=== PATIENT | female | born 1940 | race Caucasian/White ===

== ENCOUNTER 2016-10-23 12:36 | Outpatient (CLI) | payer MEDICARE, BC ==
[2016-10-23 17:53] LABS: EOSINOPHILS # (AUTO) 0.2 10^3/uL (0.0-0.7); EOSINOPHILS % (AUTO) 3.6 %; HCT - HEMATOCRIT 35.1 % (37.0-47.0); HGB - HEMOGLOBIN 11.6 g/dL (12.0-16.0); LYMPHOCYTES # (AUTO) 1.2 10^3/uL (1.5-3.5); LYMPHOCYTES % (AUTO) 26.6 %; MEAN CORPUSCULAR HEMOGLOBIN 32.2 pg (27.0-31.0); MEAN CORPUSCULAR HGB CONC 33.1 g/dL (32.0-36.0); MEAN CORPUSCULAR VOLUME 97.4 fL (81.0-99.0); MEAN PLATELET VOLUME 7.7 fL (7.9-10.8); MONOCYTES # (AUTO) 0.5 10^3/uL (0.0-1.0); MONOCYTES % (AUTO) 10.7 %; NEUTROPHILS # (AUTO) 2.6 10^3/uL (1.5-6.6); NEUTROPHILS % (AUTO) 58.1 %; RED CELL DISTRIBUTION WIDTH 16.5 % (12.0-15.0); UNCORRECTED WHITE BLOOD COUNT 4.6 x10^3/uL; WHITE BLOOD COUNT 4.6 x10^3/uL (4.8-10.8)
== END 2016-10-23 12:37 | disposition home or self-care (01) ==
LOC: LAB.F 12:36
PROVIDERS: ATTEND Physician Assistant Medical
DX: D64.9 Anemia, unspecified (principal)
CPT/HCPCS: 36415; 85025

== ENCOUNTER 2016-10-28 14:25 | Outpatient (CLI) | payer MEDICARE, BC ==
[2016-10-28 18:42] LABS: FERRITIN 70.9 ng/mL (11.0-306.8)
[2016-10-28 18:43] LABS: IRON 119 ug/dL (28-170); TOTAL IRON BINDING CAPACITY 365 ug/dL (250-450); TRANSFERRIN 261 mg/dL (192-382)
[2016-10-28 19:43] LABS: FOLATE > 49.60 ng/mL (5.90 - >24.8)
== END 2016-10-28 14:26 | disposition home or self-care (01) ==
LOC: LAB.F 14:25
PROVIDERS: ATTEND Physician Assistant Medical
DX: D64.9 Anemia, unspecified (principal)
CPT/HCPCS: 36415; 82607; 82728; 82746; 83540; 84466

== ENCOUNTER 2016-12-17 07:51 | Day surgery (SDC) | payer MEDICARE, BC ==
[2016-12-17] MEDS ORDERED: LACTATED RINGERS 1,000 ML IV ONE (08:42)
[2016-12-17] MEDS ORDERED: LIDOCAINE-MPF 2% 5 ML VIAL IM ONE (09:15)
[2016-12-17] MEDS ORDERED: PROPOFOL 200 MG/20 ML VIAL IVP ONE (09:15)
[2016-12-17] MEDS ORDERED: fentaNYL 100 MCG/2 ML VIAL IVP ONE (09:15)
[2016-12-17] MEDS ORDERED: MIDAZOLAM 2 MG/2 ML VIAL IVP ONE (09:15)
[2016-12-17 09:49] VITALS: BP 142/76
== END 2016-12-17 07:52 | disposition home or self-care (01) ==
LOC: SDS 07:51
PROVIDERS: ATTEND Surgery
PROC: 0DB78ZX Excision of Stomach, Pylorus, Via Natural or Artificial Opening Endoscopic, Diagnostic (ICD-10-PCS; principal; 2016-12-17 09:00)
DX: D64.9 Anemia, unspecified (principal); K29.50 Unspecified chronic gastritis without bleeding; K21.9 Gastro-esophageal reflux disease without esophagitis; Z79.82 Long term (current) use of aspirin; E78.5 Hyperlipidemia, unspecified; I10 Essential (primary) hypertension; F41.0 Panic disorder [episodic paroxysmal anxiety]; F32.9 Major depressive disorder, single episode, unspecified; Z90.49 Acquired absence of other specified parts of digestive tract; Z90.710 Acquired absence of both cervix and uterus; Z92.21 Personal history of antineoplastic chemotherapy; Z92.3 Personal history of irradiation; Z85.41 Personal history of malignant neoplasm of cervix uteri; Z82.49 Family history of ischemic heart disease and other diseases of the circulatory system
CPT/HCPCS: 43239; J7120

== ENCOUNTER 2017-01-15 12:58 | Outpatient (CLI) | payer MEDICARE, BC ==
[2017-01-15 18:46] LABS: BASOPHILS % (AUTO) 0.8 %; EOSINOPHILS # (AUTO) 0.2 10^3/uL (0.0-0.7); EOSINOPHILS % (AUTO) 3.4 %; HCT - HEMATOCRIT 36.7 % (37.0-47.0); HGB - HEMOGLOBIN 12.3 g/dL (12.0-16.0); LYMPHOCYTES # (AUTO) 1.3 10^3/uL (1.5-3.5); LYMPHOCYTES % (AUTO) 28.1 %; MEAN CORPUSCULAR HEMOGLOBIN 32.1 pg (27.0-31.0); MEAN CORPUSCULAR HGB CONC 33.5 g/dL (32.0-36.0); MEAN CORPUSCULAR VOLUME 95.8 fL (81.0-99.0); MEAN PLATELET VOLUME 8.3 fL (7.9-10.8); MONOCYTES # (AUTO) 0.5 10^3/uL (0.0-1.0); MONOCYTES % (AUTO) 10.4 %; NEUTROPHILS # (AUTO) 2.6 10^3/uL (1.5-6.6); NEUTROPHILS % (AUTO) 57.3 %; RED BLOOD COUNT 3.84 10^6/uL (4.20-5.40); RED CELL DISTRIBUTION WIDTH 14.6 % (12.0-15.0); UNCORRECTED WHITE BLOOD COUNT 4.6 x10^3/uL; WHITE BLOOD COUNT 4.6 x10^3/uL (4.8-10.8)
[2017-01-15 18:50] LABS: ALBUMIN/GLOBULIN RATIO 0.9 (1.0-2.2); BILIRUBIN,TOTAL 0.9 mg/dL (0.2-1.0); BUN - BLOOD UREA NITROGEN 23 mg/dL (6-20); CALCIUM 9.4 mg/dL (8.5-10.3); CARBON DIOXIDE - CO2 30 mmol/L (21-32); CHLORIDE 100 mmol/L (101-111); GFR - MDRD 54 (>89); GLUCOSE 84 mg/dL (70-100); POTASSIUM 3.9 mmol/L (3.5-5.0); SODIUM 138 mmol/L (135-145); TOTAL PROTEIN 7.8 g/dL (6.7-8.2)
[2017-01-15 19:25] LABS: THYROID STIMULATING HORMONE 0.09 uIU/mL (0.34-5.60)
== END 2017-01-15 12:59 | disposition home or self-care (01) ==
LOC: LAB.F 12:58
PROVIDERS: ATTEND Physician Assistant Medical
DX: R53.83 Other fatigue (principal); D64.9 Anemia, unspecified; I10 Essential (primary) hypertension; R35.0 Frequency of micturition
CPT/HCPCS: 36415; 80053; 84439; 84443; 85025; 87086

== ENCOUNTER 2017-01-19 13:41 | Outpatient (CLI) | payer MEDICARE, BC | END 2017-01-19 13:42 | disposition home or self-care (01) | LOC: LAB.F 13:41 | PROVIDERS: ATTEND Physician Assistant Medical | DX: R89.9 Unspecified abnormal finding in specimens from other organs, systems and tissues (principal); R53.83 Other fatigue; I89.0 Lymphedema, not elsewhere classified; E03.9 Hypothyroidism, unspecified | CPT/HCPCS: 36415; 84146 ==

== ENCOUNTER 2017-01-28 12:39 | Outpatient (CLI) | payer MEDICARE, BC ==
[2017-01-28 17:50] LABS: BASOPHILS % (AUTO) 0.9 %; EOSINOPHILS # (AUTO) 0.1 10^3/uL (0.0-0.7); EOSINOPHILS % (AUTO) 2.9 %; HCT - HEMATOCRIT 35.3 % (37.0-47.0); HGB - HEMOGLOBIN 11.6 g/dL (12.0-16.0); LYMPHOCYTES # (AUTO) 1.3 10^3/uL (1.5-3.5); LYMPHOCYTES % (AUTO) 32.7 %; MEAN CORPUSCULAR HEMOGLOBIN 31.4 pg (27.0-31.0); MEAN CORPUSCULAR HGB CONC 32.9 g/dL (32.0-36.0); MEAN CORPUSCULAR VOLUME 95.6 fL (81.0-99.0); MEAN PLATELET VOLUME 8.1 fL (7.9-10.8); MONOCYTES # (AUTO) 0.5 10^3/uL (0.0-1.0); MONOCYTES % (AUTO) 11.1 %; NEUTROPHILS # (AUTO) 2.1 10^3/uL (1.5-6.6); NEUTROPHILS % (AUTO) 52.4 %; RED CELL DISTRIBUTION WIDTH 14.9 % (12.0-15.0); UNCORRECTED WHITE BLOOD COUNT 4.1 x10^3/uL; WHITE BLOOD COUNT 4.1 x10^3/uL (4.8-10.8)
[2017-01-28 18:27] LABS: THYROID STIMULATING HORMONE < 0.08 uIU/mL (0.34-5.60)
== END 2017-01-28 12:40 | disposition home or self-care (01) ==
LOC: LAB.F 12:39
PROVIDERS: ATTEND Physician Assistant Medical
DX: E03.9 Hypothyroidism, unspecified (principal); R89.9 Unspecified abnormal finding in specimens from other organs, systems and tissues; R53.83 Other fatigue
CPT/HCPCS: 84439; 84443; 84481; 85025

== ENCOUNTER 2017-12-14 15:21 | Outpatient (CLI) | payer MEDICARE, BC | END 2017-12-14 15:22 | disposition home or self-care (01) | LOC: LAB.F 15:21 | PROVIDERS: ATTEND Internal Medicine | DX: E03.9 Hypothyroidism, unspecified (principal) | CPT/HCPCS: 36415; 84443 ==

== ENCOUNTER 2018-01-20 10:37 | Outpatient (CLI) | payer MEDICARE, BC ==
[2018-01-20 11:00] LABS: BASOPHILS % (AUTO) 0.7 %; EOSINOPHILS # (AUTO) 0.1 10^3/uL (0.0-0.7); EOSINOPHILS % (AUTO) 2.8 %; HGB - HEMOGLOBIN 11.9 g/dL (12.0-16.0); LYMPHOCYTES # (AUTO) 0.8 10^3/uL (1.5-3.5); LYMPHOCYTES % (AUTO) 17.4 %; MEAN CORPUSCULAR HEMOGLOBIN 32.7 pg (27.0-31.0); MEAN CORPUSCULAR VOLUME 96.2 fL (81.0-99.0); MEAN PLATELET VOLUME 7.2 fL (7.9-10.8); MONOCYTES # (AUTO) 0.5 10^3/uL (0.0-1.0); MONOCYTES % (AUTO) 9.9 %; NEUTROPHILS # (AUTO) 3.2 10^3/uL (1.5-6.6); NEUTROPHILS % (AUTO) 69.2 %; PLT - PLATELET COUNT 176 10^3/uL (130-450); RED BLOOD COUNT 3.63 10^6/uL (4.20-5.40); RED CELL DISTRIBUTION WIDTH 15.2 % (12.0-15.0); WHITE BLOOD COUNT 4.6 x10^3/uL (4.8-10.8)
[2018-01-20 11:33] LABS: ALBUMIN 3.8 g/dL (3.2-5.5); ALKALINE PHOSPHATASE 65 IU/L (42-121); ALT ALANINE AMINOTRANSFERASE 17 IU/L (10-60); AST ASPARTATE AMINOTRANSFERASE 25 IU/L (10-42); BILIRUBIN,TOTAL 1.1 mg/dL (0.2-1.0); BUN - BLOOD UREA NITROGEN 19 mg/dL (6-20); CALCIUM 9.2 mg/dL (8.5-10.3); CARBON DIOXIDE - CO2 29 mmol/L (21-32); CHLORIDE 100 mmol/L (101-111); CHOL/HDL RATIO 3.5 (<4.4); CHOLESTEROL 197 mg/dL; CREATININE 0.9 mg/dL (0.4-1.0); GFR - MDRD 61 (>89); GLUCOSE 98 mg/dL (70-100); HDL CHOLESTEROL 57 mg/dL; LDL CHOLESTEROL,CALCULATED 122 mg/dL; LDL/HDL RATIO 2.1 (<4.4); SODIUM 139 mmol/L (135-145); TOTAL PROTEIN 7.5 g/dL (6.7-8.2); VLDL CHOLESTEROL 18 mg/dL
== END 2018-01-20 10:38 | disposition home or self-care (01) ==
LOC: LAB 10:37
PROVIDERS: ATTEND Registered Nurse
DX: I10 Essential (primary) hypertension (principal); E78.2 Mixed hyperlipidemia; D63.0 Anemia in neoplastic disease
CPT/HCPCS: 36415; 80053; 80061; 83721; 85025

== ENCOUNTER 2019-02-03 10:33 | Outpatient (CLI) | payer MEDICARE, BC ==
[2019-02-03 11:06] LABS: EOSINOPHILS # (AUTO) 0.1 10^3/uL (0.0-0.7); EOSINOPHILS % (AUTO) 2.9 %; HGB - HEMOGLOBIN 13.5 g/dL (12.0-16.0); LYMPHOCYTES # (AUTO) 1.2 10^3/uL (1.5-3.5); LYMPHOCYTES % (AUTO) 28.5 %; MEAN CORPUSCULAR HEMOGLOBIN 32.6 pg (27.0-31.0); MEAN CORPUSCULAR HGB CONC 31.8 g/dL (32.0-36.0); MEAN CORPUSCULAR VOLUME 102.4 fL (81.0-99.0); MEAN PLATELET VOLUME 9.4 fL (7.9-10.8); MONOCYTES # (AUTO) 0.4 10^3/uL (0.0-1.0); MONOCYTES % (AUTO) 9.7 %; NEUTROPHILS # (AUTO) 2.4 10^3/uL (1.5-6.6); NEUTROPHILS % (AUTO) 57.7 %; PLT - PLATELET COUNT 194 10^3/uL (130-450); RED BLOOD COUNT 4.14 10^6/uL (4.20-5.40); RED CELL DISTRIBUTION WIDTH 14.5 % (12.0-15.0); WHITE BLOOD COUNT 4.1 x10^3/uL (4.8-10.8)
[2019-02-03 11:24] LABS: ALBUMIN 3.8 g/dL (3.2-5.5); ALKALINE PHOSPHATASE 80 IU/L (42-121); ALT ALANINE AMINOTRANSFERASE 15 IU/L (10-60); AST ASPARTATE AMINOTRANSFERASE 23 IU/L (10-42); BILIRUBIN,TOTAL 1.5 mg/dL (0.2-1.0); BUN - BLOOD UREA NITROGEN 21 mg/dL (6-20); CALCIUM 9.3 mg/dL (8.5-10.3); CARBON DIOXIDE - CO2 28 mmol/L (21-32); CHLORIDE 102 mmol/L (101-111); CHOL/HDL RATIO 2.7 (<4.4); CHOLESTEROL 179 mg/dL; CREATININE 0.7 mg/dL (0.4-1.0); GFR - MDRD 81 (>89); GLUCOSE 97 mg/dL (70-100); HDL CHOLESTEROL 67 mg/dL; LDL CHOLESTEROL,CALCULATED 101 mg/dL; LDL/HDL RATIO 1.5 (<4.4); SODIUM 140 mmol/L (135-145); TOTAL PROTEIN 7.6 g/dL (6.7-8.2); VLDL CHOLESTEROL 11 mg/dL
[2019-02-03 11:38] LABS: THYROID STIMULATING HORMONE 3.06 uIU/mL (0.34-5.60)
[2019-02-03 11:40] LABS: FREE T4 (FREE THYROXINE) 1.11 ng/dL (0.58-1.64)
== END 2019-02-03 10:34 | disposition home or self-care (01) ==
LOC: LAB 10:33
PROVIDERS: ATTEND Physician Assistant Medical
DX: I10 Essential (primary) hypertension (principal); E78.5 Hyperlipidemia, unspecified; E03.9 Hypothyroidism, unspecified
CPT/HCPCS: 36415; 80053; 80061; 83721; 84439; 84443; 84481; 85025

== ENCOUNTER 2019-09-22 12:46 | Emergency (ER) | payer MEDICARE, BC ==
[2019-09-22] MEDS ORDERED: ceFAZolin 1 GM VIAL IM STA (15:37)
--- NOTE | 2019-09-22 15:39 | ED Physician Documentation ---
PD HPI LOWER EXT INJURY - Stated complaint Stated Complaint: BILAT LEG PX/REDNESS - Chief complaint Chief Complaint: Ext Problem - History obtained from History obtained from: Patient (79-year-old woman history of cancer status post lymph node dissection presents with a worsening of her edema over the last couple of days which is a chronic issue and now some redness over the last couple of nights. She has no increase in chills or fever. Pain is tolerable.), Family () Review of Systems Ten Systems: 10 systems reviewed and negative Constitutional: denies: Fever, Chills Cardiac: denies: Chest pain / pressure, Palpitations Respiratory: denies: Dyspnea, Cough PD PAST MEDICAL HISTORY - Past Medical History Past Medical History: Yes Cardiovascular: High cholesterol Respiratory: Sleep apnea, CPAP use Endocrine/Autoimmune: None GI: GERD : Incontinence HEENT: Chronic vision loss Psych: Depression Musculoskeletal: Osteoarthritis, Chronic back pain Derm: None - Past Surgical History Past Surgical History: Yes General: Cholecystectomy, Appendectomy Ortho: Spine surgery /[employer]: Hysterectomy - Present Medications Home Medications: Ambulatory Orders Medication Instructions Recorded Confirmed Atorvastatin Calcium 20 mg PO DAILY 12/01/13 12/17/16 Cholecalciferol (Vitamin D3) 2,000 unit PO BID 12/01/13 12/17/16 [D-2000] Levothyroxine [Synthroid] 150 mcg PO QDAC 12/01/13 12/17/16 Multivitamin [Multi-Vitamin Daily] 1 tab PO DAILY 12/01/13 12/17/16 [place]-3/Dha/Epa/Fish Oil [Fish Oil 1 each PO BID 12/01/13 12/17/16 [place]-3 Softgel] Sertraline [Zoloft] 100 mg PO DAILY 12/01/13 12/17/16 Benazepril HCl 20 mg PO DAILY 12/08/15 12/17/16 Cyclobenzaprine [Flexeril] 10 mg PO Q6H PRN 12/08/15 12/17/16 Hydrocodone/Acetaminophen 5 - 325 mg PO Q8H PRN 12/08/15 12/17/16 [Hydrocodone-Acetamin 7.5-325] Ubidecarenone [Co Q-10] 200 mg PO DAILY 12/08/15 12/17/16 Acetaminophen [Tylenol] 650 mg PO Q8H PRN 10/21/16 12/17/16 Aspirin [Adult Low Dose Aspirin EC] 81 mg PO DAILY 10/21/16 12/16/16 Ferrous Sulfate 325 mg PO BID 10/21/16 12/17/16 Furosemide 40 mg PO BID 10/21/16 12/17/16 Gabapentin [Neurontin] 200 mg PO BID 10/21/16 12/17/16 Lactobac No.21/Bifidobact No.6 2 cap PO DAILY 10/21/16 12/17/16 [Up-Up Probiotic Supplement] Potassium Chloride [K-Dur] 20 meq PO BID 10/21/16 12/17/16 Vitamin B Complex 1 tab PO DAILY 10/21/16 12/17/16 Cephalexin [Keflex] 500 mg PO Q6H #40 capsule 09/22/19 - Allergies Allergies/Adverse Reactions: Allergies Allergy/AdvReac Type Severity Reaction Status Date / Time ampicillin AdvReac Rash Verified 09/22/19 12:56 - Social History Does the pt smoke?: No Smoking Status: Never smoker Does the pt drink ETOH?: No - Immunizations Immunizations are current?: Yes PD ED PE NORMAL - Vitals Vital signs reviewed: Yes - General General: Alert and oriented X 3, No acute distress - HEENT HEENT: PERRL, EOMI - Neck Neck: Supple, no meningeal sign, No bony TTP - Cardiac Cardiac: RRR, No murmur - Respiratory Respiratory: No respiratory distress, Clear bilaterally - Abdomen Abdomen: Non tender - Derm Derm: Normal color, Warm and dry - Extremities Extremities: Other (She has lymphedema of both legs with mild cellulitis of both anterior shins, left worse than right. There are couple small weeping areas on the left moran.) - Neuro Neuro: Alert and oriented X 3, Normal speech Results - Vitals Vitals: Vital Signs - 24 hr 09/22/19 09/22/19 09/22/19 12:56 14:51 15:33 Temperature 36.6 C Heart Rate 82 67 65 Respiratory 16 17 17 Rate Blood Pressure 143/64 H 134/67 H 160/62 H O2 Saturation 93 96 98 09/22/19 16:57 Temperature Heart Rate 59 L Respiratory 20 Rate Blood Pressure 160/76 H O2 Saturation 98 Oxygen O2 Source Room air - Labs Labs: Laboratory Tests 09/22/19 09/22/19 09/22/19 15:49 15:49 15:49 WBC 6.3 RBC 4.37 Hgb 14.3 Hct 45.0 MCV 103.0 H MCH 32.7 H MCHC 31.8 L RDW 14.7 Plt Count 276 MPV 9.6 Neut # (Auto) 3.9 Lymph # (Auto) 1.4 L [place] # (Auto) 0.5 Eos # (Auto) 0.2 Baso # (Auto) 0.0 Absolute Nucleated RBC 0.00 Nucleated RBC % 0.0 Sodium 138 Potassium 4.8 Chloride 101 Carbon Dioxide 27 Anion Gap 10.0 BUN 28 H Creatinine 1.1 H Estimated GFR (MDRD) 48 L Glucose 105 H Lactic Acid 0.8 Calcium 9.4 Total Bilirubin 1.2 H AST 20 ALT 18 Alkaline Phosphatase 66 Total Protein 7.8 Albumin 3.4 Globulin 4.4 H Albumin/Globulin Ratio 0.8 L Lipase 41 PD MEDICAL DECISION MAKING - ED course ED course: 79-year-old woman with chronic lymphedema presents with apparent cellulitis of both legs that looks mild. No systemic symptoms. DVT ultrasound somewhat limited but no obvious sign of DVT and clinically the answer is cellulitis. Received 2 g of Ancef IM here. Departure - Departure Disposition: Home, Self Care Clinical Impression: Bilateral cellulitis of lower leg Condition: Good Record reviewed to determine appropriate education?: Yes Instructions: Cellulitis Dc Prescriptions: Cephalexin [Keflex] 500 mg PO Q6H #40 capsule Comments: Return if you develop fevers, chills, other worrisome symptoms or if the redness gets much worse. Follow-up with your doctor on Wednesday for recheck. Elevate your legs as much as possible. Continue your current lymphedema care.
[2019-09-22 15:59] LABS: BASOPHILS % (AUTO) 0.3 %; EOSINOPHILS # (AUTO) 0.2 10^3/uL (0.0-0.7); EOSINOPHILS % (AUTO) 3.4 %; HGB - HEMOGLOBIN 14.3 g/dL (12.0-16.0); LYMPHOCYTES # (AUTO) 1.4 10^3/uL (1.5-3.5); MEAN CORPUSCULAR HEMOGLOBIN 32.7 pg (27.0-31.0); MEAN CORPUSCULAR HGB CONC 31.8 g/dL (32.0-36.0); MEAN PLATELET VOLUME 9.6 fL (7.9-10.8); MONOCYTES # (AUTO) 0.5 10^3/uL (0.0-1.0); NEUTROPHILS # (AUTO) 3.9 10^3/uL (1.5-6.6); NEUTROPHILS % (AUTO) 62.6 %; PLT - PLATELET COUNT 276 10^3/uL (130-450); RED BLOOD COUNT 4.37 10^6/uL (4.20-5.40); RED CELL DISTRIBUTION WIDTH 14.7 % (12.0-15.0); WHITE BLOOD COUNT 6.3 x10^3/uL (4.8-10.8)
[2019-09-22 16:11] LABS: ALBUMIN 3.4 g/dL (3.2-5.5); ALBUMIN/GLOBULIN RATIO 0.8 (1.0-2.2); BILIRUBIN,TOTAL 1.2 mg/dL (0.2-1.0); CALCIUM 9.4 mg/dL (8.5-10.3); CREATININE 1.1 mg/dL (0.4-1.0); TOTAL PROTEIN 7.8 g/dL (6.7-8.2)
--- NOTE | 2019-09-22 18:20 | Ultrasound Report ---
Reason: BLE swelling Procedure Date: 09/22/2019 Accession Number: [id number] / [id number] Procedure: US - Duplex Ext Veins Bilateral CPT Code: Final Report FULL RESULT: EXAM: BILATERAL LOWER EXTREMITY VENOUS ULTRASOUND EXAM DATE: 09/22/2019 05:18 PM. CLINICAL HISTORY: Bilateral lower extremity swelling. COMPARISON: None. TECHNIQUE: Real-time sonographic vascular imaging was performed by the graduate internship through the lower extremities utilizing both color-flow and Doppler spectral analysis. Multiple traffic representative static images were saved for review. FINDINGS: Exam is markedly limited due to large body habitus and lower extremity swelling. The common femoral through proximal superficial femoral veins are patent. The visualized segments of the mid through distal superficial femoral veins appear to be patent. The popliteal and deep calf veins, however, are not visualized. IMPRESSION: Markedly limited exam as above. No evidence of deep venous thrombosis above the knee; however, exam is nondiagnostic below this level. RADIA
[2019-09-22 18:28] VITALS: BP 185/82
== END 2019-09-22 18:39 | disposition home or self-care (01) ==
LOC: ED 12:46
DX: L03.116 Cellulitis of left lower limb (principal); L03.115 Cellulitis of right lower limb; Z79.82 Long term (current) use of aspirin
CPT/HCPCS: 36415; 80053; 83605; 83690; 85025; 87040; 93970; 96372; 99284

== ENCOUNTER 2019-12-01 12:37 | Outpatient (CLI) | payer MEDICARE, OTHER ==
[2019-12-01 14:04] VITALS: BP 152/90
--- NOTE | 2019-12-01 14:04 | SLEEP CARE CONSULTATION ---
Information from patient questionnaire entered by Amparo Nunn. I have reviewed and concur with the information entered by Amparo Nunn. This document represents the service I personally performed and the decisions made by me, Kenzie Batista ARNP. 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 denies: Snoring Toss, Turn, or Twitch while sleeping: No Recalls having dreams: Yes Usually gets out of bed at: 10 AM usually Feels refreshed in the morning: No Morning headache: Yes (3-4 times a week, takes something right away, leaves in an hour) Sleepy or fatigued during the day: Yes Ever fallen asleep while driving: Yes (Doesn't drive anymore) Takes day naps: Yes Dreams during day naps: No Prior sleep studies: Yes Year and Where: 2001 - 2003 Additional HPI information: She was originally diagnosed in 2001 and used her CPAP "religiously". She has not been using the CPAP for the last 2 years. She has to sleep in her recliner and it gets very cold in her house (she is unable to get up to start a fire) and the CPAP air made her very cold so she subsequently stopped using it. She is now using oxygen, 2 L just when sleeping. She was recently admitted to the hospital and they noted desaturations of her oxygen during sleep. Her PCP recommended she get back on CPAP and has sent her here for reevaluation. She states that when she was on CPAP she did have she did not have choking/gasping for air, morning headaches, daytime sleepiness, insomnia, frequent awakening at night were reduced, and she no longer had pauses in breathing at night. - Parasomnia Symptoms Ever been unable to move upon waking from sleep: No Walks in sleep: No Talks in sleep: Yes Ever acted out dreams in sleep: Yes (sometimes) Ever felt weak in the knees when startled or emotional: No Bothered by creepy, crawly, restless sensations in legs: Yes (couple times a night, crawling sensation) Problems with memory or concentration: Yes (chemo brain) Subjective Initial [place] Sleepiness Scale score: 19 (in 2020) Past Medical History Past Medical History: reports: Hypertension, Claustrophobia, Arthritis, Hypothyroidism (thyroid removed 2007), Anemia, Anxiety, Depression, GERD, Other (lymphedema, thyroid, cellulitis, elevated glucose, hx endometrial cancer 2011, hx degenerative disc disease). 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 Patient is and lives in [place]. Have you smoked in the past 12 months: No Alcohol use: No Caffeine use: No Caffeine amount and frequency: decaf tea/occasional coffee Family History Family history of sleep disordered breathing: No Allergies and Home Medications Drug allergies reviewed: Yes (ampicillin) Home medication list reviewed: Yes (see list) Review of Systems Weight gain over past 5 years: 60 Cardiovascular: reports: high blood pressure, leg or foot swelling (lymphoma), other (sleeps sitting up due to back pain/hardware in back). denies: palpitations, chest pain, irregular heart rate or pulse, have to sleep sitting up Respiratory: reports: shortness of breath, wheeze Gastrointestinal: reports: heartburn, difficulty swallowing (thinks it might be due to taking too big bites and eating fast; PCP recommended omeprazole, not taking), diarrhea, abdominal pain Urinary: reports: incontinence, frequency, urgency Neurological: reports: headaches, disorientation, gait or balance problems. denies: seizure, head trauma Psychiatric: reports: anxiety, depression, claustrophobia. denies: Attention Deficit Hyperactivity, mood disorder Ear/Nose/Throat: reports: nose bleeds (couple times a year), dry mouth/throat (just recently problem throughout the day). denies: nasal congestion, sinus problems, hoarseness, injury to nose, tonsillectomy, wisdom teeth removed Endocrine: reports: thyroid disease, sluggishness, too hot or cold, excessive thirst, increased urination Musculoskeletal: reports: joint pain, neck pain, back pain, mobility problems Immunologic: reports: other (lymphedema since 2011) Physical Exam Blood Pressure: 152/90 Cuff size: large Heart Rate: 64 O2 Saturation: 97 Height: 5 ft 3 in Weight: 282 lb 9.6 oz Body Mass Index: 50.1 BMI Classification: Morbidly Obese Neck circumference: 16.5 (inches) Nasal exam: positive: blood tinged nasal secretions HEENT: No craniofacial malformation Nostrils: patent to airflow Turbinates: normal Septum: midline Mouth and throat: normal Soft palate: normal Hard palate: normal Uvula: normal Uvula visualization: 100% Mallampati Class I Tongue: normal in size Tonsils: small Chin and jaw: normal size and position Neck: normal w/o lymphadenopathy or thyromegaly Heart: regular rate and rhythm Lungs: clear bilaterally Impression and Plan 1. Obstructive Sleep Apnea-Hypopnea Syndrome, as previously diagnosed. Previously observed cessation of breath while asleep, gasping or choking in sleep, morning headache, frequent awakening during the night, unrefreshed sleep, cognitive impairment, and excessive daytime sleepiness. Patient was unsure she would be able to do an in house study because she sleeps in her recliner at home due to chronic back pain issues. She opted to try to do a HST. She has been diagnosed with JOSE RAFAEL previously with use of CPAP and this should be acceptable to re-verify her JOSE RAFAEL and get her back to treatment if needed. She continues use of 2 L oxygen at night for low oxygen saturations at night noted during recent hospital stay. I recommend proceeding to polysomnography to confirm the diagnosis and to assess severity. I informed the patient of what the sleep studies involve and after some discussion, obtained agreement to proceed. The pathophysiology of obstructive sleep apnea-hypopnea syndrome was discussed with the patient and he alth risks of cardiovascular and cerebrovascular disease if not treated. AASM brochure for obstructive sleep apnea-hypopnea syndrome given and reviewed. 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 Patient states she does not drive. Patient agreed to plan. * Schedule HST polysomnography. * Avoid alcohol, sedative and muscle relaxant around bedtime. * Attempt to lose weight. * Review instructions provided by trained office staff on how to prepare for the sleep study. * Return for follow-up after sleep study completed. Visit Type: In Office Time Spent with Patient (minutes): 38 Provider Statement: I spent 100% of the Face to Face Visit with the patient with greater than 50% spent counseling the patient and coordination of care.
== END 2019-12-01 12:38 | disposition home or self-care (01) ==
LOC: SC 12:37
PROVIDERS: ATTEND Nurse Practitioner Family
DX: G47.33 Obstructive sleep apnea (adult) (pediatric) (principal); G47.00 Insomnia, unspecified; G47.9 Sleep disorder, unspecified; G47.10 Hypersomnia, unspecified; R06.89 Other abnormalities of breathing; I10 Essential (primary) hypertension; F40.240 Claustrophobia; E66.01 Morbid (severe) obesity due to excess calories; Z68.43 Body mass index [BMI] 50.0-59.9, adult; Z98.1 Arthrodesis status
CPT/HCPCS: 99204; G0463; 99212

== ENCOUNTER 2019-12-18 19:30 | Outpatient (CLI) | payer MEDICARE, OTHER | END 2019-12-18 23:59 | disposition home or self-care (01) | LOC: SC 19:30 | PROVIDERS: ATTEND Internal Medicine Pulmonary Disease | DX: G47.33 Obstructive sleep apnea (adult) (pediatric) (principal); E66.01 Morbid (severe) obesity due to excess calories; Z68.43 Body mass index [BMI] 50.0-59.9, adult | CPT/HCPCS: G0399 ×2; 95806 ==

== ENCOUNTER 2020-01-03 16:18 | Outpatient (CLI) | payer MEDICARE, OTHER ==
--- NOTE | 2020-01-03 16:49 | SLEEP CARE CONSULTATION ---
Information from patient questionnaire entered by Kermit Mcadams. I have reviewed and concur with the information entered by Kermit Mcadams. This document represents the service I personally performed and the decisions made by me, Kenzie Batitsa ARNP. History of Present Illness Service Date and Time: 01/03/20201617 Initial [place] Sleepiness Scale score: 19 (in 2020) Current [place] Sleepiness Scale score: 22 Additional HPI information: ASH MAGALLON returns with spouse for follow up and results of the recently performed home sleep study. I explained the pathophysiology behind obstructive sleep apnea. We then spent quite a bit of time discussing different treatment options. For mild obstructive sleep apnea, surgery and oral appliance are alternatives to nasal CPAP therapy but in moderate or severe cases, nasal CPAP is the most effective and reliable treatment. After some discussion, the patient opted to go with the nasal CPAP therapy. Nasal autoCPAP set at 4-15 cmH20 will be ordered with rationale explained. A manual titration study will be ordered if unable to find optimal pressure with office adjustments. I explained how CPAP machine works with sample devices [email or web address] and [employer] [id number] and what to expect when using the machine. Using CPAP every night in order to get used to it was emphasized. Patient advised to put CPAP mask on before getting into bed so as not to fall asleep without CPAP. To assist acclimation to CPAP use, it could also be used for a short time during day while reading or watching TV. The patient was instructed to call the CPAP supplier to discuss any mechanical problem that may occur. If the mask given is uncomfortable or is difficult to keep on through the night even with adjustment, contact the CPAP supplier as many will replace with another mask style if notified before 30 days. If snoring or perceives is not getting enough air or too much air from the machine, notify this office. AASM patient education PAP tips reviewed and given to patient. Sleep Study - Results Type of Sleep Study: Home sleep study Prior sleep studies: Yes Year and Where: 2001 - 2003 Polysomnography/Home Sleep Study results: SLEEP TIME AND EFFICIENCY: The sleep study recording began at 11:39:58 PM and ended at 08:06:04 AM. Total recording time was 506.1 minutes. The total sleep time was 427.0 minutes. The sleep efficiency was 84.4 percent. The patient spent 420.0 minutes supine, and spent 7.0 minutes non-supine. The patients own estimate of sleep time was 8.50 hours. RESPIRATORY DATA: The AHI in this report is indexed to sleep time based on actigraphy. The AASM defines this as APRIL. The AHI on this type 3 Home Sleep Study may understate the AHI determined on a type 1 or 2 study, since EEG is not monitored resulting in the inability to score non-desaturating hypopneas. Based on 4% Calculation: The AHI4% calculation of 16.4 per hour of recording time was based on a total of 92 scored apneas and 25 scored hypopneas with 4% desaturations. Supine AHI4%: 16.3 per hour. Non-supine AHI4%: 25.8 per hour. Oxygen Summary: Patient's baseline O2 saturation was 94.4 %. The patient spent 26.6 minutes at an oxygen saturation less than 90%, and 9.9 minutes less than 85%. The desaturation index was 10.1 events per hour sleep time. The lowest saturation was 76.5 %. SNORING: The percent of the study time spent snoring was 0.0 %. The Snoring Count was 6 . The Snoring Index was 0.8 . PULSE RATE REVIEW: The mean heart rate was 66 beats per minute. The rate ranged from a low of 39 to a high of 99 beats per minute. DIAGNOSIS CODE: Moderate obstructive sleep apnea G47.33, occurring independently of body position Moderate desaturations were noted. Allergies and Home Medications Drug allergies reviewed: Yes (ampicillin) Home medication list reviewed: Yes (no changes) Review of Systems Review of systems same as previous: Yes (no changes) Physical Exam Heart Rate: 67 O2 Saturation: 95 Height: 5 ft 3 in Weight: 276 lb Body Mass Index: 48.9 BMI Classification: Morbidly Obese Impression and Plan 1. Obstructive Sleep Apnea-Hypopnea Syndrome, moderate, with lowest oxygen saturation of 76.5%. Obviously this is the cause of the patients symptoms of unrefreshed sleep, and excessive daytime sleepiness. Positive pressure therapy could benefit her hypertension and overall health. Patient has used a CPAP machine in the past with some issues of dry mouth. She would like to move forwar d with re-starting on CPAP therapy. As mentioned above, the patient will be started on nasal autoCPAP therapy with pressure set at 4-15 cmH2O. A manual titration study will be completed if unable to find optimal treatment pressure with office adjustments. Compliance guidelines also reviewed. A copy of compliance guidelines will be given for reference at check out. Patient wears 2 Liter of oxygen at night when sleeping. She will need an adaptor to connect oxygen to her CPAP machine. * Nasal auto CPAP therapy, pressure at 4-15 cm H2O with oxygen adaptor. * Attempt to lose weight. * Avoid alcohol consumption near bedtime. * Avoid non-supine sleep until using CPAP. * The patient is again cautioned about driving until sleepiness completely resolves. * Return one month after CPAP obtained. I will assess response to therapy and compliance at that time. Visit Type: In Office Time Spent with Patient (minutes): 20 Provider Statement: I spent 100% of the Face to Face Visit with the patient with greater than 50% spent counseling the patient and coordination of care.
== END 2020-01-03 16:19 | disposition home or self-care (01) ==
LOC: SC 16:18
PROVIDERS: ATTEND Nurse Practitioner Family
DX: G47.33 Obstructive sleep apnea (adult) (pediatric) (principal); E66.01 Morbid (severe) obesity due to excess calories; Z68.42 Body mass index [BMI] 45.0-49.9, adult
CPT/HCPCS: 99213; G0463; 99212

== ENCOUNTER 2020-02-26 16:13 | Outpatient (CLI) | payer MEDICARE, OTHER ==
--- NOTE | 2020-02-26 17:10 | XRAY Report ---
PROCEDURE: Foot 3 View BILAT INDICATIONS: TOE JOINT PAINFUL ON MOVEMENT TECHNIQUE: 6 views of the foot were acquired. COMPARISON: None FINDINGS: Bones: Moderate left-sided hallux valgus is seen with suggestion of hammertoe deformities involving l eft second and third toes. There is also suggestion of mild hammertoe deformity involving right secon d toe. Osteoarthritic changes throughout bilateral feet are seen. No fractures or dislocations. No gr oss bony erosive changes. No suspicious bony lesions. Well-defined bilateral plantar calcaneal enthe sophytes are seen. Soft tissues: No tibiotalar joint effusion. Achilles tendon appears normal. IMPRESSION: 1. Forefoot and midfoot joint osteoarthritis. No fracture or dislocation. 2. Moderate left-sided hallux valgus with hammertoe deformities involving left second and third toes. Mild hammertoe deformity involving right second toe. 3. Bilateral plantar calcaneal enthesophytes. Reviewed by: Eric Fabian MD on 02/26/2020 4:09 PM [email or web address] Approved by: Eric Fabian MD on 02/26/2020 4:09 PM AKDT Station ID: [id number]
== END 2020-02-26 16:14 | disposition home or self-care (01) ==
LOC: DI.S 16:13
PROVIDERS: ATTEND Registered Nurse
DX: M19.072 Primary osteoarthritis, left ankle and foot (principal); M19.071 Primary osteoarthritis, right ankle and foot; M20.12 Hallux valgus (acquired), left foot; M20.42 Other hammer toe(s) (acquired), left foot; M20.41 Other hammer toe(s) (acquired), right foot; M77.32 Calcaneal spur, left foot; M77.31 Calcaneal spur, right foot; G60.9 Hereditary and idiopathic neuropathy, unspecified

== ENCOUNTER 2020-03-01 12:56 | Emergency (ER) | payer MEDICARE, OTHER ==
[2020-03-01 13:06] VITALS: BP 167/73
[2020-03-01] MEDS ORDERED: cephALEXin 250 MG CAPSULE PO STA (14:03)
--- NOTE | 2020-03-01 14:05 | ED Physician Documentation ---
History of Present Illness - Stated complaint Stated Complaint: BILAT LEG PX - Chief complaint Chief Complaint: Ext Problem - History obtained from History obtained from: Patient, Family - History of Present Illness Timing: How many days ago (2) Pain level max: 2 Pain level now: 1 - Additonal information Additional information: 79 year old female with B LE swelling and erythema. H/o lymphedema. Was recently on keflex x 1 week, states improved, now off for 1 week No fevers. No chills. Has been off antibiotics now for about a week and feels that the redness is coming back. Nothing makes it better or worse. 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 - Present Medications Home Medications: Ambulatory Orders Medication Instructions Recorded Confirmed Atorvastatin Calcium 20 mg PO DAILY 12/01/13 12/17/16 Cholecalciferol (Vitamin D3) 2,000 unit PO BID 12/01/13 12/17/16 [D2000] Levothyroxine [Synthroid] 150 mcg PO QDAC 12/01/13 12/17/16 Multivitamin [Multi-Vitamin Daily] 1 tab PO DAILY 12/01/13 12/17/16 [place]-3/Dha/Epa/Fish Oil [Fish Oil 1 each PO BID 12/01/13 12/17/16 [place]-3 Softgel] Sertraline [Zoloft] 100 mg PO DAILY 12/01/13 12/17/16 Benazepril HCl 20 mg PO DAILY 12/08/15 12/17/16 Cyclobenzaprine [Flexeril] 10 mg PO Q6H PRN 12/08/15 12/17/16 Hydrocodone/Acetaminophen 5 - 325 mg PO Q8H PRN 12/08/15 12/17/16 [Hydrocodone-Acetamin 7.5-325] Ubidecarenone [Co Q-10] 200 mg PO DAILY 12/08/15 12/17/16 Acetaminophen [Tylenol] 650 mg PO Q8H PRN 10/21/16 12/17/16 Aspirin [Adult Low Dose Aspirin EC] 81 mg PO DAILY 10/21/16 12/16/16 Ferrous Sulfate 325 mg PO BID 10/21/16 12/17/16 Furosemide 40 mg PO BID 10/21/16 12/17/16 Gabapentin [Neurontin] 200 mg PO BID 10/21/16 12/17/16 Lactobac No.21/Bifidobact No.6 2 cap PO DAILY 10/21/16 12/17/16 [Up-Up Probiotic Supplement] Potassium Chloride [K-Dur] 20 meq PO BID 10/21/16 12/17/16 Vitamin B Complex 1 tab PO DAILY 10/21/16 12/17/16 Cephalexin [Keflex] 500 mg PO Q6H #40 capsule 09/22/19 Cephalexin [Keflex] 500 mg PO Q6H #56 capsule 03/01/20 - Allergies Allergies/Adverse Reactions: Allergies Allergy/AdvReac Type Severity Reaction Status Date / Time ampicillin AdvReac Rash Verified 09/22/19 12:56 - Social History Does the pt smoke?: No Smoking Status: Never smoker Does the pt drink ETOH?: No - Immunizations Immunizations are current?: Yes PD ED PE NORMAL - Vitals Vital signs reviewed: Yes - General General: Alert and oriented X 3, No acute distress - HEENT HEENT: Moist mucous membranes - Neck Neck: Supple, no meningeal sign - Cardiac Cardiac: RRR - Respiratory Respiratory: No respiratory distress, Clear bilaterally - Abdomen Abdomen: Soft, Non tender, Non distended - Derm Derm: Warm and dry - Extremities Extremities: Other (Bilateral lower extremity lymphedema. Mild erythema to the distal aspect of the right anterior moran. No drainage. There is thickening of the skin on the bilateral lower extremities. This appears chronic. Neurovascularly intact) - Neuro Neuro: Alert and oriented X 3 Results - Vitals Vitals: Vital Signs - 24 hr 03/01/20 13:01 Temperature 36.7 C Heart Rate 75 Respiratory 18 Rate Blood Pressure 167/73 H O2 Saturation 95 Oxygen O2 Source Room air PD MEDICAL DECISION MAKING - ED course Complexity details: reviewed results, re-evaluated patient, considered differential, d/w patient, d/w family ED course: Patient with possible cellulitis versus venous stasis. No evidence of sepsis. Normal vital signs. No fever. She did improve on Keflex, will place her back on this. We will have her follow-up closely with her doctor. Patient is well- appearing, nontoxic. Afebrile. Patient counseled regarding signs and symptoms for which I believe and urgent re-evaluation would be necessary. Patient with good understanding of and agreement to plan and is comfortable going home at this time This document was made in part using voice recognition software. While efforts are made to proofread this document, sound alike and grammatical errors may occur. Departure - Departure Disposition: Home, Self Care Clinical Impression: Cellulitis Qualifiers: Site of cellulitis: extremity Site of cellulitis of extremity: lower extremity Laterality: unspecified laterality Qualified Code(s): L03.119 - Cellulitis of unspecified part of limb Condition: Good Instructions: ED Infec Skin Cellulitis Follow-Up: Davina Frost ARNP [Primary Care Provider] - Within 1 week Prescriptions: Cephalexin [Keflex] 500 mg PO Q6H #56 capsule Comments: We will extend your antibiotic course. Follow-up with your doctor next week for recheck. Return if you worsen including fevers, chills, pain. Take all antibiotics until gone
== END 2020-03-01 14:15 | disposition home or self-care (01) ==
LOC: ED 12:56
DX: L03.119 Cellulitis of unspecified part of limb (principal)
CPT/HCPCS: 99282; 99284; A9270

== ENCOUNTER 2020-03-31 15:32 | Inpatient (IN) | payer MEDICARE, OTHER ==
--- NOTE | 2020-03-31 16:19 | ED Physician Documentation ---
History of Present Illness - Stated complaint Stated Complaint: DISORIENTED/WEAKNESS - Chief complaint Chief Complaint: Neuro - History obtained from History obtained from: Patient, Family - History of Present Illness Timing: Today Pain level max: 0 Pain level now: 0 - Additonal information Additional information: 79-year-old female with a history of ovarian cancer, hypertension, hypothyroidism, chronic back pain. She has become increasingly weak over the past week. Today she was unable to walk by herself. She has had significant issues with left lower extremity cellulitis in the past. She states that this is caused sepsis in the past. She states that her current symptoms feel similar to that. states that when she begins to be septic, she starts to have issues with her memory and this is common for her. She had been on Keflex for cellulitis, but this was stopped last week. Patient is not having any focal neurological deficits. Patient also has chronic lymphedema to the bilateral lower extremities Review of Systems Ten Systems: 10 systems reviewed and negative Constitutional: reports: Fever (subjective last night), Chills Nose: denies: Rhinorrhea / runny nose, Congestion Throat: denies: Sore throat Cardiac: denies: Chest pain / pressure Respiratory: denies: Cough GI: denies: Vomiting, Diarrhea PD PAST MEDICAL HISTORY - Past Medical History Past Medical History: Yes Cardiovascular: High cholesterol Respiratory: Sleep apnea, CPAP use Endocrine/Autoimmune: None GI: GERD : Incontinence HEENT: Chronic vision loss Psych: Depression Musculoskeletal: Osteoarthritis, Chronic back pain Derm: None - Past Surgical History Past Surgical History: Yes General: Cholecystectomy, Appendectomy 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 - Present Medications Home Medications: Ambulatory Orders Medication Instructions Recorded Confirmed Atorvastatin Calcium 20 mg PO DAILY 12/01/13 12/17/16 Cholecalciferol (Vitamin D3) 2,000 unit PO BID 12/01/13 12/17/16 [D-1999] Levothyroxine [Synthroid] 150 mcg PO QDAC 12/01/13 12/17/16 Multivitamin [Multi-Vitamin Daily] 1 tab PO DAILY 12/01/13 12/17/16 [place]-3/Dha/Epa/Fish Oil [Fish Oil 1 each PO BID 12/01/13 12/17/16 [place]-3 Softgel] Sertraline [Zoloft] 100 mg PO DAILY 12/01/13 12/17/16 Benazepril HCl 20 mg PO DAILY 12/08/15 12/17/16 Cyclobenzaprine [Flexeril] 10 mg PO Q6H PRN 12/08/15 12/17/16 Hydrocodone/Acetaminophen 5 - 325 mg PO Q8H PRN 12/08/15 12/17/16 [Hydrocodone-Acetamin 7.5-325] Ubidecarenone [Co Q-10] 200 mg PO DAILY 12/08/15 12/17/16 Acetaminophen [Tylenol] 650 mg PO Q8H PRN 10/21/16 12/17/16 Aspirin [Adult Low Dose Aspirin EC] 81 mg PO DAILY 10/21/16 12/16/16 Ferrous Sulfate 325 mg PO BID 10/21/16 12/17/16 Furosemide 40 mg PO BID 10/21/16 12/17/16 Gabapentin [Neurontin] 200 mg PO BID 10/21/16 12/17/16 Lactobac No.21/Bifidobact No.6 2 cap PO DAILY 10/21/16 12/17/16 [Up-Up Probiotic Supplement] Potassium Chloride [K-Dur] 20 meq PO BID 10/21/16 12/17/16 Vitamin B Complex 1 tab PO DAILY 10/21/16 12/17/16 Cephalexin [Keflex] 500 mg PO Q6H #40 capsule 09/22/19 Cephalexin [Keflex] 500 mg PO Q6H #56 capsule 03/01/20 - Allergies Allergies/Adverse Reactions: Allergies Allergy/AdvReac Type Severity Reaction Status Date / Time ampicillin AdvReac Rash Verified 03/31/20 15:37 - Social History Does the pt smoke?: No Smoking Status: Never smoker Does the pt drink ETOH?: No Does the pt have substance abuse?: No - Immunizations Immunizations are current?: Yes PD ED PE NORMAL - Vitals Vital signs reviewed: Yes - General General: Alert and oriented X 3, No acute distress - HEENT HEENT: Moist mucous membranes - Neck Neck: Supple, no meningeal sign - Cardiac Cardiac: RRR, Strong equal pulses - Respiratory Respiratory: No respiratory distress, Clear bilaterally - Abdomen Abdomen: Soft, Non tender, Non distended - Derm Derm: Warm and dry - Extremities Extremities: Other (Bilateral lower extremity lymphedema, left leg greater than right. Significant erythema and warmth from the hip of the left leg down to the toes. Circumferential swelling. No crepitus.) - Neuro Neuro: Alert and oriented X 3 - Psych Psych: Normal mood, Normal affect Results - Vitals Vitals: Vital Signs - 24 hr 03/31/20 03/31/20 03/31/20 15:41 15:57 17:02 Temperature 37.1 C 38.6 C H Heart Rate 93 94 96 Respiratory 24 24 27 H Rate Blood Pressure 132/61 H 137/61 H 139/50 H O2 Saturation 94 96 95 03/31/20 03/31/20 03/31/20 17:53 18:10 18:27 Temperature 36.7 C Heart Rate 101 H 99 96 Respiratory 24 24 24 Rate Blood Pressure 125/52 L O2 Saturation 96 Oxygen O2 Source Room air - Labs Labs: Laboratory Tests 03/31/20 03/31/20 03/31/20 16:27 16:27 16:27 WBC 7.9 RBC 3.83 L Hgb 12.3 Hct 39.0 MCV 101.8 H MCH 32.1 H MCHC 31.5 L RDW 13.7 Plt Count 180 MPV 9.7 Neut # (Auto) 7.3 H Lymph # (Auto) 0.4 L [place] # (Auto) 0.2 Eos # (Auto) 0.0 Baso # (Auto) 0.0 Absolute Nucleated RBC 0.00 Band Neuts % (Manual) Not Reportable Abnorm Lymph % (Manual) Not Reportable Nucleated RBC % 0.0 Neutrophils # (Manual) Not Reportable Lymphocytes # (Manual) Not Reportable Monocytes # (Manual) Not Reportable Eosinophils # (Manual) Not Reportable Basophils # (Manual) Not Reportable Differential Comment MANUAL=AUTO DIFF Platelet Estimate NORMAL (130-450,000) Platelet Morphology NORMAL APPEARANCE RBC Morph Micro Appear NORMAL APPEARANCE PT 13.4 H INR 1.2 APTT 29.3 Sodium 136 Potassium 4.2 Chloride 97 L Carbon Dioxide 28 Anion Gap 11.0 BUN 26 H Creatinine 1.0 Estimated GFR (MDRD) 54 L Glucose 147 H Lactic Acid Calcium 9.3 Total Bilirubin 2.7 H AST 19 ALT 14 Alkaline Phosphatase 66 Total Protein 7.8 Albumin 3.9 Globulin 3.9 Albumin/Globulin Ratio 1.0 Lipase 27 Urine Color Urine Clarity Urine pH Ur Specific [place] Urine Protein Urine Glucose (UA) Urine Ketones Urine Occult Blood Urine Nitrite Urine Bilirubin Urine Urobilinogen Ur Leukocyte Esterase Urine RBC Urine WBC Ur Squamous Epith Cells Urine Bacteria Ur Microscopic Review Urine Culture Comments Nasal Adenovirus (PCR) Nasal B. parapertussis DNA (PCR) Nasal Coronavir 229E PCR Nasal Coronavir HKU1 PCR Nasal Coronavir NL63 PCR Nasal Coronavir OC43 PCR Nasal Enterovir/Rhinovir PCR Nasal Influenza B PCR Nasal Influenza A PCR Nasal Parainfluen 1 PCR Nasal Parainfluen 2 PCR Nasal Parainfluen 3 PCR Nasal Parainfluen 4 PCR Nasal RSV (PCR) Nasal B.pertussis DNA PCR Nasal C.pneumoniae (PCR) [place] Human Metapneumo PCR Nasal M.pneumoniae (PCR) Nasal SARS-CoV-2 (PCR) 03/31/20 03/31/20 03/31/20 16:40 16:45 16:58 WBC RBC Hgb Hct MCV MCH MCHC RDW Plt Count MPV Neut # (Auto) Lymph # (Auto) [place] # (Auto) Eos # (Auto) Baso # (Auto) Absolute Nucleated RBC Band Neuts % (Manual) Abnorm Lymph % (Manual) Nucleated RBC % Neutrophils # (Manual) Lymphocytes # (Manual) Monocytes # (Manual) Eosinophils # (Manual) Basophils # (Manual) Differential Comment Platelet Estimate Platelet Morphology RBC Morph Micro Appear PT INR APTT Sodium Potassium Chloride Carbon Dioxide Anion Gap BUN Creatinine Estimated GFR (MDRD) Glucose Lactic Acid 1.4 Calcium Total Bilirubin AST ALT Alkaline Phosphatase Total Protein Albumin Globulin Albumin/Globulin Ratio Lipase Urine Color YELLOW Urine Clarity CLOUDY Urine pH 5.5 Ur Specific [place] 1.020 Urine Protein TRACE Urine Glucose (UA) NEGATIVE Urine Ketones TRACE Urine Occult Blood NEGATIVE Urine Nitrite POSITIVE H Urine Bilirubin NEGATIVE Urine Urobilinogen 0.2 (NORMAL) Ur Leukocyte Esterase SMALL H Urine RBC 0-5 Urine WBC >25 H Ur Squamous Epith Cells FEW Squamous Urine Bacteria Many H Ur Microscopic Review INDICATED Urine Culture Comments INDICATED Nasal Adenovirus (PCR) NOT DETECTED Nasal B. parapertussis DNA (PCR) NOT DETECTED Nasal Coronavir 229E PCR NOT DETECTED Nasal Coronavir HKU1 PCR NOT DETECTED Nasal Coronavir NL63 PCR NOT DETECTED Nasal Coronavir OC43 PCR NOT DETECTED Nasal Enterovir/Rhinovir PCR NOT DETECTED Nasal Influenza B PCR NOT DETECTED Nasal Influenza A PCR NOT DETECTED Nasal Parainfluen 1 PCR NOT DETECTED Nasal Parainfluen 2 PCR NOT DETECTED Nasal Parainfluen 3 PCR NOT DETECTED Nasal Parainfluen 4 PCR NOT DETECTED Nasal RSV (PCR) NOT DETECTED Nasal B.pertussis DNA PCR NOT DETECTED Nasal C.pneumoniae (PCR) NOT DETECTED [place] Human Metapneumo PCR NOT DETECTED Nasal M.pneumoniae (PCR) NOT DETECTED Nasal SARS-CoV-2 (PCR) NOT DETECTED - Rads (name of study) cxr Radiology: Prelim report reviewed, EMP read contemporaneously, See rad report PD MEDICAL DECISION MAKING - ED course Complexity details: reviewed results, re-evaluated patient, considered differential, d/w patient, d/w family, 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 She is allergic to penicillin, given Rocephin and vancomycin. Started having wheezing last night as well. Negative Covid. Negative chest x- ray. Feels better after breathing treatments. Patient did develop a fever in the emergency department. Blood cultures were drawn. Lactate normal. Discussed the case with Dr. Casillas, hospitalist who accepts. This document was made in part using voice recognition software. While efforts are made to proofread this document, sound alike and grammatical errors may occur. Patient did have wheezing in the emergency department. She improved with albuterol and DuoNeb treatments. Her states that she used to use inhalers in the past but has not had to for a while. - Sepsis Event Current Stage of Sepsis: Sepsis Possible source of Sepsis: Skin/soft tissue Mental/Cognitive Status: Confused Reason for not giving 30ml/kg crystalloid fluids: Fluid overload potential Capillary refill: Less than 2 seconds Peripheral Pulse Strength: 3+ Normal Peripheral Pulse Location: Radial Bedside ultrasound performed: No Departure - Departure Disposition: 66 [facility] DC/Xfer Clinical Impression: Cellulitis of left lower extremity, Lymphedema of left lower extremity, SIRS (systemic inflammatory response syndrome) Fever Qualifiers: Fever type: unspecified Qualified Code(s): R50.9 - Fever, unspecified UTI (urinary tract infection) Qualifiers: Urinary tract infection type: site unspecified Hematuria presence: without hematuria Qualified Code(s): N39.0 - Urinary tract infection, site not specified Condition: Stable
[2020-03-31 16:42] LABS: BASOPHILS % (AUTO) 0.4 %; MEAN CORPUSCULAR VOLUME 101.8 fL (81.0-99.0); RED CELL DISTRIBUTION WIDTH 13.7 % (12.0-15.0)
--- NOTE | 2020-03-31 16:43 | XRAY Report ---
PROCEDURE: Chest 1 View X-Ray INDICATIONS: fever TECHNIQUE: One view of the chest was acquired. COMPARISON: 12/11/2015 FINDINGS: Surgical changes and devices: Cervical spine fixation hardware and thoracolumbar spine fixation hardw are can be seen. Lungs and pleura: No pleural effusions or pneumothorax. Lung volumes are low. There is elevation of the right hemidiaphragm seen. Mediastinum: The aorta is prominent and tortuous. The cardiac contours are within normal limits. Bones and chest wall: No suspicious bony lesions. Age-appropriate degenerative changes are seen. Overlying soft tissues appear unremarkable. IMPRESSION: No focal infiltrates are seen. If there is strong clinical concern for a developing or new pulmonary process, please consider a shor t-term follow-up 2 view chest series, performed in deep inspiration. Elevation of the right hemidiaphragm can be seen. If clinically appropriate, a dedicated fluoroscopic "sniff test" could be considered for evaluation of hemidiaphragm paralysis. Postoperative and degenerative changes are seen. Reviewed by: Sourav De Los Santos MD on 03/31/2020 3:41 PM [place] Approved by: Sourav De Los Santos MD on 03/31/2020 3:41 PM [place] Station ID: [id number]
[2020-03-31 16:47] LABS: INR 1.2 (0.8-1.2); PT - PROTHROMBIN TIME 13.4 secs (9.9-12.6)
[2020-03-31 16:48] LABS: EOSINOPHILS % (AUTO) 0.1 %; HGB - HEMOGLOBIN 12.3 g/dL (12.0-16.0); LYMPHOCYTES # (AUTO) 0.4 10^3/uL (1.5-3.5); LYMPHOCYTES % (AUTO) 5.1 %; MEAN CORPUSCULAR HEMOGLOBIN 32.1 pg (27.0-31.0); MEAN CORPUSCULAR HGB CONC 31.5 g/dL (32.0-36.0); MEAN PLATELET VOLUME 9.7 fL (7.9-10.8); MONOCYTES # (AUTO) 0.2 10^3/uL (0.0-1.0); MONOCYTES % (AUTO) 1.9 %; NEUTROPHILS # (AUTO) 7.3 10^3/uL (1.5-6.6); NEUTROPHILS % (AUTO) 92.1 %; PLT - PLATELET COUNT 180 10^3/uL (130-450); RED BLOOD COUNT 3.83 10^6/uL (4.20-5.40); WHITE BLOOD COUNT 7.9 x10^3/uL (4.8-10.8)
[2020-03-31] MEDS ORDERED: cefTRIAXone 1 GM VIAL IVP STA (16:52)
[2020-03-31] MEDS ORDERED: VANCOMYCIN INJ 1.5 GM in SODIUM CHLORIDE 0.9% 500 ML IV STA (16:52)
[2020-03-31 16:54] LABS: ALBUMIN 3.9 g/dL (3.2-5.5); BILIRUBIN,TOTAL 2.7 mg/dL (0.2-1.0); CALCIUM 9.3 mg/dL (8.5-10.3); PARTIAL THROMBOPLASTIN TIME 29.3 secs (24.9-33.3); TOTAL PROTEIN 7.8 g/dL (6.7-8.2)
[2020-03-31] MEDS ORDERED: VANCOMYCIN INJ 2 GM in SODIUM CHLORIDE 0.9% 500 ML IV STA (16:55)
[2020-03-31 17:14] LABS: BILIRUBIN,URINE NEGATIVE (NEGATIVE); GLUCOSE, URINE (UA) NEGATIVE (NEGATIVE); KETONES,URINE (UA) TRACE mg/dL (NEGATIVE); LEUKOCYTE ESTERASE, URINE SMALL (NEGATIVE); NITRITE,URINE POSITIVE (NEGATIVE); OCCULT BLOOD,URINE NEGATIVE (NEGATIVE); PH,URINE 5.5 PH (5.0-7.5); PROTEIN,URINE TRACE mg/dL (NEGATIVE); UROBILINOGEN,URINE 0.2 (NORMAL) E.U./dL (NORMAL)
[2020-03-31 17:18] LABS: CLARITY,URINE CLOUDY (CLEAR)
[2020-03-31] MEDS ORDERED: ALBUTEROL 1 PUFF INH STA (17:21)
[2020-03-31 17:27] LABS: DIFFERENTIAL COMMENT MANUAL=AUTO DIFF; PLATELET ESTIMATE, MANUAL NORMAL (130-450,000) (NORMAL); PLATELET MORPHOLOGY NORMAL APPEARANCE (NORMAL); RBC MORPHOLOGY (MULTIPLE) NORMAL APPEARANCE (NORMAL)
[2020-03-31 17:31] LABS: BACTERIA,URINE Many /HPF (None Seen); RBC,URINE 0-5 /HPF (0-5); SQUAMOUS EPITHELIAL CELL,UR FEW Squamous (<= Few)
[2020-03-31] MEDS ORDERED: SODIUM CHLORIDE 0.9% 1,000 ML IV STA (17:41)
[2020-03-31 17:48] LABS: C. PNEUMONIAE- RESP PCR PANEL NOT DETECTED
[2020-03-31] MEDS ORDERED: IPRATROPIUM/ALBUTEROL 3 ML NEB INH STA (17:52)
[2020-03-31] MEDS ORDERED: ONDANSETRON 4 MG/2 ML VIAL IVP PRN (19:22)
[2020-03-31] MEDS ORDERED: ACETAMINOPHEN 325 MG TABLET PO PRN (19:22)
--- NOTE | 2020-03-31 19:31 | HISTORY & PHYSICAL EXAMINATION ---
Chief Complaint - Chief Complaint Chief Complaint: Lower extremity redness, fever History of Present Illness - Admitted From Admitted From:: [facility] ED - History Obtained From Records Reviewed: Yes History obtained from: Patient - History of Present Illness HPI Comment/Other: Patient is a 79-year-old female with medical history significant for JOSE RAFAEL on CPAP, hypothyroidism, hypertension, hyperlipidemia, chronic back pain, chronic lymphedema who presented to the ED today with a fever. She woke up yesterday morning and was somewhat disoriented. She was also very weak and had difficulty walking. As a result she was advised by her to go to the emergency department for evaluation. She was recently on Keflex for lower extremity cellulitis. She took it to completion for 1 week. After the treatment it appeared the redness improv ed/resolved however today upon presentation to the ED her left lower extremity appears erythematous. She was also found to have temperature of 38.6 C. She reports chills lately. Furthermore she reports increased urinary frequency and lower abdominal/suprapubic tenderness. She denied dysuria. On a separate note she complains of pain when having a bowel movement and there is some blood on the toilet paper. She has history of hemorrhoids. She denied dyspnea, chest pain, nausea, vomiting. She lives at home with her who takes care of everything from cooking to cleaning and grocery shopping. The patient gets around the house using a walker. As a result of the clinical findings she was presented for admission for further treatment. History - Past Medical History Cardiovascular: reports: Hypertension, High cholesterol, Other (Chronic lower extremity lymphedema) Respiratory: reports: Sleep apnea, CPAP use Endocrine/Autoimmune: reports: HyPOthyroidism GI: reports: GERD : reports: Incontinence HEENT: reports: Chronic vision loss Psych: reports: Depression Musculoskeletal: reports: Osteoarthritis, Chronic back pain Derm: reports: None MRSA Hx?: No - Past Surgical History General: reports: Cholecystectomy, Appendectomy, Other (Excision of 51 lymph nodes from the left lower extremity in 2011) Ortho: reports: Spine surgery (Vertebral fusion and titanium ruel placement in the lower back in July 2015, This was subsequently revisited in 2019 with replacement of the rods.) /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 She in her sleep. Father from an [place] at age 69. She had 1 brother with pancreatic cancer who at age 65. Social History Notes: She denied tobacco, alcohol or recreational substance use. - POLST Patient has POLST: No POLST Status: DNR Meds/Allgy - Home Medications Home Medications: Ambulatory Orders Medication Instructions Recorded Confirmed Atorvastatin Calcium 20 mg PO DAILY 12/01/13 12/17/16 Cholecalciferol (Vitamin D3) 2,000 unit PO BID 12/01/13 12/17/16 [D-2000] Levothyroxine [Synthroid] 150 mcg PO QDAC 12/01/13 12/17/16 Multivitamin [Multi-Vitamin Daily] 1 tab PO DAILY 12/01/13 12/17/16 [place]-3/Dha/Epa/Fish Oil [Fish Oil 1 each PO BID 12/01/13 12/17/16 [place]-3 Softgel] Sertraline [Zoloft] 100 mg PO DAILY 12/01/13 12/17/16 Benazepril HCl 20 mg PO DAILY 12/08/15 12/17/16 Cyclobenzaprine [Flexeril] 10 mg PO Q6H PRN 12/08/15 12/17/16 Hydrocodone/Acetaminophen 5 - 325 mg PO Q8H PRN 12/08/15 12/17/16 [Hydrocodone-Acetamin 7.5-325] Ubidecarenone [Co Q-10] 200 mg PO DAILY 12/08/15 12/17/16 Acetaminophen [Tylenol] 650 mg PO Q8H PRN 10/21/16 12/17/16 Aspirin [Adult Low Dose Aspirin EC] 81 mg PO DAILY 10/21/16 12/16/16 Ferrous Sulfate 325 mg PO BID 10/21/16 12/17/16 Furosemide 40 mg PO BID 10/21/16 12/17/16 Gabapentin [Neurontin] 200 mg PO BID 10/21/16 12/17/16 Lactobac No.21/Bifidobact No.6 2 cap PO DAILY 10/21/16 12/17/16 [Up-Up Probiotic Supplement] Potassium Chloride [K-Dur] 20 meq PO BID 10/21/16 12/17/16 Vitamin B Complex 1 tab PO DAILY 10/21/16 12/17/16 Cephalexin [Keflex] 500 mg PO Q6H #40 capsule 09/22/19 Cephalexin [Keflex] 500 mg PO Q6H #56 capsule 03/01/20 - Allergies Allergies/Adverse Reactions: Allergies Allergy/AdvReac Type Severity Reaction Status Date / Time ampicillin AdvReac Rash Verified 03/31/20 15:37 Review of Systems - Constitutional Constitutional: reports: Fatigue, Fever, Chills, Weakness - Eyes Eyes: denies: Pain, Dipolpia - Ears, Nose & Throat Ears, Nose & Throat: denies: Ear pain, Sore throat - Cardiovascular Cariovascular: reports: Edema (Chronic lower extremity lymphedema). denies: Irregular heart rate, Palpitations, Chest pain, Lightheadedness, Syncope, Exertional dyspnea - Respiratory Respiratory: denies: Cough, Sputum production, Wheezing, SOB at rest, SOB with exertion - Gastrointestinal Gastrointestinal: denies: Abdominal pain, Abdominal distention, Constipation, Diarrhea, Nausea, Vomiting, Coffee grounds emesis, Reflux/heartburn - Genitourinary Genitourinary: reports: Frequency. denies: Dysuria - Musculoskeletal Musculoskeletal: reports: Back pain (Chronic) - Integumentary Integumentary: reports: Other (Left lower extremity redness). denies: Rash, Pru ritis, Lesions - Neurological Neurological: reports: General weakness - Psychiatric Psychiatric: reports: Depression, Anxiety - Endocrine Endocrine: denies: Polyuria, Polydypsia - Hematologic/Lymphatic Hematologic/Lymphatic: denies: Anemia, Bruising, Petechiae Prior Level of Functionality: She lives at home with her . She gets around using a walker. Her mainly does of the house and shopping. She uses a CPAP at night Exam - Vital Signs Vital Signs: Vital Signs x48h Temp Pulse Resp BP Pulse Ox 03/31/20 18:27 36.7 C 96 24 125/52 L 96 03/31/20 18:10 99 24 03/31/20 17:53 101 H 24 03/31/20 17:02 38.6 C H 96 27 H 139/50 H 95 03/31/20 15:57 94 24 137/61 H 96 03/31/20 15:41 37.1 C 93 24 132/61 H 94 - Physical Exam General Appearance: positive: Alert, Mild distress Eyes Bilateral: positive: PERRL, EOMI ENT: positive: No signs of dehydration Neck: positive: No JVD, Trachea midline Respiratory: positive: Chest non-tender, Other (Mildly dyspneic. Mild crackles heard in the lung bases bilaterally.). negative: Wheezes, Rales, Rhonchi Cardiovascular: positive: Regular rate & rhythm, No murmur Abdomen: positive: Non-tender, Nml bowel sounds, No distention. negative: Guarding, Rebound Back: positive: Nml inspection Skin: positive: Warm, Dry Extremities: positive: Pedal edema (Chronic However left lower extremity appears slightly worse than right. This is suspected to be acute on chronic) Neurologic/Psychiatric: positive: Oriented x3, Mood/affect nml Sepsis Event Note (H) - Evaluation Possible source of Sepsis: positive: Skin/soft tissue Conclusion/Plan - Problem List (1) Cellulitis of left lower extremity Conclusion/Plan: Despite outpatient treatment with Keflex which patient completed, the patient ca me in with a temperature of 38.6 C. Patient was started on vancomycin and Rocephin. Will continue. Blood and cultures pending. (2) UTI (urinary tract infection) Conclusion/Plan: Patient has positive nitrites, small leukocyte esterase, greater than 25 WBCs in the urine and many bacteria. In light of patient's fever, we will continue Rocephin. Urine culture pending. (3) Lymphedema of left lower extremity Conclusion/Plan: Chronic. Patient is on Lasix 40 mg p.o. twice daily. Will continue. (4) Hypertension Conclusion/Plan: Patient is on benazepril 20 mg p.o. daily, Lasix 40 mg twice daily (5) Hyperlipidemia Conclusion/Plan: On atorvastatin 20 mg p.o. daily and [place]-3 fatty acids. (6) Hypothyroidism Conclusion/Plan: On Synthroid 150 mcg p.o. daily. (7) Chronic back pain Conclusion/Plan: Patient is on [place] 7.5/325 mg tablet p.o. every 8 hours as needed, gabapentin 200 mg p.o. twice daily and Flexeril. (8) Depression Conclusion/Plan: On sertraline (9) Obstructive sleep apnea on CPAP Conclusion/Plan: CPAP ordered - Lab Results Fish Bones: 03/31/20 16:27 03/31/20 16:27 Core Measures - Anticipated LOS I expect patient to be DC'd or transferred within 96 hours.: Yes - DVT/VTE - Prophylaxis VTE/DVT Device ordered at admit?: Yes VTE/DVT Prophylaxis med ordered at admit?: Yes
[2020-03-31] MEDS: HYDROcod/ACETAM 7.5 MG/325 MG TABLET PO PRN (23:01)
[2020-03-31] MEDS: ATORVASTATIN 40 MG TABLET PO SCH (23:01)
[2020-03-31] MEDS: POTASSIUM CHLORIDE 20 MEQ TABLET PO SCH (23:01)
[2020-03-31] MEDS: GABAPENTIN 100 MG CAPSULE PO SCH (23:01)
[2020-03-31] MEDS: SODIUM CHLORIDE FLUSH 0.9% 10 ML SYRINGE IVP SCH (23:42)
[2020-03-31] MEDS: ACETAMINOPHEN 325 MG TABLET PO PRN (23:42)
[2020-04-01] MEDS ORDERED: ZINC OXIDE 20% OINT 30 GM TUBE TOP PRN (00:28)
[2020-04-01] MEDS ORDERED: VANCOMYCIN 1 GM VIAL ONE (04:19)
[2020-04-01] MEDS: SODIUM CHLORIDE FLUSH 0.9% 10 ML SYRINGE IVP PRN ×2 (04:26→06:01)
[2020-04-01] MEDS ORDERED: VANCOMYCIN INJ 1.25 GM in SODIUM CHLORIDE 0.9% 250 ML IV SCH (05:00)
[2020-04-01] MEDS: FUROSEMIDE 40 MG TABLET PO SCH ×2 (05:01→13:30)
[2020-04-01 05:04] LABS: BASOPHILS # (AUTO) 0.1 10^3/uL (0.0-0.1); BASOPHILS % (AUTO) 0.5 %; EOSINOPHILS % (AUTO) 0.2 %; HGB - HEMOGLOBIN 11.7 g/dL (12.0-16.0); LYMPHOCYTES # (AUTO) 0.6 10^3/uL (1.5-3.5); LYMPHOCYTES % (AUTO) 6.2 %; MEAN CORPUSCULAR HEMOGLOBIN 33.1 pg (27.0-31.0); MEAN CORPUSCULAR VOLUME 103.4 fL (81.0-99.0); MEAN PLATELET VOLUME 9.8 fL (7.9-10.8); MONOCYTES # (AUTO) 0.4 10^3/uL (0.0-1.0); MONOCYTES % (AUTO) 4.1 %; NEUTROPHILS # (AUTO) 8.5 10^3/uL (1.5-6.6); NEUTROPHILS % (AUTO) 88.5 %; PLT - PLATELET COUNT 171 10^3/uL (130-450); RED BLOOD COUNT 3.54 10^6/uL (4.20-5.40); RED CELL DISTRIBUTION WIDTH 14.1 % (12.0-15.0); WHITE BLOOD COUNT 9.6 x10^3/uL (4.8-10.8)
[2020-04-01 05:06] LABS: CALCIUM 8.6 mg/dL (8.5-10.3); CREATININE 1.1 mg/dL (0.4-1.0)
[2020-04-01 05:22] LABS: PLATELET ESTIMATE, MANUAL NORMAL (130-450,000) (NORMAL); PLATELET MORPHOLOGY NORMAL APPEARANCE (NORMAL); RBC MORPHOLOGY (MULTIPLE) NORMAL APPEARANCE (NORMAL)
[2020-04-01] MEDS: PANTOPRAZOLE 40 MG TABLET PO SCH (06:00)
[2020-04-01] MEDS: LEVOTHYROXINE 75 MCG TABLET PO SCH (06:00)
[2020-04-01] MEDS: POTASSIUM CHLORIDE 20 MEQ TABLET PO SCH ×2 (09:00→20:51)
[2020-04-01] MEDS ORDERED: cefTRIAXone 1 GM in SODIUM CHLORIDE 0.9% MINIBAG 100 ML IV SCH (09:00)
[2020-04-01] MEDS: ENOXAPARIN 40 MG/0.4 ML SYRINGE SUBQ SCH (09:00)
--- NOTE | 2020-04-01 10:43 | PHARMACY PROGRESS NOTE ---
- Best Possible Medication History Admit Date and Time: 03/31/201921 Processed by: Pharmacy Medication History completed: Yes Patient Interview: Completed Secondary Source(s): Other family member, Physician records As the person ultimately responsible for medication therapy, providers are able to order a medication from an existing home medication list in [facility] via the "Reconcile Routine" prior to Confirmation of that medication by it desktop support technician. Such practice is discouraged except when the physician, in their clinical judgment, deems that a medical need exists for a medication without regard to previous use.
--- NOTE | 2020-04-01 11:22 | PHARMACY PROGRESS NOTE ---
- Therapy Status Vancomycin regimen day #: 2 Therapy status: Awaiting steady state Basis for treatment: Empirical Treatment indication: Sepsis with possible cellulitis source Trough goal: 15-20 Concurrent antibiotics: Ceftriaxone - CHANG Risk Risk level for Acute Kidney Injury: Moderate Acute Kidney Injury risk factors: Baseline CrCl <50, Wt >100kg or BMI >40, Chronic baseline hypertension, Diabetes, Sepsis - Monitoring and Recommendation Clinical response to treatment: I&O Previous 24 hours 03/30/20 03/31/20 04/01/20 23:59 23:59 23:59 Intake Total 1525 850 Output Total 0 Balance 1525 850 Lab Results 04/01/20 03/31/20 04:33 16:27 BUN 29 H 26 H Creatinine 1.1 H 1.0 Estimated GFR (MDRD) 48 L 54 L Cultures 03/31/20 16:58 Urine,Catheterized Urine Culture - Preliminary Monitoring plan: Daily serum creatinine, Draw trough early, Suggest ongoing fluid replacement Next trough due prior to maintenance dose #: 3 Next trough due (date/time): 04/03/2020 @ 0930 Areas for additional monitoring: IV to PO when appropriate, Therapy de- escalation based on culture results Pharmacy recommendation: Continue current regime
[2020-04-01] MEDS: GABAPENTIN 100 MG CAPSULE PO SCH ×2 (13:29→20:50)
[2020-04-01] MEDS: NYSTATIN POWDER 15 GM TOP SCH ×2 (13:29→20:50)
[2020-04-01] MEDS: SODIUM CHLORIDE FLUSH 0.9% 10 ML SYRINGE IVP SCH ×2 (13:29→16:01)
[2020-04-01] MEDS: HYDROcod/ACETAM 7.5 MG/325 MG TABLET PO PRN ×2 (13:30→20:50)
--- NOTE | 2020-04-01 20:19 | PROVIDER PROGRESS NOTE ---
Subjective - Prog Note Date Prog Note Date: 04/01/20 Prog Note Time: 20:22 - Subjective Subjective: She is awake, alert, reading the pamphlet given to her on admission. She is wearing her CPAP mask even though she is not asleep. The daytime hospitalist tracie jessica is unable to round on the patient during the day and I am rounding on her at night. The patient states that she feels okay. Anxious to go home. But when I have her examine her legs, she reluctantly admits that they are not much improved. Skin still feels hotter than usual. Although she states that the redness that she has is her usual chronic redness at home. Current Medications - Current Medications Current Medications: Active Medications Acetaminophen (Tylenol) 650 mg PO Q8HR PRN PRN Reason: Pain 1 to 4 Last Admin: 03/31/20 23:42 Dose: 650 mg Documented by: Hydrocodone Bitart/Acetaminophen (Olin 7.5/325) 1 tab PO Q8HR PRN PRN Reason: PAIN Last Admin: 04/01/20 13:30 Dose: 1 tab Documented by: Atorvastatin Calcium (Lipitor) 20 mg PO QPM [facility] Last Admin: 03/31/20 23:01 Dose: 20 mg Documented by: Enoxaparin Sodium (Lovenox) 40 mg SUBQ DAILY [facility] Last Admin: 04/01/20 09:00 Dose: 40 mg Documented by: Furosemide (Lasix) 40 mg PO BIDDIURETIC [facility] Last Admin: 04/01/20 13:30 Dose: 40 mg Documented by: Gabapentin (Neurontin) 200 mg PO BID [facility] Last Admin: 04/01/20 13:29 Dose: 200 mg Documented by: Ceftriaxone Sodium 1 gm/ (Sodium Chloride) 100 mls @ 200 mls/hr IV DAILY [facility] Last Infusion: 04/01/20 09:30 Dose: Infused Documented by: Vancomycin HCl 1 gm/Vancomycin HCl 500 mg/ Sodium Chloride 500 mls @ 250 mls/hr IV Q24H [facility] Levothyroxine Sodium (Synthroid) 150 mcg PO QDAC [facility] Last Admin: 04/01/20 06:00 Dose: 150 mcg Documented by: Multi-Ingredient Ointment (Zinc Oxide) 1 applic TOP PRN PRN PRN Reason: Skin Care Nystatin (Nystop) 1 applic TOP BID [facility] Last Admin: 04/01/20 13:29 Dose: 1 applic Documented by: Ondansetron HCl (Zofran Inj) 4 mg IVP Q6HR PRN PRN Reason: Nausea / Vomiting Pantoprazole Sodium (Protonix) 40 mg PO QDAC [facility] Last Admin: 04/01/20 06:00 Dose: 40 mg Documented by: Potassium Chloride (K-Dur) 20 meq PO BID [facility] Last Admin: 04/01/20 09:00 Dose: 20 meq Documented by: Sodium Chloride (Normal Saline Flush 0.9%) 10 ml IVP PRN PRN PRN Reason: NEEDED PER PROVIDER ORDERS Last Admin: 04/01/20 06:01 Dose: 10 ml Documented by: Sodium Chloride (Normal Saline Flush 0.9%) 10 ml IVP 0100,0900,1700 [facility] Last Admin: 04/01/20 16:01 Dose: 10 ml Documented by: Cholecalciferol (Vitamin D3) [D-2000] 2,000 unit PO DAILY 12/01/13 Multivitamin [Multi-Vitamin Daily] 1 tab PO DAILY 12/01/13 [place]-3/Dha/Epa/Fish Oil [Fish Oil [place]-3 Softgel] 1 each PO BID 12/01/13 Ubidecarenone [Co Q-10] 200 mg PO DAILY 12/08/15 Acetaminophen [Tylenol] 650 mg PO Q8H PRN 10/21/16 Aspirin [Adult Low Dose Aspirin EC] 81 mg PO DAILY 10/21/16 Ferrous Sulfate 325 mg PO BID 10/21/16 Potassium Chloride [K-Dur] 20 meq PO BIDWM 10/21/16 Vitamin B Complex 1 tab PO DAILY 10/21/16 Atorvastatin [Lipitor] 20 mg PO QPM 04/01/20 DULoxetine [Cymbalta] 60 mg PO DAILY 04/01/20 Furosemide [Lasix] 20 mg PO BIDDIURETIC 04/01/20 Gabapentin [Neurontin] 1,800 mg PO BID 04/01/20 HYDROcod/ACETAM 5/325 [Olin 5/325] 1 tab PO DAILY PRN 04/01/20 Levothyroxine Sodium [Synthroid] 150 mcg PO QDAC 04/01/20 Lisinopril [Zestril] 20 mg PO DAILY 04/01/20 Objective - Vital Signs/Intake & Output Reviewed Vital Signs: Yes Vital Signs: Vital Signs x48h Temp Pulse Resp BP Pulse Ox 04/01/20 20:03 37.4 C 92 22 156/50 H 97 04/01/20 15:33 36.9 C 85 22 133/58 H 96 Intake & Output: Intake & Output 03/29/20 03/30/20 03/31/20 04/01/20 23:59 23:59 23:59 23:59 Intake Total 1525 1070 Output Total 0 Balance 1525 1070 - Objective General Appearance: positive: Alert, Other (5 foot 4 inch female who weighs 128 kg. Comfortable, no acute distress.She does struggle to reposition herself in the bed) Eyes Bilateral: positive: PERRL ENT: positive: No signs of dehydration Neck: negative: Stiff neck Respiratory: positive: No respiratory distress, Other (Diminished at the bases). negative: Wheezes, Rales, Rhonchi Cardiovascular: positive: Regular rate & rhythm. negative: Gallop/S4, Friction rub Abdomen: positive: Non-tender, Nml bowel sounds, Other (Huge abdominal pannus.) Skin: positive: Other (The distal one third of her moran on the right leg is brig ht red, hot to touch. Sharp demarcation with the black ink line shows that the cellulitis has not receded. The left leg has much more diffuse redness starting in the distal two thirds down. Some blistering of the skin that is shiny and tigh) Extremities: positive: Full ROM, Pedal edema, Other (Because of her weight, both legs are very, very, very large. Patient finds it very difficult to maneuver to get them off the bed or to lift them off the bed.) Neurologic/Psychiatric: positive: Oriented x3, CN's nml (2-12), Motor nml - Lab Results Fish Bones: 04/01/20 04:33 04/01/20 04:33 Other Labs: Lab Results x24hrs 04/01/20 04/01/20 Range/Units 04:33 04:33 WBC 9.6 (4.8-10.8) x10^3/uL RBC 3.54 L (4.20-5.40) 10^6/uL Hgb 11.7 L (12.0-16.0) g/dL Hct 36.6 L (37.0-47.0) % MCV 103.4 H (81.0-99.0) fL MCH 33.1 H (27.0-31.0) pg MCHC 32.0 (32.0-36.0) g/dL RDW 14.1 (12.0-15.0) % Plt Count 171 (130-450) 10^3/uL MPV 9.8 (7.9-10.8) fL Neut # (Auto) 8.5 H (1.5-6.6) 10^3/uL Lymph # (Auto) 0.6 L (1.5-3.5) 10^3/uL [place] # (Auto) 0.4 (0.0-1.0) 10^3/uL Eos # (Auto) 0.0 (0.0-0.7) 10^3/uL Baso # (Auto) 0.1 (0.0-0.1) 10^3/uL Absolute Nucleated RBC 0.00 x10^3/uL Nucleated RBC % 0.0 /100WBC Manual Slide Review Indicated Platelet Estimate NORMAL (130-450,000) (NORMAL) Platelet Morphology NORMAL APPEARANCE (NORMAL) RBC Morph Micro Appear NORMAL APPEARANCE (NORMAL) Sodium 133 L (135-145) mmol/L Potassium 4.0 (3.5-5.0) mmol/L Chloride 98 L (101-111) mmol/L Carbon Dioxide 24 (21-32) mmol/L Anion Gap 11.0 (6-13) BUN 29 H (6-20) mg/dL Creatinine 1.1 H (0.4-1.0) mg/dL Estimated GFR (MDRD) 48 L (>89) Glucose 126 H (70-100) mg/dL Calcium 8.6 (8.5-10.3) mg/dL ABX Reporting Has patient been on IV antibiotics over the past 48 hours?: Yes Sepsis Event Note (H) - Evaluation Possible source of Sepsis: positive: Skin/soft tissue Assessment/Plan - Problem List (1) Cellulitis of left lower extremity Impression: Despite outpatient treatment with Keflex which patient completed, the patient came in with a temperature of 38.6 C. Patient was started on vancomycin and Rocephin. Day #2. Will continue. blood cultures are neg at 24 hours. WBC remain nml since admit. Fever of 38.6 on admit has resolved and has been 37.4 T max today. Plan for her to stay until there is some resolution of the cellulitis on exam. (2) UTI (urinary tract infection) Conclusion/Plan: Patient has positive nitrites, small leukocyte esterase, greater than 25 WBCs in the urine and many bacteria. In light of patient's fever, we will continue Rocephin. Urine culture with gram neg ruel. Rocephine should be covering her. Will adjust once ID and sensitivity back. (3) Lymphedema of left lower extremity Conclusion/Plan: Chronic. Patient is on Lasix 40 mg p.o. twice daily. this morning she has a rise in creat to 1.1 with mild CHANG. We will hold off on the Lasix for 2 doses., Would not give Norvasc since it causes more leg edema. She may be candidate for beta-geoffrey or prazosin. (4) Hypertension Conclusion/Plan: 116-157 systolic today. Patient is on benazepril 20 mg p.o. daily, Lasix 40 mg twice daily As above in #3. (5) Hyperlipidemia Conclusion/Plan: On atorvastatin 20 mg p.o. daily and [place]-3 fatty acids. No change (6) Hypothyroidism Conclusion/Plan: On Synthroid 150 mcg p.o. daily. check TSH in am. (7) Chronic back pain Conclusion/Plan: Patient is on Olin 7.5/325 mg tablet p.o. every 8 hours as needed, gabapentin 200 mg p.o. twice daily and Flexeril. No change (8) Depression Conclusion/Plan: On sertraline NO change (9) Obstructive sleep apnea on CPAP Conclusion/Plan: CPAP ordered No change
[2020-04-01] MEDS: ATORVASTATIN 40 MG TABLET PO SCH (20:51)
[2020-04-02] MEDS: SODIUM CHLORIDE FLUSH 0.9% 10 ML SYRINGE IVP SCH ×3 (00:32→21:27)
[2020-04-02] MEDS: SODIUM CHLORIDE FLUSH 0.9% 10 ML SYRINGE IVP PRN (00:32)
[2020-04-02 05:04] LABS: BASOPHILS % (AUTO) 0.3 %; EOSINOPHILS # (AUTO) 0.2 10^3/uL (0.0-0.7); EOSINOPHILS % (AUTO) 1.6 %; LYMPHOCYTES # (AUTO) 1.2 10^3/uL (1.5-3.5); LYMPHOCYTES % (AUTO) 12.9 %; MEAN CORPUSCULAR HEMOGLOBIN 32.4 pg (27.0-31.0); MEAN CORPUSCULAR HGB CONC 31.2 g/dL (32.0-36.0); MEAN CORPUSCULAR VOLUME 104.1 fL (81.0-99.0); MEAN PLATELET VOLUME 9.8 fL (7.9-10.8); MONOCYTES # (AUTO) 0.5 10^3/uL (0.0-1.0); MONOCYTES % (AUTO) 5.7 %; NEUTROPHILS # (AUTO) 7.3 10^3/uL (1.5-6.6); NEUTROPHILS % (AUTO) 79.2 %; PLT - PLATELET COUNT 147 10^3/uL (130-450); RED BLOOD COUNT 3.39 10^6/uL (4.20-5.40); RED CELL DISTRIBUTION WIDTH 14.5 % (12.0-15.0); WHITE BLOOD COUNT 9.2 x10^3/uL (4.8-10.8)
[2020-04-02 05:40] LABS: VANCOMYCIN,RANDOM 14.4 ug/mL
[2020-04-02 05:48] LABS: CALCIUM 8.5 mg/dL (8.5-10.3)
[2020-04-02] MEDS: ACETAMINOPHEN 325 MG TABLET PO PRN (06:24)
[2020-04-02] MEDS: LEVOTHYROXINE 75 MCG TABLET PO SCH (06:25)
[2020-04-02] MEDS: PANTOPRAZOLE 40 MG TABLET PO SCH (06:26)
[2020-04-02] MEDS ORDERED: CEFEPIME 2 GM in SODIUM CHLORIDE 0.9% MINIBAG 100 ML IV SCH (09:00)
--- NOTE | 2020-04-02 09:05 | XRAY Report ---
PROCEDURE: Chest 2 View X-Ray INDICATIONS: sob TECHNIQUE: 2 view(s) of the chest. COMPARISON: Chest x-ray 03/31/2020 FINDINGS: Surgical changes and devices: Thoracolumbar fixation rods. Lungs and pleura: There is an appearance of unchanged left costophrenic angle blunting. Mediastinum: Mediastinal contours are normal. Heart size is enlarged. Unchanged right hemidiaphragm elevation. Bones and chest wall: No suspicious bony abnormalities. Soft tissues appear unremarkable. IMPRESSION: Poor inspiratory effort. Unchanged costophrenic angle blunting on the left. This could b e secondary to trace effusion versus overlying soft tissues. It is unchanged.. Reviewed by: Regina Smith MD on 04/02/2020 8:03 AM [facility] Approved by: Regina Smith MD on 04/02/2020 8:03 AM [facility] Station ID: [id number]
[2020-04-02] MEDS: SENNA 8.6 MG TABLET PO SCH (09:20)
[2020-04-02] MEDS: ENOXAPARIN 40 MG/0.4 ML SYRINGE SUBQ SCH (09:20)
[2020-04-02] MEDS: GABAPENTIN 100 MG CAPSULE PO SCH (09:20)
[2020-04-02] MEDS: lisinopriL 20 MG TABLET PO SCH (09:21)
[2020-04-02] MEDS: POTASSIUM CHLORIDE 20 MEQ TABLET PO SCH ×2 (09:21→21:29)
[2020-04-02] MEDS: polyethylene glycoL 3350 17 GM PACKET PO SCH (09:21)
[2020-04-02] MEDS: DULoxetine 30 MG CAPSULE PO SCH (09:21)
[2020-04-02] MEDS: DOCUSATE SODIUM 250 MG CAPSULE PO SCH (09:21)
[2020-04-02] MEDS: NYSTATIN POWDER 15 GM TOP SCH ×2 (09:33→21:28)
[2020-04-02] MEDS ORDERED: VANCOMYCIN INJ 1 GM, VANCOMYCIN INJ 500 MG in SODIUM CHLORIDE 0.9% 500 ML IV SCH (10:00)
[2020-04-02] MEDS ORDERED: GABAPENTIN 400 MG CAPSULE PO ONE (11:00)
--- NOTE | 2020-04-02 16:32 | PROVIDER PROGRESS NOTE ---
Assessment/Plan - Problem List (1) Cellulitis of left lower extremity Assessment/Plan: 04/02 Improved. Erythema, swallow are reduced. Patient blood culture is negative for bacteremia. Patient has no more fever. Continue antibiotics (2) UTI (urinary tract infection) Patient urine culture show ESBL, According to your sensitivity study we switch patient Rocephin to cefepime. (3) Lymphedema of left lower extremity Conclusion/Plan: Chronic. continue Patient is on Lasix 40 mg p.o. twice daily. (4) Hypertension stable (5) Hyperlipidemia stable (6) Hypothyroidism continue Synthroid 150 mcg p.o. daily. TSH is normal (7) Chronic back pain Conclusion/Plan: Patient is on Gomer 7.5/325 mg tablet p.o. every 8 hours as needed, gabapentin 200 mg p.o. twice daily and Flexeril. No change (8) Depression Conclusion/Plan: On sertraline NO change (9) Obstructive sleep apnea on CPAP Conclusion/Plan: CPAP ordered No change - Current Meds Current Meds: Current Medications Generic Name Dose Route Start Last Admin Trade Name Freq PRN Reason Stop Dose Admin Acetaminophen 650 mg 03/31/20 21:43 04/02/20 06:24 Tylenol PO 650 mg Q8HR PRN Administration Pain 1 to 4 Hydrocodone Bitart/Acetaminophen 1 tab 03/31/20 21:40 04/01/20 20:50 Gomer 7.5/325 PO 1 tab Q8HR PRN Administration PAIN Atorvastatin Calcium 20 mg 03/31/20 21:44 04/01/20 20:51 Lipitor PO 20 mg QPM EDWARD Administration Docusate Sodium 250 - 500 mg 04/02/20 09:00 04/02/20 09:21 Colace 250mg Capsule PO 250 mg DAILY [facility] Administration Duloxetine HCl 60 mg 04/02/20 09:00 04/02/20 09:21 Cymbalta PO 60 mg DAILY [facility]WARD Administration Enoxaparin Sodium 40 mg 04/01/20 09:00 04/02/20 09:20 Lovenox SUBQ 40 mg DAILY [facility]WARD Administration Vancomycin HCl 1 gm/ 500 mls @ 250 mls/hr 04/02/20 10:00 04/02/20 14:07 Vancomycin HCl 500 mg/ Sodium IV Infused Chloride Q24H [facility] Infusion Cefepime HCl 2 gm/ Sodium 100 mls @ 200 mls/hr 04/02/20 09:00 04/02/20 10:43 Chloride IV Infused BID [facility] Infusion Levothyroxine Sodium 150 mcg 04/01/20 07:00 04/02/20 06:25 Synthroid PO 150 mcg QDAC EDWARD Administration Lisinopril 20 mg 04/02/20 09:00 04/02/20 09:21 Zestril PO 20 mg DAILY EDWARD Administration Multi-Ingredient Ointment 1 applic 04/01/20 00:28 04/02/20 06:26 Zinc Oxide TOP 1 applic PRN PRN Administration Skin Care Nystatin 1 applic 04/01/20 09:00 04/02/20 09:33 Nystop TOP 1 applic BID EDWARD Administration Pantoprazole Sodium 40 mg 04/01/20 07:00 04/02/20 06:26 Protonix PO 40 mg QDAC EDWARD Administration Polyethylene Glycol 17 gm 04/02/20 09:00 04/02/20 09:21 Miralax PO 17 gm DAILY ED[facility] Administration Potassium Chloride 20 meq 03/31/20 22:00 04/02/20 09:21 K-Dur PO 20 meq BID EDWARD Administration Senna 8.6 - 17.2 mg 04/02/20 09:00 04/02/20 09:20 Senokot PO 8.6 mg DAILY EDWARD Administration Sodium Chloride 10 ml 03/31/20 19:22 04/02/20 00:32 Normal Saline Flush 0.9% IVP 10 ml PRN PRN Administration NEEDED PER PROVIDER ORDERS Sodium Chloride 10 ml 04/01/20 01:00 04/02/20 09:25 Normal Saline Flush 0.9% IVP 10 ml 0100,0900,1700 EDWARD Administration - Lab Result Fish Bone Diagrams: 04/02/20 04:40 04/02/20 04:40 - Additional Planning My Orders: My Active Orders 04/02/20 Evaluate and Treat OT [OT] Routine Evaluate and Treat PT [PT] Routine 04/02/20 07:52 Out of bed 3+ hours today [RC] TID 04/02/20 08:01 Albuterol 2.5 mg INH RTQ4H PRN 04/02/20 08:02 Nebulizer/MDI Tx. [RC] QID Resp Teach Nebulizer/MDI [RC] .ONCE 04/02/20 09:00 Cefepime 2 gm Sodium Chloride 0.9% Minibag [Normal Saline 0.9% Minibag] 100 ml IV BID DULoxetine [Cymbalta] 60 mg PO DAILY lisinopriL [Zestril] 20 mg PO DAILY 04/02/20 21:00 Gabapentin [Neurontin] 900 mg PO BID 04/03/20 05:00 CRP - C-REACTIVE PROTEIN [CHEM] DAILYLAB 04/04/20 05:00 CRP - C-REACTIVE PROTEIN [CHEM] DAILYLAB 04/05/20 05:00 CRP - C-REACTIVE PROTEIN [CHEM] DAILYLAB 04/06/20 05:00 CRP - C-REACTIVE PROTEIN [CHEM] DAILYLAB 04/07/20 05:00 CRP - C-REACTIVE PROTEIN [CHEM] DAILYLAB Subjective - Subjective Patient Reports: Feeling Better Objective Vital Signs: Vital Signs - 24 hr 04/01/20 04/02/20 04/02/20 20:03 00:49 05:00 Temperature 37.4 C 37.0 C 37.7 C Heart Rate Heart Rate [ 92 89 91 Brachial] Respiratory 22 22 24 Rate Blood Pressure 156/50 H 130/58 L 164/69 H [Right Brachial artery] O2 Saturation 97 94 92 04/02/20 04/02/20 04/02/20 08:28 12:50 15:17 Temperature 36.9 C 36.5 C 36.5 C Heart Rate 70 Heart Rate [ 87 70 Brachial] Respiratory 22 21 20 Rate Blood Pressure 137/47 H 134/66 H [Right Brachial artery] O2 Saturation 93 97 97 04/02/20 15:58 Temperature Heart Rate 86 Heart Rate [ Brachial] Respiratory 16 Rate Blood Pressure [Right Brachial artery] O2 Saturation Oxygen O2 Source Room air I&O (Last 24 Hrs): Intake and Output Totals x24h 03/31/20 04/01/20 04/02/20 23:59 23:59 23:59 Intake Total 1525 1370 1430 Output Total 750 1200 Balance 1525 620 230 General: Alert, Oriented x3, No acute distress Neck: Supple Lymphatic: no adenopathy Neuro: Alert, Non Focal, Oriented Times 3 Cardiovascular: Regular rate, Normal S1, Normal S2 Respiratory: Chest non-tender, No respiratory distress Abdomen: Normal bowel sounds, Soft, No tenderness Extremities: Other (reduced left lower extremity erythema and swelling) - Results Results: Laboratory Results WBC 9.2 x10^3/uL (4.8-10.8) 04/02/20 04:40 RBC 3.39 10^6/uL (4.20-5.40) L 04/02/20 04:40 Hgb 11.0 g/dL (12.0-16.0) L 04/02/20 04:40 Hct 35.3 % (37.0-47.0) L 04/02/20 04:40 MCV 104.1 fL (81.0-99.0) H 04/02/20 04:40 MCH 32.4 pg (27.0-31.0) H 04/02/20 04:40 MCHC 31.2 g/dL (32.0-36.0) L 04/02/20 04:40 RDW 14.5 % (12.0-15.0) 04/02/20 04:40 Plt Count 147 10^3/uL (130-450) 04/02/20 04:40 MPV 9.8 fL (7.9-10.8) 04/02/20 04:40 Neut # (Auto) 7.3 10^3/uL (1.5-6.6) H 04/02/20 04:40 Lymph # (Auto) 1.2 10^3/uL (1.5-3.5) L 04/02/20 04:40 [place] # (Auto) 0.5 10^3/uL (0.0-1.0) 04/02/20 04:40 Eos # (Auto) 0.2 10^3/uL (0.0-0.7) 04/02/20 04:40 Baso # (Auto) 0.0 10^3/uL (0.0-0.1) 04/02/20 04:40 Absolute Nucleated RBC 0.00 x10^3/uL 04/02/20 04:40 Band Neuts % (Manual) Not Reportable 03/31/20 16:27 Abnorm Lymph % (Manual) Not Reportable 03/31/20 16:27 Nucleated RBC % 0.0 /100WBC 04/02/20 04:40 Neutrophils # (Manual) Not Reportable 03/31/20 16:27 Lymphocytes # (Manual) Not Reportable 03/31/20 16:27 Monocytes # (Manual) Not Reportable 03/31/20 16:27 Eosinophils # (Manual) Not Reportable 03/31/20 16:27 Basophils # (Manual) Not Reportable 03/31/20 16:27 Differential Comment MANUAL=AUTO DIFF 03/31/20 16:27 Manual Slide Review Indicated 04/01/20 04:33 Platelet Estimate NORMAL (130-450,000) (NORMAL) 04/01/20 04:33 Platelet Morphology NORMAL APPEARANCE (NORMAL) 04/01/20 04:33 RBC Morph Micro Appear NORMAL APPEARANCE (NORMAL) 04/01/20 04:33 PT 13.4 secs (9.9-12.6) H 03/31/20 16:27 INR 1.2 (0.8-1.2) 03/31/20 16:27 APTT 29.3 secs (24.9-33.3) 03/31/20 16:27 Sodium 133 mmol/L (135-145) L 04/02/20 04:40 Potassium 3.9 mmol/L (3.5-5.0) 04/02/20 04:40 Chloride 97 mmol/L (101-111) L 04/02/20 04:40 Carbon Dioxide 26 mmol/L (21-32) 04/02/20 04:40 Anion Gap 10.0 (6-13) 04/02/20 04:40 BUN 29 mg/dL (6-20) H 04/02/20 04:40 Creatinine 1.0 mg/dL (0.4-1.0) 04/02/20 04:40 Estimated GFR (MDRD) 54 (>89) L 04/02/20 04:40 Glucose 100 mg/dL (70-100) 04/02/20 04:40 Lactic Acid 1.4 mmol/L (0.5-2.2) 03/31/20 16:40 Calcium 8.5 mg/dL (8.5-10.3) 04/02/20 04:40 Total Bilirubin 2.7 mg/dL (0.2-1.0) H 03/31/20 16:27 AST 19 IU/L (10-42) 03/31/20 16:27 ALT 14 IU/L (10-60) 03/31/20 16:27 Alkaline Phosphatase 66 IU/L (42-121) 03/31/20 16:27 C-Reactive Protein 25.5 mg/dL (0-1.0) H 04/02/20 05:40 B-Natriuretic Peptide 97 pg/mL (5-100) 04/02/20 04:40 Total Protein 7.8 g/dL (6.7-8.2) 03/31/20 16:27 Albumin 3.9 g/dL (3.2-5.5) 03/31/20 16:27 Globulin 3.9 g/dL (2.1-4.2) 03/31/20 16:27 Albumin/Globulin Ratio 1.0 (1.0-2.2) 03/31/20 16:27 Lipase 27 U/L (22-51) 03/31/20 16:27 TSH 2.04 uIU/mL (0.34-5.60) 04/02/20 04:40 Urine Color YELLOW 03/31/20 16:58 Urine Clarity CLOUDY (CLEAR) 03/31/20 16:58 Urine pH 5.5 PH (5.0-7.5) 03/31/20 16:58 Ur Specific [place] 1.020 (1.002-1.030) 03/31/20 16:58 Urine Protein TRACE mg/dL (NEGATIVE) 03/31/20 16:58 Urine Glucose (UA) NEGATIVE mg/dL (NEGATIVE) 03/31/20 16:58 Urine Ketones TRACE mg/dL (NEGATIVE) 03/31/20 16:58 Urine Occult Blood NEGATIVE (NEGATIVE) 03/31/20 16:58 Urine Nitrite POSITIVE (NEGATIVE) H 03/31/20 16:58 Urine Bilirubin NEGATIVE (NEGATIVE) 03/31/20 16:58 Urine Urobilinogen 0.2 (NORMAL) E.U./dL (NORMAL) 03/31/20 16:58 Ur Leukocyte Esterase SMALL (NEGATIVE) H 03/31/20 16:58 Urine RBC 0-5 /HPF (0-5) 03/31/20 16:58 Urine WBC >25 /HPF (0-5) H 03/31/20 16:58 Ur Squamous Epith Cells FEW Squamous (<= Few) 03/31/20 16:58 Urine Bacteria Many /HPF (None Seen) H 03/31/20 16:58 Ur Microscopic Review INDICATED 03/31/20 16:58 Urine Culture Comments INDICATED 03/31/20 16:58 Nasal Adenovirus (PCR) NOT DETECTED 03/31/20 16:45 Nasal B. parapertussis DNA (PCR) NOT DETECTED 03/31/20 16:45 Nasal Coronavir 229E PCR NOT DETECTED 03/31/20 16:45 Nasal Coronavir HKU1 PCR NOT DETECTED 03/31/20 16:45 Nasal Coronavir NL63 PCR NOT DETECTED 03/31/20 16:45 Nasal Coronavir OC43 PCR NOT DETECTED 03/31/20 16:45 Nasal Enterovir/Rhinovir PCR NOT DETECTED 03/31/20 16:45 Nasal Influenza B PCR NOT DETECTED 03/31/20 16:45 Nasal Influenza A PCR NOT DETECTED 03/31/20 16:45 Nasal Parainfluen 1 PCR NOT DETECTED 03/31/20 16:45 Nasal Parainfluen 2 PCR NOT DETECTED 03/31/20 16:45 Nasal Parainfluen 3 PCR NOT DETECTED 03/31/20 16:45 Nasal Parainfluen 4 PCR NOT DETECTED 03/31/20 16:45 Nasal RSV (PCR) NOT DETECTED 03/31/20 16:45 Nasal Screen MRSA (PCR) NEGATIVE (NEGATIVE) 04/02/20 10:50 Nasal B.pertussis DNA PCR NOT DETECTED 03/31/20 16:45 Nasal C.pneumoniae (PCR) NOT DETECTED 03/31/20 16:45 [place] Human Metapneumo PCR NOT DETECTED 03/31/20 16:45 Nasal M.pneumoniae (PCR) NOT DETECTED 03/31/20 16:45 Nasal SARS-CoV-2 (PCR) NOT DETECTED 03/31/20 16:45 Last Dose Date 04/01/20 04/02/20 04:40 Last Dose Time 0500 04/02/20 04:40 Random Vancomycin 14.4 ug/mL 04/02/20 04:40 - Procedures Procedures: Procedures EXCISION OF STOMACH, PYLORUS, ENDO, DIAGN (12/17/16) Sepsis Event Note (H) - Evaluation Possible source of Sepsis: positive: Skin/soft tissue ABX Reporting Has patient been on IV antibiotics over the past 48 hours?: Yes Current Medications - Current Medications Current Medications: Active Medications Acetaminophen (Tylenol) 650 mg PO Q8HR PRN PRN Reason: Pain 1 to 4 Last Admin: 04/02/20 06:24 Dose: 650 mg Documented by: Hydrocodone Bitart/Acetaminophen (Gomer 7.5/325) 1 tab PO Q8HR PRN PRN Reason: PAIN Last Admin: 04/01/20 20:50 Dose: 1 tab Documented by: Albuterol () 2.5 mg INH RTQ4H PRN PRN Reason: Wheezing Atorvastatin Calcium (Lipitor) 20 mg PO QPM [facility] Last Admin: 04/01/20 20:51 Dose: 20 mg Documented by: Docusate Sodium (Colace 250mg Capsule) 250 - 500 mg PO DAILY [facility] Last Admin: 04/02/20 09:21 Dose: 250 mg Documented by: Duloxetine HCl (Cymbalta) 60 mg PO DAILY [facility] Last Admin: 04/02/20 09:21 Dose: 60 mg Documented by: Enoxaparin Sodium (Lovenox) 40 mg SUBQ DAILY [facility] Last Admin: 04/02/20 09:20 Dose: 40 mg Documented by: Furosemide (Lasix) 40 mg PO BIDDIURETIC [facility] Gabapentin (Neurontin) 900 mg PO BID [facility] Vancomycin HCl 1 gm/Vancomycin HCl 500 mg/ Sodium Chloride 500 mls @ 250 mls/hr IV Q24H [facility] Last Infusion: 04/02/20 14:07 Dose: Infused Documented by: Cefepime HCl 2 gm/ Sodium (Chloride) 100 mls @ 200 mls/hr IV BID [facility] Last Infusion: 04/02/20 10:43 Dose: Infused Documented by: Levothyroxine Sodium (Synthroid) 150 mcg PO QDAC [facility] Last Admin: 04/02/20 06:25 Dose: 150 mcg Documented by: Lisinopril (Zestril) 20 mg PO DAILY [facility] Last Admin: 04/02/20 09:21 Dose: 20 mg Documented by: Multi-Ingredient Ointment (Zinc Oxide) 1 applic TOP PRN PRN PRN Reason: Skin Care Last Admin: 04/02/20 06:26 Dose: 1 applic Documented by: Nystatin (Nystop) 1 applic TOP BID [facility] Last Admin: 04/02/20 09:33 Dose: 1 applic Documented by: Ondansetron HCl (Zofran Inj) 4 mg IVP Q6HR PRN PRN Reason: Nausea / Vomiting Pantoprazole Sodium (Protonix) 40 mg PO QDAC [facility] Last Admin: 04/02/20 06:26 Dose: 40 mg Documented by: Polyethylene Glycol (Miralax) 17 gm PO DAILY [facility] Last Admin: 04/02/20 09:21 Dose: 17 gm Documented by: Potassium Chloride (K-Dur) 20 meq PO BID [facility] Last Admin: 04/02/20 09:21 Dose: 20 meq Documented by: Nati (Senokot) 8.6 - 17.2 mg PO DAILY [facility] Last Admin: 04/02/20 09:20 Dose: 8.6 mg Documented by: Sodium Chloride (Normal Saline Flush 0.9%) 10 ml IVP PRN PRN PRN Reason: NEEDED PER PROVIDER ORDERS Last Admin: 04/02/20 00:32 Dose: 10 ml Documented by: Sodium Chloride (Normal Saline Flush 0.9%) 10 ml IVP 0100,0900,1700 [facility] Last Admin: 04/02/20 09:25 Dose: 10 ml Documented by: Cholecalciferol (Vitamin D3) [D-2000] 2,000 unit PO DAILY 12/01/13 Multivitamin [Multi-Vitamin Daily] 1 tab PO DAILY 12/01/13 [place]-3/Dha/Epa/Fish Oil [Fish Oil [place]-3 Softgel] 1 each PO BID 12/01/13 Ubidecarenone [Co Q-10] 200 mg PO DAILY 12/08/15 Acetaminophen [Tylenol] 650 mg PO Q8H PRN 10/21/16 Aspirin [Adult Low Dose Aspirin EC] 81 mg PO DAILY 10/21/16 Ferrous Sulfate 325 mg PO BID 10/21/16 Potassium Chloride [K-Dur] 20 meq PO BIDWM 10/21/16 Vitamin B Complex 1 tab PO DAILY 10/21/16 Atorvastatin [Lipitor] 20 mg PO QPM 04/01/20 DULoxetine [Cymbalta] 60 mg PO DAILY 04/01/20 Furosemide [Lasix] 20 mg PO BIDDIURETIC 04/01/20 Gabapentin [Neurontin] 900 mg PO BID 04/01/20 HYDROcod/ACETAM 5/325 [Gomer 5/325] 1 tab PO DAILY PRN 04/01/20 Levothyroxine Sodium [Synthroid] 150 mcg PO QDAC 04/01/20 Lisinopril [Zestril] 20 mg PO DAILY 04/01/20
[2020-04-02] MEDS ORDERED: GABAPENTIN 300 MG CAPSULE PO SCH (21:00)
[2020-04-02] MEDS: ATORVASTATIN 40 MG TABLET PO SCH (21:27)
[2020-04-02] MEDS: GABAPENTIN 300 MG CAPSULE PO SCH (21:28)
[2020-04-02] MEDS: MEROPENEM 1 GM in SODIUM CHLORIDE 0.9% MINIBAG 100 ML IV SCH (21:29)
[2020-04-02] MEDS: ALBUTEROL NEB 2.5 MG/3 ML INH PRN (22:30)
[2020-04-03] MEDS: SODIUM CHLORIDE FLUSH 0.9% 10 ML SYRINGE IVP SCH ×3 (01:18→17:25)
[2020-04-03] MEDS: ACETAMINOPHEN 325 MG TABLET PO PRN ×2 (01:21→17:21)
[2020-04-03 05:03] LABS: BASOPHILS % (AUTO) 0.3 %; EOSINOPHILS # (AUTO) 0.1 10^3/uL (0.0-0.7); EOSINOPHILS % (AUTO) 1.9 %; HGB - HEMOGLOBIN 10.2 g/dL (12.0-16.0); LYMPHOCYTES # (AUTO) 0.7 10^3/uL (1.5-3.5); LYMPHOCYTES % (AUTO) 11.3 %; MEAN CORPUSCULAR HEMOGLOBIN 32.4 pg (27.0-31.0); MEAN CORPUSCULAR HGB CONC 31.4 g/dL (32.0-36.0); MEAN CORPUSCULAR VOLUME 103.2 fL (81.0-99.0); MEAN PLATELET VOLUME 9.9 fL (7.9-10.8); MONOCYTES # (AUTO) 0.5 10^3/uL (0.0-1.0); MONOCYTES % (AUTO) 8.3 %; NEUTROPHILS % (AUTO) 77.6 %; PLT - PLATELET COUNT 145 10^3/uL (130-450); RED BLOOD COUNT 3.15 10^6/uL (4.20-5.40); RED CELL DISTRIBUTION WIDTH 14.4 % (12.0-15.0); WHITE BLOOD COUNT 6.5 x10^3/uL (4.8-10.8)
[2020-04-03 05:36] LABS: CALCIUM 8.4 mg/dL (8.5-10.3); CRP - C-REACTIVE PROTEIN 21.7 mg/dL (0-1.0)
[2020-04-03] MEDS: FUROSEMIDE 40 MG TABLET PO SCH ×2 (06:11→15:15)
[2020-04-03] MEDS: PANTOPRAZOLE 40 MG TABLET PO SCH (06:11)
[2020-04-03] MEDS: LEVOTHYROXINE 75 MCG TABLET PO SCH (06:11)
[2020-04-03] MEDS: POTASSIUM CHLORIDE 20 MEQ TABLET PO SCH ×2 (08:45→21:10)
[2020-04-03] MEDS: DULoxetine 30 MG CAPSULE PO SCH (08:45)
[2020-04-03] MEDS: GABAPENTIN 300 MG CAPSULE PO SCH ×2 (08:45→21:10)
[2020-04-03] MEDS: lisinopriL 20 MG TABLET PO SCH (08:46)
[2020-04-03] MEDS: SENNA 8.6 MG TABLET PO SCH (08:46)
[2020-04-03] MEDS: DOCUSATE SODIUM 250 MG CAPSULE PO SCH (08:46)
[2020-04-03] MEDS: ENOXAPARIN 40 MG/0.4 ML SYRINGE SUBQ SCH (08:46)
[2020-04-03] MEDS: polyethylene glycoL 3350 17 GM PACKET PO SCH (08:46)
[2020-04-03] MEDS: MEROPENEM 1 GM in SODIUM CHLORIDE 0.9% MINIBAG 100 ML IV SCH ×2 (08:47→21:10)
[2020-04-03] MEDS: ALBUTEROL NEB 2.5 MG/3 ML INH PRN ×2 (09:44→15:27)
[2020-04-03 09:50] LABS: VANCOMYCIN,TROUGH 14.5 ug/mL (10.0-20.0)
--- NOTE | 2020-04-03 14:25 | PROVIDER PROGRESS NOTE ---
Assessment/Plan - Problem List (1) Cellulitis of left lower extremity Assessment/Plan: 04/03 continue Improved. Left lower extremity cellulitis is resolved, right lower extremity cellulitis is improved but still present erythema, warmth, swelling and CRP is still 21.7. Patient reported she had some location cellulitis in the before which took a long time for her to heal. 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 04/02 Improved. Erythema, swallow are reduced. Patient blood culture is negative for bacteremia. Patient has no more fever. Continue antibiotics (2) UTI (urinary tract infection) 1125, patient had ESBL infection, we will put a PICC line for patient. pt need two weeks antibiotics IV. Patient urine culture show ESBL, According to your sensitivity study we switch patient Rocephin to cefepime. (3) Lymphedema of left lower extremity Conclusion/Plan: Chronic. continue Patient is on Lasix 40 mg p.o. twice daily. (4) Hypertension stable (5) Hyperlipidemia stable (6) Hypothyroidism continue Synthroid 150 mcg p.o. daily. TSH is normal (7) Chronic back pain Conclusion/Plan: Patient is on [place] 7.5/325 mg tablet p.o. every 8 hours as needed, gabapentin 200 mg p.o. twice daily and Flexeril. No change (8) Depression Conclusion/Plan: On sertraline NO change (9) Obstructive sleep apnea on CPAP Conclusion/Plan: CPAP ordered No change (10)Weakness We will continue physical therapist and occupational therapist for patient. PT/OT Recommend patient be DC to SNF, consult with social media specialist for replacement. - Current Meds Current Meds: Current Medications Generic Name Dose Route Start Last Admin Trade Name Freq PRN Reason Stop Dose Admin Acetaminophen 650 mg 03/31/20 21:43 04/03/20 01:21 Tylenol PO 650 mg Q8HR PRN Administration Pain 1 to 4 Hydrocodone Bitart/Acetaminophen 1 tab 03/31/20 21:40 04/01/20 20:50 [place] 7.5/325 PO 1 tab Q8HR PRN Administration PAIN Albuterol 2.5 mg 04/02/20 08:01 04/03/20 09:44 INH 2.5 mg RTQ4H PRN Administration Wheezing Atorvastatin Calcium 20 mg 03/31/20 21:44 04/02/20 21:27 Lipitor PO 20 mg QPM [facility] Administration Docusate Sodium 250 - 500 mg 04/02/20 09:00 04/03/20 08:46 Colace 250mg Capsule PO 250 mg DAILY [facility] Administration Duloxetine HCl 60 mg 04/02/20 09:00 04/03/20 08:45 Cymbalta PO 60 mg DAILY [facility] Administration Enoxaparin Sodium 40 mg 04/01/20 09:00 04/03/20 08:46 Lovenox SUBQ 40 mg DAILY [facility] Administration Furosemide 40 mg 04/03/20 06:00 04/03/20 06:11 Lasix PO 40 mg BIDDIURETIC [facility] Administration Gabapentin 900 mg 04/02/20 21:00 04/03/20 08:45 Neurontin PO 900 mg BID EDWARD Administration Meropenem 1 gm/ Sodium 100 mls @ 200 mls/hr 04/02/20 21:00 04/03/20 10:53 Chloride IV Infused BID [facility] Infusion Levothyroxine Sodium 150 mcg 04/01/20 07:00 04/03/20 06:11 Synthroid PO 150 mcg QDAC EDWARD Administration Lisinopril 20 mg 04/02/20 09:00 04/03/20 08:46 Zestril PO 20 mg DAILY ED[facility] Administration Multi-Ingredient Ointment 1 applic 04/01/20 00:28 04/02/20 06:26 Zinc Oxide TOP 1 applic PRN PRN Administration Skin Care Nystatin 1 applic 04/01/20 09:00 04/02/20 21:28 Nystop TOP 1 applic BID EDWARD Administration Pantoprazole Sodium 40 mg 04/01/20 07:00 04/03/20 06:11 Protonix PO 40 mg QDAC EDWARD Administration Polyethylene Glycol 17 gm 04/02/20 09:00 04/03/20 08:46 Miralax PO 17 gm DAILY EDWARD Administration Potassium Chloride 20 meq 03/31/20 22:00 04/03/20 08:45 K-Dur PO 20 meq BID EDWARD Administration Senna 8.6 - 17.2 mg 04/02/20 09:00 04/03/20 08:46 Senokot PO 8.6 mg DAILY EDWARD Administration Sodium Chloride 10 ml 03/31/20 19:22 04/02/20 00:32 Normal Saline Flush 0.9% IVP 10 ml PRN PRN Administration NEEDED PER PROVIDER ORDERS Sodium Chloride 10 ml 04/01/20 01:00 04/03/20 08:47 Normal Saline Flush 0.9% IVP 10 ml 0100,0900,1700 EDWARD Administration - Lab Result Fish Bone Diagrams: 04/03/20 04:35 04/03/20 04:35 - Additional Planning My Orders: My Active Orders 04/02/20 21:00 Gabapentin [Neurontin] 900 mg PO BID Meropenem [Merrem] 1 gm Sodium Chloride 0.9% Minibag [Normal Saline 0.9% Minibag] 100 ml IV BID 04/03/20 11:14 PICC Line Care [RC] Q7D PICC Line Insert [RC] .ONCE 04/04/20 05:00 CRP - C-REACTIVE PROTEIN [CHEM] DAILYLAB 04/05/20 05:00 CRP - C-REACTIVE PROTEIN [CHEM] DAILYLAB 04/06/20 05:00 CRP - C-REACTIVE PROTEIN [CHEM] DAILYLAB 04/07/20 05:00 CRP - C-REACTIVE PROTEIN [CHEM] DAILYLAB Subjective - Subjective Patient Reports: Feeling Better Nursing Reports: No Complaints Objective Vital Signs: Vital Signs - 24 hr 04/02/20 04/02/20 04/02/20 15:17 15:58 16:24 Temperature 36.5 C Heart Rate 70 86 Heart Rate [ Brachial] Heart Rate [ 77 Sitting] Heart Rate [ 76 Supine] Respiratory 20 16 Rate Blood Pressure [Right Brachial artery] Blood Pressure 137/78 H [Sitting] Blood Pressure 139/57 H [Supine] O2 Saturation 97 04/02/20 04/02/20 04/02/20 17:02 21:00 22:31 Temperature 37.5 C 36.8 C Heart Rate 85 Heart Rate [ 80 85 Brachial] Heart Rate [ Sitting] Heart Rate [ Supine] Respiratory 18 18 20 Rate Blood Pressure 142/55 H 152/64 H [Right Brachial artery] Blood Pressure [Sitting] Blood Pressure [Supine] O2 Saturation 97 93 04/03/20 04/03/20 04/03/20 01:00 05:00 09:00 Temperature 36.2 C L 36.9 C 36.6 C Heart Rate Heart Rate [ 95 70 73 Brachial] Heart Rate [ Sitting] Heart Rate [ Supine] Respiratory 18 18 20 Rate Blood Pressure 137/58 H 148/73 H 147/66 H [Right Brachial artery] Blood Pressure [Sitting] Blood Pressure [Supine] O2 Saturation 93 94 95 04/03/20 04/03/20 09:44 12:15 Temperature 37.0 C Heart Rate 69 Heart Rate [ 90 Brachial] Heart Rate [ Sitting] Heart Rate [ Supine] Respiratory 18 22 Rate Blood Pressure 121/86 H [Right Brachial artery] Blood Pressure [Sitting] Blood Pressure [Supine] O2 Saturation 93 Oxygen O2 Source Room air I&O (Last 24 Hrs): Intake and Output Totals x24h 04/01/20 04/02/20 04/03/20 23:59 23:59 23:59 Intake Total 1370 1770 200 Output Total 750 1300 1000 Balance 620 470 -800 General: Alert, Oriented x3, No acute distress HEENT: Atraumatic Neck: Supple Lymphatic: no adenopathy Neuro: Alert, Non Focal, Oriented Times 3 Cardiovascular: Regular rate, Normal S1, Normal S2 Respiratory: Chest non-tender, No respiratory distress Abdomen: Normal bowel sounds, Soft Extremities: Other (left lower extremity still present erythema and mild to moderate swelling) - Results Results: Laboratory Results WBC 6.5 x10^3/uL (4.8-10.8) 04/03/20 04:35 RBC 3.15 10^6/uL (4.20-5.40) L 04/03/20 04:35 Hgb 10.2 g/dL (12.0-16.0) L 04/03/20 04:35 Hct 32.5 % (37.0-47.0) L 04/03/20 04:35 MCV 103.2 fL (81.0-99.0) H 04/03/20 04:35 MCH 32.4 pg (27.0-31.0) H 04/03/20 04:35 MCHC 31.4 g/dL (32.0-36.0) L 04/03/20 04:35 RDW 14.4 % (12.0-15.0) 04/03/20 04:35 Plt Count 145 10^3/uL (130-450) 04/03/20 04:35 MPV 9.9 fL (7.9-10.8) 04/03/20 04:35 Neut # (Auto) 5.0 10^3/uL (1.5-6.6) 04/03/20 04:35 Lymph # (Auto) 0.7 10^3/uL (1.5-3.5) L 04/03/20 04:35 [place] # (Auto) 0.5 10^3/uL (0.0-1.0) 04/03/20 04:35 Eos # (Auto) 0.1 10^3/uL (0.0-0.7) 04/03/20 04:35 Baso # (Auto) 0.0 10^3/uL (0.0-0.1) 04/03/20 04:35 Absolute Nucleated RBC 0.00 x10^3/uL 04/03/20 04:35 Band Neuts % (Manual) Not Reportable 03/31/20 16:27 Abnorm Lymph % (Manual) Not Reportable 03/31/20 16:27 Nucleated RBC % 0.0 /100WBC 04/03/20 04:35 Neutrophils # (Manual) Not Reportable 03/31/20 16:27 Lymphocytes # (Manual) Not Reportable 03/31/20 16:27 Monocytes # (Manual) Not Reportable 03/31/20 16:27 Eosinophils # (Manual) Not Reportable 03/31/20 16:27 Basophils # (Manual) Not Reportable 03/31/20 16:27 Differential Comment MANUAL=AUTO DIFF 03/31/20 16:27 Manual Slide Review Indicated 04/01/20 04:33 Platelet Estimate NORMAL (130-450,000) (NORMAL) 04/01/20 04:33 Platelet Morphology NORMAL APPEARANCE (NORMAL) 04/01/20 04:33 RBC Morph Micro Appear NORMAL APPEARANCE (NORMAL) 04/01/20 04:33 PT 13.4 secs (9.9-12.6) H 03/31/20 16:27 INR 1.2 (0.8-1.2) 03/31/20 16:27 APTT 29.3 secs (24.9-33.3) 03/31/20 16:27 Sodium 135 mmol/L (135-145) 04/03/20 04:35 Potassium 4.0 mmol/L (3.5-5.0) 04/03/20 04:35 Chloride 102 mmol/L (101-111) 04/03/20 04:35 Carbon Dioxide 24 mmol/L (21-32) 04/03/20 04:35 Anion Gap 9.0 (6-13) 04/03/20 04:35 BUN 25 mg/dL (6-20) H 04/03/20 04:35 Creatinine 1.0 mg/dL (0.4-1.0) 04/03/20 04:35 Estimated GFR (MDRD) 54 (>89) L 04/03/20 04:35 Glucose 123 mg/dL (70-100) H 04/03/20 04:35 Lactic Acid 1.4 mmol/L (0.5-2.2) 03/31/20 16:40 Calcium 8.4 mg/dL (8.5-10.3) L 04/03/20 04:35 Total Bilirubin 2.7 mg/dL (0.2-1.0) H 03/31/20 16:27 AST 19 IU/L (10-42) 03/31/20 16:27 ALT 14 IU/L (10-60) 03/31/20 16:27 Alkaline Phosphatase 66 IU/L (42-121) 03/31/20 16:27 C-Reactive Protein 21.7 mg/dL (0-1.0) H 04/03/20 04:35 B-Natriuretic Peptide 97 pg/mL (5-100) 04/02/20 04:40 Total Protein 7.8 g/dL (6.7-8.2) 03/31/20 16:27 Albumin 3.9 g/dL (3.2-5.5) 03/31/20 16:27 Globulin 3.9 g/dL (2.1-4.2) 03/31/20 16:27 Albumin/Globulin Ratio 1.0 (1.0-2.2) 03/31/20 16:27 Lipase 27 U/L (22-51) 03/31/20 16:27 TSH 2.04 uIU/mL (0.34-5.60) 04/02/20 04:40 Urine Color YELLOW 03/31/20 16:58 Urine Clarity CLOUDY (CLEAR) 03/31/20 16:58 Urine pH 5.5 PH (5.0-7.5) 03/31/20 16:58 Ur Specific [place] 1.020 (1.002-1.030) 03/31/20 16:58 Urine Protein TRACE mg/dL (NEGATIVE) 03/31/20 16:58 Urine Glucose (UA) NEGATIVE mg/dL (NEGATIVE) 03/31/20 16:58 Urine Ketones TRACE mg/dL (NEGATIVE) 03/31/20 16:58 Urine Occult Blood NEGATIVE (NEGATIVE) 03/31/20 16:58 Urine Nitrite POSITIVE (NEGATIVE) H 03/31/20 16:58 Urine Bilirubin NEGATIVE (NEGATIVE) 03/31/20 16:58 Urine Urobilinogen 0.2 (NORMAL) E.U./dL (NORMAL) 03/31/20 16:58 Ur Leukocyte Esterase SMALL (NEGATIVE) H 03/31/20 16:58 Urine RBC 0-5 /HPF (0-5) 03/31/20 16:58 Urine WBC >25 /HPF (0-5) H 03/31/20 16:58 Ur Squamous Epith Cells FEW Squamous (<= Few) 03/31/20 16:58 Urine Bacteria Many /HPF (None Seen) H 03/31/20 16:58 Ur Microscopic Review INDICATED 03/31/20 16:58 Urine Culture Comments INDICATED 03/31/20 16:58 Nasal Adenovirus (PCR) NOT DETECTED 03/31/20 16:45 Nasal B. parapertussis DNA (PCR) NOT DETECTED 03/31/20 16:45 Nasal Coronavir 229E PCR NOT DETECTED 03/31/20 16:45 Nasal Coronavir HKU1 PCR NOT DETECTED 03/31/20 16:45 Nasal Coronavir NL63 PCR NOT DETECTED 03/31/20 16:45 Nasal Coronavir OC43 PCR NOT DETECTED 03/31/20 16:45 Nasal Enterovir/Rhinovir PCR NOT DETECTED 03/31/20 16:45 Nasal Influenza B PCR NOT DETECTED 03/31/20 16:45 Nasal Influenza A PCR NOT DETECTED 03/31/20 16:45 Nasal Parainfluen 1 PCR NOT DETECTED 03/31/20 16:45 Nasal Parainfluen 2 PCR NOT DETECTED 03/31/20 16:45 Nasal Parainfluen 3 PCR NOT DETECTED 03/31/20 16:45 Nasal Parainfluen 4 PCR NOT DETECTED 03/31/20 16:45 Nasal RSV (PCR) NOT DETECTED 03/31/20 16:45 Nasal Screen MRSA (PCR) NEGATIVE (NEGATIVE) 04/02/20 10:50 Nasal B.pertussis DNA PCR NOT DETECTED 03/31/20 16:45 Nasal C.pneumoniae (PCR) NOT DETECTED 03/31/20 16:45 Benito Human Metapneumo PCR NOT DETECTED 03/31/20 16:45 Nasal M.pneumoniae (PCR) NOT DETECTED 03/31/20 16:45 Nasal SARS-CoV-2 (PCR) NOT DETECTED 03/31/20 16:45 Last Dose Date 04/02/20 04/03/20 09:30 Last Dose Time 1400 04/03/20 09:30 Vancomycin Trough 14.5 ug/mL (10.0-20.0) 04/03/20 09:30 Random Vancomycin 14.4 ug/mL 04/02/20 04:40 - Procedures Procedures: Procedures EXCISION OF STOMACH, PYLORUS, ENDO, DIAGN (12/17/16) Sepsis Event Note (H) - Evaluation Possible source of Sepsis: positive: Skin/soft tissue ABX Reporting Has patient been on IV antibiotics over the past 48 hours?: Yes Current Medications - Current Medications Current Medications: Active Medications Acetaminophen (Tylenol) 650 mg PO Q8HR PRN PRN Reason: Pain 1 to 4 Last Admin: 04/03/20 01:21 Dose: 650 mg Documented by: Hydrocodone Bitart/Acetaminophen ([place] 7.5/325) 1 tab PO Q8HR PRN PRN Reason: PAIN Last Admin: 04/01/20 20:50 Dose: 1 tab Documented by: Albuterol () 2.5 mg INH RTQ4H PRN PRN Reason: Wheezing Last Admin: 04/03/20 15:27 Dose: 2.5 mg Documented by: Atorvastatin Calcium (Lipitor) 20 mg PO QPM [facility] Last Admin: 04/02/20 21:27 Dose: 20 mg Documented by: Docusate Sodium (Colace 250mg Capsule) 250 - 500 mg PO DAILY [facility] Last Admin: 04/03/20 08:46 Dose: 250 mg Documented by: Duloxetine HCl (Cymbalta) 60 mg PO DAILY [facility] Last Admin: 04/03/20 08:45 Dose: 60 mg Documented by: Enoxaparin Sodium (Lovenox) 40 mg SUBQ DAILY [facility] Last Admin: 04/03/20 08:46 Dose: 40 mg Documented by: Furosemide (Lasix) 40 mg PO BIDDIURETIC [facility] Last Admin: 04/03/20 15:15 Dose: 40 mg Documented by: Gabapentin (Neurontin) 900 mg PO BID [facility] Last Admin: 04/03/20 08:45 Dose: 900 mg Documented by: Meropenem 1 gm/ Sodium (Chloride) 100 mls @ 200 mls/hr IV BID [facility] Last Infusion: 04/03/20 10:53 Dose: Infused Documented by: Levothyroxine Sodium (Synthroid) 150 mcg PO QDAC [facility] Last Admin: 04/03/20 06:11 Dose: 150 mcg Documented by: Lisinopril (Zestril) 20 mg PO DAILY [facility] Last Admin: 04/03/20 08:46 Dose: 20 mg Documented by: Multi-Ingredient Ointment (Zinc Oxide) 1 applic TOP PRN PRN PRN Reason: Skin Care Last Admin: 04/02/20 06:26 Dose: 1 applic Documented by: Nystatin (Nystop) 1 applic TOP BID [facility] Last Admin: 04/03/20 15:15 Dose: 1 applic Documented by: Ondansetron HCl (Zofran Inj) 4 mg IVP Q6HR PRN PRN Reason: Nausea / Vomiting Pantoprazole Sodium (Protonix) 40 mg PO QDAC [facility] Last Admin: 04/03/20 06:11 Dose: 40 mg Documented by: Polyethylene Glycol (Miralax) 17 gm PO DAILY [facility] Last Admin: 04/03/20 08:46 Dose: 17 gm Documented by: Potassium Chloride (K-Dur) 20 meq PO BID [facility] Last Admin: 04/03/20 08:45 Dose: 20 meq Documented by: Senna (Senokot) 8.6 - 17.2 mg PO DAILY [facility] Last Admin: 04/03/20 08:46 Dose: 8.6 mg Documented by: Sodium Chloride (Normal Saline Flush 0.9%) 10 ml IVP PRN PRN PRN Reason: NEEDED PER PROVIDER ORDERS Last Admin: 04/02/20 00:32 Dose: 10 ml Documented by: Sodium Chloride (Normal Saline Flush 0.9%) 10 ml IVP 0100,0900,1700 [facility] Last Admin: 04/03/20 08:47 Dose: 10 ml Documented by: Cholecalciferol (Vitamin D3) [D-2000] 2,000 unit PO DAILY 12/01/13 Multivitamin [Multi-Vitamin Daily] 1 tab PO DAILY 12/01/13 Olga-3/Dha/Epa/Fish Oil [Fish Oil Olga-3 Softgel] 1 each PO BID 12/01/13 Ubidecarenone [Co Q-10] 200 mg PO DAILY 12/08/15 Acetaminophen [Tylenol] 650 mg PO Q8H PRN 10/21/16 Aspirin [Adult Low Dose Aspirin EC] 81 mg PO DAILY 10/21/16 Ferrous Sulfate 325 mg PO BID 10/21/16 Potassium Chloride [K-Dur] 20 meq PO BIDWM 10/21/16 Vitamin B Complex 1 tab PO DAILY 10/21/16 Atorvastatin [Lipitor] 20 mg PO QPM 04/01/20 DULoxetine [Cymbalta] 60 mg PO DAILY 04/01/20 Furosemide [Lasix] 20 mg PO BIDDIURETIC 04/01/20 Gabapentin [Neurontin] 900 mg PO BID 04/01/20 HYDROcod/ACETAM 5/325 [[place] 5/325] 1 tab PO DAILY PRN 04/01/20 Levothyroxine Sodium [Synthroid] 150 mcg PO QDAC 04/01/20 Lisinopril [Zestril] 20 mg PO DAILY 04/01/20
[2020-04-03] MEDS: NYSTATIN POWDER 15 GM TOP SCH ×2 (15:15→21:10)
--- NOTE | 2020-04-03 17:13 | ANESTHESIA PROCEDURE NOTE ---
Anesth Central Line Template - Central Line Central Line Preparation: Consent Obtained, Time out completed, Ultrasound used, Sterile prep and drape Central line location: Right Basilic Central line type: PICC Double Lumen Central line catheter tip site resides: Superior vena cava (SVC) Central line aftercare: Secured, Placement confirmed, No pneumothorax, No complications, Bundle checklist complete, Pt tolerated well, Other (Cath cut to 40, threaded to hub, unable to thread cath down on tip tracker but PCXR shows tip at cavoatrial junction. Caps x2 easily aspirate and flush, secured with statlock, tegaderm. PCXR performed, ok to use PICC.)
--- NOTE | 2020-04-03 17:14 | XRAY Report ---
PROCEDURE: Chest for Line Placement INDICATIONS: for line placement (PICC) TECHNIQUE: One view of the chest was acquired. COMPARISON: CXR 04/02/2020, 03/31/2020. FINDINGS: Surgical changes and devices: Right-sided PICC with the catheter tip at the lower third of the SVC.. Lungs and pleura: No pleural effusions or pneumothorax. Low lung volumes. No consolidative opacity. Mediastinum: Mediastinal contours appear unchanged. Asymmetric elevation of the right hemidiaphragm, unchanged. Heart size is normal. Bones and chest wall: No suspicious bony lesions. Thoracolumbar fixation hardware. Cervical spine h ardware. Overlying soft tissues appear unremarkable. IMPRESSION: Right-sided PICC with the catheter tip at the lower third of the SVC in satisfactory position. No pne umothorax. Low lung volumes. Reviewed by: Sebastian Hill MD on 04/03/2020 5:13 PM PST Approved by: Sebastian Hill MD on 04/03/2020 5:13 PM PST Station ID: [id number]
[2020-04-03] MEDS: ATORVASTATIN 40 MG TABLET PO SCH (21:09)
[2020-04-04] MEDS: SODIUM CHLORIDE FLUSH 0.9% 10 ML SYRINGE IVP PRN (01:33)
[2020-04-04] MEDS: SODIUM CHLORIDE FLUSH 0.9% 10 ML SYRINGE IVP SCH ×3 (01:33→17:47)
[2020-04-04] MEDS: ACETAMINOPHEN 325 MG TABLET PO PRN ×2 (01:58→20:54)
[2020-04-04] MEDS: LEVOTHYROXINE 75 MCG TABLET PO SCH (05:50)
[2020-04-04] MEDS: PANTOPRAZOLE 40 MG TABLET PO SCH (05:51)
[2020-04-04] MEDS: FUROSEMIDE 40 MG TABLET PO SCH ×2 (05:51→14:06)
[2020-04-04 05:56] LABS: BASOPHILS % (AUTO) 0.5 %; EOSINOPHILS # (AUTO) 0.2 10^3/uL (0.0-0.7); EOSINOPHILS % (AUTO) 3.5 %; HGB - HEMOGLOBIN 10.3 g/dL (12.0-16.0); LYMPHOCYTES % (AUTO) 14.3 %; MEAN CORPUSCULAR HEMOGLOBIN 31.7 pg (27.0-31.0); MEAN CORPUSCULAR VOLUME 102.2 fL (81.0-99.0); MONOCYTES # (AUTO) 0.6 10^3/uL (0.0-1.0); MONOCYTES % (AUTO) 9.5 %; NEUTROPHILS # (AUTO) 4.7 10^3/uL (1.5-6.6); NEUTROPHILS % (AUTO) 70.5 %; PLT - PLATELET COUNT 206 10^3/uL (130-450); RED BLOOD COUNT 3.25 10^6/uL (4.20-5.40); RED CELL DISTRIBUTION WIDTH 14.4 % (12.0-15.0); WHITE BLOOD COUNT 6.6 x10^3/uL (4.8-10.8)
[2020-04-04 06:16] LABS: CALCIUM 8.9 mg/dL (8.5-10.3); CRP - C-REACTIVE PROTEIN 16.7 mg/dL (0-1.0)
[2020-04-04] MEDS: ALBUTEROL NEB 2.5 MG/3 ML INH PRN (09:08)
[2020-04-04] MEDS: POTASSIUM CHLORIDE 20 MEQ TABLET PO SCH ×2 (10:02→20:48)
[2020-04-04] MEDS: GABAPENTIN 300 MG CAPSULE PO SCH ×2 (10:02→20:47)
[2020-04-04] MEDS: DULoxetine 30 MG CAPSULE PO SCH (10:02)
[2020-04-04] MEDS: lisinopriL 20 MG TABLET PO SCH (10:03)
[2020-04-04] MEDS: MEROPENEM 1 GM in SODIUM CHLORIDE 0.9% MINIBAG 100 ML IV SCH ×2 (10:03→20:42)
[2020-04-04] MEDS: ENOXAPARIN 40 MG/0.4 ML SYRINGE SUBQ SCH (10:03)
[2020-04-04] MEDS: DOCUSATE SODIUM 250 MG CAPSULE PO SCH (10:03)
[2020-04-04] MEDS: polyethylene glycoL 3350 17 GM PACKET PO SCH (10:04)
[2020-04-04] MEDS: SENNA 8.6 MG TABLET PO SCH (10:05)
[2020-04-04] MEDS: NYSTATIN POWDER 15 GM TOP SCH ×2 (10:05→20:48)
--- NOTE | 2020-04-04 13:23 | PROVIDER PROGRESS NOTE ---
Assessment/Plan - Problem List (1) Cellulitis of left lower extremity Assessment/Plan: 1125, patient left lower extremity cellulitis is slowly improved. There is still erythema, swallow, warmth at left anterior of calf but size is slight reduced. pt's WBC is normal, CRP is reduced. We will continue intravenous antibiotics by PICC line. 04/03 continue Improved. Left lower extremity cellulitis is resolved, right lower extremity cellulitis is improved but still present erythema, warmth, swelling and CRP is still 21.7. Patient reported she had some location cellulitis in the before which took a long time for her to heal. 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 04/02 Improved. Erythema, swallow are reduced. Patient blood culture is negative for bacteremia. Patient has no more fever. Continue antibiotics (2) UTI (urinary tract infection) 04/04 We will continue treatment with intravenous antibiotics for ESBL infection 1124, patient had ESBL infection, we will put a PICC line for patient. pt need two weeks antibiotics IV. Patient urine culture show ESBL, According to your sensitivity study we switch patient Rocephin to cefepime. (3) Lymphedema of left lower extremity Conclusion/Plan: 04/04 Chronic, advised the patient rise her lower extremity to help venous return Chronic. continue Patient is on Lasix 40 mg p.o. twice daily. (4) Hypertension stable (5) Hyperlipidemia stable (6) Hypothyroidism continue Synthroid 150 mcg p.o. daily. TSH is normal (7) Chronic back pain Conclusion/Plan: Patient is on [place] 7.5/325 mg tablet p.o. every 8 hours as needed, gabapentin 200 mg p.o. twice daily and Flexeril. No change (8) Depression Conclusion/Plan: On sertraline NO change (9) Obstructive sleep apnea on CPAP Conclusion/Plan: CPAP ordered No change (10)Weakness We will continue physical therapist and occupational therapist for patient. PT/OT Recommend patient be DC to SNF, consult with social worker palliative care for replacement. - Current Meds Current Meds: Current Medications Generic Name Dose Route Start Last Admin Trade Name Freq PRN Reason Stop Dose Admin Acetaminophen 650 mg 03/31/20 21:43 04/04/20 01:58 Tylenol PO 650 mg Q8HR PRN Administration Pain 1 to 4 Hydrocodone Bitart/Acetaminophen 1 tab 03/31/20 21:40 04/01/20 20:50 [place] 7.5/325 PO 1 tab Q8HR PRN Administration PAIN Albuterol 2.5 mg 04/02/20 08:01 04/04/20 09:08 INH 2.5 mg RTQ4H PRN Administration Wheezing Atorvastatin Calcium 20 mg 03/31/20 21:44 04/03/20 21:09 Lipitor PO 20 mg QPM [facility] Administration Docusate Sodium 250 - 500 mg 04/02/20 09:00 04/04/20 10:03 Colace 250mg Capsule PO Not Given DAILY [facility] Duloxetine HCl 60 mg 04/02/20 09:00 04/04/20 10:02 Cymbalta PO 60 mg DAILY [facility] Administration Enoxaparin Sodium 40 mg 04/01/20 09:00 04/04/20 10:03 Lovenox SUBQ 40 mg DAILY [facility] Administration Furosemide 40 mg 04/03/20 06:00 04/04/20 05:51 Lasix PO 40 mg BIDDIURETIC [facility] Administration Gabapentin 900 mg 04/02/20 21:00 04/04/20 10:02 Neurontin PO 900 mg BID [facility] Administration Meropenem 1 gm/ Sodium 100 mls @ 200 mls/hr 04/02/20 21:00 04/04/20 10:03 Chloride IV 100 mls/hr BID [facility] Administration Levothyroxine Sodium 150 mcg 04/01/20 07:00 04/04/20 05:50 Synthroid PO 150 mcg QDAC [facility] Administration Lisinopril 20 mg 04/02/20 09:00 04/04/20 10:03 Zestril PO 20 mg DAILY [facility] Administration Multi-Ingredient Ointment 1 applic 04/01/20 00:28 04/02/20 06:26 Zinc Oxide TOP 1 applic PRN PRN Administration Skin Care Nystatin 1 applic 04/01/20 09:00 04/04/20 10:05 Nystop TOP 1 applic BID [facility] Administration Pantoprazole Sodium 40 mg 04/01/20 07:00 04/04/20 05:51 Protonix PO 40 mg QDAC [facility] Administration Polyethylene Glycol 17 gm 04/02/20 09:00 04/04/20 10:04 Miralax PO Not Given DAILY [facility] Potassium Chloride 20 meq 03/31/20 22:00 04/04/20 10:02 K-Dur PO 20 meq BID ED[facility] Administration Senna 8.6 - 17.2 mg 04/02/20 09:00 04/04/20 10:05 Senokot PO Not Given DAILY [facility] Sodium Chloride 10 ml 03/31/20 19:22 04/04/20 01:33 Normal Saline Flush 0.9% IVP 10 ml PRN PRN Administration NEEDED PER PROVIDER ORDERS Sodium Chloride 10 ml 04/01/20 01:00 04/04/20 10:05 Normal Saline Flush 0.9% IVP 10 ml 0100,0900,1700 [facility] Administration - Lab Result Fish Bone Diagrams: 04/04/20 05:45 04/04/20 05:45 - Additional Planning My Orders: My Active Orders 04/04/20 17:00 Saccharomyces Boulardii [Florastor] 250 mg PO BIDWM 04/05/20 05:00 CRP - C-REACTIVE PROTEIN [CHEM] DAILYLAB 04/06/20 05:00 CRP - C-REACTIVE PROTEIN [CHEM] DAILYLAB 04/07/20 05:00 CRP - C-REACTIVE PROTEIN [CHEM] DAILYLAB Subjective - Subjective Patient Reports: Feeling Better Nursing Reports: No Complaints Objective Vital Signs: Vital Signs - 24 hr 04/03/20 04/03/20 04/03/20 15:27 16:11 20:25 Temperature 37.2 C Heart Rate 70 73 Heart Rate [ 73 Brachial] Respiratory 14 18 18 Rate Blood Pressure [Left Brachial artery] Blood Pressure 131/51 H [Right Brachial artery] O2 Saturation 94 04/03/20 04/04/20 04/04/20 21:00 01:30 07:00 Temperature 37.1 C 36.6 C 36.6 C Heart Rate Heart Rate [ 73 76 65 Brachial] Respiratory 19 20 20 Rate Blood Pressure 144/69 H [Left Brachial artery] Blood Pressure 139/50 H 153/71 H [Right Brachial artery] O2 Saturation 94 93 65 L 04/04/20 04/04/20 08:51 09:09 Temperature 36.9 C Heart Rate 66 Heart Rate [ 71 Brachial] Respiratory 20 16 Rate Blood Pressure 138/64 H [Left Brachial artery] Blood Pressure [Right Brachial artery] O2 Saturation 94 Oxygen O2 Source Room air I&O (Last 24 Hrs): Intake and Output Totals x24h 04/02/20 04/03/20 04/04/20 23:59 23:59 23:59 Intake Total 1770 1580 420 Output Total 1300 3000 1300 Balance 470 -1420 -880 General: Alert, Oriented x3, No acute distress HEENT: Atraumatic Neck: Supple Lymphatic: no adenopathy Neuro: Alert, Non Focal, Oriented Times 3 Cardiovascular: Regular rate, Normal S1, Normal S2 Respiratory: Chest non-tender, No respiratory distress Abdomen: Normal bowel sounds, Soft - Results Results: Laboratory Results WBC 6.6 x10^3/uL (4.8-10.8) 04/04/20 05:45 RBC 3.25 10^6/uL (4.20-5.40) L 04/04/20 05:45 Hgb 10.3 g/dL (12.0-16.0) L 04/04/20 05:45 Hct 33.2 % (37.0-47.0) L 04/04/20 05:45 MCV 102.2 fL (81.0-99.0) H 04/04/20 05:45 MCH 31.7 pg (27.0-31.0) H 04/04/20 05:45 MCHC 31.0 g/dL (32.0-36.0) L 04/04/20 05:45 RDW 14.4 % (12.0-15.0) 04/04/20 05:45 Plt Count 206 10^3/uL (130-450) 04/04/20 05:45 MPV 10.0 fL (7.9-10.8) 04/04/20 05:45 Neut # (Auto) 4.7 10^3/uL (1.5-6.6) 04/04/20 05:45 Lymph # (Auto) 1.0 10^3/uL (1.5-3.5) L 04/04/20 05:45 [place] # (Auto) 0.6 10^3/uL (0.0-1.0) 04/04/20 05:45 Eos # (Auto) 0.2 10^3/uL (0.0-0.7) 04/04/20 05:45 Baso # (Auto) 0.0 10^3/uL (0.0-0.1) 04/04/20 05:45 Absolute Nucleated RBC 0.00 x10^3/uL 04/04/20 05:45 Band Neuts % (Manual) Not Reportable 03/31/20 16:27 Abnorm Lymph % (Manual) Not Reportable 03/31/20 16:27 Nucleated RBC % 0.0 /100WBC 04/04/20 05:45 Neutrophils # (Manual) Not Reportable 03/31/20 16:27 Lymphocytes # (Manual) Not Reportable 03/31/20 16:27 Monocytes # (Manual) Not Reportable 03/31/20 16:27 Eosinophils # (Manual) Not Reportable 03/31/20 16:27 Basophils # (Manual) Not Reportable 03/31/20 16:27 Differential Comment MANUAL=AUTO DIFF 03/31/20 16:27 Manual Slide Review Indicated 04/01/20 04:33 Platelet Estimate NORMAL (130-450,000) (NORMAL) 04/01/20 04:33 Platelet Morphology NORMAL APPEARANCE (NORMAL) 04/01/20 04:33 RBC Morph Micro Appear NORMAL APPEARANCE (NORMAL) 04/01/20 04:33 PT 13.4 secs (9.9-12.6) H 03/31/20 16:27 INR 1.2 (0.8-1.2) 03/31/20 16:27 APTT 29.3 secs (24.9-33.3) 03/31/20 16:27 Sodium 138 mmol/L (135-145) 04/04/20 05:45 Potassium 4.2 mmol/L (3.5-5.0) 04/04/20 05:45 Chloride 101 mmol/L (101-111) 04/04/20 05:45 Carbon Dioxide 28 mmol/L (21-32) 04/04/20 05:45 Anion Gap 9.0 (6-13) 04/04/20 05:45 BUN 23 mg/dL (6-20) H 04/04/20 05:45 Creatinine 1.0 mg/dL (0.4-1.0) 04/04/20 05:45 Estimated GFR (MDRD) 54 (>89) L 04/04/20 05:45 Glucose 124 mg/dL (70-100) H 04/04/20 05:45 Lactic Acid 1.4 mmol/L (0.5-2.2) 03/31/20 16:40 Calcium 8.9 mg/dL (8.5-10.3) 04/04/20 05:45 Total Bilirubin 2.7 mg/dL (0.2-1.0) H 03/31/20 16:27 AST 19 IU/L (10-42) 03/31/20 16:27 ALT 14 IU/L (10-60) 03/31/20 16:27 Alkaline Phosphatase 66 IU/L (42-121) 03/31/20 16:27 C-Reactive Protein 16.7 mg/dL (0-1.0) H 04/04/20 05:45 B-Natriuretic Peptide 97 pg/mL (5-100) 04/02/20 04:40 Total Protein 7.8 g/dL (6.7-8.2) 03/31/20 16:27 Albumin 3.9 g/dL (3.2-5.5) 03/31/20 16:27 Globulin 3.9 g/dL (2.1-4.2) 03/31/20 16:27 Albumin/Globulin Ratio 1.0 (1.0-2.2) 03/31/20 16:27 Lipase 27 U/L (22-51) 03/31/20 16:27 TSH 2.04 uIU/mL (0.34-5.60) 04/02/20 04:40 Urine Color YELLOW 03/31/20 16:58 Urine Clarity CLOUDY (CLEAR) 03/31/20 16:58 Urine pH 5.5 PH (5.0-7.5) 03/31/20 16:58 Ur Specific [place] 1.020 (1.002-1.030) 03/31/20 16:58 Urine Protein TRACE mg/dL (NEGATIVE) 03/31/20 16:58 Urine Glucose (UA) NEGATIVE mg/dL (NEGATIVE) 03/31/20 16:58 Urine Ketones TRACE mg/dL (NEGATIVE) 03/31/20 16:58 Urine Occult Blood NEGATIVE (NEGATIVE) 03/31/20 16:58 Urine Nitrite POSITIVE (NEGATIVE) H 03/31/20 16:58 Urine Bilirubin NEGATIVE (NEGATIVE) 03/31/20 16:58 Urine Urobilinogen 0.2 (NORMAL) E.U./dL (NORMAL) 03/31/20 16:58 Ur Leukocyte Esterase SMALL (NEGATIVE) H 03/31/20 16:58 Urine RBC 0-5 /HPF (0-5) 03/31/20 16:58 Urine WBC >25 /HPF (0-5) H 03/31/20 16:58 Ur Squamous Epith Cells FEW Squamous (<= Few) 03/31/20 16:58 Urine Bacteria Many /HPF (None Seen) H 03/31/20 16:58 Ur Microscopic Review INDICATED 03/31/20 16:58 Urine Culture Comments INDICATED 03/31/20 16:58 Nasal Adenovirus (PCR) NOT DETECTED 03/31/20 16:45 Nasal B. parapertussis DNA (PCR) NOT DETECTED 03/31/20 16:45 Nasal Coronavir 229E PCR NOT DETECTED 03/31/20 16:45 Nasal Coronavir HKU1 PCR NOT DETECTED 03/31/20 16:45 Nasal Coronavir NL63 PCR NOT DETECTED 03/31/20 16:45 Nasal Coronavir OC43 PCR NOT DETECTED 03/31/20 16:45 Nasal Enterovir/Rhinovir PCR NOT DETECTED 03/31/20 16:45 Nasal Influenza B PCR NOT DETECTED 03/31/20 16:45 Nasal Influenza A PCR NOT DETECTED 03/31/20 16:45 Nasal Parainfluen 1 PCR NOT DETECTED 03/31/20 16:45 Nasal Parainfluen 2 PCR NOT DETECTED 03/31/20 16:45 Nasal Parainfluen 3 PCR NOT DETECTED 03/31/20 16:45 Nasal Parainfluen 4 PCR NOT DETECTED 03/31/20 16:45 Nasal RSV (PCR) NOT DETECTED 03/31/20 16:45 Nasal Screen MRSA (PCR) NEGATIVE (NEGATIVE) 04/02/20 10:50 Nasal B.pertussis DNA PCR NOT DETECTED 03/31/20 16:45 Nasal C.pneumoniae (PCR) NOT DETECTED 03/31/20 16:45 [place] Human Metapneumo PCR NOT DETECTED 03/31/20 16:45 Nasal M.pneumoniae (PCR) NOT DETECTED 03/31/20 16:45 Nasal SARS-CoV-2 (PCR) NOT DETECTED 03/31/20 16:45 Last Dose Date 04/02/20 04/03/20 09:30 Last Dose Time 1400 04/03/20 09:30 Vancomycin Trough 14.5 ug/mL (10.0-20.0) 04/03/20 09:30 Random Vancomycin 14.4 ug/mL 04/02/20 04:40 - Procedures Procedures: Procedures EXCISION OF STOMACH, PYLORUS, ENDO, DIAGN (12/17/16) Sepsis Event Note (H) - Evaluation Possible source of Sepsis: positive: Skin/soft tissue ABX Reporting Has patient been on IV antibiotics over the past 48 hours?: Yes Current Medications - Current Medications Current Medications: Active Medications Acetaminophen (Tylenol) 650 mg PO Q8HR PRN PRN Reason: Pain 1 to 4 Last Admin: 04/04/20 01:58 Dose: 650 mg Documented by: Hydrocodone Bitart/Acetaminophen ([place] 7.5/325) 1 tab PO Q8HR PRN PRN Reason: PAIN Last Admin: 04/01/20 20:50 Dose: 1 tab Documented by: Albuterol () 2.5 mg INH RTQ4H PRN PRN Reason: Wheezing Last Admin: 04/04/20 09:08 Dose: 2.5 mg Documented by: Atorvastatin Calcium (Lipitor) 20 mg PO QPM [facility] Last Admin: 04/03/20 21:09 Dose: 20 mg Documented by: Docusate Sodium (Colace 250mg Capsule) 250 - 500 mg PO DAILY [facility] Last Admin: 04/04/20 10:03 Dose: Not Given Documented by: Duloxetine HCl (Cymbalta) 60 mg PO DAILY [facility] Last Admin: 04/04/20 10:02 Dose: 60 mg Documented by: Enoxaparin Sodium (Lovenox) 40 mg SUBQ DAILY [facility] Last Admin: 04/04/20 10:03 Dose: 40 mg Documented by: Furosemide (Lasix) 40 mg PO BIDDIURETIC [facility] Last Admin: 04/04/20 05:51 Dose: 40 mg Documented by: Gabapentin (Neurontin) 900 mg PO BID [facility] Last Admin: 04/04/20 10:02 Dose: 900 mg Documented by: Meropenem 1 gm/ Sodium (Chloride) 100 mls @ 200 mls/hr IV BID [facility] Last Admin: 04/04/20 10:03 Dose: 100 mls/hr Documented by: Levothyroxine Sodium (Synthroid) 150 mcg PO QDAC [facility] Last Admin: 04/04/20 05:50 Dose: 150 mcg Documented by: Lisinopril (Zestril) 20 mg PO DAILY [facility] Last Admin: 04/04/20 10:03 Dose: 20 mg Documented by: Multi-Ingredient Ointment (Zinc Oxide) 1 applic TOP PRN PRN PRN Reason: Skin Care Last Admin: 04/02/20 06:26 Dose: 1 applic Documented by: Nystatin (Nystop) 1 applic TOP BID [facility] Last Admin: 04/04/20 10:05 Dose: 1 applic Documented by: Ondansetron HCl (Zofran Inj) 4 mg IVP Q6HR PRN PRN Reason: Nausea / Vomiting Pantoprazole Sodium (Protonix) 40 mg PO QDAC [facility] Last Admin: 04/04/20 05:51 Dose: 40 mg Documented by: Polyethylene Glycol (Miralax) 17 gm PO DAILY [facility] Last Admin: 04/04/20 10:04 Dose: Not Given Documented by: Potassium Chloride (K-Dur) 20 meq PO BID [facility] Last Admin: 04/04/20 10:02 Dose: 20 meq Documented by: Saccharomyces Boulardii (Florastor) 250 mg PO BIDWM [facility] Senna (Senokot) 8.6 - 17.2 mg PO DAILY [facility] Last Admin: 04/04/20 10:05 Dose: Not Given Documented by: Sodium Chloride (Normal Saline Flush 0.9%) 10 ml IVP PRN PRN PRN Reason: NEEDED PER PROVIDER ORDERS Last Admin: 04/04/20 01:33 Dose: 10 ml Documented by: Sodium Chloride (Normal Saline Flush 0.9%) 10 ml IVP 0100,0900,1700 [facility] Last Admin: 04/04/20 10:05 Dose: 10 ml Documented by: Cholecalciferol (Vitamin D3) [D-2000] 2,000 unit PO DAILY 12/01/13 Multivitamin [Multi-Vitamin Daily] 1 tab PO DAILY 12/01/13 [place]-3/Dha/Epa/Fish Oil [Fish Oil [place]-3 Softgel] 1 each PO BID 12/01/13 Ubidecarenone [Co Q-10] 200 mg PO DAILY 12/08/15 Acetaminophen [Tylenol] 650 mg PO Q8H PRN 10/21/16 Aspirin [Adult Low Dose Aspirin EC] 81 mg PO DAILY 10/21/16 Ferrous Sulfate 325 mg PO BID 10/21/16 Potassium Chloride [K-Dur] 20 meq PO BIDWM 10/21/16 Vitamin B Complex 1 tab PO DAILY 10/21/16 Atorvastatin [Lipitor] 20 mg PO QPM 04/01/20 DULoxetine [Cymbalta] 60 mg PO DAILY 04/01/20 Furosemide [Lasix] 20 mg PO BIDDIURETIC 04/01/20 Gabapentin [Neurontin] 900 mg PO BID 04/01/20 HYDROcod/ACETAM 5/325 [[place] 5/325] 1 tab PO DAILY PRN 04/01/20 Levothyroxine Sodium [Synthroid] 150 mcg PO QDAC 04/01/20 Lisinopril [Zestril] 20 mg PO DAILY 04/01/20
[2020-04-04] MEDS: SACCHAROMYCES BOULARDII 250 MG CAPSULE PO SCH (17:47)
[2020-04-04] MEDS: ATORVASTATIN 40 MG TABLET PO SCH (20:46)
[2020-04-05] MEDS: SODIUM CHLORIDE FLUSH 0.9% 10 ML SYRINGE IVP PRN ×3 (01:01→21:07)
[2020-04-05] MEDS: SODIUM CHLORIDE FLUSH 0.9% 10 ML SYRINGE IVP SCH ×4 (01:01→21:07)
[2020-04-05] MEDS: ACETAMINOPHEN 325 MG TABLET PO PRN (04:26)
[2020-04-05 05:04] LABS: BASOPHILS # (AUTO) 0.1 10^3/uL (0.0-0.1); BASOPHILS % (AUTO) 0.7 %; EOSINOPHILS # (AUTO) 0.3 10^3/uL (0.0-0.7); EOSINOPHILS % (AUTO) 4.8 %; HGB - HEMOGLOBIN 11.1 g/dL (12.0-16.0); LYMPHOCYTES # (AUTO) 1.3 10^3/uL (1.5-3.5); LYMPHOCYTES % (AUTO) 18.7 %; MEAN CORPUSCULAR HEMOGLOBIN 32.6 pg (27.0-31.0); MEAN CORPUSCULAR HGB CONC 31.6 g/dL (32.0-36.0); MEAN CORPUSCULAR VOLUME 102.9 fL (81.0-99.0); MONOCYTES # (AUTO) 0.8 10^3/uL (0.0-1.0); MONOCYTES % (AUTO) 12.1 %; NEUTROPHILS # (AUTO) 4.1 10^3/uL (1.5-6.6); NEUTROPHILS % (AUTO) 61.2 %; PLT - PLATELET COUNT 230 10^3/uL (130-450); RED BLOOD COUNT 3.41 10^6/uL (4.20-5.40); RED CELL DISTRIBUTION WIDTH 14.4 % (12.0-15.0); WHITE BLOOD COUNT 6.7 x10^3/uL (4.8-10.8)
[2020-04-05 05:25] LABS: CREATININE 0.9 mg/dL (0.4-1.0); CRP - C-REACTIVE PROTEIN 10.9 mg/dL (0-1.0)
[2020-04-05] MEDS: LEVOTHYROXINE 75 MCG TABLET PO SCH (06:12)
[2020-04-05] MEDS: PANTOPRAZOLE 40 MG TABLET PO SCH (06:12)
[2020-04-05] MEDS: FUROSEMIDE 40 MG TABLET PO SCH ×2 (06:13→14:27)
[2020-04-05] MEDS: ALBUTEROL NEB 2.5 MG/3 ML INH PRN (08:00)
[2020-04-05] MEDS: MEROPENEM 1 GM in SODIUM CHLORIDE 0.9% MINIBAG 100 ML IV SCH ×2 (10:06→21:04)
[2020-04-05] MEDS: DULoxetine 30 MG CAPSULE PO SCH (10:06)
[2020-04-05] MEDS: GABAPENTIN 300 MG CAPSULE PO SCH ×2 (10:06→21:05)
[2020-04-05] MEDS: SACCHAROMYCES BOULARDII 250 MG CAPSULE PO SCH ×2 (10:06→18:08)
[2020-04-05] MEDS: lisinopriL 20 MG TABLET PO SCH (10:07)
[2020-04-05] MEDS: POTASSIUM CHLORIDE 20 MEQ TABLET PO SCH ×2 (10:07→21:05)
[2020-04-05] MEDS: NYSTATIN POWDER 15 GM TOP SCH ×2 (10:07→21:06)
[2020-04-05] MEDS: ENOXAPARIN 40 MG/0.4 ML SYRINGE SUBQ SCH (10:07)
[2020-04-05] MEDS: DOCUSATE SODIUM 250 MG CAPSULE PO SCH (10:07)
[2020-04-05] MEDS: polyethylene glycoL 3350 17 GM PACKET PO SCH (10:08)
[2020-04-05] MEDS: SENNA 8.6 MG TABLET PO SCH (10:08)
--- NOTE | 2020-04-05 12:03 | PROVIDER PROGRESS NOTE ---
Assessment/Plan - Problem List (1) Cellulitis of left lower extremity Assessment/Plan: (2) Bacteremia Assessment/Plan: 1126 1 tube of blood culture show positive for staph pseudintermedius. Patient reported she did not have cats or dog in the home now. She had a dog 1 years ago. Patient had a fever at admission then patient has no more fever In the hospital. Patient's WBC is in the normal range, CRP treated down. I called infectious disease and waiting for they call me back. We will consider ECHO if patient had fever again. Continue meropenem. Repeat blood culture. (2) Cellulitis of left lower extremity Assessment/Plan: 1126, clinically patient's cellulitis is improved, Erythema and swelling are reduced, WBC is in the normal range, CRP treated down. Continue meropenem. 1125, patient left lower extremity cellulitis is slowly improved. There is still erythema, swallow, warmth at left anterior of calf but size is slight reduced. pt's WBC is normal, CRP is reduced. We will continue intravenous ant ibiotics by PICC line. 04/03 continue Improved. Left lower extremity cellulitis is resolved, right lower extremity cellulitis is improved but still present erythema, warmth, swelling and CRP is still 21.7. Patient reported she had some location cellulitis in the before which took a long time for her to heal. 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 04/02 Improved. Erythema, swallow are reduced. Patient blood culture is negative for bacteremia. Patient has no more fever. Continue antibiotics (3) UTI (urinary tract infection) 04/04 We will continue treatment with intravenous antibiotics for ESBL infection 1124, patient had ESBL infection, we will put a PICC line for patient. pt need two weeks antibiotics IV. Patient urine culture show ESBL, According to your sensitivity study we switch patient Rocephin to cefepime. (4) Lymphedema of left lower extremity Conclusion/Plan: 04/05 improved for lymphedema, order out-bed, continue PT/OT, rise leg help venous return 04/04 Chronic, advised the patient rise her lower extremity to help venous return Chronic. continue Patient is on Lasix 40 mg p.o. twice daily. (5) Hypertension stable (6) Hyperlipidemia stable (7) Hypothyroidism continue Synthroid 150 mcg p.o. daily. TSH is normal (8) Chronic back pain Conclusion/Plan: Patient is on [place] 7.5/325 mg tablet p.o. every 8 hours as needed, gabapentin 200 mg p.o. twice daily and Flexeril. No change (9) Depression Conclusion/Plan: On sertraline NO change (10) Obstructive sleep apnea on CPAP Conclusion/Plan: CPAP ordered No change (11)Weakness 04/05 continue PT/OT, PT/OT recommend pt need SNF for strength and balance training, consult with SW for safely d/c plan We will continue physical therapist and occupational therapist for patient. PT/OT Recommend patient be DC to SNF, consult with long term care social worker for replacement. - Current Meds Current Meds: Current Medications Generic Name Dose Route Start Last Admin Trade Name Freq PRN Reason Stop Dose Admin Acetaminophen 650 mg 03/31/20 21:43 04/05/20 04:26 Tylenol PO 650 mg Q8HR PRN Administration Pain 1 to 4 Hydrocodone Bitart/Acetaminophen 1 tab 03/31/20 21:40 04/01/20 20:50 [place] 7.5/325 PO 1 tab Q8HR PRN Administration PAIN Albuterol 2.5 mg 04/02/20 08:01 04/05/20 08:00 INH 2.5 mg RTQ4H PRN Administration Wheezing Atorvastatin Calcium 20 mg 03/31/20 21:44 04/04/20 20:46 Lipitor PO 20 mg QPM [facility] Administration Docusate Sodium 250 - 500 mg 04/02/20 09:00 04/05/20 10:07 Colace 250mg Capsule PO Not Given DAILY [facility] Duloxetine HCl 60 mg 04/02/20 09:00 04/05/20 10:06 Cymbalta PO 60 mg DAILY [facility] Administration Enoxaparin Sodium 40 mg 04/01/20 09:00 04/05/20 10:07 Lovenox SUBQ 40 mg DAILY [facility] Administration Furosemide 40 mg 04/03/20 06:00 04/05/20 06:13 Lasix PO 40 mg BIDDIURETIC [facility] Administration Gabapentin 900 mg 04/02/20 21:00 04/05/20 10:06 Neurontin PO 900 mg BID [facility] Administration Meropenem 1 gm/ Sodium 100 mls @ 200 mls/hr 04/02/20 21:00 04/05/20 10:37 Chloride IV Infused BID [facility] Infusion Levothyroxine Sodium 150 mcg 04/01/20 07:00 04/05/20 06:12 Synthroid PO 150 mcg QDAC [facility] Administration Lisinopril 20 mg 04/02/20 09:00 04/05/20 10:07 Zestril PO 20 mg DAILY [facility] Administration Multi-Ingredient Ointment 1 applic 04/01/20 00:28 04/02/20 06:26 Zinc Oxide TOP 1 applic PRN PRN Administration Skin Care Nystatin 1 applic 04/01/20 09:00 04/05/20 10:07 Nystop TOP Not Given BID [facility] Pantoprazole Sodium 40 mg 04/01/20 07:00 04/05/20 06:12 Protonix PO 40 mg QDAC [facility] Administration Polyethylene Glycol 17 gm 04/02/20 09:00 04/05/20 10:08 Miralax PO Not Given DAILY [facility] Potassium Chloride 20 meq 03/31/20 22:00 04/05/20 10:07 K-Dur PO 20 meq BID [facility] Administration Saccharomyces Boulardii 250 mg 04/04/20 17:00 04/05/20 10:06 Florastor PO 250 mg BIDWM [facility] Administration Senna 8.6 - 17.2 mg 04/02/20 09:00 04/05/20 10:08 Senokot PO Not Given DAILY [facility] Sodium Chloride 10 ml 03/31/20 19:22 04/05/20 10:08 Normal Saline Flush 0.9% IVP 10 ml PRN PRN Administration NEEDED PER PROVIDER ORDERS Sodium Chloride 10 ml 04/01/20 01:00 04/05/20 10:08 Normal Saline Flush 0.9% IVP 10 ml 0100,0900,1700 EDWARD Administration - Lab Result Fish Bone Diagrams: 04/05/20 04:20 04/05/20 04:20 - Additional Planning My Orders: My Active Orders 04/04/20 17:00 Saccharomyces Boulardii [Florastor] 250 mg PO BIDWM 04/06/20 05:00 CRP - C-REACTIVE PROTEIN [CHEM] DAILYLAB 04/07/20 05:00 CRP - C-REACTIVE PROTEIN [CHEM] DAILYLAB Subjective - Subjective Patient Reports: Feeling Better Objective Vital Signs: Vital Signs - 24 hr 04/04/20 04/04/20 04/04/20 13:00 17:00 20:57 Temperature 36.7 C 37 C 37 C Heart Rate Heart Rate [ 78 84 84 Brachial] Respiratory 20 19 19 Rate Blood Pressure 142/57 H 151/84 H 151/85 H [Left Brachial artery] Blood Pressure [Right radial] O2 Saturation 94 95 94 04/04/20 04/05/20 04/05/20 23:44 04:32 08:02 Temperature 36.6 C 36.4 C L Heart Rate 72 Heart Rate [ 76 67 Brachial] Respiratory 22 20 18 Rate Blood Pressure [Left Brachial artery] Blood Pressure 131/51 H 150/71 H [Right radial] O2 Saturation 93 95 04/05/20 09:00 Temperature 36.4 C L Heart Rate Heart Rate [ 74 Brachial] Respiratory 18 Rate Blood Pressure [Left Brachial artery] Blood Pressure 150/60 H [Right radial] O2 Saturation 92 Oxygen O2 Source Room air I&O (Last 24 Hrs): Intake and Output Totals x24h 04/03/20 04/04/20 04/05/20 23:59 23:59 23:59 Intake Total 1580 1450.000 500 Output Total 3000 3900 1000 Balance -1420 -2450.000 -500 General: Alert, Oriented x3, Cooperative, No acute distress HEENT: Atraumatic, EOMI Neck: Supple Lymphatic: no adenopathy Neuro: Alert, Non Focal, Oriented Times 3 Cardiovascular: Regular rate, Normal S1, Normal S2 Respiratory: Chest non-tender, No respiratory distress Abdomen: Normal bowel sounds, Soft, No tenderness Extremities: Other (left lower extremeity cellulitis's erythema and swelling is reduced, and improved.) - Results Results: Laboratory Results WBC 6.7 x10^3/uL (4.8-10.8) 04/05/20 04:20 RBC 3.41 10^6/uL (4.20-5.40) L 04/05/20 04:20 Hgb 11.1 g/dL (12.0-16.0) L 04/05/20 04:20 Hct 35.1 % (37.0-47.0) L 04/05/20 04:20 MCV 102.9 fL (81.0-99.0) H 04/05/20 04:20 MCH 32.6 pg (27.0-31.0) H 04/05/20 04:20 MCHC 31.6 g/dL (32.0-36.0) L 04/05/20 04:20 RDW 14.4 % (12.0-15.0) 04/05/20 04:20 Plt Count 230 10^3/uL (130-450) 04/05/20 04:20 MPV 10.0 fL (7.9-10.8) 04/05/20 04:20 Neut # (Auto) 4.1 10^3/uL (1.5-6.6) 04/05/20 04:20 Lymph # (Auto) 1.3 10^3/uL (1.5-3.5) L 04/05/20 04:20 [place] # (Auto) 0.8 10^3/uL (0.0-1.0) 04/05/20 04:20 Eos # (Auto) 0.3 10^3/uL (0.0-0.7) 04/05/20 04:20 Baso # (Auto) 0.1 10^3/uL (0.0-0.1) 04/05/20 04:20 Absolute Nucleated RBC 0.00 x10^3/uL 04/05/20 04:20 Band Neuts % (Manual) Not Reportable 03/31/20 16:27 Abnorm Lymph % (Manual) Not Reportable 03/31/20 16:27 Nucleated RBC % 0.0 /100WBC 04/05/20 04:20 Neutrophils # (Manual) Not Reportable 03/31/20 16:27 Lymphocytes # (Manual) Not Reportable 03/31/20 16:27 Monocytes # (Manual) Not Reportable 03/31/20 16:27 Eosinophils # (Manual) Not Reportable 03/31/20 16:27 Basophils # (Manual) Not Reportable 03/31/20 16:27 Differential Comment MANUAL=AUTO DIFF 03/31/20 16:27 Manual Slide Review Indicated 04/01/20 04:33 Platelet Estimate NORMAL (130-450,000) (NORMAL) 04/01/20 04:33 Platelet Morphology NORMAL APPEARANCE (NORMAL) 04/01/20 04:33 RBC Morph Micro Appear NORMAL APPEARANCE (NORMAL) 04/01/20 04:33 PT 13.4 secs (9.9-12.6) H 03/31/20 16:27 INR 1.2 (0.8-1.2) 03/31/20 16:27 APTT 29.3 secs (24.9-33.3) 03/31/20 16:27 Sodium 137 mmol/L (135-145) 04/05/20 04:20 Potassium 4.1 mmol/L (3.5-5.0) 04/05/20 04:20 Chloride 97 mmol/L (101-111) L 04/05/20 04:20 Carbon Dioxide 29 mmol/L (21-32) 04/05/20 04:20 Anion Gap 11.0 (6-13) 04/05/20 04:20 BUN 21 mg/dL (6-20) H 04/05/20 04:20 Creatinine 0.9 mg/dL (0.4-1.0) 04/05/20 04:20 Estimated GFR (MDRD) 61 (>89) L 04/05/20 04:20 Glucose 97 mg/dL (70-100) 04/05/20 04:20 Lactic Acid 1.4 mmol/L (0.5-2.2) 03/31/20 16:40 Calcium 9.0 mg/dL (8.5-10.3) 04/05/20 04:20 Total Bilirubin 2.7 mg/dL (0.2-1.0) H 03/31/20 16:27 AST 19 IU/L (10-42) 03/31/20 16:27 ALT 14 IU/L (10-60) 03/31/20 16:27 Alkaline Phosphatase 66 IU/L (42-121) 03/31/20 16:27 C-Reactive Protein 10.9 mg/dL (0-1.0) H 04/05/20 04:20 B-Natriuretic Peptide 97 pg/mL (5-100) 04/02/20 04:40 Total Protein 7.8 g/dL (6.7-8.2) 03/31/20 16:27 Albumin 3.9 g/dL (3.2-5.5) 03/31/20 16:27 Globulin 3.9 g/dL (2.1-4.2) 03/31/20 16:27 Albumin/Globulin Ratio 1.0 (1.0-2.2) 03/31/20 16:27 Lipase 27 U/L (22-51) 03/31/20 16:27 TSH 2.04 uIU/mL (0.34-5.60) 04/02/20 04:40 Urine Color YELLOW 03/31/20 16:58 Urine Clarity CLOUDY (CLEAR) 03/31/20 16:58 Urine pH 5.5 PH (5.0-7.5) 03/31/20 16:58 Ur Specific [place] 1.020 (1.002-1.030) 03/31/20 16:58 Urine Protein TRACE mg/dL (NEGATIVE) 03/31/20 16:58 Urine Glucose (UA) NEGATIVE mg/dL (NEGATIVE) 03/31/20 16:58 Urine Ketones TRACE mg/dL (NEGATIVE) 03/31/20 16:58 Urine Occult Blood NEGATIVE (NEGATIVE) 03/31/20 16:58 Urine Nitrite POSITIVE (NEGATIVE) H 03/31/20 16:58 Urine Bilirubin NEGATIVE (NEGATIVE) 03/31/20 16:58 Urine Urobilinogen 0.2 (NORMAL) E.U./dL (NORMAL) 03/31/20 16:58 Ur Leukocyte Esterase SMALL (NEGATIVE) H 03/31/20 16:58 Urine RBC 0-5 /HPF (0-5) 03/31/20 16:58 Urine WBC >25 /HPF (0-5) H 03/31/20 16:58 Ur Squamous Epith Cells FEW Squamous (<= Few) 03/31/20 16:58 Urine Bacteria Many /HPF (None Seen) H 03/31/20 16:58 Ur Microscopic Review INDICATED 03/31/20 16:58 Urine Culture Comments INDICATED 03/31/20 16:58 Nasal Adenovirus (PCR) NOT DETECTED 03/31/20 16:45 Nasal B. parapertussis DNA (PCR) NOT DETECTED 03/31/20 16:45 Nasal Coronavir 229E PCR NOT DETECTED 03/31/20 16:45 Nasal Coronavir HKU1 PCR NOT DETECTED 03/31/20 16:45 Nasal Coronavir NL63 PCR NOT DETECTED 03/31/20 16:45 Nasal Coronavir OC43 PCR NOT DETECTED 03/31/20 16:45 Nasal Enterovir/Rhinovir PCR NOT DETECTED 03/31/20 16:45 Nasal Influenza B PCR NOT DETECTED 03/31/20 16:45 Nasal Influenza A PCR NOT DETECTED 03/31/20 16:45 Nasal Parainfluen 1 PCR NOT DETECTED 03/31/20 16:45 Nasal Parainfluen 2 PCR NOT DETECTED 03/31/20 16:45 Nasal Parainfluen 3 PCR NOT DETECTED 03/31/20 16:45 Nasal Parainfluen 4 PCR NOT DETECTED 03/31/20 16:45 Nasal RSV (PCR) NOT DETECTED 03/31/20 16:45 Nasal Screen MRSA (PCR) NEGATIVE (NEGATIVE) 04/02/20 10:50 Nasal B.pertussis DNA PCR NOT DETECTED 03/31/20 16:45 Nasal C.pneumoniae (PCR) NOT DETECTED 03/31/20 16:45 Benito Human Metapneumo PCR NOT DETECTED 03/31/20 16:45 Nasal M.pneumoniae (PCR) NOT DETECTED 03/31/20 16:45 Nasal SARS-CoV-2 (PCR) NOT DETECTED 03/31/20 16:45 Last Dose Date 04/02/20 04/03/20 09:30 Last Dose Time 1400 04/03/20 09:30 Vancomycin Trough 14.5 ug/mL (10.0-20.0) 04/03/20 09:30 Random Vancomycin 14.4 ug/mL 04/02/20 04:40 - Procedures Procedures: Procedures EXCISION OF STOMACH, PYLORUS, ENDO, DIAGN (12/17/16) Sepsis Event Note (H) - Evaluation Possible source of Sepsis: positive: Skin/soft tissue ABX Reporting Has patient been on IV antibiotics over the past 48 hours?: Yes Current Medications - Current Medications Current Medications: Active Medications Acetaminophen (Tylenol) 650 mg PO Q8HR PRN PRN Reason: Pain 1 to 4 Last Admin: 04/05/20 04:26 Dose: 650 mg Documented by: Hydrocodone Bitart/Acetaminophen ([place] 7.5/325) 1 tab PO Q8HR PRN PRN Reason: PAIN Last Admin: 04/01/20 20:50 Dose: 1 tab Documented by: Albuterol () 2.5 mg INH RTQ4H PRN PRN Reason: Wheezing Last Admin: 04/05/20 08:00 Dose: 2.5 mg Documented by: Atorvastatin Calcium (Lipitor) 20 mg PO QPM [facility] Last Admin: 04/04/20 20:46 Dose: 20 mg Documented by: Docusate Sodium (Colace 250mg Capsule) 250 - 500 mg PO DAILY [facility] Last Admin: 04/05/20 10:07 Dose: Not Given Documented by: Duloxetine HCl (Cymbalta) 60 mg PO DAILY [facility] Last Admin: 04/05/20 10:06 Dose: 60 mg Documented by: Enoxaparin Sodium (Lovenox) 40 mg SUBQ DAILY [facility] Last Admin: 04/05/20 10:07 Dose: 40 mg Documented by: Furosemide (Lasix) 40 mg PO BIDDIURETIC [facility] Last Admin: 04/05/20 06:13 Dose: 40 mg Documented by: Gabapentin (Neurontin) 900 mg PO BID [facility] Last Admin: 04/05/20 10:06 Dose: 900 mg Documented by: Meropenem 1 gm/ Sodium (Chloride) 100 mls @ 200 mls/hr IV BID [facility] Last Infusion: 04/05/20 10:37 Dose: Infused Documented by: Levothyroxine Sodium (Synthroid) 150 mcg PO QDAC [facility] Last Admin: 04/05/20 06:12 Dose: 150 mcg Documented by: Lisinopril (Zestril) 20 mg PO DAILY [facility] Last Admin: 04/05/20 10:07 Dose: 20 mg Documented by: Multi-Ingredient Ointment (Zinc Oxide) 1 applic TOP PRN PRN PRN Reason: Skin Care Last Admin: 04/02/20 06:26 Dose: 1 applic Documented by: Nystatin (Nystop) 1 applic TOP BID [facility] Last Admin: 04/05/20 10:07 Dose: Not Given Documented by: Ondansetron HCl (Zofran Inj) 4 mg IVP Q6HR PRN PRN Reason: Nausea / Vomiting Pantoprazole Sodium (Protonix) 40 mg PO QDAC [facility] Last Admin: 04/05/20 06:12 Dose: 40 mg Documented by: Polyethylene Glycol (Miralax) 17 gm PO DAILY [facility] Last Admin: 04/05/20 10:08 Dose: Not Given Documented by: Potassium Chloride (K-Dur) 20 meq PO BID [facility] Last Admin: 04/05/20 10:07 Dose: 20 meq Documented by: Saccharomyces Boulardii (Florastor) 250 mg PO BIDWM [facility] Last Admin: 04/05/20 10:06 Dose: 250 mg Documented by: Senna (Senokot) 8.6 - 17.2 mg PO DAILY [facility] Last Admin: 04/05/20 10:08 Dose: Not Given Documented by: Sodium Chloride (Normal Saline Flush 0.9%) 10 ml IVP PRN PRN PRN Reason: NEEDED PER PROVIDER ORDERS Last Admin: 04/05/20 10:08 Dose: 10 ml Documented by: Sodium Chloride (Normal Saline Flush 0.9%) 10 ml IVP 0100,0900,1700 [facility] Last Admin: 04/05/20 10:08 Dose: 10 ml Documented by: Cholecalciferol (Vitamin D3) [D-2000] 2,000 unit PO DAILY 12/01/13 Multivitamin [Multi-Vitamin Daily] 1 tab PO DAILY 12/01/13 [place]-3/Dha/Epa/Fish Oil [Fish Oil [place]-3 Softgel] 1 each PO BID 12/01/13 Ubidecarenone [Co Q-10] 200 mg PO DAILY 12/08/15 Acetaminophen [Tylenol] 650 mg PO Q8H PRN 10/21/16 Aspirin [Adult Low Dose Aspirin EC] 81 mg PO DAILY 10/21/16 Ferrous Sulfate 325 mg PO BID 10/21/16 Potassium Chloride [K-Dur] 20 meq PO BIDWM 10/21/16 Vitamin B Complex 1 tab PO DAILY 10/21/16 Atorvastatin [Lipitor] 20 mg PO QPM 04/01/20 DULoxetine [Cymbalta] 60 mg PO DAILY 04/01/20 Furosemide [Lasix] 20 mg PO BIDDIURETIC 04/01/20 Gabapentin [Neurontin] 900 mg PO BID 04/01/20 HYDROcod/ACETAM 5/325 [[place] 5/325] 1 tab PO DAILY PRN 04/01/20 Levothyroxine Sodium [Synthroid] 150 mcg PO QDAC 04/01/20 Lisinopril [Zestril] 20 mg PO DAILY 04/01/20
[2020-04-05] MEDS: ATORVASTATIN 40 MG TABLET PO SCH (21:05)
[2020-04-06 05:10] LABS: BASOPHILS # (AUTO) 0.1 10^3/uL (0.0-0.1); BASOPHILS % (AUTO) 0.8 %; EOSINOPHILS # (AUTO) 0.3 10^3/uL (0.0-0.7); EOSINOPHILS % (AUTO) 3.6 %; HGB - HEMOGLOBIN 10.9 g/dL (12.0-16.0); LYMPHOCYTES # (AUTO) 1.4 10^3/uL (1.5-3.5); LYMPHOCYTES % (AUTO) 18.8 %; MEAN CORPUSCULAR HGB CONC 31.5 g/dL (32.0-36.0); MEAN CORPUSCULAR VOLUME 101.5 fL (81.0-99.0); MEAN PLATELET VOLUME 9.4 fL (7.9-10.8); MONOCYTES # (AUTO) 0.6 10^3/uL (0.0-1.0); MONOCYTES % (AUTO) 8.7 %; NEUTROPHILS # (AUTO) 4.5 10^3/uL (1.5-6.6); PLT - PLATELET COUNT 251 10^3/uL (130-450); RED BLOOD COUNT 3.41 10^6/uL (4.20-5.40); RED CELL DISTRIBUTION WIDTH 14.4 % (12.0-15.0); WHITE BLOOD COUNT 7.2 x10^3/uL (4.8-10.8)
[2020-04-06 05:29] LABS: CALCIUM 8.5 mg/dL (8.5-10.3); CREATININE 0.9 mg/dL (0.4-1.0); CRP - C-REACTIVE PROTEIN 5.2 mg/dL (0-1.0); MAGNESIUM 1.7 mg/dL (1.7-2.8)
[2020-04-06] MEDS: PANTOPRAZOLE 40 MG TABLET PO SCH (06:13)
[2020-04-06] MEDS: LEVOTHYROXINE 75 MCG TABLET PO SCH (06:13)
[2020-04-06] MEDS: FUROSEMIDE 40 MG TABLET PO SCH (06:14)
[2020-04-06] MEDS: POTASSIUM CHLORIDE 20 MEQ TABLET PO SCH ×2 (08:38→21:04)
[2020-04-06] MEDS: DULoxetine 30 MG CAPSULE PO SCH (08:38)
[2020-04-06] MEDS: GABAPENTIN 300 MG CAPSULE PO SCH ×2 (08:38→21:05)
[2020-04-06] MEDS: SACCHAROMYCES BOULARDII 250 MG CAPSULE PO SCH ×2 (08:38→16:56)
[2020-04-06] MEDS: ENOXAPARIN 40 MG/0.4 ML SYRINGE SUBQ SCH (08:39)
[2020-04-06] MEDS: MEROPENEM 1 GM in SODIUM CHLORIDE 0.9% MINIBAG 100 ML IV SCH ×2 (08:39→21:02)
[2020-04-06] MEDS: SODIUM CHLORIDE FLUSH 0.9% 10 ML SYRINGE IVP SCH ×2 (08:40→16:57)
[2020-04-06] MEDS: SENNA 8.6 MG TABLET PO SCH (08:40)
[2020-04-06] MEDS: polyethylene glycoL 3350 17 GM PACKET PO SCH (08:40)
[2020-04-06] MEDS: DOCUSATE SODIUM 250 MG CAPSULE PO SCH (08:50)
[2020-04-06] MEDS: lisinopriL 20 MG TABLET PO SCH (08:54)
[2020-04-06] MEDS: NYSTATIN POWDER 15 GM TOP SCH ×2 (08:59→21:04)
--- NOTE | 2020-04-06 10:57 | PROVIDER PROGRESS NOTE ---
Subjective - Prog Note Date Prog Note Date: 04/06/20 - Subjective Subjective: He states this feels better compared to admission. She is still concerned that she has erythema over her left lower extremity. She reports no pain or difficulty breathing. She would prefer to avoid going to a snf facility. Current Medications - Current Medications Current Medications: Active Medications Acetaminophen (Tylenol) 650 mg PO Q8HR PRN PRN Reason: Pain 1 to 4 Last Admin: 04/05/20 04:26 Dose: 650 mg Documented by: Hydrocodone Bitart/Acetaminophen ([place] 7.5/325) 1 tab PO Q8HR PRN PRN Reason: PAIN Last Admin: 04/01/20 20:50 Dose: 1 tab Documented by: Albuterol () 2.5 mg INH RTQ4H PRN PRN Reason: Wheezing Last Admin: 04/05/20 08:00 Dose: 2.5 mg Documented by: Aspirin (Ecotrin) 81 mg PO DAILY [facility] 234 BEDS AT [facility] Atorvastatin Calcium (Lipitor) 20 mg PO QPM [facility]S INCLUDE 234 BEDS AT [facility] Last Admin: 04/05/20 21:05 Dose: 20 mg Documented by: Docusate Sodium (Colace 250mg Capsule) 250 - 500 mg PO DAILY [facility]CLUDE 234 BEDS AT [facility] Last Admin: 04/06/20 08:50 Dose: 250 mg Documented by: Duloxetine HCl (Cymbalta) 60 mg PO DAILY [facility]CLUDE 234 BEDS AT [facility] Last Admin: 04/06/20 08:38 Dose: 60 mg Documented by: Enoxaparin Sodium (Lovenox) 40 mg SUBQ DAILY [facility]CLUDE 234 BEDS AT [facility] Last Admin: 04/06/20 08:39 Dose: 40 mg Documented by: Furosemide (Lasix) 20 mg PO BIDDIURETIC COUNTS INCLUDE 234 BEDS AT [facility] Gabapentin (Neurontin) 900 mg PO BID [facility] 234 BEDS AT [facility] Last Admin: 04/06/20 08:38 Dose: 900 mg Documented by: Meropenem 1 gm/ Sodium (Chloride) 100 mls @ 200 mls/hr IV BID [facility]S [facility]CLUDE 234 BEDS AT [facility] Last Infusion: 04/06/20 09:39 Dose: Infused Documented by: Levothyroxine Sodium (Synthroid) 150 mcg PO QDAC [facility]S [facility]CLUDE 234 BEDS AT [facility] Last Admin: 04/06/20 06:13 Dose: 150 mcg Documented by: Lisinopril (Zestril) 20 mg PO DAILY [facility] 234 BEDS AT [facility] Last Admin: 04/06/20 08:54 Dose: 20 mg Documented by: Multi-Ingredient Ointment (Zinc Oxide) 1 applic TOP PRN PRN PRN Reason: Skin Care Last Admin: 04/02/20 06:26 Dose: 1 applic Documented by: Nystatin (Nystop) 1 applic TOP BID [facility]S INCLUDE 234 BEDS AT [facility] Last Admin: 04/06/20 08:59 Dose: 1 applic Documented by: Ondansetron HCl (Zofran Inj) 4 mg IVP Q6HR PRN PRN Reason: Nausea / Vomiting Pantoprazole Sodium (Protonix) 40 mg PO QDAC [facility]CLUDE 234 BEDS AT [facility] Last Admin: 04/06/20 06:13 Dose: 40 mg Documented by: Polyethylene Glycol (Miralax) 17 gm PO DAILY [facility]CLUDE 234 BEDS AT [facility] Last Admin: 04/06/20 08:40 Dose: Not Given Documented by: Potassium Chloride (K-Dur) 20 meq PO BID [facility]CLUDE 234 BEDS AT [facility] Last Admin: 04/06/20 08:38 Dose: 20 meq Documented by: Saccharomyces Boulardii (Florastor) 250 mg PO BIDWM COUNTS INCLUDE 234 BEDS AT [facility] Last Admin: 04/06/20 08:38 Dose: 250 mg Documented by: Senna (Senokot) 8.6 - 17.2 mg PO DAILY [facility] INCLUDE 234 BEDS AT [facility] Last Admin: 04/06/20 08:40 Dose: Not Given Documented by: Sodium Chloride (Normal Saline Flush 0.9%) 10 ml IVP PRN PRN PRN Reason: NEEDED PER PROVIDER ORDERS Last Admin: 04/05/20 21:07 Dose: 10 ml Documented by: Sodium Chloride (Normal Saline Flush 0.9%) 10 ml IVP 0100,0900,1700 COUNTS INCLUDE 234 BEDS AT [facility] Last Admin: 04/06/20 08:40 Dose: 10 ml Documented by: Cholecalciferol (Vitamin D3) [D-2000] 2,000 unit PO DAILY 12/01/13 Multivitamin [Multi-Vitamin Daily] 1 tab PO DAILY 12/01/13 [place]-3/Dha/Epa/Fish Oil [Fish Oil [place]-3 Softgel] 1 each PO BID 12/01/13 Ubidecarenone [Co Q-10] 200 mg PO DAILY 12/08/15 Acetaminophen [Tylenol] 650 mg PO Q8H PRN 10/21/16 Aspirin [Adult Low Dose Aspirin EC] 81 mg PO DAILY 10/21/16 Ferrous Sulfate 325 mg PO BID 10/21/16 Potassium Chloride [K-Dur] 20 meq PO BIDWM 10/21/16 Vitamin B Complex 1 tab PO DAILY 10/21/16 Atorvastatin [Lipitor] 20 mg PO QPM 04/01/20 DULoxetine [Cymbalta] 60 mg PO DAILY 04/01/20 Furosemide [Lasix] 20 mg PO BIDDIURETIC 04/01/20 Gabapentin [Neurontin] 900 mg PO BID 04/01/20 HYDROcod/ACETAM 5/325 [[place] 5/325] 1 tab PO DAILY PRN 04/01/20 Levothyroxine Sodium [Synthroid] 150 mcg PO QDAC 04/01/20 Lisinopril [Zestril] 20 mg PO DAILY 04/01/20 Objective - Vital Signs/Intake & Output Reviewed Vital Signs: Yes Vital Signs: Vital Signs x48h Temp Pulse Resp BP BP Pulse Ox 04/06/20 09:00 37.0 C 71 19 125/64 92 04/06/20 05:00 36.6 C 72 20 117/44 L 92 Intake & Output: Intake & Output 04/03/20 04/04/20 04/05/20 04/06/20 23:59 23:59 23:59 23:59 Intake Total 1580 0316.896 0994 440 Output Total 3000 3900 1000 550 Balance -1420 -2450.000 790 -110 - Objective General Appearance: positive: No acute distress, Alert, Mild distress Eyes Bilateral: positive: Conjunctivae nml ENT: positive: ENT inspection nml Neck: positive: Nml inspection Respiratory: positive: No respiratory distress. negative: Wheezes, Rales Cardiovascular: positive: Regular rate & rhythm. negative: Tachycardia Skin: positive: Warm, Dry, Other (There is still erythema noted over the anterior aspect of the left lower extremity below the knee to the ankle. This is minimally tender. It is warm to touch.) Extremities: positive: Pedal edema (She has about +1 to +2 pitting edema in the bilateral lower extremity.) Neurologic/Psychiatric: positive: Oriented x3 - Lab Results Fish Bones: 04/07/20 05:10 04/07/20 05:10 Other Labs: Lab Results x24hrs 04/06/20 04/06/20 Range/Units 05:01 05:01 WBC 7.2 (4.8-10.8) x10^3/uL RBC 3.41 L (4.20-5.40) 10^6/uL Hgb 10.9 L (12.0-16.0) g/dL Hct 34.6 L (37.0-47.0) % MCV 101.5 H (81.0-99.0) fL MCH 32.0 H (27.0-31.0) pg MCHC 31.5 L (32.0-36.0) g/dL RDW 14.4 (12.0-15.0) % Plt Count 251 (130-450) 10^3/uL MPV 9.4 (7.9-10.8) fL Neut # (Auto) 4.5 (1.5-6.6) 10^3/uL Lymph # (Auto) 1.4 L (1.5-3.5) 10^3/uL [place] # (Auto) 0.6 (0.0-1.0) 10^3/uL Eos # (Auto) 0.3 (0.0-0.7) 10^3/uL Baso # (Auto) 0.1 (0.0-0.1) 10^3/uL Absolute Nucleated RBC 0.00 x10^3/uL Nucleated RBC % 0.0 /100WBC Sodium 136 (135-145) mmol/L Potassium 4.4 (3.5-5.0) mmol/L Chloride 97 L (101-111) mmol/L Carbon Dioxide 30 (21-32) mmol/L Anion Gap 9.0 (6-13) BUN 26 H (6-20) mg/dL Creatinine 0.9 (0.4-1.0) mg/dL Estimated GFR (MDRD) 61 L (>89) Glucose 108 H (70-100) mg/dL Calcium 8.5 (8.5-10.3) mg/dL Magnesium 1.7 (1.7-2.8) mg/dL C-Reactive Protein 5.2 H (0-1.0) mg/dL ABX Reporting Has patient been on IV antibiotics over the past 48 hours?: Yes Sepsis Event Note (H) - Evaluation Possible source of Sepsis: positive: Skin/soft tissue Assessment/Plan - Problem List (1) Cellulitis of left lower extremity Impression: She continues to improve from a cellulitis standpoint. She remains afebrile and her white count is improving. CRP is also trending down. She still has erythema but is this is also improved. We will continue meropenem IV given she also needs this for the ESBL E. coli UTI. (2) UTI due to extended-spectrum beta lactamase (ESBL) producing Escherichia coli Impression: Urine culture grew ESBL E. coli. This is sensitive to meropenem but unfortunate not to any oral antibiotics. She will be treated for 2 weeks of IV therapy given the concern for complicated UTI on admission due to her fever and leukocytosis although she had no evidence of flank pain. (3) Bacteremia due to Staphylococcus Impression: Initial blood cultures from admission grew staph pseudointermedius. This is in 1 out of 4 bottles. Patient reports no pets at home as her dog over 1 year ago. We have a phone call out to infectious disease to discuss this finding. Repeat cultures have been ordered and are pending. (4) Depression Impression: Stable. Continue Cymbalta. (5) Hyperlipidemia Impression: Stable. Continue statin. (6) Hypertension Impression: Her blood pressure has been stable on lisinopril which will be continued. If her blood pressure becomes elevated, will consider increasing the dose or adding a second antihypertensive. (7) Hypothyroidism Impression: Stable. Continue Synthroid. (8) Obstructive sleep apnea on CPAP Impression: Stable. Continue CPAP.
[2020-04-06] MEDS: FUROSEMIDE 20 MG TABLET PO SCH (14:18)
[2020-04-06] MEDS: SODIUM CHLORIDE FLUSH 0.9% 10 ML SYRINGE IVP PRN ×2 (16:57→21:02)
[2020-04-06] MEDS: ATORVASTATIN 40 MG TABLET PO SCH (21:03)
[2020-04-07] MEDS: SODIUM CHLORIDE FLUSH 0.9% 10 ML SYRINGE IVP SCH ×3 (01:44→11:58)
[2020-04-07 05:20] LABS: BASOPHILS # (AUTO) 0.1 10^3/uL (0.0-0.1); BASOPHILS % (AUTO) 0.8 %; EOSINOPHILS # (AUTO) 0.3 10^3/uL (0.0-0.7); EOSINOPHILS % (AUTO) 4.3 %; HGB - HEMOGLOBIN 10.9 g/dL (12.0-16.0); LYMPHOCYTES # (AUTO) 1.6 10^3/uL (1.5-3.5); LYMPHOCYTES % (AUTO) 21.3 %; MEAN CORPUSCULAR HEMOGLOBIN 31.8 pg (27.0-31.0); MEAN CORPUSCULAR HGB CONC 30.4 g/dL (32.0-36.0); MEAN CORPUSCULAR VOLUME 104.4 fL (81.0-99.0); MEAN PLATELET VOLUME 9.2 fL (7.9-10.8); MONOCYTES # (AUTO) 0.7 10^3/uL (0.0-1.0); MONOCYTES % (AUTO) 9.4 %; NEUTROPHILS # (AUTO) 4.2 10^3/uL (1.5-6.6); NEUTROPHILS % (AUTO) 56.4 %; PLT - PLATELET COUNT 258 10^3/uL (130-450); RED BLOOD COUNT 3.43 10^6/uL (4.20-5.40); RED CELL DISTRIBUTION WIDTH 14.2 % (12.0-15.0); WHITE BLOOD COUNT 7.4 x10^3/uL (4.8-10.8)
[2020-04-07 05:36] LABS: CREATININE 0.8 mg/dL (0.4-1.0); MAGNESIUM 1.8 mg/dL (1.7-2.8)
[2020-04-07 06:09] LABS: PLATELET ESTIMATE, MANUAL NORMAL (130-450,000) (NORMAL); PLATELET MORPHOLOGY NORMAL APPEARANCE (NORMAL); RBC MORPHOLOGY (MULTIPLE) NORMAL APPEARANCE (NORMAL)
[2020-04-07] MEDS: PANTOPRAZOLE 40 MG TABLET PO SCH (06:56)
[2020-04-07] MEDS: FUROSEMIDE 20 MG TABLET PO SCH ×2 (06:57→13:29)
[2020-04-07] MEDS: LEVOTHYROXINE 75 MCG TABLET PO SCH (06:57)
[2020-04-07] MEDS: MEROPENEM 1 GM in SODIUM CHLORIDE 0.9% MINIBAG 100 ML IV SCH (08:43)
[2020-04-07] MEDS: GABAPENTIN 300 MG CAPSULE PO SCH ×2 (08:44→21:14)
[2020-04-07] MEDS: POTASSIUM CHLORIDE 20 MEQ TABLET PO SCH ×2 (08:44→21:12)
[2020-04-07] MEDS: DULoxetine 30 MG CAPSULE PO SCH (08:44)
[2020-04-07] MEDS: SACCHAROMYCES BOULARDII 250 MG CAPSULE PO SCH ×2 (08:44→17:44)
[2020-04-07] MEDS: ENOXAPARIN 40 MG/0.4 ML SYRINGE SUBQ SCH (08:44)
[2020-04-07] MEDS: ASPIRIN EC 81 MG TABLET PO SCH (08:44)
[2020-04-07] MEDS: lisinopriL 20 MG TABLET PO SCH (08:45)
[2020-04-07] MEDS: NYSTATIN POWDER 15 GM TOP SCH ×2 (08:47→21:15)
[2020-04-07] MEDS: DOCUSATE SODIUM 250 MG CAPSULE PO SCH (11:46)
[2020-04-07] MEDS: polyethylene glycoL 3350 17 GM PACKET PO SCH (11:46)
[2020-04-07] MEDS: SENNA 8.6 MG TABLET PO SCH (11:46)
[2020-04-07] MEDS: DOXYCYCLINE INJ 100 MG in SODIUM CHLORIDE 0.9% MINIBAG 100 ML IV SCH ×2 (11:53→21:11)
--- NOTE | 2020-04-07 13:57 | PROVIDER PROGRESS NOTE ---
Subjective - Prog Note Date Prog Note Date: 04/07/20 - Subjective Subjective: She reports feeling well today. She is considering going to long-term facility now. She feels her left leg erythema has improved. Current Medications - Current Medications Current Medications: Active Medications Acetaminophen (Tylenol) 650 mg PO Q8HR PRN PRN Reason: Pain 1 to 4 Last Admin: 04/05/20 04:26 Dose: 650 mg Documented by: Hydrocodone Bitart/Acetaminophen ([place] 7.5/325) 1 tab PO Q8HR PRN PRN Reason: PAIN Last Admin: 04/01/20 20:50 Dose: 1 tab Documented by: Albuterol () 2.5 mg INH RTQ4H PRN PRN Reason: Wheezing Last Admin: 04/05/20 08:00 Dose: 2.5 mg Documented by: Aspirin (Ecotrin) 81 mg PO DAILY [facility] Last Admin: 04/07/20 08:44 Dose: 81 mg Documented by: Atorvastatin Calcium (Lipitor) 20 mg PO QPM [facility] Last Admin: 04/06/20 21:03 Dose: 20 mg Documented by: Docusate Sodium (Colace 250mg Capsule) 250 - 500 mg PO DAILY [facility] Last Admin: 04/07/20 11:46 Dose: Not Given Documented by: Duloxetine HCl (Cymbalta) 60 mg PO DAILY [facility] Last Admin: 04/07/20 08:44 Dose: 60 mg Documented by: Enoxaparin Sodium (Lovenox) 40 mg SUBQ DAILY [facility] Last Admin: 04/07/20 08:44 Dose: 40 mg Documented by: Furosemide (Lasix) 20 mg PO BIDDIURETIC [facility] Last Admin: 04/07/20 13:29 Dose: 20 mg Documented by: Gabapentin (Neurontin) 900 mg PO BID [facility] Last Admin: 04/07/20 08:44 Dose: 900 mg Documented by: Doxycycline Hyclate 100 mg/ (Sodium Chloride) 100 mls @ 100 mls/hr IV BID [facility] Last Infusion: 04/07/20 13:21 Dose: Infused Documented by: Levothyroxine Sodium (Synthroid) 150 mcg PO QDAC [facility] Last Admin: 04/07/20 06:57 Dose: 150 mcg Documented by: Lisinopril (Zestril) 20 mg PO DAILY [facility] Last Admin: 04/07/20 08:45 Dose: 20 mg Documented by: Multi-Ingredient Ointment (Zinc Oxide) 1 applic TOP PRN PRN PRN Reason: Skin Care Last Admin: 04/02/20 06:26 Dose: 1 applic Documented by: Nystatin (Nystop) 1 applic TOP BID [facility] Last Admin: 04/07/20 08:47 Dose: 1 applic Documented by: Ondansetron HCl (Zofran Inj) 4 mg IVP Q6HR PRN PRN Reason: Nausea / Vomiting Pantoprazole Sodium (Protonix) 40 mg PO QDAC [facility] Last Admin: 04/07/20 06:56 Dose: 40 mg Documented by: Polyethylene Glycol (Miralax) 17 gm PO DAILY [facility] Last Admin: 04/07/20 11:46 Dose: Not Given Documented by: Potassium Chloride (K-Dur) 20 meq PO BID [facility] Last Admin: 04/07/20 08:44 Dose: 20 meq Documented by: Saccharomyces Boulardii (Florastor) 250 mg PO BIDWM [facility] Last Admin: 04/07/20 08:44 Dose: 250 mg Documented by: Senna (Senokot) 8.6 - 17.2 mg PO DAILY [facility] Last Admin: 04/07/20 11:46 Dose: Not Given Documented by: Sodium Chloride (Normal Saline Flush 0.9%) 10 ml IVP PRN PRN PRN Reason: NEEDED PER PROVIDER ORDERS Last Admin: 04/06/20 21:02 Dose: 10 ml Documented by: Sodium Chloride (Normal Saline Flush 0.9%) 10 ml IVP 0100,0900,1700 [facility] Last Admin: 04/07/20 11:58 Dose: 10 ml Documented by: Cholecalciferol (Vitamin D3) [D-2000] 2,000 unit PO DAILY 12/01/13 Multivitamin [Multi-Vitamin Daily] 1 tab PO DAILY 12/01/13 [place]-3/Dha/Epa/Fish Oil [Fish Oil [place]-3 Softgel] 1 each PO BID 12/01/13 Ubidecarenone [Co Q-10] 200 mg PO DAILY 12/08/15 Acetaminophen [Tylenol] 650 mg PO Q8H PRN 10/21/16 Aspirin [Adult Low Dose Aspirin EC] 81 mg PO DAILY 10/21/16 Ferrous Sulfate 325 mg PO BID 10/21/16 Potassium Chloride [K-Dur] 20 meq PO BIDWM 10/21/16 Vitamin B Complex 1 tab PO DAILY 10/21/16 Atorvastatin [Lipitor] 20 mg PO QPM 04/01/20 DULoxetine [Cymbalta] 60 mg PO DAILY 04/01/20 Furosemide [Lasix] 20 mg PO BIDDIURETIC 04/01/20 Gabapentin [Neurontin] 900 mg PO BID 04/01/20 HYDROcod/ACETAM 5/325 [[place] 5/325] 1 tab PO DAILY PRN 04/01/20 Levothyroxine Sodium [Synthroid] 150 mcg PO QDAC 04/01/20 Lisinopril [Zestril] 20 mg PO DAILY 04/01/20 Objective - Vital Signs/Intake & Output Reviewed Vital Signs: Yes Vital Signs: Vital Signs x48h Temp Pulse Resp BP Pulse Ox 04/07/20 12:08 36.9 C 71 20 149/57 H 92 04/07/20 07:35 37.0 C 73 18 137/53 H 92 Intake & Output: Intake & Output 04/04/20 04/05/20 04/06/20 04/07/20 23:59 23:59 23:59 23:59 Intake Total 4684.270 5225 1420 920 Output Total 3900 5210 615 2077 Balance -2450.000 790 670 -680 - Objective General Appearance: positive: No acute distress, Alert Eyes Bilateral: positive: Normal inspection, Conjunctivae nml ENT: positive: ENT inspection nml Neck: positive: Nml inspection Respiratory: positive: No respiratory distress, Other (Diminished bases.). negative: Wheezes, Rales Cardiovascular: positive: Regular rate & rhythm. negative: Tachycardia Abdomen: positive: Non-tender, No distention. negative: Tenderness Skin: positive: Warm, Dry, Other (The area of erythema of the left lower extremity has improved compared to yesterday. This is improved overall compared to the area that was outlined on admission. There is still some erythema over the anterior aspect of the lower leg but this is nontender.) Extremities: positive: Pedal edema (She has about +1 to +2 pitting edema in bilateral lower extremities.) Neurologic/Psychiatric: negative: Disoriented to person, Disoriented to place - Lab Results Fish Bones: 04/07/20 05:10 04/07/20 05:10 Other Labs: Lab Results x24hrs 04/07/20 04/07/20 Range/Units 05:10 05:10 WBC 7.4 (4.8-10.8) x10^3/uL RBC 3.43 L (4.20-5.40) 10^6/uL Hgb 10.9 L (12.0-16.0) g/dL Hct 35.8 L (37.0-47.0) % MCV 104.4 H (81.0-99.0) fL MCH 31.8 H (27.0-31.0) pg MCHC 30.4 L (32.0-36.0) g/dL RDW 14.2 (12.0-15.0) % Plt Count 258 (130-450) 10^3/uL MPV 9.2 (7.9-10.8) fL Neut # (Auto) 4.2 (1.5-6.6) 10^3/uL Lymph # (Auto) 1.6 (1.5-3.5) 10^3/uL [place] # (Auto) 0.7 (0.0-1.0) 10^3/uL Eos # (Auto) 0.3 (0.0-0.7) 10^3/uL Baso # (Auto) 0.1 (0.0-0.1) 10^3/uL Absolute Nucleated RBC 0.00 x10^3/uL Nucleated RBC % 0.0 /100WBC Manual Slide Review Indicated Platelet Estimate NORMAL (130-450,000) (NORMAL) Platelet Morphology NORMAL APPEARANCE (NORMAL) RBC Morph Micro Appear NORMAL APPEARANCE (NORMAL) Sodium 139 (135-145) mmol/L Potassium 4.3 (3.5-5.0) mmol/L Chloride 95 L (101-111) mmol/L Carbon Dioxide 30 (21-32) mmol/L Anion Gap 14.0 H (6-13) BUN 26 H (6-20) mg/dL Creatinine 0.8 (0.4-1.0) mg/dL Estimated GFR (MDRD) 70 L (>89) Glucose 105 H (70-100) mg/dL Calcium 9.0 (8.5-10.3) mg/dL Magnesium 1.8 (1.7-2.8) mg/dL C-Reactive Protein 3.0 H (0-1.0) mg/dL ABX Reporting Has patient been on IV antibiotics over the past 48 hours?: Yes Sepsis Event Note (H) - Evaluation Possible source of Sepsis: positive: Skin/soft tissue Assessment/Plan - Problem List (1) Cellulitis of left lower extremity Impression: The erythema continues to improve but is most prominent over the anterior aspect of the lower leg. Her white count remained stable and her CRP is trending down. Given the fact she still has prominent erythema over the anterior aspect of the lower leg, we will switch her to Doxycycline IV today and will likely switch to oral antibiotics tomorrow. She will likely able to be discharged tomorrow and we will continue another 5 days of oral antibiotics for the cellulitis. (2) UTI due to extended-spectrum beta lactamase (ESBL) producing Escherichia coli Impression: Her urine culture did grow ESBL E. coli. She was treated empirically given the fact she had a fever although she never had symptoms of dysuria and urgency. This may have been a asymptomatic bacteriuria but even if this was a true infection, this is not appear to be a complicated urinary tract infection and given she did receive 5 days of meropenem IV, we will discontinue antibiotics at this time. (3) Bacteremia due to Staphylococcus Impression: Initial blood cultures grew staph pseudointermedius. I did speak with infectious disease today and given 1 out of 4 bottles were positive, this is likely contaminant. Repeat blood cultures have been negative. (4) Depression Impression: Continue Cymbalta. (5) Hyperlipidemia Impression: Continue statin. (6) Hypertension Impression: Has been stable systolic in the 140s. We will continue lisinopril. This can be followed on outpatient basis on discharge. (7) Hypothyroidism Impression: Continue Synthroid. (8) Obstructive sleep apnea on CPAP Impression: Continue CPAP.
[2020-04-07] MEDS: SODIUM CHLORIDE FLUSH 0.9% 10 ML SYRINGE IVP PRN ×2 (17:45→21:14)
[2020-04-07] MEDS: ATORVASTATIN 40 MG TABLET PO SCH (21:12)
[2020-04-08] MEDS: SODIUM CHLORIDE FLUSH 0.9% 10 ML SYRINGE IVP SCH ×2 (00:50→08:52)
[2020-04-08 05:25] LABS: BASOPHILS % (AUTO) 0.8 %; HGB - HEMOGLOBIN 10.9 g/dL (12.0-16.0); LYMPHOCYTES % (AUTO) 20.3 %; MEAN CORPUSCULAR HEMOGLOBIN 32.4 pg (27.0-31.0); MEAN CORPUSCULAR HGB CONC 31.5 g/dL (32.0-36.0); MONOCYTES % (AUTO) 8.7 %; NEUTROPHILS % (AUTO) 57.1 %; PLT - PLATELET COUNT 263 10^3/uL (130-450); RED BLOOD COUNT 3.36 10^6/uL (4.20-5.40); RED CELL DISTRIBUTION WIDTH 14.2 % (12.0-15.0); WHITE BLOOD COUNT 7.1 x10^3/uL (4.8-10.8)
[2020-04-08 05:28] LABS: ABNORMAL LYMPHS % (MANUAL) 0 %
[2020-04-08 05:31] LABS: CALCIUM 8.9 mg/dL (8.5-10.3); CREATININE 0.9 mg/dL (0.4-1.0); MAGNESIUM 1.8 mg/dL (1.7-2.8)
[2020-04-08 05:49] LABS: BAND NEUTROPHILS % (MANUAL) 3 %; EOSINOPHILS # (MANUAL) 0.4 10^3/uL (0-0.7); LYMPHOCYTES # (MANUAL) 1.8 10^3/uL (1.5-3.5); LYMPHOCYTES % (MANUAL) 26 %; METAMYELOCYTES % (MANUAL) 2 %; MONOCYTES # (MANUAL) 0.4 10^3/uL (0.0-1.0); MYELOCYTES % (MANUAL) 2 %; PLATELET MORPHOLOGY NORMAL APPEARANCE (NORMAL); RBC MORPHOLOGY (MULTIPLE) NORMAL APPEARANCE (NORMAL)
[2020-04-08 05:50] LABS: DIFFERENTIAL COMMENT MANUAL DIFFERENTIAL; PLATELET ESTIMATE, MANUAL NORMAL (130-450,000) (NORMAL)
[2020-04-08] MEDS: LEVOTHYROXINE 75 MCG TABLET PO SCH (07:40)
[2020-04-08] MEDS: SACCHAROMYCES BOULARDII 250 MG CAPSULE PO SCH (07:40)
[2020-04-08] MEDS: FUROSEMIDE 20 MG TABLET PO SCH (07:40)
[2020-04-08] MEDS: PANTOPRAZOLE 40 MG TABLET PO SCH (07:40)
[2020-04-08 07:49] VITALS: BP 156/66
[2020-04-08] MEDS: GABAPENTIN 300 MG CAPSULE PO SCH (08:50)
[2020-04-08] MEDS: ENOXAPARIN 40 MG/0.4 ML SYRINGE SUBQ SCH (08:50)
[2020-04-08] MEDS: POTASSIUM CHLORIDE 20 MEQ TABLET PO SCH (08:51)
[2020-04-08] MEDS: DULoxetine 30 MG CAPSULE PO SCH (08:51)
[2020-04-08] MEDS: lisinopriL 20 MG TABLET PO SCH (08:51)
[2020-04-08] MEDS: NYSTATIN POWDER 15 GM TOP SCH (08:51)
[2020-04-08] MEDS: ASPIRIN EC 81 MG TABLET PO SCH (08:51)
[2020-04-08] MEDS: polyethylene glycoL 3350 17 GM PACKET PO SCH (08:52)
[2020-04-08] MEDS: SODIUM CHLORIDE FLUSH 0.9% 10 ML SYRINGE IVP PRN (08:52)
[2020-04-08] MEDS: SENNA 8.6 MG TABLET PO SCH (08:52)
[2020-04-08] MEDS: DOCUSATE SODIUM 250 MG CAPSULE PO SCH (08:52)
[2020-04-08] MEDS ORDERED: DOXYCYCLINE 100 MG TABLET PO SCH (09:00)
--- NOTE | 2020-04-08 11:16 | Ultrasound Report ---
PROCEDURE: Duplex Ext Veins Bilateral INDICATIONS: JUSTA MOISÉS TECHNIQUE: Real-time imaging, as well as color and pulse Doppler interrogation, were performed of the deep veins of both legs from the inguinal ligament to the popliteal fossa. COMPARISON: Ultrasound dated 09/22/2019 FINDINGS: Evaluation is compromised by patient body habitus with suboptimal visualization of the calf vasculature. The deep veins are normally compressible, and free of intraluminal thrombus. Color and pulse Doppler demonstrate normal phasic intravascular flow. There is normal augmentation response t o distal compression maneuver. Nonspecific subcutaneous edema is noted. IMPRESSION: Negative for deep venous thrombosis of the bilateral lower extremities. Reviewed by: Jed Ahumada MD on 04/08/2020 10:15 AM [facility] Approved by: Jed Ahumada MD on 04/08/2020 10:15 AM [facility] Station ID: [id number]
--- NOTE | 2020-04-08 12:14 | Discharge Plan ---
"Discharge Plan for SNF / [facility] - Discharge Plan And Transition Orders Problem Reviewed?: Yes Disposition: [facility] DC/Xfer Condition: Stable Allergies and Adverse Reactions: Allergies Allergy/AdvReac Type Severity Reaction Status Date / Time ampicillin AdvReac Rash Verified 03/31/20 15:37 Health Concerns: She was admitted to the floor for weakness and disorientation which was thought to be secondary to possible urinary tract infection and cellulitis to left lower extremity. She was initially treated with vancomycin and ceftriaxone IV given her fever. Cellulitis of the left lower extremity improved with IV antibiotics. Her urine culture grew ESBL E. coli and so she was transitioned to monotherapy with meropenem alone. PICC line was placed initially because it was anticipated that she would receive 2 weeks of IV antibiotics. Initial blood culture for admission grew staph pseudointermedius. This was in 1 out of 4 bottles and this was felt to be contaminant and this was discussed with infectious disease who were in agreement. It was also felt that her ESBL E. coli UTI should not be treated given the lack of symptoms this was likely just asymptomatic bacteriuria. She did complete 5 days of IV antibiotics with meropenem which would adequately treat the infection either way if this was a true UTI given it was uncomplicated. She did undergo a duplex of the left lower extremity which was negative for DVT. She was given 1 day of doxycycline IV for the cellulitis after the meropenem was discontinued. Given her normal white count, and improvement in CRP as well as the erythema, she was transitioned to oral antibiotics. She was evaluated by physical therapy and is felt she would need a SNF and therefore she is discharged for further rehab and to complete oral antibiotics. Plan of Treatment: Continue doxycycline 100 mg p.o. twice daily for 7 more days. - SNF / [facility] Transition Orders Admit to (Facility): [facility] Medicare Certification Statement: I certify that [facility] care is medically necessary on a continuing basis for any of the conditions for which she/he is receiving care during hospitalization. Notify PCP of admission and forward orders to primary provider for signature. Other Notification Orders: Call PCP immediately if patient develops dyspnea, chest pain/tightness or edema. Additional Bowel Program Orders: If no BM after 2 days, nurse may give M.O.M. 30ml PO PRN and/or ducolax Supp 1 ME and/or BERNIE 250mg P.O., and/or senna 1-2 tabs PO. On day 3 nurse may give repeat above order until residents constipation is resolved. Medication Orders: PLEASE REFER TO THE DISCHARGE MEDICATION LIST. Insulin Orders?: No - Medications New Prescriptions: Doxycycline [Vibramycin] 100 mg PO BID 7 Days #14 tablet - Diet Type: Geriatric Texture: Regular Liquids: Thin May have monthly special meal: Yes - Therapies | Activity Therapy: Evaluation | Treat if indicated: PT, OT"
--- NOTE | 2020-04-08 12:28 | DISCHARGE SUMMARY ---
"Discharge Summary Admit Date: 03/31/20 Discharge Date: 05/08/20 Discharging Provider: Francisco Gee Primary Care Provider: Davina rFost Code Status: Do Not Attempt Resuscitation Condition at Discharge: Stable Discharge Disposition: SNF DC/Xfer Discharge Facility Name: [facility] - DIAGNOSES Admission Diagnoses: Cellulitis of left lower extremity Urinary tract infection Lymphedema of left lower extremity Hypertension Hyperlipidemia Hypothyroidism Chronic back pain Depression JOSE RAFAEL on CPAP Discharge Diagnoses with Status of Each Condition: Cellulitis of left lower extremity - improved. UTI due to ESBL producing E. coli - resolved. Bacteremia due to Staphylococcus - resolved. Depression - stable. Hyperlipidemia - stable. Hypertension - stable. Hypothyroidism - stable. JOSE RAFAEL on CPAP - stable. - HPI History of Present Illness: H&P per Dr. Lezama: Patient is a 79-year-old female with medical history significant for JOSE RAFAEL on CPAP, hypothyroidism, hypertension, hyperlipidemia, chronic back pain, chronic lymphedema who presented to the ED today with a fever. She woke up yesterday morning and was somewhat disoriented. She was also very weak and had difficulty walking. As a result she was advised by her to go to the emergency department for evaluation. She was recently on Keflex for lower extremity cellulitis. She took it to completion for 1 week. After the treatment it appeared the redness improved/resolved however today upon presentation to the ED her left lower extremity appears erythematous. She was also found to have temperature of 38.6 C. She reports chills lately. Furthermore she reports increased urinary frequency and lower abd ominal/suprapubic tenderness. She denied dysuria. On a separate note she complains of pain when having a bowel movement and there is some blood on the toilet paper. She has history of hemorrhoids. She denied dyspnea, chest pain, nausea, vomiting. She lives at home with her who takes care of everything from cooking to cleaning and grocery shopping. The patient gets around the house using a walker. As a result of the clinical findings she was presented for admission for further treatment. - CONSULTS | PROCEDURES Consultations: PT/OT. - HOSPITAL COURSE Hospital Course: She was admitted to the floor for weakness and disorientation which was thought to be secondary to possible urinary tract infection and cellulitis to left lower extremity. She was initially treated with vancomycin and ceftriaxone IV given her fever. Cellulitis of the left lower extremity improved with IV antibiotics. Her urine culture grew ESBL E. coli and so she was transitioned to monotherapy with meropenem alone. PICC line was placed initially because it was anticipated that she would receive 2 weeks of IV antibiotics. Initial blood culture for admission grew staph pseudointermedius. This was in 1 out of 4 bottles and this was felt to be contaminant and this was discussed with infectious disease who were in agreement. It was also felt that her ESBL E. coli UTI should not be treated given the lack of symptoms this was likely just asymptomatic bacteriuria. She did complete 5 days of IV antibiotics with meropenem which would adequately treat the infection either way if this was a true UTI given it was uncomplicated. She did undergo a duplex of the left lower extremity which was negative for DVT. She was given 1 day of doxycycline IV for the cellulitis after the meropenem was discontinued. Given her normal white count, and improvement in CRP as well as the erythema, she was transitioned to oral antibiotics. She was evaluated by physical therapy and is felt she would need a SNF and therefore she is discharged for further rehab and to complete oral antibiotics. She will continue doxycycline 100 mg p.o. twice daily for 7 more days. - ALLERGIES Allergies/Adverse Reactions: Allergies Allergy/AdvReac Type Severity Reaction Status Date / Time ampicillin AdvReac Rash Verified 03/31/20 15:37 - MEDICATIONS Home Medications: Ambulatory Orders Medication Instructions Recorded Confirmed Cholecalciferol (Vitamin D3) 2,000 unit PO DAILY 12/01/13 04/01/20 [D3-2000] Multivitamin [Multi-Vitamin Daily] 1 tab PO DAILY 12/01/13 04/01/20 [place]-3/Dha/Epa/Fish Oil [Fish Oil 1 each PO BID 12/01/13 04/01/20 [place]-3 Softgel] Ubidecarenone [Co Q-10] 200 mg PO DAILY 12/08/15 04/01/20 Acetaminophen [Tylenol] 650 mg PO Q8H PRN 10/21/16 04/01/20 Aspirin [Adult Low Dose Aspirin EC] 81 mg PO DAILY 10/21/16 04/01/20 Ferrous Sulfate 325 mg PO BID 10/21/16 04/01/20 Potassium Chloride [K-Dur] 20 meq PO BIDWM 10/21/16 04/01/20 Vitamin B Complex 1 tab PO DAILY 10/21/16 04/01/20 Atorvastatin [Lipitor] 20 mg PO QPM 04/01/20 04/01/20 DULoxetine [Cymbalta] 60 mg PO DAILY 04/01/20 04/01/20 Furosemide [Lasix] 20 mg PO BIDDIURETIC 04/01/20 04/01/20 Gabapentin [Neurontin] 900 mg PO BID 04/01/20 04/02/20 HYDROcod/ACETAM 5/325 [[place] 5/325] 1 tab PO DAILY PRN 04/01/20 04/01/20 Levothyroxine Sodium [Synthroid] 150 mcg PO QDAC 04/01/20 04/01/20 Lisinopril [Zestril] 20 mg PO DAILY 04/01/20 04/01/20 Doxycycline [Vibramycin] 100 mg PO BID 7 Days #14 tablet 04/08/20 - PHYSICAL EXAM AT DISCHARGE General Appearance: positive: No acute distress, Alert Eyes Bilateral: positive: Normal inspection, Conjunctivae nml ENT: positive: ENT inspection nml Neck: positive: Nml inspection Respiratory: positive: No respiratory distress, Other (Diminished in bases.). negative: Wheezes, Rales Cardiovascular: positive: Regular rate & rhythm, No murmur. negative: Tachycardia Abdomen: positive: Non-tender, No distention. negative: Tenderness Skin: positive: Warm, Dry, Other (There is still some erythema over the anterior aspect of the lower leg but this is nontender. This is improved compared to the area that was outlined on admission.) Extremities: positive: Pedal edema (+1 to +2 pitting edema in bilateral lower extremities.) Neurologic/Psychiatric: positive: Other (No focal deficits.). negative: Disoriented to person, Disoriented to place Physical Exam Other/Comments: Vital Signs - 24 hr 04/07/20 04/07/20 04/08/20 16:16 21:00 00:43 Temperature 36.7 C 37.0 C 36.5 C Heart Rate Heart Rate [ 74 68 69 Brachial] Respiratory 24 20 18 Rate Blood Pressure 148/67 H 135/72 H [Left Brachial artery] Blood Pressure 138/59 H [Right Brachial artery] O2 Saturation 94 97 92 04/08/20 04/08/20 04/08/20 06:12 07:45 08:00 Temperature 36.4 C L 36.5 C Heart Rate 65 Heart Rate [ 65 65 Brachial] Respiratory 18 20 20 Rate Blood Pressure 157/55 H [Left Brachial artery] Blood Pressure 156/66 H [Right Brachial artery] O2 Saturation 92 92 Oxygen O2 Source Room air - LABS Result Diagrams: 04/08/20 05:15 04/08/20 05:15 Other Lab Results: Laboratory Results - last 24 hr 04/08/20 04/08/20 04/08/20 05:15 05:15 12:01 WBC 7.1 RBC 3.36 L Hgb 10.9 L Hct 34.6 L MCV 103.0 H MCH 32.4 H MCHC 31.5 L RDW 14.2 Plt Count 263 MPV 9.0 Neut # (Auto) Not Reportable Lymph # (Auto) Not Reportable [place] # (Auto) Not Reportable Eos # (Auto) Not Reportable Baso # (Auto) Not Reportable Absolute Nucleated RBC Not Reportable Total Counted 100 Band Neuts % (Manual) 3 Abnorm Lymph % (Manual) 0 Metamyelocytes % 2 H Myelocytes % 2 H Nucleated RBC % Not Reportable Neutrophils # (Manual) 4.1 Lymphocytes # (Manual) 1.8 Monocytes # (Manual) 0.4 Eosinophils # (Manual) 0.4 Basophils # (Manual) 0.0 Differential Comment MANUAL DIFFERENTIAL WBC Morphology NORMAL APPEARANCE Platelet Estimate NORMAL (130-450,000) Platelet Morphology NORMAL APPEARANCE RBC Morph Micro Appear NORMAL APPEARANCE Sodium 137 Potassium 4.2 Chloride 97 L Carbon Dioxide 30 Anion Gap 10.0 BUN 28 H Creatinine 0.9 Estimated GFR (MDRD) 61 L Glucose 100 Calcium 8.9 Magnesium 1.8 Nasal Adenovirus (PCR) NOT DETECTED Nasal B. parapertussis DNA (PCR) NOT DETECTED Nasal Coronavir 229E PCR NOT DETECTED Nasal Coronavir HKU1 PCR NOT DETECTED Nasal Coronavir NL63 PCR NOT DETECTED Nasal Coronavir OC43 PCR NOT DETECTED Nasal Enterovir/Rhinovir PCR NOT DETECTED Nasal Influenza B PCR NOT DETECTED Nasal Influenza A PCR NOT DETECTED Nasal Parainfluen 1 PCR NOT DETECTED Nasal Parainfluen 2 PCR NOT DETECTED Nasal Parainfluen 3 PCR NOT DETECTED Nasal Parainfluen 4 PCR NOT DETECTED Nasal RSV (PCR) NOT DETECTED Nasal B.pertussis DNA PCR NOT DETECTED Nasal C.pneumoniae (PCR) NOT DETECTED [place] Human Metapneumo PCR NOT DETECTED Nasal M.pneumoniae (PCR) NOT DETECTED Nasal SARS-CoV-2 (PCR) NOT DETECTED - SEPSIS Possible source of Sepsis: Skin/soft tissue - FOLLOW UP Follow Up: Discharge to [facility]. She will need to follow-up with her primary care provider on discharge. - TIME SPENT Time Spent in Discharge (Minutes): 34"
[2020-04-08 13:09] LABS: C. PNEUMONIAE- RESP PCR PANEL NOT DETECTED
== END 2020-04-08 13:30 | DRG 872 ==
LOC: ED 15:32 → MS3 19:22
PROVIDERS: ADMIT Internal Medicine; ATTEND Internal Medicine
PROC: 02HV33Z Insertion of Infusion Device into Superior Vena Cava, Percutaneous Approach (ICD-10-PCS; principal; 2020-04-03)
DX: A41.9 Sepsis, unspecified organism (principal); L03.116 Cellulitis of left lower limb; N39.0 Urinary tract infection, site not specified; L03.114 Cellulitis of left upper limb; E03.9 Hypothyroidism, unspecified; B96.20 Unspecified Escherichia coli [E. coli] as the cause of diseases classified elsewhere; I10 Essential (primary) hypertension; G89.29 Other chronic pain; M54.9 Dorsalgia, unspecified; I89.0 Lymphedema, not elsewhere classified; G47.33 Obstructive sleep apnea (adult) (pediatric); E78.5 Hyperlipidemia, unspecified; K21.9 Gastro-esophageal reflux disease without esophagitis; R32 Unspecified urinary incontinence; H54.7 Unspecified visual loss; F32.9 Major depressive disorder, single episode, unspecified; M19.90 Unspecified osteoarthritis, unspecified site; Z74.09 Other reduced mobility; Z66 Do not resuscitate; Z20.828 Contact with and (suspected) exposure to other viral communicable diseases; Z79.891 Long term (current) use of opiate analgesic; Z98.1 Arthrodesis status; Z79.899 Other long term (current) drug therapy
CPT/HCPCS: 36415; 51701; 71045; 71046; 80048; 80053; 80202; 81001; 83605; 83690; 83735; 83880; 84443; 85025; 85610; 85730; 86140; 87040; 87077; 87086; 87181; 87631; 87640; 93970; 94640; 96365; 96366; 96375; 97110; 97116; 97162; 97166; 97530; 97535; 99285; A9270; C1751; J1650; J2185; J3370; 0202U; 81003

== ENCOUNTER 2020-04-23 10:36 | Outpatient (CLI) | payer MEDICARE, OTHER ==
[2020-04-23 15:55] LABS: BASOPHILS % (AUTO) 0.9 %; EOSINOPHILS # (AUTO) 0.2 10^3/uL (0.0-0.7); EOSINOPHILS % (AUTO) 4.6 %; HGB - HEMOGLOBIN 11.9 g/dL (12.0-16.0); LYMPHOCYTES # (AUTO) 1.1 10^3/uL (1.5-3.5); LYMPHOCYTES % (AUTO) 24.7 %; MEAN CORPUSCULAR HEMOGLOBIN 32.2 pg (27.0-31.0); MEAN CORPUSCULAR HGB CONC 30.7 g/dL (32.0-36.0); MEAN CORPUSCULAR VOLUME 104.6 fL (81.0-99.0); MEAN PLATELET VOLUME 10.4 fL (7.9-10.8); MONOCYTES # (AUTO) 0.6 10^3/uL (0.0-1.0); MONOCYTES % (AUTO) 13.9 %; NEUTROPHILS # (AUTO) 2.4 10^3/uL (1.5-6.6); NEUTROPHILS % (AUTO) 55.7 %; PLT - PLATELET COUNT 224 10^3/uL (130-450); RED CELL DISTRIBUTION WIDTH 14.6 % (12.0-15.0); WHITE BLOOD COUNT 4.4 x10^3/uL (4.8-10.8)
[2020-04-23 16:26] LABS: ALBUMIN 3.7 g/dL (3.2-5.5); ALBUMIN/GLOBULIN RATIO 0.9 (1.0-2.2); ALKALINE PHOSPHATASE 71 IU/L (42-121); ALT ALANINE AMINOTRANSFERASE 16 IU/L (10-60); AST ASPARTATE AMINOTRANSFERASE 22 IU/L (10-42); BILIRUBIN,TOTAL 0.8 mg/dL (0.2-1.0); BUN - BLOOD UREA NITROGEN 32 mg/dL (6-20); CALCIUM 9.6 mg/dL (8.5-10.3); CARBON DIOXIDE - CO2 30 mmol/L (21-32); CHLORIDE 98 mmol/L (101-111); CHOL/HDL RATIO 2.4 (<4.4); CHOLESTEROL 161 mg/dL; CREATININE 0.9 mg/dL (0.4-1.0); GLUCOSE 105 mg/dL (70-100); HDL CHOLESTEROL 67 mg/dL; LDL CHOLESTEROL,CALCULATED 78 mg/dL; LDL/HDL RATIO 1.2 (<4.4); SODIUM 144 mmol/L (135-145); TOTAL PROTEIN 7.7 g/dL (6.7-8.2); VLDL CHOLESTEROL 16 mg/dL
[2020-04-23 17:00] LABS: FREE T4 (FREE THYROXINE) 1.1 ng/dL (0.58-1.64)
[2020-04-23 19:17] LABS: HEMOGLOBIN A1c% 6.1 % (4.27-6.07)
== END 2020-04-23 10:37 | disposition home or self-care (01) ==
LOC: LAB.S 10:36
PROVIDERS: ATTEND Registered Nurse
DX: G62.9 Polyneuropathy, unspecified (principal); R35.0 Frequency of micturition; E03.9 Hypothyroidism, unspecified; E78.5 Hyperlipidemia, unspecified; I10 Essential (primary) hypertension
CPT/HCPCS: 36415; 80053; 80061; 83036; 83721; 84439; 84443; 85025

== ENCOUNTER 2020-04-24 11:01 | Outpatient (CLI) | payer MEDICARE, OTHER ==
--- NOTE | 2020-04-24 11:44 | SLEEP CARE CONSULTATION ---
Information from patient questionnaire entered by Amparo Nunn. I have reviewed and concur with the information entered by Amparo Nunn. This document represents the service I personally performed and the decisions made by , Kenzie Batista ARNP. History of Present Illness Service Date and Time: 04/24/2020 1101 Previous diagnosis: Moderate, Obstructive Sleep Apnea-Hypopnea Syndrome AHI: 16.4 (in 2019) Reason for follow up: first compliance Equipment type: CPAP Equipment obtained from: [employer] (getting supplies as needed) Mask style: Nasal (cushion) Backup mask available: Yes (old mask) Last cushion change: 4 weeks Prior sleep studies: Yes Year and Where: 2019 - [facility] ; 2001 - 2003 Type of Sleep Study: Home sleep study HPI additional information: ASH MAGALLON was diagnosed to have moderate, AHI 16.4, obstructive sleep apnea-hypopnea syndrome and returned today for CPAP therapy first compliance follow-up. CPAP Compliance Data - Data Reviewed with Patient Average duration of nightly device use: 4 hours 53 minutes Compliance rate %: 60 Current pressure setting (cmH2O): 4-15 Humidity settin Heated hose settin Average residual AHI: 6.3 Central apnea: 0.0 Obstructive apnea: 1.0 Hypopnea: 5.3 Subjective Missed days of use due to: reports: illness Patient concerns: reports: dry mouth, nose, throat (on meds that cause dry mouth). denies: aerophagia, mask discomfort, air blowing in eyes, mask leak noise, condensation in mask/hose, nasal congestion, epistaxis, other Observed to snore while using device: No Current pressure setting perceived as: comfortable On therapy, patient: reports: sleeping better, awakening more refreshed, being more awake and alert during the day, more rested overall Initial [place] Sleepiness Scale score: 19 (in 2019) Current [place] Sleepiness Scale score: 15 Allergies and Home Medications Drug allergies reviewed: Yes (ampicillin) Home medication list reviewed: Yes (new med flagyl (antibiotic)) Review of Systems Review of systems same as previous: No (cellulitis came back) Physical Exam Heart Rate: 68 O2 Saturation: 98 Height: 5 ft 4 in Weight: 275 lb Body Mass Index: 47.2 BMI Classification: Morbidly Obese Impression and Plan 1. Obstructive Sleep Apnea-Hypopnea Syndrome, moderate, with fair treatment compliance and fair apnea control with mildly elevated residual AHI. On CPAP therapy, the patient has better sleep quality and is more rested overall. The patients pressure will be changed to autoCPAP 6-11 cmH20 for elevation of residual AHI. Patient advised to contact me if pressure change is uncomfortable so that it can be adjusted. Goals for apnea control discussed. She has had some oral dryness but states that she does take a lot of medications that cause her to be dry. Oral dryness can be reduced by adjusting humidity setting higher or heated hose lower or by adjusting both settings. Her heated hose is at 4 and humidity setting at 3. I advised her to reduce her heated hose first and then increase her humidity to reduce oral dryness. Oral instructions given on how to change humidity and heated hose settings with rationale explaining why to change. She and her voiced understanding. Patient's apnea severity and rationale for treatment to reduce apnea, improve sleep quality and reduce cardiovascular and cerebrovascular events was reviewed. I also reviewed the benefit of consistent device use of CPAP for hypertension. * Change auto CPAP pressure to 6-11 cmH2O * Notify me if snoring with mask or feeling that the pressure is too much or too little * Attempt to lose weight * Call this office if any problems using CPAP * Return for follow up in 1-2 months , or sooner if concerns arise Counseling Topics: Spare mask, Weight loss health impact Visit Type: In Office Time Spent with Patient (minutes): 20 Provider Statement: I spent 100% of the Face to Face Visit with the patient with greater than 50% spent counseling the patient and coordination of care.
== END 2020-04-24 11:02 | disposition home or self-care (01) ==
LOC: SC 11:01
PROVIDERS: ATTEND Nurse Practitioner Family
DX: G47.33 Obstructive sleep apnea (adult) (pediatric) (principal); E66.01 Morbid (severe) obesity due to excess calories; Z68.42 Body mass index [BMI] 45.0-49.9, adult
CPT/HCPCS: 99213; G0463; 99212

== ENCOUNTER 2020-06-05 11:19 | Outpatient (CLI) | payer MEDICARE, OTHER ==
--- NOTE | 2020-06-05 11:54 | SLEEP CARE CONSULTATION ---
Information from patient questionnaire entered by Amparo Nunn. I have reviewed and concur with the information entered by Amparo Nunn. This document represents the service I personally performed and the decisions made by , Kenzie Batista ARNP. History of Present Illness Service Date and Time: 06/05/2020 1119 Previous diagnosis: Moderate, Obstructive Sleep Apnea-Hypopnea Syndrome AHI: 16.4 (in 2019) Reason for follow up: other (6 week with pressure change) Equipment type: CPAP Equipment obtained from: [employer] (getting supplies as needed) Mask style: Nasal Backup mask available: Yes (old mask) Last cushion change: not since March 2020 Prior sleep studies: Yes Year and Where: 2019 [email or web address] ; [facility] - [facility] - unknown Type of Sleep Study: Home sleep study HPI additional information: ASH MAGALLON was diagnosed to have moderate, AHI 16.4, obstructive sleep apnea-hypopnea syndrome and returned today for CPAP therapy 6 week pressure change follow-up. CPAP Compliance Data - Data Reviewed with Patient Average duration of nightly device use: 5 hr 20 min Compliance rate %: 63.3 Current pressure setting (cmH2O): 4-15 Humidity settin Heated hose settin Average residual AHI: 4.0 Average large leak: 2 hr 42 min Compliance data discussion: She will go to put her mask back on after going to bathroom and fall asleep before getting it on. Subjective Patient concerns: reports: dry mouth, nose, throat. denies: aerophagia, mask discomfort, air blowing in eyes, mask leak noise, condensation in mask/hose, nasal congestion, epistaxis, other Current pressure setting perceived as: comfortable Initial [place] Sleepiness Scale score: 19 (in 2019) Current [place] Sleepiness Scale score: 15 Allergies and Home Medications Drug allergies reviewed: Yes (ampicillin) Home medication list reviewed: Yes (no changes) Review of Systems Review of systems same as previous: Yes (no changes) Physical Exam Heart Rate: 66 O2 Saturation: 93 Height: 5 ft 4 in Weight: 285 lb Body Mass Index: 48.9 BMI Classification: Morbidly Obese Impression and Plan 1. Obstructive Sleep Apnea-Hypopnea Syndrome, moderate, with fair treatment compliance and good apnea control. On CPAP therapy, the patient has better sleep quality and is more rested overall. Her pressure was not adjusted at her last visit due to error in faxing order. The patients pressure will be changed to autoCPAP 6-10 cmH20 and I will have her come back for follow up in 1-2 months. Patient advised to contact me if pressure change is uncomfortable so that it can be adjusted. Goals for apnea control discussed. She continues to have some mouth dryness. I reviewed with patient and that oral dryness can be reduced by adjusting humidity setting higher or heated hose lower or by adjusting both settings. Patient advised that chronic oral dryness can affect dental health. Patient's apnea severity and rationale for treatment to reduce apnea, improve sleep quality and reduce cardiovascular and cerebrovascular events was reviewed. I also reviewed the benefit of consistent device use of CPAP for hypertension. * Change auto CPAP pressure to 6-10 cmH2O * Notify me if snoring with mask or feeling that the pressure is too much or too little * Attempt to lose weight * Call this office if any problems using CPAP * Return for follow up in 1-2 months, or sooner if concerns arise Counseling Topics: Spare mask Visit Type: In Office Time Spent with Patient (minutes): 20 Provider Statement: I spent 100% of the Face to Face Visit with the patient with greater than 50% spent counseling the patient and coordination of care.
== END 2020-06-05 11:20 | disposition home or self-care (01) ==
LOC: SC 11:19
PROVIDERS: ATTEND Nurse Practitioner Family
DX: G47.33 Obstructive sleep apnea (adult) (pediatric) (principal); E66.01 Morbid (severe) obesity due to excess calories; Z68.42 Body mass index [BMI] 45.0-49.9, adult
CPT/HCPCS: 99213; G0463; 99212

== ENCOUNTER 2020-06-17 13:34 | Emergency (ER) | payer MEDICARE, OTHER ==
[2020-06-17 14:13] LABS: BASOPHILS % (AUTO) 0.8 %; EOSINOPHILS # (AUTO) 0.2 10^3/uL (0.0-0.7); EOSINOPHILS % (AUTO) 3.9 %; HGB - HEMOGLOBIN 12.4 g/dL (12.0-16.0); LYMPHOCYTES # (AUTO) 1.4 10^3/uL (1.5-3.5); LYMPHOCYTES % (AUTO) 28.3 %; MEAN CORPUSCULAR HEMOGLOBIN 31.6 pg (27.0-31.0); MEAN CORPUSCULAR HGB CONC 30.7 g/dL (32.0-36.0); MEAN CORPUSCULAR VOLUME 103.1 fL (81.0-99.0); MEAN PLATELET VOLUME 9.5 fL (7.9-10.8); MONOCYTES # (AUTO) 0.6 10^3/uL (0.0-1.0); NEUTROPHILS # (AUTO) 2.6 10^3/uL (1.5-6.6); NEUTROPHILS % (AUTO) 53.8 %; PLT - PLATELET COUNT 206 10^3/uL (130-450); RED BLOOD COUNT 3.92 10^6/uL (4.20-5.40); RED CELL DISTRIBUTION WIDTH 14.6 % (12.0-15.0); WHITE BLOOD COUNT 4.9 x10^3/uL (4.8-10.8)
[2020-06-17] MEDS ORDERED: SODIUM CHLORIDE 0.9% 1,000 ML IV STA (14:14)
[2020-06-17 14:16] LABS: INR 1.1 (0.8-1.2); PT - PROTHROMBIN TIME 11.9 secs (9.9-12.6)
--- NOTE | 2020-06-17 14:16 | ED Physician Documentation ---
History of Present Illness - Stated complaint Stated Complaint: WEAK/DISORIENTED - Chief complaint Chief Complaint: Ext Problem - History obtained from History obtained from: Patient, Family - History of Present Illness Timing: How many days ago (2-3) Pain level max: 0 Pain level now: 0 - Additonal information Additional information: Patient is a 80-year-old female who presents to the emergency department with redness and swelling to the bilateral lower extremities. She wears neoprene compression devices around her lower legs due to lymphedema. She states she has had recurrent cellulitis. Has been hospitalized for cellulitis in the past. Is concerned about the cellulitis returning. No fevers. No chills. No nausea. No vomiting. No cough. No congestion. Nothing makes it better or worse. Has not been on any antibiotics for about 6 weeks. Patient does not recall the last antibiotic she received. Review of Systems Ten Systems: 10 systems reviewed and negative Constitutional: denies: Fever, Chills GI: denies: Vomiting, Diarrhea Skin: denies: Rash Musculoskeletal: denies: Neck pain, Back pain Neurologic: denies: Headache PD PAST MEDICAL HISTORY - Past Medical History Cardiovascular: Hypertension, High cholesterol, Other Respiratory: Sleep apnea, CPAP use Endocrine/Autoimmune: HyPOthyroidism GI: GERD : Incontinence HEENT: Chronic vision loss Psych: Depression Musculoskeletal: Osteoarthritis, Chronic back pain Derm: None - Past Surgical History Past Surgical History: Yes General: Cholecystectomy, Appendectomy, Other Ortho: 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: Hysterectomy, Oophrectomy - Present Medications Home Medications: Ambulatory Orders Medication Instructions Recorded Confirmed Cholecalciferol (Vitamin D3) 2,000 unit PO DAILY 12/01/13 06/17/20 [D3-2000] Multivitamin [Multi-Vitamin Daily] 1 tab PO DAILY 12/01/13 06/17/20 [place]-3/Dha/Epa/Fish Oil [Fish Oil 1 each PO BID 12/01/13 06/17/20 [place]-3 Softgel] Ubidecarenone [Co Q-10] 200 mg PO DAILY 12/08/15 06/17/20 Acetaminophen [Tylenol] 650 mg PO Q8H PRN 10/21/16 06/17/20 Aspirin [Adult Low Dose Aspirin EC] 81 mg PO DAILY 10/21/16 06/17/20 Ferrous Sulfate 325 mg PO BID 10/21/16 06/17/20 Potassium Chloride [K-Dur] 20 meq PO BIDWM 10/21/16 06/17/20 Vitamin B Complex 1 tab PO DAILY 10/21/16 06/17/20 Atorvastatin [Lipitor] 20 mg PO QPM 04/01/20 06/17/20 DULoxetine [Cymbalta] 60 mg PO DAILY 04/01/20 06/17/20 Furosemide [Lasix] 20 mg PO BIDDIURETIC 04/01/20 06/17/20 Gabapentin [Neurontin] 900 mg PO BID 04/01/20 06/17/20 HYDROcod/ACETAM 5/325 [[place] 5/325] 1 tab PO DAILY PRN 04/01/20 06/17/20 Levothyroxine Sodium [Synthroid] 150 mcg PO QDAC 04/01/20 06/17/20 Lisinopril [Zestril] 20 mg PO DAILY 04/01/20 06/17/20 Doxycycline [Vibramycin] 100 mg PO BID 7 Days #14 tablet 04/08/20 06/17/20 Doxycycline Hyclate 100 mg PO BID #28 06/17/20 HYDROcod/ACETAM 5/325 [[place] 5/325] 1 - 2 ea PO Q6H PRN #14 tab 06/17/20 Omeprazole 20 mg PO BID 06/17/20 06/17/20 - Allergies Allergies/Adverse Reactions: Allergies Allergy/AdvReac Type Severity Reaction Status Date / Time ampicillin AdvReac Rash Verified 06/17/20 13:51 - Social History Does the pt smoke?: No Smoking Status: Never smoker Does the pt drink ETOH?: No Does the pt have substance abuse?: No - Immunizations Immunizations are current?: Yes - POLST Patient has POLST: No POLST Status: DNR PD ED PE NORMAL - Vitals Vital signs reviewed: Yes - General General: Alert and oriented X 3, No acute distress - HEENT HEENT: Moist mucous membranes - Neck Neck: Supple, no meningeal sign - Cardiac Cardiac: RRR - Respiratory Respiratory: No respiratory distress, Clear bilaterally - Abdomen Abdomen: Soft, Non tender, Non distended - Derm Derm: Warm and dry - Extremities Extremities: Other (Pitting edema bilateral lower extremities, significant swelling and lymphedema. Mild erythema. Mild warmth to the left lower extremity, normal temperature to the right lower extremity. Most of the erythema is centered around the compression devices.) - Neuro Neuro: Alert and oriented X 3 - Psych Psych: Normal mood, Normal affect Results - Vitals Vitals: Vital Signs - 24 hr 06/17/20 06/17/20 06/17/20 13:42 14:06 15:31 Temperature 36.8 C 36.8 C Heart Rate 63 63 76 Respiratory 23 25 H 22 Rate Blood Pressure 205/97 H 191/85 H 193/98 H O2 Saturation 98 97 96 06/17/20 06/17/20 06/17/20 15:36 16:29 17:00 Temperature 36.7 C Heart Rate 70 72 67 Respiratory 24 20 20 Rate Blood Pressure 191/89 H 190/79 H O2 Saturation 97 98 96 Oxygen O2 Source Room air - Labs Labs: Laboratory Tests 06/17/20 06/17/20 06/17/20 14:00 14:00 14:00 WBC 4.9 RBC 3.92 L Hgb 12.4 Hct 40.4 MCV 103.1 H MCH 31.6 H MCHC 30.7 L RDW 14.6 Plt Count 206 MPV 9.5 Neut # (Auto) 2.6 Lymph # (Auto) 1.4 L Stephenson # (Auto) 0.6 Eos # (Auto) 0.2 Baso # (Auto) 0.0 Absolute Nucleated RBC 0.00 Nucleated RBC % 0.0 ESR PT 11.9 INR 1.1 APTT 30.5 Sodium 145 Potassium 3.9 Chloride 99 L Carbon Dioxide 29 Anion Gap 17.0 H BUN 25 H Creatinine 0.9 Estimated GFR (MDRD) 61 L Glucose 96 Lactic Acid Calcium 10.1 Total Bilirubin 1.2 H AST 20 ALT 16 Alkaline Phosphatase 64 C-Reactive Protein < 1.0 Total Protein 7.9 Albumin 3.8 Globulin 4.1 Albumin/Globulin Ratio 0.9 L Lipase 48 06/17/20 06/17/20 14:00 14:00 WBC RBC Hgb Hct MCV MCH MCHC RDW Plt Count MPV Neut # (Auto) Lymph # (Auto) Stephenson # (Auto) Eos # (Auto) Baso # (Auto) Absolute Nucleated RBC Nucleated RBC % ESR 59 H PT INR APTT Sodium Potassium Chloride Carbon Dioxide Anion Gap BUN Creatinine Estimated GFR (MDRD) Glucose Lactic Acid 0.8 Calcium Total Bilirubin AST ALT Alkaline Phosphatase C-Reactive Protein Total Protein Albumin Globulin Albumin/Globulin Ratio Lipase PD MEDICAL DECISION MAKING - ED course Complexity details: reviewed results, re-evaluated patient, considered differential, d/w patient ED course: During the emergency department stay, the patient complained of pain to the right groin. There was mild tenderness at the site. No crepitus. No swelling. The tenderness was near the right hip flexor area. Ultrasound reveals no DVT. Patient with possible early cellulitis in the bilateral extremities, given her history of sepsis, we will error on the side of caution and treat her with doxycycline as she has responded well to this in the past. Patient counseled regarding signs and symptoms for which I believe and urgent re-evaluation would be necessary. Patient with good understanding of and agreement to plan and is comfortable going home at this time This document was made in part using voice recognition software. While efforts are made to proofread this document, sound alike and grammatical errors may occur. Departure - Departure Disposition: 01 Home, Self Care Clinical Impression: Leg pain Qualifiers: Laterality: right Qualified Code(s): M79.604 - Pain in right leg Cellulitis Qualifiers: Site of cellulitis: extremity Site of cellulitis of extremity: lower extremity Laterality: unspecified laterality Qualified Code(s): L03.119 - Cellulitis of unspecified part of limb Condition: Good Instructions: ED Infec Skin Cellulitis Follow-Up: Davina Frost ARNP [Primary Care Provider] - Within 1 week Prescriptions: Doxycycline Hyclate 100 mg PO BID #28 HYDROcod/ACETAM 5/325 [[place] 5/325] 1 - 2 ea PO Q6H PRN #14 tab PRN Reason: Pain Comments: Take all antibiotics until gone. Return if you worsen. Do not take the iron when taking the doxycycline. Follow-up with your doctor for further care. You need to follow-up with your doctor for further pain medication as well. Do not drink alcohol or drive while on narcotic pain medicine. Note that many narcotic pain relievers also contain tylenol/acetaminophen. Please ensure that your total dose of acetaminophen from all sources does not exceed 3 grams (3000mg) per day. You may constipated on this medication, take a stool softener such as "Colace" twice a day while you are on it. Also recommend a [id number] laxative such as senna or MiraLAX any day that you do not have a bowel movement. If you received narcotic pain medication in the emergency department, do not drive or operate machinery for the next 24 hours. Discharge Date/Time: 06/17/20 17:22
[2020-06-17 14:24] LABS: PARTIAL THROMBOPLASTIN TIME 30.5 secs (24.9-33.3)
[2020-06-17] MEDS ORDERED: HYDROcod/ACETAM 5/325 MG TABLET PO STA (14:35)
[2020-06-17 14:40] LABS: ALBUMIN 3.8 g/dL (3.2-5.5); ALBUMIN/GLOBULIN RATIO 0.9 (1.0-2.2); ALKALINE PHOSPHATASE 64 IU/L (42-121); ALT ALANINE AMINOTRANSFERASE 16 IU/L (10-60); AST ASPARTATE AMINOTRANSFERASE 20 IU/L (10-42); BILIRUBIN,TOTAL 1.2 mg/dL (0.2-1.0); BUN - BLOOD UREA NITROGEN 25 mg/dL (6-20); CALCIUM 10.1 mg/dL (8.5-10.3); CARBON DIOXIDE - CO2 29 mmol/L (21-32); CHLORIDE 99 mmol/L (101-111); CREATININE 0.9 mg/dL (0.4-1.0); GLUCOSE 96 mg/dL (70-100); LIPASE 48 U/L (22-51); TOTAL PROTEIN 7.9 g/dL (6.7-8.2)
[2020-06-17 14:46] LABS: CRP - C-REACTIVE PROTEIN < 1.0 mg/dL (0-1.0)
[2020-06-17] MEDS ORDERED: MORPHINE 2 MG/ML CARPUJECT IVP STA ×2 (15:10→15:16)
[2020-06-17] MEDS ORDERED: DOXYCYCLINE INJ 100 MG in SODIUM CHLORIDE 0.9% MINIBAG 100 ML IV STA (15:37)
[2020-06-17 16:30] VITALS: BP 190/79
--- NOTE | 2020-06-17 16:39 | Ultrasound Report ---
PROCEDURE: Duplex Ext Veins Right INDICATIONS: R groin pain TECHNIQUE: Real-time imaging, as well as color and pulse Doppler interrogation, were performed of the lower extr emity deep veins from the inguinal ligament to the popliteal fossa. COMPARISON: None. FINDINGS: Distal femoral vein and popliteal vein were not well visualized due to pitting edema and amadeo dy habitus. The remaining deep veins are normally compressible, and free of intraluminal thrombus. C olor and pulse Doppler demonstrate normal phasic intraluminal flow. There is normal augmentation res ponse to distal compression maneuver. IMPRESSION: Limited visualization of the veins in the distal thigh and proximal lower leg. Within thi s limitation, there is no sonographic evidence of DVT in the deep veins which were visualized. Reviewed by: Reginald Quinn MD on 06/17/2020 3:38 PM [facility] Approved by: Reginald Quinn MD on 06/17/2020 3:38 PM [facility] Station ID: [id number]
== END 2020-06-17 17:22 | disposition home or self-care (01) ==
LOC: ED 13:34
DX: L03.116 Cellulitis of left lower limb (principal); L03.115 Cellulitis of right lower limb; M79.604 Pain in right leg; I89.0 Lymphedema, not elsewhere classified; R10.31 Right lower quadrant pain; I10 Essential (primary) hypertension; Z79.82 Long term (current) use of aspirin
CPT/HCPCS: 36415; 80053; 83605; 83690; 85025; 85610; 85651; 85730; 86140; 87040; 93971; 96374; 96375; 99284; A9270; 81001; 81003; 87086

== ENCOUNTER 2020-07-12 10:08 | Outpatient (CLI) | payer MEDICARE, OTHER ==
--- NOTE | 2020-07-12 10:47 | SLEEP CARE CONSULTATION ---
Information from patient questionnaire entered by Amparo Nunn. I have reviewed and concur with the information entered by Amparo Nunn. This document represents the service I personally performed and the decisions made by me, Kenzie Batista ARNP. History of Present Illness Service Date and Time: 07/12/2020 1008 Previous diagnosis: Moderate, Obstructive Sleep Apnea-Hypopnea Syndrome AHI: 16.4 (in 2019) Reason for follow up: one month (with pressure change) Accompanied by: Spouse Equipment type: CPAP Equipment obtained from: [employer] (getting supplies as needed) Mask style: Full face (AirFit F30i) Backup mask available: Yes (has extra nasal pillows masks) Last cushion change: 1 month Prior sleep studies: Yes Year and Where: 2019 - [facility] ; 2001 - 2003 Type of Sleep Study: Home sleep study HPI additional information: ASH MAGALLON was diagnosed to have moderate, AHI 16.4, obstructive sleep apnea-hypopnea syndrome and returned today with spouse for CPAP therapy one month pressure change follow-up. CPAP Compliance Data - Data Reviewed with Patient Average duration of nightly device use: 6 hr 4 min Compliance rate %: 83.3 Current pressure setting (cmH2O): 6-10 Humidity settin Heated hose settin Average residual AHI: 7.7 Central apnea: 0.0 Obstructive apnea: 0.1 Hypopnea: 7.6 Average large leak: 3 hr 35 min Compliance data discussion: She has been getting large leaks. Her can hear it leaking in the next room and comes in to find the mask off, machine running and the mask is in her hand. He has her put it back on. She has been getting headaches about once a week. Subjective Missed days of use due to: reports: other Patient concerns: reports: dry mouth, nose, throat, other (headache; falling asleep with mask in hand after getting up to bathroom). denies: aerophagia, mask discomfort, air blowing in eyes, mask leak noise, condensation in mask/hose, nasal congestion, epistaxis Observed to snore while using device: No Current pressure setting perceived as: comfortable On therapy, patient: reports: sleeping better, awakening more refreshed, being more awake and alert during the day, more rested overall. denies: drowsiness while driving Initial [place] Sleepiness Scale score: 19 (in 2020) Current [place] Sleepiness Scale score: 20 Allergies and Home Medications Drug allergies reviewed: Yes (ampicillin) Home medication list reviewed: Yes (no changes) Review of Systems Review of systems same as previous: Yes (no changes) Physical Exam Heart Rate: 68 O2 Saturation: 93 Height: 5 ft 4 in Weight: 291 lb Body Mass Index: 49.9 BMI Classification: Morbidly Obese Impression and Plan 1. Obstructive Sleep Apnea-Hypopnea Syndrome, moderate, with good treatment compliance and fair apnea control with elevated residual AHI. On CPAP therapy, the patient has better sleep quality and is more rested overall. Patient has been having large leak over 3.5 hours. She leaves machine on when getting up to bathroom and falls asleep before getting the mask back on. I advised her to try to remember to turn the machine off before going to bathroom to see if this will reduce the noted large leaks. She was encouraged to try to put mask back on and turn on machine if able to get best benefit of her CPAP therapy. She states she used to be able to hear leaking through her mouth that would wake her up in a nasal mask and she feels this worked better for her than the full face mask (AirFit F30i). She would like to go back to other mask too. I will write for a change in mask to the nasal cushion mask she used previously. She has been having some mouth dryness. Her humidity and heated hose are both set at 4. Oral dryness can be reduced by adjusting humidity setting higher or heated hose lower or by adjusting both settings. I advised her to go up to 5 on her humidity to reduce oral dryness and she may go down to 3 on heated hose if this is not enough. She likes the warm air and is reluctant to reduce the heated hose but I advised to try it if she continues to be dry. She voiced understanding and agreement. Her residual AHI has been elevated which may be being affected by the large leaks. Her hypopnea index is the most elevated at 7.2. The patients pressure will be changed to autoCPAP 4-8 cmH20 for elevation of residual AHI. Patient advised to contact me if pressure change is uncomfortable so that it can be adjusted. Goals for apnea control discussed. Patient's apnea severity and rationale for treatment to reduce apnea, improve sleep quality and reduce cardiovascular and cerebrovascular events was reviewed. I also reviewed the benefit of consistent device use of CPAP for hypertension. * Try nasal cushion mask * Change auto CPAP pressure to 4-8 cmH2O * Notify me if snoring with mask or feeling that the pressure is too much or too little * Attempt to lose weight * Call this office if any problems using CPAP * Return for follow up in 1-2 months, or sooner if concerns arise Counseling Topics: Spare mask, Weight loss health impact Visit Type: In Office Time Spent with Patient (minutes): 24 Provider Statement: I spent 100% of the Face to Face Visit with the patient with greater than 50% spent counseling the patient and coordination of care.
== END 2020-07-12 10:09 | disposition home or self-care (01) ==
LOC: SC 10:08
PROVIDERS: ATTEND Nurse Practitioner Family
DX: G47.33 Obstructive sleep apnea (adult) (pediatric) (principal); E66.01 Morbid (severe) obesity due to excess calories; Z68.42 Body mass index [BMI] 45.0-49.9, adult
CPT/HCPCS: 99213; G0463; 99212

== ENCOUNTER 2020-09-03 16:11 | Outpatient (CLI) | payer MEDICARE, OTHER ==
--- NOTE | 2020-09-03 16:55 | SLEEP CARE CONSULTATION ---
Information from patient questionnaire entered by Kermit Mcadams. I have reviewed and concur with the information entered by Kermit Mcadams. This document represents the service I personally performed and the decisions made by , Kenzie Batista ARNP. History of Present Illness Service Date and Time: 09/03/2020 1611 Previous diagnosis: Moderate, Obstructive Sleep Apnea-Hypopnea Syndrome AHI: 16.4 (in 2019) Reason for follow up: other (2-month followup - pressure change) Equipment type: CPAP Equipment obtained from: [employer] (getting supplies as needed) Mask style: Full face Backup mask available: No (will need to keep old mask when replaced) Last cushion change: 2 months Prior sleep studies: Yes Year and Where: 2019 - [facility] ; 2001 - 2003 Type of Sleep Study: Home sleep study HPI additional information: ASH MAGALLON was diagnosed to have moderate, AHI 16.4, obstructive sleep apnea-hypopnea syndrome and returned today with spouse for CPAP therapy 2 month pressure change follow-up. CPAP Compliance Data - Data Reviewed with Patient Average duration of nightly device use: 5 h 51 min Compliance rate %: 81.7 Current pressure setting (cmH2O): 4-8 Humidity settin Heated hose settin Average residual AHI: 3.7 Average large leak: 1 h 15 min 25 sec Subjective Missed days of use due to: reports: travel Patient concerns: reports: dry mouth, nose, throat, other (Headache). denies: aerophagia, mask discomfort, air blowing in eyes, mask leak noise, condensation in mask/hose, nasal congestion, epistaxis Observed to snore while using device: No Current pressure setting perceived as: comfortable On therapy, patient: reports: sleeping better, awakening more refreshed, being more awake and alert during the day, more rested overall. denies: drowsiness while driving Initial [place] Sleepiness Scale score: 19 (in 2019) Current [place] Sleepiness Scale score: 16 Allergies and Home Medications Home medication list reviewed: Yes (no changes) Review of Systems Review of systems same as previous: Yes (no changes) Physical Exam Heart Rate: 65 O2 Saturation: 97 Height: 5 ft 4 in Weight: 285 lb Body Mass Index: 48.9 BMI Classification: Morbidly Obese Impression and Plan 1. Obstructive Sleep Apnea-Hypopnea Syndrome, moderate, with good treatment compliance and good apnea control. On CPAP therapy, the patient has better sleep quality and is more rested overall. She is still having some large air leaks but her AHI is well controlled and her compliance is good. She has significant improvement of her sleep apnea and is getting used to her treatment. She is accompanied by her who states she forgets things and when he checks on her at night has found the mask on her and the machine off. She has also forgot to put mask on and the machine is running. He is not sure what else to do but does check on her during the night to make sure it is on and running. She feels the pressure change is comfortable. She has been getting some more headaches but states it is due to her neck. I advised her to follow up with her PCP if the neck pain/headaches do not improve or worsen. They voiced understanding. She is swimming in the pool 2 times a week for exercise and she was encouraged to eat a well balanced/nutritious diet to help with weight loss. They voiced understanding. Patient's apnea severity and rationale for treatment to reduce apnea, improve sleep quality and reduce cardiovascular and cerebrovascular events was reviewed. I also reviewed the benefit of consistent device use of CPAP for hypertension. * Continue auto CPAP pressure at 4-8 cmH2O * Notify me if snoring with mask or feeling that the pressure is too much or too little * Attempt to lose weight * Call this office if any problems using CPAP * Return for follow up in 6 month, or sooner if concerns arise Counseling Topics: Spare mask, Weight loss health impact Visit Type: In Office Time Spent with Patient (minutes): 22 Provider Statement: I spent 100% of the Face to Face Visit with the patient with greater than 50% spent counseling the patient and coordination of care.
== END 2020-09-03 16:12 | disposition home or self-care (01) ==
LOC: SC 16:11
PROVIDERS: ATTEND Nurse Practitioner Family
DX: G47.33 Obstructive sleep apnea (adult) (pediatric) (principal); E66.01 Morbid (severe) obesity due to excess calories; Z68.42 Body mass index [BMI] 45.0-49.9, adult
CPT/HCPCS: 99212; G0463

== ENCOUNTER 2020-12-23 18:00 | Outpatient (CLI) | payer MEDICARE, OTHER | END 2020-12-23 23:59 | disposition home or self-care (01) | LOC: LAB.S 18:00 | PROVIDERS: ATTEND Physician Assistant | DX: N39.0 Urinary tract infection, site not specified (principal) | CPT/HCPCS: 87086 ==

== ENCOUNTER 2021-03-18 16:03 | Outpatient (CLI) | payer MEDICARE, OTHER ==
[2021-03-18 16:47] VITALS: BP 138/64
--- NOTE | 2021-03-18 16:47 | SLEEP CARE CONSULTATION ---
Information from patient questionnaire entered by Tawnya Washington MA. I have reviewed and concur with the information entered by Tawnya Washington MA. This document represents the service I personally performed and the decisions made by , Kenzie Batista ARNP. History of Present Illness Service Date and Time: 03/18/2021 1603 Previous diagnosis: Moderate, Obstructive Sleep Apnea-Hypopnea Syndrome AHI: 16.4 (in 2019) Reason for follow up: other (7 months with recall questions) Accompanied by: Spouse Equipment type: CPAP Equipment obtained from: [employer] (getting supplies as needed) Mask style: Full face Backup mask available: Yes (old mask) Prior sleep studies: Yes Year and Where: 2019 - [facility] ; 2001 Type of Sleep Study: Home sleep study HPI additional information: ASH MAGALLON was diagnosed to have moderate, AHI 16.4, obstructive sleep apnea-hypopnea syndrome and returned today with spouse for CPAP therapy 7 month with recall questions/concerns follow-up. Sleep Study - Results Type of Sleep Study: Home sleep study Prior sleep studies: Yes Year and Where: 2019 - [facility] ; 2001 CPAP Compliance Data - Data Reviewed with Patient Average duration of nightly device use: 5 hours 29 minutes Compliance rate %: 96.7 Current pressure setting (cmH2O): 4-8 Humidity settin Heated hose settin Average residual AHI: 3.8 Average large leak: 1 hour 40 minutes Subjective Patient concerns: reports: nasal congestion, dry mouth, nose, throat, other (headache). denies: aerophagia, mask discomfort, air blowing in eyes, mask leak noise, condensation in mask/hose, epistaxis Observed to snore while using device: No Current pressure setting perceived as: comfortable On therapy, patient: reports: sleeping better, awakening more refreshed, being more awake and alert during the day, more rested overall. denies: drowsiness while driving Initial [place] Sleepiness Scale score: 19 (in 2019) Current [place] Sleepiness Scale score: 20 Allergies and Home Medications Home medication list reviewed: Yes (no changes) Review of Systems Review of systems same as previous: Yes (no changes) Physical Exam Vital signs obtained and entered by: Padmini TRUONG Blood Pressure: 138/64 (left) Cuff size: wrist Heart Rate: 67 O2 Saturation: 97 (with mask) Height: 5 ft 4 in Weight: 390 lb (wheel chair bound) Body Mass Index: 66.9 BMI Classification: Morbidly Obese Impression and Plan 1. Obstructive Sleep Apnea-Hypopnea Syndrome, moderate, with good treatment compliance and good apnea control. On CPAP therapy, the patient has better sleep quality and is more rested overall. Patient came in today with questions and concerns about the recall on her Latasha machine. Patient has already registered their device for the recall. Patient denies any black particles seen in machine or hoses, any unusual odors coming from device. If patient is not able to sleep due to waking up choking, gasping for air or other respiratory distress that they may decide to continue using it until it is either replaced or repaired. If patient has an older device that is not on the recall they may switch to using that in the meantime. Patient sits in a recliner to sleep to keep her head elevated. She will continue to do so due to her concerns about using the device with its risks. Patient voiced understanding and agreement with plan. Patient's apnea severity and rationale for treatment to reduce apnea, improve sleep quality and reduce cardiovascular and cerebrovascular events was reviewed. I also reviewed the benefit of consistent device use of CPAP for hypertension. Patient was encouraged to lose weight for their overall health and to reduce apneas. * Continue auto CPAP pressure at 4-8 cmH2O * Notify me if snoring with mask or feeling that the pressure is too much or too little * Attempt to lose weight * Call this office if any problems using CPAP * Return for follow up in 1 year, or sooner if concerns arise Counseling Topics: Weight loss health impact Visit Type: In Office Time Spent with Patient (minutes): 20 Provider Statement: I spent 100% of the Face to Face Visit with the patient with greater than 50% spent counseling the patient and coordination of care.
== END 2021-03-18 16:04 | disposition home or self-care (01) ==
LOC: SC 16:03
PROVIDERS: ATTEND Nurse Practitioner Family
DX: G47.33 Obstructive sleep apnea (adult) (pediatric) (principal); E66.01 Morbid (severe) obesity due to excess calories; Z68.44 Body mass index [BMI] 60.0-69.9, adult
CPT/HCPCS: 99213; G0463; 99212

== ENCOUNTER 2021-03-24 14:24 | Emergency (ER) | payer MEDICARE, OTHER ==
[2021-03-24] MEDS ORDERED: HYDROmorphone 1 MG/ML CARPUJECT IVP STA (14:50)
--- NOTE | 2021-03-24 14:51 | ED Physician Documentation ---
PD HPI ABD PAIN - Stated complaint Stated Complaint: ABD PX - Chief complaint Chief Complaint: Abd Pain - History obtained from History obtained from: Patient - Additional information Additional information: 80-year-old woman with history of back issues, lymphedema with recurrent cellulitis presents with abdominal pain. States has been going on for 2 weeks but it particularly bad since yesterday. She points to the epigastrium and then points to the pelvis as the site of the pain. When I initially asked her if she has had any intra-abdominal surgeries she states no. When I specifically asked her if she has a gallbladder or appendix or uterus she says she does not have any of them. This corroborates with H&P on the chart from last year stating that she has had hysterectomy, oophorectomy, cholecystectomy, and appendectomy. She has had diarrhea in the last 2 weeks associated with this pain. There has been scant blood in the diarrhea. She has not tried anything for the pain but has been taking Metamucil. She is not nauseous. Denies urinary complaints. Pain is not worse after eating. She denies fevers. Review of Systems Ten Systems: 10 systems reviewed and negative Constitutional: denies: Fever, Chills Cardiac: denies: Chest pain / pressure, Palpitations Respiratory: denies: Dyspnea, Cough GI: reports: Abdominal Pain, Diarrhea. denies: Nausea, Vomiting, Constipation, Hematemesis PD PAST MEDICAL HISTORY - Past Medical History Cardiovascular: Hypertension, High cholesterol, Other Respiratory: Sleep apnea, CPAP use Neuro: None Endocrine/Autoimmune: HyPOthyroidism GI: GERD : Incontinence HEENT: Chronic vision loss Psych: Depression Musculoskeletal: Osteoarthritis, Chronic back pain Derm: None - Past Surgical History Past Surgical History: Yes General: Cholecystectomy, Appendectomy, Other Ortho: Spine surgery /[employer]: Hysterectomy, Oophrectomy - Present Medications Home Medications: Ambulatory Orders Medication Instructions Recorded Confirmed Cholecalciferol (Vitamin D3) 2,000 unit PO DAILY 12/01/13 06/17/20 [D3-2000] Multivitamin [Multi-Vitamin Daily] 1 tab PO DAILY 12/01/13 06/17/20 Boswell-3/Dha/Epa/Fish Oil [Fish Oil 1 each PO BID 12/01/13 06/17/20 Boswell-3 Softgel] Ubidecarenone [Co Q-10] 200 mg PO DAILY 12/08/15 06/17/20 Acetaminophen [Tylenol] 650 mg PO Q8H PRN 10/21/16 06/17/20 Aspirin [Adult Low Dose Aspirin EC] 81 mg PO DAILY 10/21/16 06/17/20 Ferrous Sulfate 325 mg PO BID 10/21/16 06/17/20 Potassium Chloride [K-Dur] 20 meq PO BIDWM 10/21/16 06/17/20 Vitamin B Complex 1 tab PO DAILY 10/21/16 06/17/20 Atorvastatin [Lipitor] 20 mg PO QPM 04/01/20 06/17/20 DULoxetine [Cymbalta] 60 mg PO DAILY 04/01/20 06/17/20 Furosemide [Lasix] 20 mg PO BIDDIURETIC 04/01/20 06/17/20 Gabapentin [Neurontin] 900 mg PO BID 04/01/20 06/17/20 HYDROcod/ACETAM 5/325 [Graton 5/325] 1 tab PO DAILY PRN 04/01/20 06/17/20 Levothyroxine Sodium [Synthroid] 150 mcg PO QDAC 04/01/20 06/17/20 Lisinopril [Zestril] 20 mg PO DAILY 04/01/20 06/17/20 Doxycycline [Vibramycin] 100 mg PO BID 7 Days #14 tablet 04/08/20 06/17/20 Doxycycline Hyclate 100 mg PO BID #28 06/17/20 HYDROcod/ACETAM 5/325 [[place] 5/325] 1 - 2 ea PO Q6H PRN #14 tab 06/17/20 Omeprazole 20 mg PO BID 06/17/20 06/17/20 Ciprofloxacin [Cipro] 250 mg PO Q12H #10 tablet 03/24/21 - Allergies Allergies/Adverse Reactions: Allergies Allergy/AdvReac Type Severity Reaction Status Date / Time ampicillin AdvReac Rash Verified 03/24/21 14:37 - Social History Does the pt smoke?: No Smoking Status: Never smoker Does the pt drink ETOH?: No Does the pt have substance abuse?: No - Immunizations Immunizations are current?: Yes - POLST Patient has POLST: No POLST Status: DNR PD ED PE NORMAL - Vitals Vital signs reviewed: Yes - General General: Alert and oriented X 3, No acute distress - HEENT HEENT: PERRL, EOMI - Neck Neck: Supple, no meningeal sign, No bony TTP - Cardiac Cardiac: RRR, No murmur - Respiratory Respiratory: No respiratory distress, Other (Mild expiratory wheezes) - Abdomen Abdomen: Normal bowel sounds, Soft, Non tender - Back Back: No CVA TTP, No spinal TTP - Derm Derm: Normal color, Warm and dry - Extremities Extremities: Other (Bilateral lower extremity edema with venous stasis changes, symmetric) - Neuro Neuro: Alert and oriented X 3, Normal speech - Psych Psych: Normal mood, Normal affect Results - Vitals Vitals: Vital Signs - 24 hr 03/24/21 03/24/21 03/24/21 14:31 14:46 16:37 Temperature 36.0 C L 36.5 C Heart Rate 73 73 80 Respiratory 16 16 16 Rate Blood Pressure 161/75 H 161/75 H 185/79 H O2 Saturation 95 96 92 03/24/21 18:00 Temperature Heart Rate 81 Respiratory 16 Rate Blood Pressure 180/60 H O2 Saturation 98 Oxygen O2 Source Room air - Labs Labs: Laboratory Tests 03/24/21 03/24/21 15:10 15:10 WBC 6.9 RBC 4.02 L Hgb 12.8 Hct 41.7 MCV 103.7 H MCH 31.8 H MCHC 30.7 L RDW 13.8 Plt Count 180 MPV 9.8 Neut # (Auto) 4.5 Lymph # (Auto) 1.2 L Webb # (Auto) 1.0 Eos # (Auto) 0.2 Baso # (Auto) 0.0 Nucleated RBC % 0.0 Sodium 135 Potassium 4.2 Chloride 97 L Carbon Dioxide 32 Anion Gap 6.0 BUN 28 H Creatinine 1.0 Estimated GFR (MDRD) 54 L Glucose 95 Calcium 8.7 Total Bilirubin 1.3 H AST 14 ALT 12 Alkaline Phosphatase 71 Total Protein 7.6 Albumin 3.5 Globulin 4.1 Albumin/Globulin Ratio 0.9 L Lipase 35 - Rads (name of study) CT of the abdomen pelvis with IV contrast Radiology: EMP read contemporaneously (No acute abnormality with the exception of scarring in the abdominal wall, diverticulosis, and gas in the urinary bladder) PD MEDICAL DECISION MAKING - ED course ED course: Urine obtained, but quantity insufficient for urinalysis. Culture only but it is grossly purulent so will treat especially given CT findings. Given normal labs and otherwise unimpressive examination I think this can be done as an outpatient despite the findings of emphysematous cystitis. Departure - Departure Disposition: 01 Home, Self Care Clinical Impression: Emphysematous cystitis Abdominal pain Qualifiers: Abdominal location: generalized Qualified Code(s): R10.84 - Generalized abdominal pain Condition: Good Record reviewed to determine appropriate education?: Yes Instructions: ED UTI Cystitis Female Prescriptions: Ciprofloxacin [Cipro] 250 mg PO Q12H #10 tablet Comments: It looks today that you probably have a urinary tract infection, we are treating with antibiotics and have given you a first dose here. Return for new or worsening symptoms but I do want you to follow-up with your doctor regardless. Tylenol as needed for pain. We will culture your urine, the results should be done in 48-72 hours. If an antibiotic change is necessary we will call you. Return if worse in the meantime, especially if you develop increasing flank pain, fevers, or cannot keep down the medication.
[2021-03-24] MEDS ORDERED: IOVERSOL 320 100 ML VIAL IVP ONE ×2 (14:58→17:50)
[2021-03-24 15:38] LABS: ALBUMIN 3.5 g/dL (3.2-5.5); ALBUMIN/GLOBULIN RATIO 0.9 (1.0-2.2); BILIRUBIN,TOTAL 1.3 mg/dL (0.2-1.0); CALCIUM 8.7 mg/dL (8.5-10.3); POTASSIUM 4.2 mmol/L (3.5-5.0); TOTAL PROTEIN 7.6 g/dL (6.7-8.2)
[2021-03-24 15:41] LABS: BASOPHILS % (AUTO) 0.4 %; EOSINOPHILS % (AUTO) 2.6 %; HCT - HEMATOCRIT 41.7 % (37.0-47.0); HGB - HEMOGLOBIN 12.8 g/dL (12.0-16.0); LYMPHOCYTES % (AUTO) 17.9 %; MEAN CORPUSCULAR HEMOGLOBIN 31.8 pg (27.0-31.0); MEAN CORPUSCULAR HGB CONC 30.7 g/dL (32.0-36.0); MEAN CORPUSCULAR VOLUME 103.7 fL (81.0-99.0); MEAN PLATELET VOLUME 9.8 fL (7.9-10.8); MONOCYTES % (AUTO) 13.9 %; NEUTROPHILS % (AUTO) 64.9 %; PLT - PLATELET COUNT 180 10^3/uL (130-450); RED BLOOD COUNT 4.02 10^6/uL (4.20-5.40); RED CELL DISTRIBUTION WIDTH 13.8 % (12.0-15.0); WHITE BLOOD COUNT 6.9 x10^3/uL (4.8-10.8)
[2021-03-24 15:42] LABS: EOSINOPHILS # (AUTO) 0.2 10^3/uL (0.0-0.7); LYMPHOCYTES # (AUTO) 1.2 10^3/uL (1.5-3.5); NEUTROPHILS # (AUTO) 4.5 10^3/uL (1.5-6.6)
--- NOTE | 2021-03-24 17:13 | CT Report ---
PROCEDURE: Abdomen/Pelvis W INDICATIONS: iv only, diffuse abd pain CONTRAST: IV CONTRAST: Optiray 320 ml: 100 PO CONTRAST: *NO PO CONTRAST TECHNIQUE: After the administration of intravenous contrast, 5 mm thick sections acquired from the diaphragms to the symphysis. 5 mm thick coronal and sagittal reformats were acquired. For radiation dose reducti on, the following was used: automated exposure control, adjustment of mA and/or kV according to skye ent size. COMPARISON: CXR 04/02/2020, CT KUB 12/08/2015. FINDINGS: Image quality: Fair. Beam hardening artifact. ABDOMEN: Lung bases: Dependent atelectasis. No pleural effusion. Heart size is normal. Solid organs: Liver and spleen are normal in size and enhancement. Gallbladder is surgically absent . Biliary system is non dilated. Pancreas enhances normally. No adrenal nodules. Kidneys demonstr ate normal size and enhancement, without hydronephrosis. Some of the right peripelvic cysts. Nonobstr ucting calculus in the mid left kidney is unchanged. Probable punctate nonobstructing kidney stone on the right. Small simple appearing cyst at the inferior pole the right kidney. Peritoneum and bowel: Bowel loops demonstrate normal wall thickness and caliber. Diverticulosis. The appendix is absent. No free fluid or air. Nodes and vessels: No retroperitoneal or mesenteric adenopathy by size criteria. Aorta and inferior vena cava are normal in size. Retroaortic left renal vein. Miscellaneous: Thickening and trace hypodensity at the lower midline abdominal wall, (). This ashlyn ears similar to 2016. No ventral hernias. Flank and lumbar edema. PELVIS: Genitourinary: Small foci of gas within the urinary bladder. Likely iatrogenic from catheterization. Uterus is absent. Miscellaneous: No inguinal hernias or adenopathy. Bones: No suspicious bony lesions. Fixation hardware spanning the T10-S2. Vertebroplasty at L1. T8 c ompression fracture, unchanged compared to 04/02/2020. Moderate degenerative change. IMPRESSION: Image quality is degraded by beam hardening artifact. 1. No acute abnormality is identified. No free fluid. 2. Similar scarring at the lower abdominal wall. 3. Diverticulosis. No diverticulitis. 4. Gas in the urinary bladder. This is likely iatrogenic. This could be due to gas-forming organism. Recommend focal correlation and possible urinalysis if not yet performed. 6. Nonobstructing kidney stones. Reviewed by: Sebastian Hill MD on 03/24/2021 5:12 PM PST Approved by: Sebastian Hill MD on 03/24/2021 5:12 PM PST Station ID: [id number]
[2021-03-24] MEDS ORDERED: CIPROFLOXACIN 250 MG TABLET PO STA (18:27)
[2021-03-24 19:01] VITALS: BP 162/84
== END 2021-03-24 19:00 | disposition home or self-care (01) ==
LOC: ED 14:24
DX: N30.80 Other cystitis without hematuria (principal); R10.84 Generalized abdominal pain; Z66 Do not resuscitate
CPT/HCPCS: 36415; 51701; 74177; 80053; 83690; 85025; 87086; 87181; 96374; 99283; 99284; A9270; J1170; Q9967

== ENCOUNTER 2021-04-07 08:00 | Outpatient (CLI) | payer MEDICARE, OTHER ==
--- NOTE | 2021-04-07 14:23 | XRAY Report ---
PROCEDURE: Wrist 3 View RT INDICATIONS: RIGHT WRIST PAIN TECHNIQUE: 4 views of the wrist were acquired. COMPARISON: None FINDINGS: Bones: Subtle distal radius fracture is seen most convincingly on the lateral view. Question possible intra-articular extension. No other fractures or dislocations seen. No suspicious bony lesions. Scaphoid view: Scaphoid intact Soft tissues: No suspicious soft tissue calcifications. IMPRESSION: Subtle distal radius fracture. Question intra-articular extension. Comment: CT may be helpful if the presence or absence of intra-articular extension with change treatm ent. Reviewed by: Arian Oglesby MD on 04/07/2021 2:22 PM PST Approved by: Arian Oglesby MD on 04/07/2021 2:22 PM PST Station ID: [id number]
--- NOTE | 2021-04-07 16:13 | XRAY Report ---
PROCEDURE: Shoulder 3 View RT INDICATIONS: RIGHT SHOULDER PAIN TECHNIQUE: 3 views of the shoulder were acquired. COMPARISON: None. FINDINGS: Bones: No fractures or dislocations. No suspicious bony lesions. Visualized ribs appear intact. M oderate joint space narrowing and periarticular osteophyte formation at the acromioclavicular and gle nohumeral joints. Soft tissues: No suspicious soft tissue calcifications. IMPRESSION: Osteoarthritis. No acute fracture. No osseous lesion. If symptoms and/or clinical suspic ion for pathology continue, further assessment with repeat plain films, or advanced imaging (e.g., CT , MRI, or bone scan) is recommended for further assessment. Reviewed by: Mc Landrum MD on 04/07/2021 4:12 PM PST Approved by: Mc Landrum MD on 04/07/2021 4:12 PM PST Station ID: [id number]
== END 2021-04-07 23:59 | disposition home or self-care (01) ==
LOC: DI.S 08:00
PROVIDERS: ATTEND Physician Assistant
DX: M19.011 Primary osteoarthritis, right shoulder (principal); S52.501A Unspecified fracture of the lower end of right radius, initial encounter for closed fracture

== ENCOUNTER 2021-04-07 15:06 | Emergency (ER) | payer MEDICARE, OTHER ==
[2021-04-07 15:14] VITALS: BP 180/80
--- NOTE | 2021-04-07 15:54 | ED Physician Documentation ---
PD HPI HEAD INJURY - Stated complaint Stated Complaint: R ARM PX - Chief complaint Chief Complaint: Trauma Hd/Nk - History obtained from History obtained from: Patient - History of Present Illness Mechanism of head injury: Fell Where head injury occurred: Home Timing - onset: Last night Location of injury: Front Quality of pain: Aching, Dull Associated symptoms: Other (she fell forward and reached out with right arm, hurt wrist and struck forehead. Not on anticoags. Has mild frontal headache. Seen at urgent care with xray wrist and splint placed. Referred to ER for eval of possible head CT.). No: LOC, AMS Contributing factors: No: Anticoagulated Similar symptoms before: Has not had sx before Recently seen: Clinic Review of Systems Constitutional: denies: Fever, Chills Nose: denies: Rhinorrhea / runny nose, Congestion Throat: denies: Sore throat Respiratory: denies: Cough GI: denies: Nausea, Vomiting Musculoskeletal: reports: Extremity pain (right wrist) Neurologic: denies: Focal weakness, Numbness, Altered mental status, LOC PD PAST MEDICAL HISTORY - Past Medical History Cardiovascular: Hypertension, High cholesterol, Other Respiratory: Sleep apnea, CPAP use Neuro: None Endocrine/Autoimmune: HyPOthyroidism GI: GERD : Incontinence HEENT: Chronic vision loss Psych: Depression Musculoskeletal: Osteoarthritis, Chronic back pain Derm: None - Past Surgical History Past Surgical History: Yes General: Cholecystectomy, Appendectomy, Other Ortho: 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, 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 - Present Medications Home Medications: Ambulatory Orders Medication Instructions Recorded Confirmed Cholecalciferol (Vitamin D3) 2,000 unit PO DAILY 12/01/13 06/17/20 [D3-2000] Multivitamin [Multi-Vitamin Daily] 1 tab PO DAILY 12/01/13 06/17/20 [place]-3/Dha/Epa/Fish Oil [Fish Oil 1 each PO BID 12/01/13 06/17/20 [place]-3 Softgel] Ubidecarenone [Co Q-10] 200 mg PO DAILY 12/08/15 06/17/20 Acetaminophen [Tylenol] 650 mg PO Q8H PRN 10/21/16 06/17/20 Aspirin [Adult Low Dose Aspirin EC] 81 mg PO DAILY 10/21/16 06/17/20 Ferrous Sulfate 325 mg PO BID 10/21/16 06/17/20 Potassium Chloride [K-Dur] 20 meq PO BIDWM 10/21/16 06/17/20 Vitamin B Complex 1 tab PO DAILY 10/21/16 06/17/20 Atorvastatin [Lipitor] 20 mg PO QPM 04/01/20 06/17/20 DULoxetine [Cymbalta] 60 mg PO DAILY 04/01/20 06/17/20 Furosemide [Lasix] 20 mg PO BIDDIURETIC 04/01/20 06/17/20 Gabapentin [Neurontin] 900 mg PO BID 04/01/20 06/17/20 HYDROcod/ACETAM 5/325 [[place] 5/325] 1 tab PO DAILY PRN 04/01/20 06/17/20 Levothyroxine Sodium [Synthroid] 150 mcg PO QDAC 04/01/20 06/17/20 Lisinopril [Zestril] 20 mg PO DAILY 04/01/20 06/17/20 Doxycycline [Vibramycin] 100 mg PO BID 7 Days #14 tablet 04/08/20 06/17/20 Doxycycline Hyclate 100 mg PO BID #28 06/17/20 HYDROcod/ACETAM 5/325 [[place] 5/325] 1 - 2 ea PO Q6H PRN #14 tab 06/17/20 Omeprazole 20 mg PO BID 06/17/20 06/17/20 Ciprofloxacin [Cipro] 250 mg PO Q12H #10 tablet 03/24/21 HYDROcod/ACETAM 5/325 [[place] 5/325] 1 ea PO Q6H PRN #14 tablet 04/07/21 Naproxen 500 mg PO BID PRN #20 tab 04/07/21 - Allergies Allergies/Adverse Reactions: Allergies Allergy/AdvReac Type Severity Reaction Status Date / Time ampicillin AdvReac Rash Verified 04/07/21 15:10 - Social History Does the pt smoke?: No Smoking Status: Never smoker Does the pt drink ETOH?: No Does the pt have substance abuse?: No - Immunizations Immunizations are current?: Yes - POLST Patient has POLST: No POLST Status: DNR PD ED PE NORMAL - Vitals Vital signs reviewed: Yes - General General: Alert and oriented X 3, No acute distress, Well developed/nourished - HEENT HEENT: PERRL, EOMI, Other (forehead with some local swelling and bruising left area. ) - Neck Neck: Supple, no meningeal sign, No adenopathy, Other (mild tender upper neck without deformity.) - Extremities Extremities: Other (right wrist/forearm in sugartong splint. good color and sesnation in fingertips. Some bruising color noted dorsal MCPs. ) - Neuro Neuro: Alert and oriented X 3, reconstructive dentist 2-12 intact, No motor deficit, No sensory deficit, Normal speech Results - Vitals Vitals: Oxygen O2 Source Room air - Rads (name of study) head CT Radiology: Prelim report reviewed (no ICH.), See rad report cervical CT Radiology: Prelim report reviewed (no fractures), EMP read contemporaneously PD MEDICAL DECISION MAKING - ED course Complexity details: reviewed results, considered differential, d/w patient Departure - Departure Disposition: 01 Home, Self Care Clinical Impression: Head contusion Qualifiers: Encounter type: initial encounter Contusion of head detail: scalp Qualified Code(s): S00.03XA - Contusion of scalp, initial encounter Neck strain Qualifiers: Encounter type: initial encounter Qualified Code(s): S16.1XXA - Strain of muscle, fascia and tendon at neck level, initial encounter Fall from slip, trip, or stumble Qualifiers: Encounter type: initial encounter Qualified Code(s): W01.0XXA - Fall on same level from slipping, tripping and stumbling without subsequent striking against object, initial encounter Wrist fracture Qualifiers: Encounter type: initial encounter Fracture type: closed Laterality: right Qualified Code(s): S62.101A - Fracture of unspecified carpal bone, right wrist, initial encounter for closed fracture Condition: Stable Record reviewed to determine appropriate education?: Yes Instructions: ED Sprain Strain Neck Follow-Up: Davina Frost ARNP [Primary Care Provider] - Prescriptions: Naproxen 500 mg PO BID PRN #20 tab PRN Reason: Pain HYDROcod/ACETAM 5/325 [[place] 5/325] 1 ea PO Q6H PRN #14 tablet PRN Reason: Pain Comments: Your head and neck CT scans are without any acute injury or disruption of your prior surgical area. Continue with instructions provided by the walk-in clinic regarding the wrist fracture. Tylenol every 4-6 hours if needed. You could also use anti- inflammatory naproxen twice daily with food for the next several days to week. Add hydrocodone if needed for worse pain periodically. I transmitted your prescriptions to [facility] in [place]. I am prescribing a short course of narcotic pain medication for you. These are potentially dangerous and addictive medications that should be used carefully. These medications may constipate you. Take an bghi-oyw-uuanuzx stool softener such as docusate twice daily with plenty of water while taking these medications. If you go 24 hours without a bowel movement, take xtcz-lyh-imveifc MiraLAX, per package instructions. Do not drink or drive while taking these medications. If you received narcotic or sedating medications while in the emergency department do not drive for 24 hours. Store this medication in a safe, secure place and out of reach of children. It is a violation of federal law to give or sell this medication to another person or to use in a manner other than prescribed. The ED will not refill narcotic prescriptions, including prescriptions lost or stolen. You can dispose of unwanted medications at the [facility]'s office or at several pharmacies such as [facility]. Discharge Date/Time: 04/07/21 18:05
[2021-04-07] MEDS ORDERED: NAPROXEN 250 MG TABLET PO STA (16:03)
[2021-04-07] MEDS ORDERED: ACETAMINOPHEN 325 MG TABLET PO STA (16:03)
--- NOTE | 2021-04-07 17:33 | CT Report ---
PROCEDURE: HEAD WO INDICATIONS: fall, struck head; head/neck pain TECHNIQUE: Noncontrast 4.5 mm thick angled axial sections acquired from the foramen magnum to the vertex. For r adiation dose reduction, the following was used: automated exposure control, adjustment of mA and/or kV according to patient size. COMPARISON: Correlation is made with the accompanying cervical spine CT, 04/07/2021. FINDINGS: Image quality: Motion artifact is noted. There is streak artifact seen through the skull base. CSF spaces: Basal cisterns are patent. No extra-axial fluid collections. Ventricles are normal in size and shape. Brain: No midline shift. No intracranial masses or hemorrhage. [place]una-white matter interface is norm al. Age-appropriate brain parenchymal volume loss and chronic small vessel ischemic change can be se en. Skull and face: Calvarium and visualized facial bones are intact, without suspicious lesions. Hyper ostosis frontalis is incidentally noted, which is not frankly abnormal for a female patient of this a ge. Sinuses: Visualized sinuses and mastoids are clear. IMPRESSION: No intracranial hemorrhage is seen. No significant intracranial abnormality is seen. Age-appropriate brain parenchymal volume loss and chronic small vessel ischemic change can be seen. Reviewed by: Sourav De Los Santos MD on 04/07/2021 4:32 PM [place] Approved by: Sourav De Los Santos MD on 04/07/2021 4:32 PM [facility] Station ID: [id number]
--- NOTE | 2021-04-07 17:36 | CT Report ---
PROCEDURE: CERVICAL SPINE WO INDICATIONS: fall, struck head; head/neck pain TECHNIQUE: Noncontrast 3 mm thick sections acquired from the skull base to the T4 level. Sagittal and coronal r eformats were then constructed. For radiation dose reduction, the following was used: automated exp osure control, adjustment of mA and/or kV according to patient size. COMPARISON: Correlation is made with the accompanying head CT, 04/07/2021. FINDINGS: Image quality: Motion artifact is noted. Bones: No fractures or dislocations. Visualized superior ribs are intact. Extensive postoperative hardware is seen, with posterior pedicle screws from C3 through T1. The left C7 screw is laterally located. The screws otherwise are within normal limits. There has been removal of portions of the posterior elements. Moderate to severe disc space narrowing can be seen throughout the mid cervical spine. Focal degenera tive change can also be seen involving the C1-C2 interface anteriorly. The bones are diffusely osteop enic. Soft tissues: Prevertebral soft tissues are normal in thickness. No paravertebral hematomas. No ap ical pneumothoraces. IMPRESSION: No acute fracture can be seen. Extensive postoperative hardware is seen. Underlying prominent degenerative changes are seen. Reviewed by: Sourav De Los Santos MD on 04/07/2021 4:34 PM [place] Approved by: Sourav De Los Santos MD on 04/07/2021 4:34 PM [facility] [[email or web address]] Station ID: [id number]
== END 2021-04-07 18:05 | disposition home or self-care (01) ==
LOC: ED 15:06
DX: S00.03XA Contusion of scalp, initial encounter (principal); S16.1XXA Strain of muscle, fascia and tendon at neck level, initial encounter; S62.101A Fracture of unspecified carpal bone, right wrist, initial encounter for closed fracture; W18.30XA Fall on same level, unspecified, initial encounter; M19.011 Primary osteoarthritis, right shoulder; S52.501A Unspecified fracture of the lower end of right radius, initial encounter for closed fracture; Z66 Do not resuscitate
CPT/HCPCS: 70450; 72125; 73030; 73110; 99283; 99284; A9270

== ENCOUNTER 2021-05-19 11:07 | Emergency (ER) | payer MEDICARE, OTHER ==
[2021-05-19 11:29] VITALS: BP 130/96
--- NOTE | 2021-05-19 12:08 | XRAY Report ---
PROCEDURE: Wrist 4 View RT INDICATIONS: wrist inj TECHNIQUE: 4 views of the wrist were acquired. COMPARISON: 04/07/2021 FINDINGS: Bones: There is further impaction and mild callus formation involving the distal radius fracture. An intra-articular fracture plane is now seen on the lateral view. There is moderate ulnar positive vari ance. Aside from impaction, bone alignment remains normal. There is osteopenia and degenerative sublu xation at the MCP joints incidentally noted. Soft tissues: No suspicious soft tissue calcifications. Moderate dorsal soft tissue swelling. IMPRESSION: 1. Further impaction, confirmation of intra-articular extension, and partial healing of distal radius fracture seen previously. 2. Ulnar positive variance secondary to distal radial impaction. Reviewed by: Kasia Venegas MD on 05/19/2021 12:07 PM PST Approved by: Kasia Venegas MD on 05/19/2021 12:07 PM PST Station ID: [id number]
[2021-05-19] MEDS ORDERED: HYDROcod/ACETAM 5/325 MG TABLET PO STA (12:19)
--- NOTE | 2021-05-19 12:22 | ED Physician Documentation ---
PD HPI UPPER EXT INJURY - Stated complaint Stated Complaint: RT WRIST INJ - Chief complaint Chief Complaint: Ext Problem - History obtained from History obtained from: Patient - Additonal information Additional information: She originally hurt her right wrist in a fall on April 07 of last year. She was splinted and eventually sent to her PCP and then subsequently orthopedics. She was not casted. She has a nice but removable splint and has not been completely compliant with it. About 2 weeks ago she had to catch herself when she had trouble getting in her recliner. Now she has increased pain. She was not wearing her splints when she got into her recliner 2 weeks ago. Review of Systems Constitutional: reports: Reviewed and negative Eyes: reports: Reviewed and negative Ears: reports: Reviewed and negative Nose: reports: Reviewed and negative Throat: reports: Reviewed and negative PD PAST MEDICAL HISTORY - Past Medical History Cardiovascular: Hypertension, High cholesterol, Other Respiratory: Sleep apnea, CPAP use Neuro: None Endocrine/Autoimmune: HyPOthyroidism GI: GERD : Incontinence HEENT: Chronic vision loss Psych: Depression Musculoskeletal: Osteoarthritis, Chronic back pain Derm: None - Past Surgical History Past Surgical History: Yes General: Cholecystectomy, Appendectomy, Other 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, 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 - Present Medications Home Medications: Ambulatory Orders Medication Instructions Recorded Confirmed Cholecalciferol (Vitamin D3) 2,000 unit PO DAILY 12/01/13 06/17/20 [D3-2000] Multivitamin [Multi-Vitamin Daily] 1 tab PO DAILY 12/01/13 06/17/20 [place]-3/Dha/Epa/Fish Oil [Fish Oil 1 each PO BID 12/01/13 06/17/20 [place]-3 Softgel] Ubidecarenone [Co Q-10] 200 mg PO DAILY 12/08/15 06/17/20 Acetaminophen [Tylenol] 650 mg PO Q8H PRN 10/21/16 06/17/20 Aspirin [Adult Low Dose Aspirin EC] 81 mg PO DAILY 10/21/16 06/17/20 Ferrous Sulfate 325 mg PO BID 10/21/16 06/17/20 Potassium Chloride [K-Dur] 20 meq PO BIDWM 10/21/16 06/17/20 Vitamin B Complex 1 tab PO DAILY 10/21/16 06/17/20 Atorvastatin [Lipitor] 20 mg PO QPM 04/01/20 06/17/20 DULoxetine [Cymbalta] 60 mg PO DAILY 04/01/20 06/17/20 Furosemide [Lasix] 20 mg PO BIDDIURETIC 04/01/20 06/17/20 Gabapentin [Neurontin] 900 mg PO BID 04/01/20 06/17/20 HYDROcod/ACETAM 5/325 [[place] 5/325] 1 tab PO DAILY PRN 04/01/20 06/17/20 Levothyroxine Sodium [Synthroid] 150 mcg PO QDAC 04/01/20 06/17/20 Lisinopril [Zestril] 20 mg PO DAILY 04/01/20 06/17/20 Doxycycline [Vibramycin] 100 mg PO BID 7 Days #14 tablet 04/08/20 06/17/20 Doxycycline Hyclate 100 mg PO BID #28 06/17/20 HYDROcod/ACETAM 5/325 [[place] 5/325] 1 - 2 ea PO Q6H PRN #14 tab 06/17/20 Omeprazole 20 mg PO BID 06/17/20 06/17/20 Ciprofloxacin [Cipro] 250 mg PO Q12H #10 tablet 03/24/21 HYDROcod/ACETAM 5/325 [[place] 5/325] 1 ea PO Q6H PRN #14 tablet 04/07/21 Naproxen 500 mg PO BID PRN #20 tab 04/07/21 HYDROcod/ACETAM 5/325 [[place] 5/325] 1 - 2 tab PO Q6H PRN #15 tablet 05/19/21 - Allergies Allergies/Adverse Reactions: Allergies Allergy/AdvReac Type Severity Reaction Status Date / Time ampicillin AdvReac Rash Verified 05/19/21 11:29 - Social History Does the pt smoke?: No Smoking Status: Never smoker Does the pt drink ETOH?: No Does the pt have substance abuse?: No - Immunizations Immunizations are current?: Yes - POLST Patient has POLST: No POLST Status: DNR PD ED PE NORMAL - Vitals Vital signs reviewed: Yes - General General: Alert and oriented X 3, No acute distress - Extremities Extremities: Other (Right wrist is tender over the distal radius with radial deviation and pain with flexion and extension but normal neurovascular function in the hand.) Results - Vitals Vitals: Vital Signs - 24 hr 05/19/21 11:24 Temperature 35.9 C L Heart Rate 69 Respiratory 18 Rate Blood Pressure 130/96 H O2 Saturation 94 Oxygen O2 Source Room air - Rads (name of study) 4 view x-ray of the right wrist Radiology: EMP read contemporaneously (Worsening of impaction, intra-articular extension, and partial healing of distal radius fracture and ulnar variance) Procedures - Splint (location) R wrist Splint applied by: Tech Type of splint: Short arm, Volar cock up Other: Patient tolerated well, No complications, Neurovascular intact Departure - Departure Disposition: 01 Home, Self Care Clinical Impression: Wrist fracture Condition: Good Record reviewed to determine appropriate education?: Yes Instructions: ED Fx Colles Wrist Redu Requ Prescriptions: HYDROcod/ACETAM 5/325 [[place] 5/325] 1 - 2 tab PO Q6H PRN #15 tablet PRN Reason: Pain Comments: Keep the appointment with orthopedics you have later this week. Keep the fiberglass splint on and dry religiously until then, do not remove it. I sent your prescription electronically to [facility] in [place]. I am prescribing a short course of narcotic pain medication for you. These are potentially dangerous and addictive medications that should be used carefully. These medications may constipate you. Take an fcsm-lzq-etinovb stool softener (docusate) twice daily with plenty of water while taking these medications. If you go 24 hours without a bowel movement, take ugpx-qfy-rdugtvd miralax, per package instructions. Do not drink or drive while taking these medications. If you received narcotic or sedating medications while in the emergency department, do not drive for 24 hours. Store this medication in a safe, secure place and out of reach of children. It is a violation of federal law to give or sell this medication to another person or to use in a manner other than prescribed. The ED will not refill narcotic prescriptions, including prescriptions lost or stolen. To dispose of unwanted medications: 1. [facility] at [address] [facility] in [place] has a medication drop box. They accept prescription medications (in pill form) Wednesday through Wednesday 9:00 a.m. to 5:00 p.m. 2. The [facility] [employer] accepts prescription medications (in pill form only) for disposal year round. Call for more information. 3. Contact the [facility] for the next [facility] sponsored prescription drug collection event. , [phone], or [phone]; Note that many narcotic pain relievers also contain Tylenol/acetaminophen. Please ensure that your total dose of acetaminophen from all sources does not exceed 3 g (3000 mg) per day.
== END 2021-05-19 13:07 | disposition home or self-care (01) ==
LOC: ED 11:07
DX: S52.571A Other intraarticular fracture of lower end of right radius, initial encounter for closed fracture (principal); S52.601A Unspecified fracture of lower end of right ulna, initial encounter for closed fracture; W22.01XA Walked into wall, initial encounter; I10 Essential (primary) hypertension; Z79.82 Long term (current) use of aspirin; Z66 Do not resuscitate
CPT/HCPCS: 29125; 73110; 99283; A9270

== ENCOUNTER 2021-05-22 08:30 | Outpatient (CLI) | payer MEDICARE, OTHER ==
--- NOTE | 2021-05-22 17:44 | XRAY Report ---
PROCEDURE: Wrist 3 View RT INDICATIONS: F/U WRIST FX TECHNIQUE: 3 views of the wrist were acquired. COMPARISON: 04/07/2021, 03/19/2022 FINDINGS: Bones: Since the study of 3 days ago, there has been continuation of increased impaction of the dista l radius fracture. It is a comminuted fracture extending to the articular surface. There is callus fo rmation indicating that healing is occurring. No suspicious bony lesions. Soft tissues: No suspicious soft tissue calcifications. IMPRESSION: Interval worsening of impaction of a comminuted distal radius fracture, worsening over the course of the last 3 days. Reviewed by: Arian Oglesby MD on 05/22/2021 5:43 PM PST Approved by: Arian Oglesby MD on 05/22/2021 5:43 PM PST Station ID: [id number]
== END 2021-05-22 23:59 | disposition home or self-care (01) ==
LOC: DI.WOS 08:30
PROVIDERS: ATTEND Orthopaedic Surgery
DX: S52.531A Colles' fracture of right radius, initial encounter for closed fracture (principal)

== ENCOUNTER 2021-06-15 08:00 | Outpatient (CLI) | payer MEDICARE, OTHER ==
--- NOTE | 2021-06-15 17:37 | XRAY Report ---
PROCEDURE: Wrist 2 View RT INDICATIONS: COLLES FRACTURE OF RIGHT RADIUS TECHNIQUE: 2 views of the wrist were acquired. COMPARISON: 05/19/2021, 05/22/2021, 04/07/2021 FINDINGS: Bones: There is again seen an impacted, comminuted distal radius fracture, with mild remodeling of t he fracture lines since the prior examination. No associated ulnar sided fracture can be seen. Age-appropriate degenerative changes are seen. Soft tissues: No suspicious soft tissue calcifications. IMPRESSION: Mild interval remodeling change of the known impacted, comminuted distal radius fracture. Reviewed by: Sourav De Los Santos MD on 06/15/2021 4:36 PM [facility] Approved by: Sourav De Los Santos MD on 06/15/2021 4:36 PM [facility] Station ID: [id number]
== END 2021-06-15 23:59 | disposition home or self-care (01) ==
LOC: DI.S 08:00
PROVIDERS: ATTEND Physician Assistant
DX: S52.531D Colles' fracture of right radius, subsequent encounter for closed fracture with routine healing (principal)

== ENCOUNTER 2021-07-03 11:22 | Outpatient (CLI) | payer MEDICARE, OTHER ==
[2021-07-03 14:46] LABS: BASOPHILS # (AUTO) 0.1 10^3/uL (0.0-0.1); BASOPHILS % (AUTO) 0.9 %; EOSINOPHILS # (AUTO) 0.4 10^3/uL (0.0-0.7); EOSINOPHILS % (AUTO) 7.1 %; HCT - HEMATOCRIT 43.5 % (37.0-47.0); HGB - HEMOGLOBIN 13.4 g/dL (12.0-16.0); LYMPHOCYTES # (AUTO) 1.2 10^3/uL (1.5-3.5); LYMPHOCYTES % (AUTO) 21.6 %; MEAN CORPUSCULAR HEMOGLOBIN 31.5 pg (27.0-31.0); MEAN CORPUSCULAR HGB CONC 30.8 g/dL (32.0-36.0); MEAN CORPUSCULAR VOLUME 102.1 fL (81.0-99.0); MEAN PLATELET VOLUME 9.7 fL (7.9-10.8); MONOCYTES # (AUTO) 0.6 10^3/uL (0.0-1.0); MONOCYTES % (AUTO) 11.3 %; NEUTROPHILS # (AUTO) 3.1 10^3/uL (1.5-6.6); NEUTROPHILS % (AUTO) 58.9 %; PLT - PLATELET COUNT 203 10^3/uL (130-450); RED BLOOD COUNT 4.26 10^6/uL (4.20-5.40); RED CELL DISTRIBUTION WIDTH 14.1 % (12.0-15.0); WHITE BLOOD COUNT 5.3 x10^3/uL (4.8-10.8)
[2021-07-03 15:11] LABS: ALKALINE PHOSPHATASE 84 IU/L (42-121); ALT ALANINE AMINOTRANSFERASE 11 IU/L (10-60); AST ASPARTATE AMINOTRANSFERASE 19 IU/L (10-42); CALCIUM 9.1 mg/dL (8.5-10.3); CARBON DIOXIDE - CO2 29 mmol/L (21-32); CHLORIDE 99 mmol/L (101-111); CHOLESTEROL 174 mg/dL; GLUCOSE 102 mg/dL (70-100); POTASSIUM 4.1 mmol/L (3.5-5.0); SODIUM 137 mmol/L (135-145)
[2021-07-03 15:26] LABS: THYROID STIMULATING HORMONE 0.21 uIU/mL (0.34-5.60)
[2021-07-03 15:59] LABS: ALBUMIN 3.8 g/dL (3.2-5.5); BILIRUBIN,TOTAL 1.3 mg/dL (0.2-1.0); BUN - BLOOD UREA NITROGEN 21 mg/dL (6-20); CHOL/HDL RATIO 2.9 (<4.4); GFR - MDRD 53 (>89); HDL CHOLESTEROL 61 mg/dL; LDL CHOLESTEROL,CALCULATED 99 mg/dL; LDL/HDL RATIO 1.6 (<4.4); TOTAL PROTEIN 7.8 g/dL (6.7-8.2); TRIGLYCERIDES 70 mg/dL; VLDL CHOLESTEROL 14 mg/dL
[2021-07-03 16:11] LABS: FREE T4 (FREE THYROXINE) 1.77 ng/dL (0.58-1.64)
== END 2021-07-03 11:23 | disposition home or self-care (01) ==
LOC: LAB.S 11:22
PROVIDERS: ATTEND Registered Nurse
DX: E03.9 Hypothyroidism, unspecified (principal); I10 Essential (primary) hypertension; E78.5 Hyperlipidemia, unspecified
CPT/HCPCS: 36415; 80053; 80061; 83721; 84439; 84443; 85025

== ENCOUNTER 2021-11-06 14:03 | Outpatient (CLI) | payer MEDICARE, OTHER ==
--- NOTE | 2021-11-06 15:30 | XRAY Report ---
PROCEDURE: Chest 2 View X-Ray INDICATIONS: COUGH WHEEZING TECHNIQUE: 2 view(s) of the chest. COMPARISON: Chest x-ray 2 views, 04/02/2020. FINDINGS: Surgical changes and devices: None. Lungs and pleura: There is right hemidiaphragm anteriorly. No pleural effusions or pneumothorax. The re is a small scar/atelectasis in the left lung base. Lungs are otherwise clear. Mediastinum: Mediastinal contours are normal. Heart size is normal. Bones and chest wall: Postsurgical changes in thoracolumbar spine. No suspicious bony abnormalities. Soft tissues appear unremarkable. IMPRESSION: 1. No acute cardiopulmonary disease. 2. Right diaphragmatic eventration. Reviewed by: Candace Enriquez MD on 11/06/2021 3:29 PM PDT Approved by: Candace Enriquez MD on 11/06/2021 3:29 PM PDT Station ID: [id number]
--- NOTE | 2021-11-06 17:57 | XRAY Report ---
PROCEDURE: Abdomen 2 View X-Ray INDICATIONS: ABDOMINAL PAIN TECHNIQUE: 5 views of the abdomen were acquired. COMPARISON: CT of abdomen and pelvis dated 03/24/2021 FINDINGS: Surgical changes and devices: There is extensive fusion of lower thoracic and lumbar spine with prior vertebroplasty at L1 level. Surgical clips are noted in the gallbladder fossa. Bowel: Significant fecal stasis throughout the colon is seen. There is no gross peritoneal free air. Soft tissues: No masses; visualized solid organ contours appear normal in size. No suspicious abdom inal calcifications. Bones: No suspicious bony abnormalities. IMPRESSION: Moderate to severe obstipation. No gross free air. Reviewed by: Eric Fabian MD on 11/06/2021 5:56 PM PDT Approved by: Eric Fabian MD on 11/06/2021 5:56 PM PDT Station ID: [id number]
[2021-11-06 19:47] LABS: BASOPHILS # (AUTO) 0.1 10^3/uL (0.0-0.1); BASOPHILS % (AUTO) 0.7 %; EOSINOPHILS # (AUTO) 0.2 10^3/uL (0.0-0.7); EOSINOPHILS % (AUTO) 2.9 %; HCT - HEMATOCRIT 44.1 % (37.0-47.0); HGB - HEMOGLOBIN 13.7 g/dL (12.0-16.0); LYMPHOCYTES # (AUTO) 1.6 10^3/uL (1.5-3.5); LYMPHOCYTES % (AUTO) 22.7 %; MEAN CORPUSCULAR HGB CONC 31.1 g/dL (32.0-36.0); MEAN PLATELET VOLUME 10.1 fL (7.9-10.8); MONOCYTES # (AUTO) 0.7 10^3/uL (0.0-1.0); MONOCYTES % (AUTO) 10.2 %; NEUTROPHILS # (AUTO) 4.5 10^3/uL (1.5-6.6); NEUTROPHILS % (AUTO) 63.2 %; PLT - PLATELET COUNT 245 10^3/uL (130-450); RED BLOOD COUNT 4.28 10^6/uL (4.20-5.40); RED CELL DISTRIBUTION WIDTH 14.1 % (12.0-15.0); WHITE BLOOD COUNT 7.1 x10^3/uL (4.8-10.8)
[2021-11-06 19:54] LABS: CALCIUM 9.1 mg/dL (8.5-10.3); CREATININE 1.1 mg/dL (0.4-1.0); POTASSIUM 4.4 mmol/L (3.5-5.0)
== END 2021-11-06 14:04 | disposition home or self-care (01) ==
LOC: DI.S 14:03
PROVIDERS: ATTEND Registered Nurse
DX: R05.9 Cough, unspecified (principal); R06.2 Wheezing; Q79.1 Other congenital malformations of diaphragm; K59.00 Constipation, unspecified
CPT/HCPCS: 36415; 80048; 83880; 85025

== ENCOUNTER 2022-03-21 23:28 | Outpatient (CLI) | payer MEDICARE, OTHER | END 2022-03-21 23:59 | disposition EMS.NT | LOC: EMS 23:28 | DX: R53.1 Weakness (principal) ==

== ENCOUNTER 2022-03-22 21:37 | Outpatient (CLI) | payer MEDICARE, OTHER | END 2022-03-22 21:38 | disposition critical access hospital (66) | LOC: EMS 21:37 | DX: R53.1 Weakness (principal); R60.0 Localized edema; Z91.14 Patient's other noncompliance with medication regimen | CPT/HCPCS: A0425; A0429 ==

== ENCOUNTER 2022-03-22 21:59 | Emergency (ER) | payer MEDICARE, OTHER ==
--- OUTSIDE RECORDS SUMMARY | 2022-03-22 22:07 | EXTERNAL MEDICAL SUMMARY RPT | Continuity of Care Document ---
:1940 Author Organization [facility] Address [address] [place] [address] Phone Care Team Providers Name Role Phone Unavailable Unavailable Unavailable Davina Tello Unavailable Unavailable Allergies No information. Encounters No information. Functional Status No information. Immunizations No information. Medications date description facility [id number] gabapentin [facility] [id number] gabapentin [facility] [phone]+0000 gabapentin [facility] [id number] gabapentin [facility] Problems No information. Procedures date description facility [id number] Visit Code Hold [facility] Results/Labs No information. Social History date description facility [id number] Never smoker [facility] Vital Signs date measurement value units [id number] BMI BMI 45.95 kg/m2 [id number]+0000 BP_diastolic BP_diastolic 81 mmHg [id number]+0000 BP_systolic BP_systolic 164 mmHg [id number]+0000 heart_rate heart_rate 71 /min [id number]+0000 height_metric height_metric 168.91 cm [id number]+0000 height_standard height_standard 66.5 in [id number]+0000 respiration_rate respiration_rate 20 /min [id number]+0000 temperature_metric temperature_metric 36.39 C [id number]+0000 temperature_standard temperature_standard 9 7.5 F [id number]+0000 weight_metric weight_metric 130.63 kg [id number]+0000 weight_standard weight_standard 288 lb
[2022-03-23 04:24] LABS: BILIRUBIN,URINE NEGATIVE (NEGATIVE); GLUCOSE, URINE (UA) NEGATIVE (NEGATIVE); KETONES,URINE (UA) NEGATIVE (NEGATIVE); LEUKOCYTE ESTERASE, URINE MODERATE (NEGATIVE); NITRITE,URINE POSITIVE (NEGATIVE); OCCULT BLOOD,URINE TRACE-INTA (NEGATIVE); PROTEIN,URINE 30 mg/dL (NEGATIVE); UROBILINOGEN,URINE 0.2 (NORMAL) E.U./dL (NORMAL)
[2022-03-23 04:27] LABS: CLARITY,URINE HAZY (CLEAR)
[2022-03-23 04:30] LABS: BACTERIA,URINE Many /HPF (None Seen); RBC,URINE 0-5 /HPF (0-5); SQUAMOUS EPITHELIAL CELL,UR FEW Squamous (<= Few); WBC,URINE >25 /HPF (0-5)
[2022-03-23 04:39] LABS: BASOPHILS # (AUTO) 0.1 10^3/uL (0.0-0.1); BASOPHILS % (AUTO) 0.8 %; EOSINOPHILS # (AUTO) 0.3 10^3/uL (0.0-0.7); EOSINOPHILS % (AUTO) 5.1 %; HCT - HEMATOCRIT 34.2 % (37.0-47.0); HGB - HEMOGLOBIN 11.7 g/dL (12.0-16.0); LYMPHOCYTES # (AUTO) 1.4 10^3/uL (1.5-3.5); LYMPHOCYTES % (AUTO) 22.9 %; MEAN CORPUSCULAR HEMOGLOBIN 36.1 pg (27.0-31.0); MEAN CORPUSCULAR HGB CONC 34.2 g/dL (32.0-36.0); MEAN CORPUSCULAR VOLUME 105.6 fL (81.0-99.0); MEAN PLATELET VOLUME 9.6 fL (7.9-10.8); MONOCYTES # (AUTO) 0.7 10^3/uL (0.0-1.0); MONOCYTES % (AUTO) 11.6 %; NEUTROPHILS # (AUTO) 3.5 10^3/uL (1.5-6.6); NEUTROPHILS % (AUTO) 58.9 %; PLT - PLATELET COUNT 215 10^3/uL (130-450); RED BLOOD COUNT 3.24 10^6/uL (4.20-5.40); RED CELL DISTRIBUTION WIDTH 14.6 % (12.0-15.0); WHITE BLOOD COUNT 5.9 x10^3/uL (4.8-10.8)
[2022-03-23 04:52] LABS: ALBUMIN/GLOBULIN RATIO 0.7 (1.0-2.2); BILIRUBIN,TOTAL 0.6 mg/dL (0.2-1.0); POTASSIUM 4.5 mmol/L (3.5-5.0); TOTAL PROTEIN 7.4 g/dL (6.7-8.2)
[2022-03-23] MEDS ORDERED: cefTRIAXone 1 GM VIAL IVP STA (06:08)
--- NOTE | 2022-03-23 06:18 | ED Physician Documentation ---
History of Present Illness - Stated complaint Stated Complaint: WEAKNESS - Chief complaint Chief Complaint: Ext Problem - Additonal information Additional information: 81yF with pmh BL LE venous stasis/chronic edema with prior cellulitis, recently placed on 1-2 L home o2 by pcp Davina Frost a couple weeks ago, p/w weakness ongoing for the past 2 months and confusion intermittent over the past 5 days or so. patient also endorses some dysuria and increased frequency. denies fever, cough, cp, soa, nausea, diarrhea, abd pain. Review of Systems Ten Systems: 10 systems reviewed and negative Constitutional: denies: Fever, Chills Cardiac: denies: Chest pain / pressure Respiratory: denies: Dyspnea, Cough GI: denies: Nausea : reports: Dysuria Neurologic: reports: Confused PD PAST MEDICAL HISTORY - Past Medical History Past Medical History: Yes Cardiovascular: Hypertension, High cholesterol, Other Respiratory: Sleep apnea, CPAP use Neuro: None Endocrine/Autoimmune: HyPOthyroidism GI: GERD : Incontinence HEENT: Chronic vision loss Psych: Depression Musculoskeletal: Osteoarthritis, Chronic back pain Derm: None - Past Surgical History Past Surgical History: Yes General: Cholecystectomy, Appendectomy, Other Ortho: 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, Oophrectomy - Present Medications Home Medications: Ambulatory Orders Medication Instructions Recorded Confirmed Cholecalciferol (Vitamin D3) 2,000 unit PO DAILY 12/01/13 03/23/22 [D3-2000] Multivitamin [Multi-Vitamin Daily] 1 tab PO DAILY 12/01/13 03/23/22 [place]-3/Dha/Epa/Fish Oil [Fish Oil 1 each PO BID 12/01/13 03/23/22 [place]-3 Softgel] Ubidecarenone [Co Q-10] 200 mg PO DAILY 12/08/15 03/23/22 Acetaminophen [Tylenol] 650 mg PO Q8H PRN 10/21/16 03/23/22 Aspirin [Adult Low Dose Aspirin EC] 81 mg PO DAILY 10/21/16 03/23/22 Ferrous Sulfate 325 mg PO BID 10/21/16 03/23/22 Potassium Chloride [K-Dur] 20 meq PO BIDWM 10/21/16 03/23/22 Vitamin B Complex 1 tab PO DAILY 10/21/16 03/23/22 Atorvastatin [Lipitor] 20 mg PO QPM 04/01/20 03/23/22 DULoxetine [Cymbalta] 60 mg PO DAILY 04/01/20 03/23/22 Furosemide [Lasix] 20 mg PO BIDDIURETIC 04/01/20 03/23/22 Gabapentin [Neurontin] 900 mg PO BID 04/01/20 03/23/22 Levothyroxine Sodium [Synthroid] 150 mcg PO QDAC 04/01/20 03/23/22 Lisinopril [Zestril] 20 mg PO DAILY 04/01/20 03/23/22 Omeprazole 20 mg PO BID 06/17/20 03/23/22 Naproxen 500 mg PO BID PRN #20 tab 04/07/21 03/23/22 HYDROcod/ACETAM 5/325 [[place] 5/325] 1 - 2 tab PO Q6H PRN #15 tablet 05/19/21 03/23/22 Cefpodoxime Proxetil [Vantin] 200 mg PO Q12H #28 tablet 03/23/22 - Allergies Allergies/Adverse Reactions: Allergies Allergy/AdvReac Type Severity Reaction Status Date / Time ampicillin AdvReac Rash Verified 03/22/22 22:10 - Social History Does the pt smoke?: No Smoking Status: Never smoker Does the pt drink ETOH?: No Does the pt have substance abuse?: No - Immunizations Immunizations are current?: Yes - POLST Patient has POLST: No POLST Status: DNR PD ED PE NORMAL - Vitals Vital signs reviewed: Yes - General General: Alert and oriented X 3, No acute distress, Other (elderly appearing) - HEENT HEENT: Atraumatic, PERRL, EOMI, Moist mucous membranes - Neck Neck: Supple, no meningeal sign - Cardiac Cardiac: RRR - Respiratory Respiratory: No respiratory distress, Clear bilaterally - Abdomen Abdomen: Non tender, Non distended - Derm Derm: Normal color, Warm and dry - Extremities Extremities: No deformity, Other (BL LE 2+ edema. no open wounds. nonerythematous, no warmth or tenderness to palpation. DP pulses palpable) - Neuro Neuro: No motor deficit, No sensory deficit - Psych Psych: Normal mood, Normal affect Results - Vitals Vitals: Vital Signs - 24 hr 03/22/22 03/22/22 03/22/22 22:00 22:04 23:39 Temperature 36.9 C Heart Rate 68 66 66 Respiratory 18 20 20 Rate Blood Pressure 154/85 H 151/46 H 141/56 H O2 Saturation 98 100 99 If not protocol 2 : Oxygen Flow, liters/minute 03/23/22 03/23/22 03/23/22 00:51 02:00 03:35 Temperature Heart Rate 71 70 99 Respiratory 20 18 Rate Blood Pressure 152/59 H 152/73 H 139/56 H O2 Saturation 97 98 22 L If not protocol 2 2 : Oxygen Flow, liters/minute 03/23/22 03/23/22 03/23/22 05:00 06:31 06:45 Temperature 36.4 C L 36.3 C L Heart Rate 68 69 73 Respiratory 16 16 20 Rate Blood Pressure 165/68 H 163/67 H 158/60 H O2 Saturation 96 96 97 If not protocol 2 : Oxygen Flow, liters/minute Oxygen O2 Source Nasal cannula Oxygen Flow Rate 2 - Labs Labs: Laboratory Tests 03/23/22 03/23/22 03/23/22 04:15 04:35 04:35 WBC 5.9 RBC 3.24 L Hgb 11.7 L Hct 34.2 L MCV 105.6 H MCH 36.1 H MCHC 34.2 RDW 14.6 Plt Count 215 MPV 9.6 Neut # (Auto) 3.5 Lymph # (Auto) 1.4 L [place] # (Auto) 0.7 Eos # (Auto) 0.3 Baso # (Auto) 0.1 Absolute Nucleated RBC 0.00 Nucleated RBC % 0.0 Sodium 140 Potassium 4.5 Chloride 102 Carbon Dioxide 31 Anion Gap 7.0 BUN 27 H Creatinine 1.0 Estimated GFR (MDRD) 53 L Glucose 108 H Calcium 9.0 Total Bilirubin 0.6 AST 20 ALT 16 Alkaline Phosphatase 65 Total Protein 7.4 Albumin 3.0 L Globulin 4.4 H Albumin/Globulin Ratio 0.7 L Lipase 34 Urine Color YELLOW Urine Clarity HAZY Urine pH 6.0 Ur Specific [place] 1.020 Urine Protein 30 H Urine Glucose (UA) NEGATIVE Urine Ketones NEGATIVE Urine Occult Blood TRACE-INTA Urine Nitrite POSITIVE H Urine Bilirubin NEGATIVE Urine Urobilinogen 0.2 (NORMAL) Ur Leukocyte Esterase MODERATE H Urine RBC 0-5 Urine WBC >25 H Ur Squamous Epith Cells FEW Squamous Urine Bacteria Many H Urine Culture Comments INDICATED PD MEDICAL DECISION MAKING - ED course ED course: patient with uti on labwork. treated and sent rx to pharmacy . return precautions given. plan to f/u with pcp regarding getting more help in the home. Departure - Departure Disposition: 01 Home, Self Care Clinical Impression: UTI (urinary tract infection) Condition: Stable Instructions: ED UTI Cystitis Female Prescriptions: Cefpodoxime Proxetil [Vantin] 200 mg PO Q12H #28 tablet Comments: YOu were seen in the ED for ntermittent confusion and weakness and found to have UTI. A script for vantin, an antibiotic, was sent electronically to [facility] in [place]. Please follow up with your primary care provider Davina Forst. return to the ED for any new or worsening symptoms or other concerns. Discharge Date/Time: 03/23/22 06:52
[2022-03-23 06:52] VITALS: BP 158/60
== END 2022-03-23 06:52 | disposition home or self-care (01) ==
LOC: EDUNIT# → ED 21:59
DX: N39.0 Urinary tract infection, site not specified (principal)
CPT/HCPCS: 36415; 80053; 81001; 83690; 85025; 87086; 87181; 96374; 99284

== ENCOUNTER 2022-04-15 10:48 | Outpatient (CLI) | payer MEDICARE, OTHER ==
[2022-04-15 11:38] VITALS: BP 130/76
--- NOTE | 2022-04-15 11:38 | SLEEP CARE CONSULTATION ---
Information from patient questionnaire entered by Yajaira Brown. I have reviewed and concur with the information entered by Yajaira Brown. This document represents the service I personally performed and the decisions made by me, Kenzie Batista ARNP. History of Present Illness Service Date and Time: 04/15/2022 1048 Previous diagnosis: Moderate, Obstructive Sleep Apnea-Hypopnea Syndrome AHI: 16.4 (in 2019) Reason for follow up: annual (LAST SEEN 03/2021) Accompanied by: Spouse Equipment type: CPAP (DREAM STATION) Equipment obtained from: [employer] (getting supplies as needed) Mask style: Full face Mask brand: Resmed (Airfit [id number]) Backup mask available: Yes (old mask) Last cushion change: 2 days ago Prior sleep studies: Yes Year and Where: 2019 - [facility] ; 2001 Type of Sleep Study: Home sleep study HPI additional information: ASH MAGALLON was diagnosed to have moderate, AHI 16.4, obstructive sleep apnea-hypopnea syndrome and returned today for CPAP therapy annual follow-up. Sleep Study - Results Type of Sleep Study: Home sleep study Prior sleep studies: Yes Year and Where: 2019 - [facility] ; 2001 CPAP Compliance Data - Data Reviewed with Patient Average duration of nightly device use: 6 hours 34 minutes Compliance rate %: 60 (2030 days used; new device 3 wks ago) Current pressure setting (cmH2O): 4-8 Average residual AHI: 4.1 Central apnea: 0 Obstructive apnea: 0.1 Hypopnea: 4 Subjective Missed days of use due to: reports: other (recall, just got new device about 3 weeks ago) Patient concerns: reports: nasal congestion, dry mouth, nose, throat, other (ramp, cold air). denies: aerophagia, mask discomfort, air blowing in eyes, mask leak noise, condensation in mask/hose Observed to snore while using device: No Current pressure setting perceived as: comfortable On therapy, patient: reports: sleeping better, awakening more refreshed, being more awake and alert during the day, more rested overall. denies: drowsiness while driving Initial [place] Sleepiness Scale score: 19 (in 2019) Current [place] Sleepiness Scale score: 17 (04/15/22) Allergies and Home Medications Drug allergies reviewed: Yes (ampicillin) Home medication list reviewed: Yes (oxygen 1 L/min all the time) Allergy and home medication list: Allergies ampicillin Adverse Reaction (Verified 03/22/22 22:10) Rash Review of Systems Review of systems same as previous: No (ATUL) Physical Exam Vital signs obtained and entered by: YAJAIRA Garcia MA Blood Pressure: 130/76 (LEFT ARM) Cuff size: long Heart Rate: 93 O2 Saturation: 93 (room air) Height: 5 ft 4 in Weight: 287 lb 6.4 oz Body Mass Index: 49.3 BMI Classification: Morbidly Obese Impression and Plan 1. Obstructive Sleep Apnea-Hypopnea Syndrome, moderate, with fair treatment compliance and good apnea control. On CPAP therapy, the patient has better sleep quality and is more rested overall. She was recently see with low oxygen at the walk-in and they started her on 1 L/min oxygen to be used 24/hr. She has not been wearing it at night and when measuring her oxygen level in the morning she is at 88-89%. Her is very concerned. I explained that she can get an adaptor to bleed in oxygen into her CPAP at night and I will add this to her prescription. Patient just re-started using her CPAP that was replaced by Latasha about 3 weeks ago. She is getting some dry mouth and nose. I showed her how to adjust the humidity on her device to reduce oral/nose dryness. She and her voiced understanding. Patient's apnea severity and rationale for treatment to reduce apnea, improve sleep quality and reduce cardiovascular and cerebrovascular events was reviewed. I also reviewed the benefit of consistent device use of CPAP for hypertension. 2. Obesity, unspecified. Currently patients BMI is 49.3. Obesity increases the risk of apnea, CPAP pressure requirements and overall health risks especially cardiovascular and diabetes. Thus patient is advised to lose weight. * Continue auto CPAP pressure at 4-8 cmH2O * Adaptor for oxygen bled into CPAP * Update supplies * Notify me if snoring with mask or feeling that the pressure is too much or too little * Attempt to lose weight * Call this office if any problems using CPAP * Return for follow up in 1 year, or sooner if concerns arise Counseling Topics: Spare mask, Weight loss health impact Visit Type: In Office Other Participants: Spouse/Significant Other Time Spent with Patient (minutes): 26 Provider Statement: I spent 100% of the Face to Face Visit with the patient with greater than 50% spent counseling the patient and coordination of care.
== END 2022-04-15 10:49 | disposition home or self-care (01) ==
LOC: SC 10:48
PROVIDERS: ATTEND Nurse Practitioner Family
DX: G47.33 Obstructive sleep apnea (adult) (pediatric) (principal); E66.01 Morbid (severe) obesity due to excess calories; Z68.42 Body mass index [BMI] 45.0-49.9, adult
CPT/HCPCS: 99213; G0463; 99212

== ENCOUNTER 2022-07-21 10:34 | Outpatient (CLI) | payer MEDICARE, OTHER ==
[2022-07-21 14:44] LABS: BASOPHILS # (AUTO) 0.1 10^3/uL (0.0-0.1); BASOPHILS % (AUTO) 1.1 %; EOSINOPHILS # (AUTO) 0.3 10^3/uL (0.0-0.7); EOSINOPHILS % (AUTO) 4.8 %; HCT - HEMATOCRIT 41.6 % (37.0-47.0); HGB - HEMOGLOBIN 12.3 g/dL (12.0-16.0); LYMPHOCYTES # (AUTO) 1.3 10^3/uL (1.5-3.5); LYMPHOCYTES % (AUTO) 22.6 %; MEAN CORPUSCULAR HEMOGLOBIN 31.9 pg (27.0-31.0); MEAN CORPUSCULAR HGB CONC 29.6 g/dL (32.0-36.0); MEAN CORPUSCULAR VOLUME 107.8 fL (81.0-99.0); MEAN PLATELET VOLUME 10.5 fL (7.9-10.8); MONOCYTES # (AUTO) 0.6 10^3/uL (0.0-1.0); MONOCYTES % (AUTO) 9.8 %; NEUTROPHILS # (AUTO) 3.4 10^3/uL (1.5-6.6); NEUTROPHILS % (AUTO) 61.3 %; PLT - PLATELET COUNT 199 10^3/uL (130-450); RED BLOOD COUNT 3.86 10^6/uL (4.20-5.40); RED CELL DISTRIBUTION WIDTH 14.5 % (12.0-15.0); WHITE BLOOD COUNT 5.6 x10^3/uL (4.8-10.8)
[2022-07-21 15:36] LABS: ALBUMIN 3.6 g/dL (3.2-5.5); ALBUMIN/GLOBULIN RATIO 0.9 (1.0-2.2); ALKALINE PHOSPHATASE 60 IU/L (42-121); ALT ALANINE AMINOTRANSFERASE 12 IU/L (10-60); AST ASPARTATE AMINOTRANSFERASE 18 IU/L (10-42); BILIRUBIN,TOTAL 0.9 mg/dL (0.2-1.0); BUN - BLOOD UREA NITROGEN 31 mg/dL (6-20); CALCIUM 8.9 mg/dL (8.5-10.3); CARBON DIOXIDE - CO2 31 mmol/L (21-32); CHLORIDE 99 mmol/L (101-111); CHOL/HDL RATIO 2.5 (<4.4); CHOLESTEROL 162 mg/dL; CREATININE 1.1 mg/dL (0.4-1.0); GFR - MDRD 48 (>89); GLUCOSE 142 mg/dL (70-100); HDL CHOLESTEROL 65 mg/dL; LDL CHOLESTEROL,CALCULATED 77 mg/dL; LDL/HDL RATIO 1.2 (<4.4); SODIUM 138 mmol/L (135-145); TOTAL PROTEIN 7.6 g/dL (6.7-8.2); TRIGLYCERIDES 99 mg/dL; VLDL CHOLESTEROL 20 mg/dL
[2022-07-21 15:42] LABS: THYROID STIMULATING HORMONE 2.19 uIU/mL (0.34-5.60)
== END 2022-07-21 10:35 | disposition home or self-care (01) ==
LOC: LAB.S 10:34
PROVIDERS: ATTEND Registered Nurse
DX: I12.9 Hypertensive chronic kidney disease with stage 1 through stage 4 chronic kidney disease, or unspecified chronic kidney disease (principal); N18.30 Chronic kidney disease, stage 3 unspecified; E03.9 Hypothyroidism, unspecified; E78.5 Hyperlipidemia, unspecified
CPT/HCPCS: 36415; 80053; 80061; 83721; 84443; 85025

== ENCOUNTER 2023-01-07 09:55 | Outpatient (CLI) | payer MEDICARE, OTHER ==
--- NOTE | 2023-01-07 12:28 | CT Report ---
PROCEDURE: HEAD WO INDICATIONS: DEMENTIA TECHNIQUE: Noncontrast 4.5 mm thick angled axial sections acquired from the foramen magnum to the vertex. For r adiation dose reduction, the following was used: automated exposure control, adjustment of mA and/or kV according to patient size. COMPARISON: CT head 04/07/2021. FINDINGS: Image quality: Excellent. CSF spaces: Basal cisterns are patent. No extra-axial fluid collections. Ventricles are normal in size and shape. Brain: No midline shift. No intracranial masses or hemorrhage. Areas of hypoattenuation within the deep and periventricular white matter, nonspecific and likely representing chronic microvascular isch emic change. Age-related global volume loss. [place]-white matter interface is normal. Atherosclerotic vascular calcifications. Skull and face: Calvarium and visualized facial bones are intact, without suspicious lesions. Bilat eral lens replacements. The orbits are otherwise normal in appearance. Sinuses: Visualized sinuses and mastoids are clear. IMPRESSION: No acute intracranial pathology. Age-related global volume loss and chronic microvascular ischemic change. Reviewed by: Marco Billings MD on 01/07/2023 12:27 PM PDT Approved by: Marco Billings MD on 01/07/2023 12:27 PM PDT Station ID: [id number]
== END 2023-01-07 09:56 | disposition home or self-care (01) ==
LOC: DI 09:55
PROVIDERS: ATTEND Internal Medicine
DX: F03.B18 Unspecified dementia, moderate, with other behavioral disturbance (principal); G31.89 Other specified degenerative diseases of nervous system; I67.82 Cerebral ischemia

== ENCOUNTER 2023-01-12 00:07 | Outpatient (CLI) | payer MEDICARE, OTHER | END 2023-01-12 00:08 | disposition critical access hospital (66) | LOC: EMS 00:07 | DX: R41.0 Disorientation, unspecified (principal); R45.1 Restlessness and agitation; R06.2 Wheezing; R06.02 Shortness of breath; R50.9 Fever, unspecified | CPT/HCPCS: A0425; A0427 ==

== ENCOUNTER 2023-01-12 00:25 | Emergency (ER) | payer MEDICARE, OTHER ==
[2023-01-12 01:17] LABS: BASOPHILS % (AUTO) 0.5 %; EOSINOPHILS # (AUTO) 0.4 10^3/uL (0.0-0.7); EOSINOPHILS % (AUTO) 5.5 %; HCT - HEMATOCRIT 41.9 % (37.0-47.0); HGB - HEMOGLOBIN 12.6 g/dL (12.0-16.0); LYMPHOCYTES % (AUTO) 31.2 %; MEAN CORPUSCULAR HEMOGLOBIN 32.2 pg (27.0-31.0); MEAN CORPUSCULAR HGB CONC 30.1 g/dL (32.0-36.0); MEAN CORPUSCULAR VOLUME 107.2 fL (81.0-99.0); MEAN PLATELET VOLUME 9.7 fL (7.9-10.8); MONOCYTES # (AUTO) 0.8 10^3/uL (0.0-1.0); MONOCYTES % (AUTO) 11.8 %; NEUTROPHILS # (AUTO) 3.2 10^3/uL (1.5-6.6); NEUTROPHILS % (AUTO) 50.8 %; PLT - PLATELET COUNT 174 10^3/uL (130-450); RED BLOOD COUNT 3.91 10^6/uL (4.20-5.40); RED CELL DISTRIBUTION WIDTH 14.3 % (12.0-15.0); WHITE BLOOD COUNT 6.4 x10^3/uL (4.8-10.8)
[2023-01-12 01:37] LABS: ALBUMIN 3.8 g/dL (3.2-5.5); ALBUMIN/GLOBULIN RATIO 1.2 (1.0-2.2); BILIRUBIN,TOTAL 0.7 mg/dL (0.2-1.0); CALCIUM 9.5 mg/dL (8.5-10.3); MAGNESIUM 1.6 mg/dL (1.7-2.3); POTASSIUM 4.6 mmol/L (3.5-4.5); TOTAL PROTEIN 7.1 g/dL (6.4-8.9)
[2023-01-12 01:40] LABS: VBG HCO3 36.9 mmol/L (23-28); VBG PCO2 65.3 mmHg (41-51); VBG PH 7.37 (7.31-7.41); VBG PO2 39.8 mmHg (25-47)
[2023-01-12 01:41] LABS: VBG BASE EXCESS 9.1 mmol/L (-2 - +2); VBG OXYGEN SATURATION 77.2 % (60-80); VBG TOTAL CO2 38.9 mmol/L (24-29)
[2023-01-12 02:21] LABS: B. PARAPERTUSSIS- RESP PCR PAN NOT DETECTED; B. PERTUSSIS- RESP PCR PANEL NOT DETECTED; C. PNEUMONIAE- RESP PCR PANEL NOT DETECTED; CORONAVIRUS 229E-RESP PCR NOT DETECTED; CORONAVIRUS HKU1-RESP PCR NOT DETECTED; CORONAVIRUS NL63-RESP PCR NOT DETECTED; CORONAVIRUS OC43-RESP PCR NOT DETECTED; HUMAN METAPNEUMOVIRUS NOT DETECTED; INFLUENZA A- RESP PCR PANEL NOT DETECTED; INFLUENZA B - RESP PCR PANEL NOT DETECTED; M. PNEUMONIAE- RESP PCR PANEL NOT DETECTED; PARAINFLUENZA VIRUS 1 NOT DETECTED; PARAINFLUENZA VIRUS 2 NOT DETECTED; PARAINFLUENZA VIRUS 3 NOT DETECTED; PARAINFLUENZA VIRUS 4 NOT DETECTED; RHINOVIRUS/ENTEROVIRUS NOT DETECTED; RSV- RESP PCR PANEL NOT DETECTED; SARS-CoV-2 -RESP PCR PANEL NOT DETECTED
[2023-01-12] MEDS ORDERED: CLINDAMYCIN 150 MG CAPSULE PO STA (03:25)
[2023-01-12] MEDS ORDERED: iohexoL-300 100 ML VIAL IVP ONE (04:04)
[2023-01-12 04:26] LABS: BILIRUBIN,URINE NEGATIVE (NEGATIVE); GLUCOSE, URINE (UA) NEGATIVE (NEGATIVE); KETONES,URINE (UA) NEGATIVE (NEGATIVE); LEUKOCYTE ESTERASE, URINE LARGE (NEGATIVE); NITRITE,URINE NEGATIVE (NEGATIVE); OCCULT BLOOD,URINE NEGATIVE (NEGATIVE); PH,URINE 8.5 PH (5.0-7.5); PROTEIN,URINE 30 mg/dL (NEGATIVE); UROBILINOGEN,URINE 0.2 (NORMAL) E.U./dL (NORMAL)
[2023-01-12 04:31] LABS: CLARITY,URINE HAZY (CLEAR)
[2023-01-12 04:34] LABS: BACTERIA,URINE Many /HPF (None Seen); RBC,URINE 0-5 /HPF (0-5); SQUAMOUS EPITHELIAL CELL,UR FEW Squamous (<= Few)
--- NOTE | 2023-01-12 05:01 | ED Physician Documentation ---
History of Present Illness - Stated complaint Stated Complaint: SOA/ - Chief complaint Chief Complaint: Neuro - Additonal information Additional information: Patient 82-year-old female with known history of COPD, dementia, chronic hypoxic respiratory failure with baseline oxygen demand 2 L coming in via EMS after fall with right finger injury. did have some increased shortness of breath in route and received a breathing treatment prior to arrival.EMS reported that family had noted some increased agitation at home which is a common symptom when she has a UTI. Review of Systems Unable to obtain: Dementia PD PAST MEDICAL HISTORY - Past Medical History Cardiovascular: Hypertension, High cholesterol, Other Respiratory: Sleep apnea, CPAP use Neuro: None Endocrine/Autoimmune: HyPOthyroidism GI: GERD : Incontinence HEENT: Chronic vision loss Psych: Depression Musculoskeletal: Osteoarthritis, Chronic back pain Derm: None - Past Surgical History Past Surgical History: Yes General: Cholecystectomy, Appendectomy, Other Ortho: Spine surgery /[employer]ALITY [employer]URANCE: Hysterectomy, Oophrectomy - Present Medications Home Medications: Ambulatory Orders Medication Instructions Recorded Confirmed Cholecalciferol (Vitamin D3) 2,000 unit PO DAILY 12/01/13 04/15/22 [D3-2000] Multivitamin [Multi-Vitamin Daily] 1 tab PO DAILY 12/01/13 04/15/22 [place]-3/Dha/Epa/Fish Oil [Fish Oil 1 each PO BID 12/01/13 04/15/22 [place]-3 Softgel] Ubidecarenone [Co Q-10] 200 mg PO DAILY 12/08/15 04/15/22 Acetaminophen [Tylenol] 650 mg PO Q8H PRN 10/21/16 04/15/22 Aspirin [Adult Low Dose Aspirin EC] 81 mg PO DAILY 10/21/16 04/15/22 Ferrous Sulfate 325 mg PO BID 10/21/16 04/15/22 Potassium Chloride [K-Dur] 20 meq PO BIDWM 10/21/16 04/15/22 Vitamin B Complex 1 tab PO DAILY 10/21/16 04/15/22 Atorvastatin [Lipitor] 20 mg PO QPM 04/01/20 04/15/22 DULoxetine [Cymbalta] 60 mg PO DAILY 04/01/20 04/15/22 Furosemide [Lasix] 20 mg PO BIDDIURETIC 04/01/20 04/15/22 Gabapentin [Neurontin] 900 mg PO BID 04/01/20 04/15/22 Levothyroxine Sodium [Synthroid] 150 mcg PO QDAC 04/01/20 04/15/22 Lisinopril [Zestril] 20 mg PO DAILY 04/01/20 04/15/22 Omeprazole 20 mg PO BID 06/17/20 04/15/22 Naproxen 500 mg PO BID PRN #20 tab 04/07/21 04/15/22 HYDROcod/ACETAM 5/325 [[place] 5/325] 1 - 2 tab PO Q6H PRN #15 tablet 05/19/21 04/15/22 Cefpodoxime Proxetil [Vantin] 200 mg PO Q12H #28 tablet 03/23/22 04/15/22 clindamycin HCL [Cleocin HCl] 300 mg PO Q6H #40 cap 01/12/23 - Allergies Allergies/Adverse Reactions: Allergies Allergy/AdvReac Type Severity Reaction Status Date / Time ampicillin AdvReac Rash Verified 04/15/22 10:59 - Social History Does the pt smoke?: No Smoking Status: Never smoker Does the pt drink ETOH?: No Does the pt have substance abuse?: No - Immunizations Immunizations are current?: Yes - POLST Patient has POLST: No POLST Status: DNR PD ED PE NORMAL - General General: Alert and oriented X 3, No acute distress - HEENT HEENT: Atraumatic - Neck Neck: Supple, no meningeal sign - Cardiac Cardiac: RRR - Respiratory Respiratory: No respiratory distress, Clear bilaterally - Abdomen Abdomen: Normal bowel sounds - Female Female : Deferred - Rectal Rectal: Deferred - Back Back: No CVA TTP - Derm Derm: Normal color - Extremities Extremities: Other (Skin tear at the base of the right fifth finger. Capillary refill normal.) - Neuro Neuro: Alert and oriented X 3, corsetier 2-12 intact, No motor deficit, No sensory deficit Results - Vitals Vitals: Vital Signs - 24 hr 01/12/23 01/12/23 01/12/23 00:28 01:05 01:46 Temperature 36.9 C 37 C Heart Rate 84 71 89 Respiratory 22 17 20 Rate Blood Pressure 183/71 H 150/88 H 160/71 H O2 Saturation 100 94 94 If not protocol 2 2 : Oxygen Flow, liters/minute 01/12/23 04:20 Temperature Heart Rate 78 Respiratory 16 Rate Blood Pressure 166/70 H O2 Saturation 97 If not protocol 2 : Oxygen Flow, liters/minute Oxygen O2 Source Nasal cannula - Labs Labs: Laboratory Tests 01/12/23 01/12/23 01/12/23 01:11 01:11 01:11 WBC 6.4 RBC 3.91 L Hgb 12.6 Hct 41.9 MCV 107.2 H MCH 32.2 H MCHC 30.1 L RDW 14.3 Plt Count 174 MPV 9.7 Neut # (Auto) 3.2 Lymph # (Auto) 2.0 [place] # (Auto) 0.8 Eos # (Auto) 0.4 Baso # (Auto) 0.0 Absolute Nucleated RBC 0.00 Nucleated RBC % 0.0 D-Dimer VBG pH 7.370 VBG pCO2 65.3 H VBG pO2 39.8 VBG HCO3 36.9 H VBG Total CO2 38.9 H VBG O2 Saturation 77.2 VBG Base Excess 9.1 H Sodium 140 Potassium 4.6 H Chloride 97 L Carbon Dioxide 38 H Anion Gap 5.0 L BUN 31 H Creatinine 1.0 Estimated GFR (MDRD) 53 L Glucose 116 H Calcium 9.5 Magnesium 1.6 L Total Bilirubin 0.7 AST 11 ALT 6 L Alkaline Phosphatase 63 Total Protein 7.1 Albumin 3.8 Globulin 3.3 Albumin/Globulin Ratio 1.2 Lipase 38 Urine Color Urine Clarity Urine pH Ur Specific [place] Urine Protein Urine Glucose (UA) Urine Ketones Urine Occult Blood Urine Nitrite Urine Bilirubin Urine Urobilinogen Ur Leukocyte Esterase Urine RBC Urine WBC Ur Squamous Epith Cells Urine Bacteria Ur Microscopic Review Urine Culture Comments Nasal Adenovirus (PCR) Nasal B. parapertussis DNA (PCR) Nasal Coronavir 229E PCR Nasal Coronavir HKU1 PCR Nasal Coronavir NL63 PCR Nasal Coronavir OC43 PCR Nasal Enterovir/Rhinovir PCR Nasal Influenza B PCR Nasal Influenza A PCR Nasal Parainfluen 1 PCR Nasal Parainfluen 2 PCR Nasal Parainfluen 3 PCR Nasal Parainfluen 4 PCR Nasal RSV (PCR) Nasal B.pertussis DNA PCR Nasal C.pneumoniae (PCR) [place] Human Metapneumo PCR Nasal M.pneumoniae (PCR) Nasal SARS-CoV-2 (PCR) 01/12/23 01/12/23 01/12/23 01:11 01:11 04:16 WBC RBC Hgb Hct MCV MCH MCHC RDW Plt Count MPV Neut # (Auto) Lymph # (Auto) [place] # (Auto) Eos # (Auto) Baso # (Auto) Absolute Nucleated RBC Nucleated RBC % D-Dimer > 1050.0 H VBG pH VBG pCO2 VBG pO2 VBG HCO3 VBG Total CO2 VBG O2 Saturation VBG Base Excess Sodium Potassium Chloride Carbon Dioxide Anion Gap BUN Creatinine Estimated GFR (MDRD) Glucose Calcium Magnesium Total Bilirubin AST ALT Alkaline Phosphatase Total Protein Albumin Globulin Albumin/Globulin Ratio Lipase Urine Color YELLOW Urine Clarity HAZY Urine pH 8.5 H Ur Specific [place] 1.010 Urine Protein 30 H Urine Glucose (UA) NEGATIVE Urine Ketones NEGATIVE Urine Occult Blood NEGATIVE Urine Nitrite NEGATIVE Urine Bilirubin NEGATIVE Urine Urobilinogen 0.2 (NORMAL) Ur Leukocyte Esterase LARGE H Urine RBC 0-5 Urine WBC 4-5 Ur Squamous Epith Cells FEW Squamous Urine Bacteria Many H Ur Microscopic Review INDICATED Urine Culture Comments INDICATED Nasal Adenovirus (PCR) NOT DETECTED Nasal B. parapertussis DNA (PCR) NOT DETECTED Nasal Coronavir 229E PCR NOT DETECTED Nasal Coronavir HKU1 PCR NOT DETECTED Nasal Coronavir NL63 PCR NOT DETECTED Nasal Coronavir OC43 PCR NOT DETECTED Nasal Enterovir/Rhinovir PCR NOT DETECTED Nasal Influenza B PCR NOT DETECTED Nasal Influenza A PCR NOT DETECTED Nasal Parainfluen 1 PCR NOT DETECTED Nasal Parainfluen 2 PCR NOT DETECTED Nasal Parainfluen 3 PCR NOT DETECTED Nasal Parainfluen 4 PCR NOT DETECTED Nasal RSV (PCR) NOT DETECTED Nasal B.pertussis DNA PCR NOT DETECTED Nasal C.pneumoniae (PCR) NOT DETECTED [place] Human Metapneumo PCR NOT DETECTED Nasal M.pneumoniae (PCR) NOT DETECTED Nasal SARS-CoV-2 (PCR) NOT DETECTED Procedures - Laceration (location) Finger right Length in cm: 1.5 Wound type: Curved Neurovascular status: Sensory intact, Motor intact, Vascular intact Tendon involvement: Tendon intact Anesthesia: Other (Digital block, 2 cc lidocaine with epi) Wound preparation: Betadine, Irrigated copiously NS Skin layer closure: Nylon, Size #-0 - enter number (50), Sutures - enter # (5) Other: Patient tolerated well PD Medical Decision Making - ED course Complexity details: reviewed results, re-evaluated patient, considered differential, d/w patient ED course: at this time. Patient is 82-year-old female presenting to the emergency department brought in by EMS with agitation after fall. Calm and cooperative on arrival to the emergency department. Had received a breathing treatment prior to arrival. Had clear aeration in all lung dick. I did give a dose of methylprednisolone here in the emergency department however patient was easily able to maintain adequate oxygen saturations on her baseline 2 L of oxygen with no indications of respiratory distress. CT of her head was obtained which was negative for any bleed or mass effect. CTA chest was similarly negative for acute intrathoracic pathology. The x-ray of her right finger overlying her skin tear did demonstrate an avulsion fracture. The wound was copiously cleaned in the emergency department and repaired as outlined in the procedure note above. She is allergic to ampicillin. Given concern for cross-reactivity Ancef is not ordered at this time. In lieu of this we will start a course of clindamycin. Additionally her urine analysis had indications for infection. Her most recent urine culture demonstrated E. coli with dominguez susceptibilities. Will give single dose fosfomycin here is to avoid excessive antibiotic burden given the patient will be on a course of clindamycin for her open finger fracture. Will provide follow-up with orthopedic hand service. Will encourage increase in intake and fiber for foods and natural probiotics. Will encourage careful follow-up with primary care. Clear return precautions given. Departure - Departure Disposition: 01 Home, Self Care Clinical Impression: Acute lower UTI Fall Qualifiers: Encounter type: initial encounter Qualified Code(s): W19.XXXA - Unspecified fall, initial encounter Finger fracture, right Qualifiers: Encounter type: initial encounter Finger: little finger Fracture type: open Phalanx: unspecified phalanx Fracture alignment: nondisplaced Qualified Code(s): S62.606B - Fracture of unspecified phalanx of right little finger, initial encounter for open fracture Instructions: ED Fx Finger Open Follow-Up: Randall Redding MD [Provider Admit Priv/Credential] - Prescriptions: clindamycin HCL [Cleocin HCl] 300 mg PO Q6H #40 cap Comments: Thank you for allowing us to care for you today at [facility]. Today in the emergency department you were diagnosed with an open avulsion fracture to your right finger. You received 5 stitches to this area. These will need to be removed in 7 days. I have placed a phone number for hand specialist in your discharge paperwork. Please call them for follow-up and evaluation of your finger. Your urine analysis also showed indications of infection. You are given a dose of fosfomycin in the emergency department. Because of your open fracture you will need a short course of antibiotics. I have written a course for clindamycin for your use at home. Please take these as directed. Please increase your intake and fiber full foods and natural probiotics as clindamycin can cause GI upset and diarrhea. If it anytime you have any new or worsening symptoms please not hesitate to return. Forms: PCP List
[2023-01-12] MEDS ORDERED: FOSFOMYCIN TROMETHAMINE 3 GM PACKET PO STA (05:05)
[2023-01-12 06:21] VITALS: BP 149/62; O2SAT 95
--- NOTE | 2023-01-12 07:46 | CT Report ---
PROCEDURE: HEAD WO INDICATIONS: AMS TECHNIQUE: Noncontrast 4.5 mm thick angled axial sections acquired from the foramen magnum to the vertex. For r adiation dose reduction, the following was used: automated exposure control, adjustment of mA and/or kV according to patient size. COMPARISON: CT head, 01/07/2023. FINDINGS: Image quality: Suboptimal. CSF spaces: Basal cisterns are patent. No extra-axial fluid collections. Ventricles are normal in size and shape. Brain: No midline shift. No intracranial masses or hemorrhage. Mild cerebral volume loss and perive ntricular white matter chronic small vessel ischemic changes. [place]-white matter interface is normal. Skull and face: Calvarium and visualized facial bones are intact, without suspicious lesions. Sinuses: Visualized sinuses and mastoids are clear. IMPRESSION: No definitive acute intracranial pathology. Findings are concordant with preliminary interpretation provided by [facility]. Reviewed by: Candace Enriquez MD on 01/12/2023 7:44 AM PDT Approved by: Candace Enriquez MD on 01/12/2023 7:44 AM PDT Station ID: [id number]
--- NOTE | 2023-01-12 07:57 | CT Report ---
PROCEDURE: ANGIO CHEST W/WO INDICATIONS: Rule out PE CONTRAST: 100 ML OMNI 300 TECHNIQUE: After the administration of intravenous contrast, 2 mm axial images were acquired from the pulmonary apices to the posterior costophrenic angles during the arterial phase. In addition, 1 mm lung kernel and 5 mm soft tissue kernel reconstructions were performed. 3-dimensional coronal oblique maximum int ensity projection (MIP) reformats, 8 mm axial MIP, and 5 mm coronal and sagittal MPR reformats were t hen performed through the thorax. For radiation dose reduction, the following was used: automated exp osure control, adjustment of mA and/or kV according to patient size. COMPARISON: Chest x-ray, 11/06/2021 FINDINGS: Image quality: Limited due to shallow inspiration and motion artifacts. Large vessels: No filling defects within the opacified pulmonary arteries, accounting for motion and contrast timing. No evidence of acute aortic syndrome or aortic aneurysm. Lungs and pleura: Chronic right hemidiaphragmatic elevation. Bibasilar atelectasis. No consolidation. No pleural effusions. No pneumothorax. No suspicious pulmonary nodules which require follow up. Mediastinum: Heart size is normal. No pericardial effusion. No large vessel abnormality. No mediastin al adenopathy by size criteria. Chest wall and lower neck: Thyroid is unremarkable. No axillary or supraclavicular adenopathy by size . Bones: Severe compression fracture of T7. Vertebroplasty at T11. Kyphosis. There is extensive postsur gical changes in thoracic and lumbar spine. No aggressive osseous abnormality. Upper Abdomen: Unremarkable. IMPRESSION: 1. No pulmonary embolus. 2. No aortic aneurysm or dissection. 3. Chronic right hemidiaphragm elevation. Bibasilar atelectasis. Findings are concordant with preliminary interpretation provided by [facility]. Reviewed by: Candace Enriquez MD on 01/12/2023 7:55 AM PDT Approved by: Candace Enriquez MD on 01/12/2023 7:55 AM PDT Station ID: [id number]
--- NOTE | 2023-01-12 08:10 | XRAY Report ---
PROCEDURE: Finger(s) RT INDICATIONS: injury rt 5th finger TECHNIQUE: AP hand, 2 views of the fifth finger(s) acquired. COMPARISON: None. FINDINGS: Bones: Age-indeterminate deformity involving distal radial shaft is seen. Examination of fifth digit shows small calcification dorsal to fifth proximal interphalangeal joint concerning for age indeterm inant avulsion injury involving fifth proximal phalangeal head. Soft tissues: Soft tissue swelling over dorsal aspect of fifth PIP joint is seen. No suspicious soft tissue calcifications or masses. IMPRESSION: 1. Age-indeterminate avulsion injury involving dorsal aspect of fifth proximal phalangeal head. 2. Age-indeterminate and impacted fracture involving distal radial shaft. Reviewed by: Eric Fabian MD on 01/12/2023 8:09 AM PDT Approved by: Eric Fabian MD on 01/12/2023 8:09 AM PDT Station ID: [id number]
== END 2023-01-12 06:18 | disposition home or self-care (01) ==
LOC: EDUNIT# → ED 00:25
DX: N39.0 Urinary tract infection, site not specified (principal); S62.616B Displaced fracture of proximal phalanx of right little finger, initial encounter for open fracture; W19.XXXA Unspecified fall, initial encounter; Z20.822 Contact with and (suspected) exposure to COVID-19; Z66 Do not resuscitate
CPT/HCPCS: 12001; 36415; 70450; 71275; 73140; 80053; 81001; 82803; 83690; 83735; 85025; 85379; 87086; 87633; 93005; 99284; A9270; J8499; Q9967; 81003

== ENCOUNTER 2023-01-19 08:00 | Outpatient (CLI) | payer MEDICARE, OTHER ==
--- NOTE | 2023-01-19 14:25 | XRAY Report ---
PROCEDURE: Finger(s) RT INDICATIONS: RIGHT 5TH FINGER INJURY TECHNIQUE: AP hand, 2 views of the right fifth finger(s) acquired. COMPARISON: None. FINDINGS: Bones: No fractures or dislocations. No suspicious bony lesions. Polyarticular osteoarthritic deg enerative changes. Soft tissues: No suspicious soft tissue calcifications or masses. IMPRESSION: No fracture. No acute osseous lesion. If symptoms and/or clinical concern for pathology persists, fur ther assessment with repeat plain film radiographs (7-10 days) or advanced imaging (CT, MR, bone scan ) should be considered. Reviewed by: Shobha Nicholas MD, PhD on 01/19/2023 2:23 PM PDT Approved by: Shobha Nicholas MD, PhD on 01/19/2023 2:23 PM PDT Station ID: [id number]
== END 2023-01-19 23:59 | disposition home or self-care (01) ==
LOC: DI.WOS 08:00
PROVIDERS: ATTEND Orthopaedic Surgery
DX: M79.644 Pain in right finger(s) (principal)

== ENCOUNTER 2023-01-20 11:00 | Outpatient (CLI) | payer MEDICARE, OTHER ==
--- NOTE | 2023-01-20 12:05 | Sleep Patient Instructions ---
Sleep Center Visit Summary - Patient Visit Information Reason for Visit: 9 month followup - Patient Instructions Additional Instructions: You were here for follow up of CPAP therapy. You will be continued on CPAP therapy with pressure at 4-8 cmH2O. A prescription for supplies including an oxygen adaptor for the CPAP has been completed and will be sent to your DME supplier. You should follow up with sleep care in 12 months. You may contact us sooner for any questions or concerns. - Clinic Information Contact: [facility] [address] [place] [address] [email or web address] T: [phone]
--- NOTE | 2023-01-20 12:07 | SLEEP CARE CONSULTATION ---
Information from patient questionnaire entered by Yajaira Brown. I have reviewed and concur with the information entered by Yajaira Brown. This document represents the service I personally performed and the decisions made by me, Kenzie Batista ARNP. History of Present Illness Service Date and Time: 01/20/2023 1100 Previous diagnosis: Moderate, Obstructive Sleep Apnea-Hypopnea Syndrome AHI: 16.4 (in 2019) Reason for follow up: other (9 MONTH F/U) Accompanied by: Spouse (Eric) Equipment type: CPAP ([facility] recertified PT NEED RX FOR O2 BLEED INTO CPAP) Equipment obtained from: [employer] (getting supplies as needed) Mask style: Full face Backup mask available: No (will keep old mask when replaced) Last cushion change: couple months Prior sleep studies: Yes Year and Where: 2019 - [facility] ; 2001 Type of Sleep Study: Home sleep study HPI additional information: ASH MAGALLON was diagnosed to have moderate, AHI 16.4, obstructive sleep apnea-hypopnea syndrome and returned today with spouse for CPAP therapy nine month follow-up. Sleep Study - Results Type of Sleep Study: Home sleep study Prior sleep studies: Yes Year and Where: 2019 - [facility] ; 2001 CPAP Compliance Data - Data Reviewed with Patient Average duration of nightly device use: 6 hours 19 minutes Compliance rate %: 56.7 (126/180 days used) Current pressure setting (cmH2O): 4-8 Average residual AHI: 3.1 Central apnea: 0 Obstructive apnea: 0.2 Hypopnea: 2.9 Average large leak: 1 hour 37 minutes On Oxygen: Yes (1.5 L) Subjective Missed days of use due to: reports: travel, other (using oxygen at night, harder to use mask) Patient concerns: reports: nasal congestion (all the time), dry mouth, nose, throat (oral venting in mask), other (headaches all the time). denies: aerophagia, mask discomfort, air blowing in eyes, mask leak noise, condensation in mask/hose Observed to snore while using device: No Current pressure setting perceived as: comfortable On therapy, patient: reports: sleeping better, awakening more refreshed, being more awake and alert during the day, more rested overall. denies: drowsiness while driving (does not drive) Initial [place] Sleepiness Scale score: 19 (in 2019) Current [place] Sleepiness Scale score: 20 (01/20/23) Allergies and Home Medications Known drug allergies: Yes (ampicillin) Drug allergies reviewed: Yes Home medication list reviewed: Yes (no changes) Allergy and home medication list: Allergies ampicillin Adverse Reaction (Verified 01/19/23 12:09) Rash Review of Systems Review of systems same as previous: Yes (no changes) Physical Exam Vital signs obtained and entered by: YAJAIRA Garcia MA Blood Pressure: 143/75 (LEFT) Cuff size: wrist Heart Rate: 75 O2 Saturation: 94 Height: 5 ft 4 in Weight: 285 lb 9.6 oz Body Mass Index: 49.0 BMI Classification: Morbidly Obese Impression and Plan 1. Obstructive Sleep Apnea-Hypopnea Syndrome, moderate, with fair treatment compliance and good apnea control. On CPAP therapy, the patient has better sleep quality and is more rested overall. Patient is accompanied by her who helps with history. He states that she is now on 1.5 L oxygen/NC all the time. She needs an adaptor to be able to use the CPAP with her oxygen. I can add this to her prescription for supplies. She gets her oxygen from [employer]. They may also be able to supply her with an adaptor for the CPAP. They voiced understanding. She is happy with current pressure settings and does have significant improvement of her sleep apnea. Her states she had been sleeping in a recliner for the last 4 years. Patient's apnea severity and rationale for treatment to reduce apnea, improve sleep quality and reduce cardiovascular and cerebrovascular events was reviewed. I also reviewed the benefit of consistent device use of CPAP for hypertension. 2. Obesity, unspecified. Currently patients BMI is 49. Obesity increases the risk of apnea, CPAP pressure requirements and overall health risks especially cardiovascular and diabetes. Thus patient is advised to lose weight. 3. Nocturnal hypoxemia. She is on 1.5 L oxygen for nocturnal hypoxemia. She needs an adaptor to bleed the oxygen through her CPAP at night. An adaptor will be ordered for her from her [employer] company. * Continue auto CPAP pressure at 4-8 cmH2O * Add oxygen adaptor to bleed in through CPAP * Notify me if snoring with mask or feeling that the pressure is too much or too little * Attempt to lose weight * Call this office if any problems using CPAP * Return for follow up in 1 year, or sooner if concerns arise Counseling Topics: Spare mask, Weight loss health impact Prescriptions: Device supplies Visit Type: In Office Time Spent with Patient (minutes): 24 Provider Statement: I spent 100% of the Face to Face Visit with the patient with greater than 50% spent counseling the patient and coordination of care.
[2023-01-20 12:16] VITALS: BP 143/75; O2SAT 94
== END 2023-01-20 11:01 | disposition home or self-care (01) ==
LOC: SC 11:00
PROVIDERS: ATTEND Nurse Practitioner Family
DX: G47.33 Obstructive sleep apnea (adult) (pediatric) (principal); R09.02 Hypoxemia; E66.01 Morbid (severe) obesity due to excess calories; Z68.42 Body mass index [BMI] 45.0-49.9, adult; Z99.81 Dependence on supplemental oxygen
CPT/HCPCS: 99213; G0463; 99212

== ENCOUNTER 2023-01-21 22:08 | Emergency (ER) | payer MEDICARE, OTHER ==
[2023-01-21 23:00] LABS: BASOPHILS % (AUTO) 0.6 %; EOSINOPHILS # (AUTO) 0.4 10^3/uL (0.0-0.7); EOSINOPHILS % (AUTO) 5.5 %; HCT - HEMATOCRIT 40.2 % (37.0-47.0); HGB - HEMOGLOBIN 12.2 g/dL (12.0-16.0); LYMPHOCYTES # (AUTO) 1.3 10^3/uL (1.5-3.5); LYMPHOCYTES % (AUTO) 20.1 %; MEAN CORPUSCULAR HEMOGLOBIN 31.9 pg (27.0-31.0); MEAN CORPUSCULAR HGB CONC 30.3 g/dL (32.0-36.0); MEAN PLATELET VOLUME 9.7 fL (7.9-10.8); MONOCYTES # (AUTO) 0.6 10^3/uL (0.0-1.0); MONOCYTES % (AUTO) 9.2 %; NEUTROPHILS # (AUTO) 4.1 10^3/uL (1.5-6.6); NEUTROPHILS % (AUTO) 64.4 %; PLT - PLATELET COUNT 181 10^3/uL (130-450); RED BLOOD COUNT 3.83 10^6/uL (4.20-5.40); RED CELL DISTRIBUTION WIDTH 13.8 % (12.0-15.0); WHITE BLOOD COUNT 6.3 x10^3/uL (4.8-10.8)
[2023-01-21 23:13] LABS: ALBUMIN 3.5 g/dL (3.2-5.5); ALBUMIN/GLOBULIN RATIO 0.9 (1.0-2.2); BILIRUBIN,TOTAL 0.8 mg/dL (0.2-1.0); CALCIUM 8.7 mg/dL (8.5-10.3); CREATININE 0.9 mg/dL (0.4-1.0); POTASSIUM 3.8 mmol/L (3.5-5.0); TOTAL PROTEIN 7.2 g/dL (6.7-8.2)
[2023-01-22 00:55] VITALS: BP 164/60; O2SAT 98
--- NOTE | 2023-01-22 01:01 | ED Physician Documentation ---
History of Present Illness - Stated complaint Stated Complaint: ABD PX - Chief complaint Chief Complaint: Ext Problem - History obtained from History obtained from: Patient, Family () - Additonal information Additional information: 82-year-old woman with history of multiple abdominal surgeries including total abdominal hysterectomy, back surgery, cholecystectomy, appendectomy, presents with bilateral upper quadrant pain intermittent for the past 2 to 3 months is sharp associated with bloating sensation. Pain has now spontaneously resolved in the ED. Patient is having regular bowel movements daily. She states she was having diarrhea last week but has resolved. Normal flatus, Denies nausea, vomiting, fever or urinary symptoms. PD PAST MEDICAL HISTORY - Past Medical History Past Medical History: Yes Cardiovascular: Hypertension, High cholesterol, Other Respiratory: Sleep apnea, CPAP use Neuro: None Endocrine/Autoimmune: HyPOthyroidism GI: GERD : Incontinence HEENT: Chronic vision loss Psych: Depression Musculoskeletal: Osteoarthritis, Chronic back pain Derm: None - Past Surgical History Past Surgical History: Yes General: Cholecystectomy, Appendectomy, Other Ortho: Spine surgery /[employer]: Hysterectomy, Oophrectomy - Present Medications Home Medications: Ambulatory Orders Medication Instructions Recorded Confirmed Cholecalciferol (Vitamin D3) 2,000 unit PO DAILY 12/01/13 01/21/23 [D3-2000] Multivitamin [Multi-Vitamin Daily] 1 tab PO DAILY 12/01/13 01/21/23 [place]-3/Dha/Epa/Fish Oil [Fish Oil 1 each PO BID 12/01/13 01/21/23 [place]-3 Softgel] Ubidecarenone [Co Q-10] 200 mg PO DAILY 12/08/15 01/21/23 Acetaminophen [Tylenol] 650 mg PO Q8H PRN 10/21/16 01/21/23 Aspirin [Adult Low Dose Aspirin EC] 81 mg PO DAILY 10/21/16 01/21/23 Ferrous Sulfate 325 mg PO BID 10/21/16 01/21/23 Potassium Chloride [K-Dur] 20 meq PO BIDWM 10/21/16 01/21/23 Vitamin B Complex 1 tab PO DAILY 10/21/16 01/21/23 Atorvastatin [Lipitor] 20 mg PO QPM 04/01/20 01/21/23 DULoxetine [Cymbalta] 60 mg PO DAILY 04/01/20 01/21/23 Furosemide [Lasix] 20 mg PO BIDDIURETIC 04/01/20 01/21/23 Gabapentin [Neurontin] 900 mg PO BID 04/01/20 01/21/23 Levothyroxine Sodium [Synthroid] 150 mcg PO QDAC 04/01/20 01/21/23 Lisinopril [Zestril] 20 mg PO DAILY 04/01/20 01/21/23 Omeprazole 20 mg PO BID 06/17/20 01/21/23 Naproxen 500 mg PO BID PRN #20 tab 04/07/21 01/21/23 HYDROcod/ACETAM 5/325 [[place] 5/325] 1 - 2 tab PO Q6H PRN #15 tablet 05/19/21 01/21/23 clindamycin HCL [Cleocin HCl] 300 mg PO Q6H #40 cap 01/12/23 01/21/23 - Allergies Allergies/Adverse Reactions: Allergies Allergy/AdvReac Type Severity Reaction Status Date / Time ampicillin AdvReac Rash Verified 01/21/23 22:11 - Social History Does the pt smoke?: No Smoking Status: Never smoker Does the pt drink ETOH?: No Does the pt have substance abuse?: No - Immunizations Immunizations are current?: Yes - POLST Patient has POLST: No POLST Status: DNR PD ED PE NORMAL - Vitals Vital signs reviewed: Yes - General General: Alert and oriented X 3, No acute distress, Well developed/nourished - HEENT HEENT: Atraumatic, PERRL, EOMI - Neck Neck: Supple, no meningeal sign - Cardiac Cardiac: RRR - Respiratory Respiratory: No respiratory distress, Clear bilaterally - Abdomen Abdomen: Non tender, Non distended - Back Back: No CVA TTP - Derm Derm: Normal color, Warm and dry - Extremities Extremities: No deformity, Other (BL chronic LE edema without erythema or warmth) - Neuro Neuro: No motor deficit, No sensory deficit Results - Vitals Vitals: Vital Signs - 24 hr 01/21/23 01/21/23 01/22/23 22:11 23:44 00:48 Temperature 36.5 C 36.8 C Heart Rate 66 60 65 Respiratory 20 19 20 Rate Blood Pressure 160/75 H 165/66 H 164/60 H O2 Saturation 92 100 98 If not protocol 1.5 1.5 : Oxygen Flow, liters/minute Oxygen O2 Source Nasal cannula - Labs Labs: Laboratory Tests 01/21/23 01/21/23 22:56 22:56 WBC 6.3 RBC 3.83 L Hgb 12.2 Hct 40.2 MCV 105.0 H MCH 31.9 H MCHC 30.3 L RDW 13.8 Plt Count 181 MPV 9.7 Neut # (Auto) 4.1 Lymph # (Auto) 1.3 L Gooding # (Auto) 0.6 Eos # (Auto) 0.4 Baso # (Auto) 0.0 Absolute Nucleated RBC 0.00 Nucleated RBC % 0.0 Sodium 141 Potassium 3.8 Chloride 98 L Carbon Dioxide 35 H Anion Gap 8.0 BUN 22 H Creatinine 0.9 Estimated GFR (MDRD) 60 L Glucose 156 H Calcium 8.7 Total Bilirubin 0.8 AST 15 ALT 10 Alkaline Phosphatase 57 Total Protein 7.2 Albumin 3.5 Globulin 3.7 Albumin/Globulin Ratio 0.9 L Lipase 42 PD Medical Decision Making - ED course ED course: 82yF presents to the ED with intermittent abd pain X 2-3 months, resolved in the ED. Located in BL UQ. nontender on exam. Vitals good except for some chronic hypertension. CBC, abdominal panel unremarkable. We discussed that emergent pathology is unlikely given she is not currently experiencing symptoms, has no history of fever, and has had her appendix and gallbladder removed. symptomatic care discussed. return precautions given. plan to f/u Davina Frost outpatient. Departure - Departure Disposition: 01 Home, Self Care Clinical Impression: Abdominal pain Condition: Good Instructions: Abdominal Pain Comments: You were seen in the emergency department for abdominal pain. Your labwork and exam uncovered no emergent issues. Recommend trial of gas-x (simethicone) available over the counter. If no improvement then follow up with Mendy Frost for further recs. Please follow-up with your primary care provider and return to the emergency department if you have any new or worsening symptoms or other concerns. Note your CT head uncovered no acute issues. You can discuss further at your primary care appointment. Forms: PCP List
[2023-01-22] MEDS ORDERED: SIMETHICONE CHEW 80 MG TABLET PO STA (01:04)
== END 2023-01-22 01:28 | disposition home or self-care (01) ==
LOC: ED 22:08
DX: R10.11 Right upper quadrant pain (principal); R10.12 Left upper quadrant pain; R14.0 Abdominal distension (gaseous); Z66 Do not resuscitate
CPT/HCPCS: 36415; 80053; 83690; 85025; 99283; 99284; A9270

== ENCOUNTER 2023-03-31 10:36 | Outpatient (CLI) | payer MEDICARE, OTHER | END 2023-03-31 10:37 | disposition critical access hospital (66) | LOC: EMS 10:36 | DX: R41.82 Altered mental status, unspecified (principal); R53.1 Weakness; R09.89 Other specified symptoms and signs involving the circulatory and respiratory systems; R00.0 Tachycardia, unspecified; R39.89 Other symptoms and signs involving the genitourinary system; Z99.81 Dependence on supplemental oxygen | CPT/HCPCS: A0425; A0429 ==

== ENCOUNTER 2023-03-31 10:56 | Inpatient (IN) | payer MEDICARE, OTHER ==
--- NOTE | 2023-03-31 11:10 | ED Physician Documentation ---
PD HPI ALTERED MENTAL STATUS - Stated complaint Stated Complaint: AMS - Chief complaint Chief Complaint: Neuro - History obtained from History obtained from: Patient, EMS - History of Present Illness Timing - onset: How many days ago (her says she has seemed weaker and confused to varying degree the past few days and more somnolent and confused this morning. Has been having oxygen off at sleep often lately. SLeepy during the day. Seemed more that way this morning. He called EMS. No focal deficitis.) Timing - details: Gradual onset, Still present, Waxing and waning Quality / character: Confused, Other (somnolent) Associated symptoms: No: Fever, Headache, Cough, NVD Contributing factors: No: Anticoagulated, Diabetic, New medication, Recent med change, Recent illness, Substance abuse Basline status: Alert and oriented X 3, Walker Review of Systems Constitutional: denies: Fever, Chills Nose: denies: Rhinorrhea / runny nose, Congestion Cardiac: reports: Pedal edema (chronic marked lymphedema both legs.). denies: Chest pain / pressure Respiratory: reports: Dyspnea, Wheezing. denies: Cough PD PAST MEDICAL HISTORY - Past Medical History Cardiovascular: Hypertension, High cholesterol, Other Respiratory: Sleep apnea, CPAP use (and home oxygen at night, during day PRN. ) Neuro: None Endocrine/Autoimmune: HyPOthyroidism GI: GERD : Incontinence HEENT: Chronic vision loss Psych: Depression Musculoskeletal: Osteoarthritis, Chronic back pain, Other (chronic lymphedema blot legs with large legs and chronic statis skin changes. ) Derm: None - Past Surgical History Past Surgical History: Yes General: Cholecystectomy, Appendectomy, Other Ortho: Spine surgery /HORSE DOCTOR: Hysterectomy, Oophrectomy - Present Medications Home Medications: Ambulatory Orders Medication Instructions Recorded Confirmed Cholecalciferol (Vitamin D3) 2,000 unit PO DAILY 12/01/13 01/21/23 [D3-2000] Multivitamin [Multi-Vitamin Daily] 1 tab PO DAILY 12/01/13 01/21/23 [place]-3/Dha/Epa/Fish Oil [Fish Oil 1 each PO BID 12/01/13 01/21/23 [place]-3 Softgel] Ubidecarenone [Co Q-10] 200 mg PO DAILY 12/08/15 01/21/23 Acetaminophen [Tylenol] 650 mg PO Q8H PRN 10/21/16 01/21/23 Aspirin [Adult Low Dose Aspirin EC] 81 mg PO DAILY 10/21/16 01/21/23 Ferrous Sulfate 325 mg PO BID 10/21/16 01/21/23 Potassium Chloride [K-Dur] 20 meq PO BIDWM 10/21/16 01/21/23 Vitamin B Complex 1 tab PO DAILY 10/21/16 01/21/23 Atorvastatin [Lipitor] 20 mg PO QPM 04/01/20 01/21/23 DULoxetine [Cymbalta] 60 mg PO DAILY 04/01/20 01/21/23 Furosemide [Lasix] 20 mg PO BIDDIURETIC 04/01/20 01/21/23 Gabapentin [Neurontin] 900 mg PO BID 04/01/20 01/21/23 Levothyroxine Sodium [Synthroid] 150 mcg PO QDAC 04/01/20 01/21/23 Lisinopril [Zestril] 20 mg PO DAILY 04/01/20 01/21/23 Omeprazole 20 mg PO BID 06/17/20 01/21/23 Naproxen 500 mg PO BID PRN #20 tab 04/07/21 01/21/23 HYDROcod/ACETAM 5/325 [[place] 5/325] 1 - 2 tab PO Q6H PRN #15 tablet 05/19/21 01/21/23 clindamycin HCL [Cleocin HCl] 300 mg PO Q6H #40 cap 01/12/23 01/21/23 - Allergies Allergies/Adverse Reactions: Allergies Allergy/AdvReac Type Severity Reaction Status Date / Time ampicillin AdvReac Rash Verified 01/21/23 22:11 - Social History Does the pt smoke?: No Smoking Status: Never smoker Does the pt drink ETOH?: No Does the pt have substance abuse?: No - Immunizations Immunizations are current?: Yes - POLST Patient has POLST: No POLST Status: DNR PD ED PE NORMAL - Vitals Vital signs reviewed: Yes - General General: Alert and oriented X 3, Well developed/nourished, Other (sleepy, and drifts to sleep when not engaged. Rouses easily to touch and voice. drowsy though. ) - HEENT HEENT: Atraumatic, Pharynx benign - Neck Neck: Supple, no meningeal sign, No adenopathy - Cardiac Cardiac: RRR, No murmur - Respiratory Respiratory: No: Clear bilaterally (wheezing diffusely without crackles. ) - Abdomen Abdomen: Soft, Non tender, Other (high BMI of 47.) - Derm Derm: Normal color, Warm and dry - Extremities Extremities: Other (very notable bliateral large edema with bumpy skin surface most likely c/w lymphedema. symmetric mild redness anterior shins. ) Results - Vitals Vitals: Vital Signs - 24 hr 03/31/23 03/31/23 03/31/23 11:01 12:06 12:16 Temperature 36.3 C L Heart Rate 102 H 101 H 99 Respiratory 22 18 22 Rate Blood Pressure 146/55 H 112/56 L O2 Saturation 94 99 If not protocol : Oxygen Flow, liters/minute 03/31/23 03/31/23 03/31/23 12:45 14:07 14:37 Temperature Heart Rate 102 H 95 97 Respiratory 18 19 20 Rate Blood Pressure 130/59 L 111/55 L 110/52 L O2 Saturation 94 100 96 If not protocol 3 : Oxygen Flow, liters/minute 03/31/23 03/31/23 03/31/23 15:35 16:21 17:05 Temperature Heart Rate 95 102 H 98 Respiratory 20 19 19 Rate Blood Pressure 99/77 133/62 H O2 Saturation 95 95 99 If not protocol 2 2 2 : Oxygen Flow, liters/minute 03/31/23 03/31/23 17:08 19:17 Temperature 37.0 C Heart Rate 98 Respiratory 18 Rate Blood Pressure 126/89 H O2 Saturation 100 If not protocol : Oxygen Flow, liters/minute Oxygen O2 Source Nasal cannula Oxygen Flow Rate 4 - Labs Labs: Laboratory Tests 03/31/23 03/31/23 03/31/23 12:06 12:06 12:06 WBC 6.2 RBC 3.81 L Hgb 12.2 Hct 41.1 MCV 107.9 H MCH 32.0 H MCHC 29.7 L RDW 13.9 Plt Count 161 MPV 9.7 Neut # (Auto) Not Reportable Lymph # (Auto) Not Reportable [place] # (Auto) Not Reportable Eos # (Auto) Not Reportable Baso # (Auto) Not Reportable Absolute Nucleated RBC Not Reportable Total Counted 100 Band Neuts % (Manual) 0 Abnorm Lymph % (Manual) 0 Metamyelocytes % 1 H Nucleated RBC % Not Reportable Neutrophils # (Manual) 5.6 Lymphocytes # (Manual) 0.5 L Monocytes # (Manual) 0.1 Eosinophils # (Manual) 0.0 Basophils # (Manual) 0.0 Differential Comment MANUAL DIFFERENTIAL WBC Morphology NORMAL APPEARANCE Platelet Estimate NORMAL (130-450,000) Platelet Morphology NORMAL APPEARANCE RBC Morph Micro Appear NORMAL APPEARANCE VBG pH 7.368 VBG pCO2 62.4 H VBG pO2 37.3 VBG HCO3 35.1 H VBG Total CO2 37.0 H VBG O2 Saturation 73.8 VBG Base Excess 7.7 H Sodium Potassium Chloride Carbon Dioxide Anion Gap BUN Creatinine Estimated GFR (MDRD) Glucose Lactic Acid Calcium Magnesium Total Bilirubin AST ALT Alkaline Phosphatase B-Natriuretic Peptide Total Protein Albumin Globulin Albumin/Globulin Ratio Lipase Procalcitonin Immunoas Urine Color Urine Clarity Urine pH Ur Specific [place] Urine Protein Urine Glucose (UA) Urine Ketones Urine Occult Blood Urine Nitrite Urine Bilirubin Urine Urobilinogen Ur Leukocyte Esterase Urine RBC Urine WBC Ur Epithelial Cells Ur Squamous Epith Cells Urine Bacteria Ur Microscopic Review Urine Culture Comments Nasal Adenovirus (PCR) Nasal B. parapertussis DNA (PCR) Nasal Coronavir 229E PCR Nasal Coronavir HKU1 PCR Nasal Coronavir NL63 PCR Nasal Coronavir OC43 PCR Nasal Enterovir/Rhinovir PCR Nasal Influenza B PCR Nasal Influenza A PCR Nasal Parainfluen 1 PCR Nasal Parainfluen 2 PCR Nasal Parainfluen 3 PCR Nasal Parainfluen 4 PCR Nasal RSV (PCR) Nasal B.pertussis DNA PCR Nasal C.pneumoniae (PCR) [place] Human Metapneumo PCR Nasal M.pneumoniae (PCR) Nasal SARS-CoV-2 (PCR) Urine Opiates Screen Ur Oxycodone Screen Urine Methadone Screen Ur Propoxyphene Screen Ur Barbiturates Screen Ur Tricyclics Screen Ur Phencyclidine Scrn Ur Amphetamine Screen U Methamphetamines Scrn U Benzodiazepines Scrn Urine Cocaine Screen U Cannabinoids Screen Ethyl Alcohol < 10.0 03/31/23 03/31/23 03/31/23 12:14 12:14 12:40 WBC RBC Hgb Hct MCV MCH MCHC RDW Plt Count MPV Neut # (Auto) Lymph # (Auto) [place] # (Auto) Eos # (Auto) Baso # (Auto) Absolute Nucleated RBC Total Counted Band Neuts % (Manual) Abnorm Lymph % (Manual) Metamyelocytes % Nucleated RBC % Neutrophils # (Manual) Lymphocytes # (Manual) Monocytes # (Manual) Eosinophils # (Manual) Basophils # (Manual) Differential Comment WBC Morphology Platelet Estimate Platelet Morphology RBC Morph Micro Appear VBG pH VBG pCO2 VBG pO2 VBG HCO3 VBG Total CO2 VBG O2 Saturation VBG Base Excess Sodium 141 Potassium 4.1 Chloride 99 L Carbon Dioxide 36 H Anion Gap 6.0 BUN 29 H Creatinine 1.0 Estimated GFR (MDRD) 53 L Glucose 170 H Lactic Acid Calcium 9.5 Magnesium 1.4 L Total Bilirubin 1.5 H AST 11 ALT 6 L Alkaline Phosphatase 52 B-Natriuretic Peptide 160 H Total Protein 6.8 Albumin 3.8 Globulin 3.0 Albumin/Globulin Ratio 1.3 Lipase 20 Procalcitonin Immunoas Urine Color Urine Clarity Urine pH Ur Specific [place] Urine Protein Urine Glucose (UA) Urine Ketones Urine Occult Blood Urine Nitrite Urine Bilirubin Urine Urobilinogen Ur Leukocyte Esterase Urine RBC Urine WBC Ur Epithelial Cells Ur Squamous Epith Cells Urine Bacteria Ur Microscopic Review Urine Culture Comments Nasal Adenovirus (PCR) NOT DETECTED Nasal B. parapertussis DNA (PCR) NOT DETECTED Nasal Coronavir 229E PCR NOT DETECTED Nasal Coronavir HKU1 PCR NOT DETECTED Nasal Coronavir NL63 PCR NOT DETECTED Nasal Coronavir OC43 PCR NOT DETECTED Nasal Enterovir/Rhinovir PCR NOT DETECTED Nasal Influenza B PCR NOT DETECTED Nasal Influenza A PCR NOT DETECTED Nasal Parainfluen 1 PCR NOT DETECTED Nasal Parainfluen 2 PCR NOT DETECTED Nasal Parainfluen 3 PCR NOT DETECTED Nasal Parainfluen 4 PCR NOT DETECTED Nasal RSV (PCR) NOT DETECTED Nasal B.pertussis DNA PCR NOT DETECTED Nasal C.pneumoniae (PCR) NOT DETECTED [place] Human Metapneumo PCR NOT DETECTED Nasal M.pneumoniae (PCR) NOT DETECTED Nasal SARS-CoV-2 (PCR) NOT DETECTED Urine Opiates Screen Ur Oxycodone Screen Urine Methadone Screen Ur Propoxyphene Screen Ur Barbiturates Screen Ur Tricyclics Screen Ur Phencyclidine Scrn Ur Amphetamine Screen U Methamphetamines Scrn U Benzodiazepines Scrn Urine Cocaine Screen U Cannabinoids Screen Ethyl Alcohol 03/31/23 03/31/23 03/31/23 15:33 15:33 19:25 WBC RBC Hgb Hct MCV MCH MCHC RDW Plt Count MPV Neut # (Auto) Lymph # (Auto) [place] # (Auto) Eos # (Auto) Baso # (Auto) Absolute Nucleated RBC Total Counted Band Neuts % (Manual) Abnorm Lymph % (Manual) Metamyelocytes % Nucleated RBC % Neutrophils # (Manual) Lymphocytes # (Manual) Monocytes # (Manual) Eosinophils # (Manual) Basophils # (Manual) Differential Comment WBC Morphology Platelet Estimate Platelet Morphology RBC Morph Micro Appear VBG pH VBG pCO2 VBG pO2 VBG HCO3 VBG Total CO2 VBG O2 Saturation VBG Base Excess Sodium Potassium Chloride Carbon Dioxide Anion Gap BUN Creatinine Estimated GFR (MDRD) Glucose Lactic Acid 1.2 Calcium Magnesium Total Bilirubin AST ALT Alkaline Phosphatase B-Natriuretic Peptide Total Protein Albumin Globulin Albumin/Globulin Ratio Lipase Procalcitonin Immunoas Urine Color YELLOW Urine Clarity HAZY Urine pH 8.0 H Ur Specific [place] 1.010 Urine Protein NEGATIVE Urine Glucose (UA) NEGATIVE Urine Ketones NEGATIVE Urine Occult Blood NEGATIVE Urine Nitrite POSITIVE H Urine Bilirubin NEGATIVE Urine Urobilinogen 0.2 (NORMAL) Ur Leukocyte Esterase SMALL H Urine RBC 0-5 Urine WBC 6-10 H Ur Epithelial Cells RARE Transitional Ur Squamous Epith Cells FEW Squamous Urine Bacteria Many H Ur Microscopic Review INDICATED Urine Culture Comments INDICATED Nasal Adenovirus (PCR) Nasal B. parapertussis DNA (PCR) Nasal Coronavir 229E PCR Nasal Coronavir HKU1 PCR Nasal Coronavir NL63 PCR Nasal Coronavir OC43 PCR Nasal Enterovir/Rhinovir PCR Nasal Influenza B PCR Nasal Influenza A PCR Nasal Parainfluen 1 PCR Nasal Parainfluen 2 PCR Nasal Parainfluen 3 PCR Nasal Parainfluen 4 PCR Nasal RSV (PCR) Nasal B.pertussis DNA PCR Nasal C.pneumoniae (PCR) [place] Human Metapneumo PCR Nasal M.pneumoniae (PCR) Nasal SARS-CoV-2 (PCR) Urine Opiates Screen NEGATIVE Ur Oxycodone Screen NEGATIVE Urine Methadone Screen NEGATIVE Ur Propoxyphene Screen NEGATIVE Ur Barbiturates Screen NEGATIVE Ur Tricyclics Screen NEGATIVE Ur Phencyclidine Scrn NEGATIVE Ur Amphetamine Screen NEGATIVE U Methamphetamines Scrn NEGATIVE U Benzodiazepines Scrn NEGATIVE Urine Cocaine Screen NEGATIVE U Cannabinoids Screen NEGATIVE Ethyl Alcohol 03/31/23 19:25 WBC RBC Hgb Hct MCV MCH MCHC RDW Plt Count MPV Neut # (Auto) Lymph # (Auto) [place] # (Auto) Eos # (Auto) Baso # (Auto) Absolute Nucleated RBC Total Counted Band Neuts % (Manual) Abnorm Lymph % (Manual) Metamyelocytes % Nucleated RBC % Neutrophils # (Manual) Lymphocytes # (Manual) Monocytes # (Manual) Eosinophils # (Manual) Basophils # (Manual) Differential Comment WBC Morphology Platelet Estimate Platelet Morphology RBC Morph Micro Appear VBG pH VBG pCO2 VBG pO2 VBG HCO3 VBG Total CO2 VBG O2 Saturation VBG Base Excess Sodium Potassium Chloride Carbon Dioxide Anion Gap BUN Creatinine Estimated GFR (MDRD) Glucose Lactic Acid Calcium Magnesium Total Bilirubin AST ALT Alkaline Phosphatase B-Natriuretic Peptide Total Protein Albumin Globulin Albumin/Globulin Ratio Lipase Procalcitonin Immunoas 1.25 H Urine Color Urine Clarity Urine pH Ur Specific [place] Urine Protein Urine Glucose (UA) Urine Ketones Urine Occult Blood Urine Nitrite Urine Bilirubin Urine Urobilinogen Ur Leukocyte Esterase Urine RBC Urine WBC Ur Epithelial Cells Ur Squamous Epith Cells Urine Bacteria Ur Microscopic Review Urine Culture Comments Nasal Adenovirus (PCR) Nasal B. parapertussis DNA (PCR) Nasal Coronavir 229E PCR Nasal Coronavir HKU1 PCR Nasal Coronavir NL63 PCR Nasal Coronavir OC43 PCR Nasal Enterovir/Rhinovir PCR Nasal Influenza B PCR Nasal Influenza A PCR Nasal Parainfluen 1 PCR Nasal Parainfluen 2 PCR Nasal Parainfluen 3 PCR Nasal Parainfluen 4 PCR Nasal RSV (PCR) Nasal B.pertussis DNA PCR Nasal C.pneumoniae (PCR) [place] Human Metapneumo PCR Nasal M.pneumoniae (PCR) Nasal SARS-CoV-2 (PCR) Urine Opiates Screen Ur Oxycodone Screen Urine Methadone Screen Ur Propoxyphene Screen Ur Barbiturates Screen Ur Tricyclics Screen Ur Phencyclidine Scrn Ur Amphetamine Screen U Methamphetamines Scrn U Benzodiazepines Scrn Urine Cocaine Screen U Cannabinoids Screen Ethyl Alcohol - Rads (name of study) head CT Relevant Findings:: Prelim report reviewed, EMP independent interpretation of test (no acute process) chest xray Relevant Findings:: Prelim report reviewed (no infiltrates nor effusions nor PTX. ), EMP independent interpretation of test PD Medical Decision Making - ED course Complexity details: re-evaluated patient (she is gradually more alert and conversant, though still defaults to drowsy when left alone. No new meds per and pt. No recent illness. ), considered differential (somnolent without focal weakness. Confused initial presentation but again sleepy seeming and rouses to alertness. PCO2 elevated at 65 but similar tp prior result and has compensated, so chronic. Oxygenation is adequate. can check sodium, glucose head CT and other labs. ), d/w patient Reviewed Lab Results: whie count normal. Venous blood gas showing PCO2 elevatd at 65 but similar to prior lab on prior visit. SOdium is normal. Glucose not low. UA wwas still pending. BNPminimally elevated at 160 which is not even elevated if rincluding elevated BMI. Not clear the cause of her somnolence. EtOH negative as is utox. NO fever and has normal oxygenation on [place] usual amount for her. ED course: not sure the cause of her drowsiness. states she does not keep her oxygen on at night regularly. May have daytime drowsiness due to sleep hypoxia. Otherwise could be part of early viral illness. Does not appear in CHF. Hasc hronic lymphedema but not appearing CHF in lungs. Departure - Departure Disposition: ED Place in Observation Clinical Impression: Altered mental status Qualifiers: Altered mental status type: somnolence Qualified Code(s): R40.0 - Somnolence Condition: Stable Record reviewed to determine appropriate education?: Yes Discharge Date/Time: 03/31/23 20:36
[2023-03-31] MEDS ORDERED: IPRATROPIUM/ALBUTEROL 3 ML NEB INH STA (11:47)
[2023-03-31] MEDS ORDERED: FUROSEMIDE 40 MG/4 ML VIAL IVP STA (11:49)
[2023-03-31 12:16] LABS: BASOPHILS % (AUTO) 0.3 %; EOSINOPHILS % (AUTO) 0.2 %; HCT - HEMATOCRIT 41.1 % (37.0-47.0); HGB - HEMOGLOBIN 12.2 g/dL (12.0-16.0); MEAN CORPUSCULAR HGB CONC 29.7 g/dL (32.0-36.0); MEAN CORPUSCULAR VOLUME 107.9 fL (81.0-99.0); MEAN PLATELET VOLUME 9.7 fL (7.9-10.8); MONOCYTES % (AUTO) 1.5 %; NEUTROPHILS % (AUTO) 93.7 %; PLT - PLATELET COUNT 161 10^3/uL (130-450); RED BLOOD COUNT 3.81 10^6/uL (4.20-5.40); RED CELL DISTRIBUTION WIDTH 13.9 % (12.0-15.0); WHITE BLOOD COUNT 6.2 x10^3/uL (4.8-10.8)
--- NOTE | 2023-03-31 12:16 | XRAY Report ---
PROCEDURE: Chest 1 View X-Ray INDICATIONS: dyspnea TECHNIQUE: One view of the chest was acquired. COMPARISON: None. FINDINGS: Surgical changes and devices: Thoracolumbar fusion hardware. Lungs and pleura: No pleural effusions or pneumothorax. Lungs are clear. Chronic elevation of rig ht hemidiaphragm. Submaximal inspiration with a degree of vascular crowding. Mediastinum: Mediastinal contours appear normal. Heart size is normal. Bones and chest wall: No suspicious bony lesions. Overlying soft tissues appear unremarkable. IMPRESSION: No acute cardiopulmonary process. Submaximal inspiration. Reviewed by: Arian Oglesby MD on 03/31/2023 12:15 PM PST Approved by: Arian Oglesby MD on 03/31/2023 12:15 PM PST Station ID: [id number]
[2023-03-31 12:17] LABS: VBG HCO3 35.1 mmol/L (23-28); VBG PCO2 62.4 mmHg (41-51); VBG PH 7.368 (7.31-7.41); VBG PO2 37.3 mmHg (25-47)
[2023-03-31 12:18] LABS: VBG BASE EXCESS 7.7 mmol/L (-2 - +2); VBG OXYGEN SATURATION 73.8 % (60-80)
[2023-03-31 12:36] LABS: ABNORMAL LYMPHS % (MANUAL) 0 %; BAND NEUTROPHILS % (MANUAL) 0 %
[2023-03-31 12:37] LABS: ALBUMIN 3.8 g/dL (3.2-5.5); ALBUMIN/GLOBULIN RATIO 1.3 (1.0-2.2); BILIRUBIN,TOTAL 1.5 mg/dL (0.2-1.0); CALCIUM 9.5 mg/dL (8.5-10.3); MAGNESIUM 1.4 mg/dL (1.7-2.3); POTASSIUM 4.1 mmol/L (3.5-4.5); TOTAL PROTEIN 6.8 g/dL (6.4-8.9)
[2023-03-31 12:59] LABS: LYMPHOCYTES # (MANUAL) 0.5 10^3/uL (1.5-3.5); LYMPHOCYTES % (MANUAL) 8 %; METAMYELOCYTES % (MANUAL) 1 %; MONOCYTES # (MANUAL) 0.1 10^3/uL (0.0-1.0); NEUTROPHILS # (MANUAL) 5.6 10^3/uL (1.5-6.6)
[2023-03-31 13:00] LABS: DIFFERENTIAL COMMENT MANUAL DIFFERENTIAL; PLATELET ESTIMATE, MANUAL NORMAL (130-450,000) (NORMAL); PLATELET MORPHOLOGY NORMAL APPEARANCE (NORMAL); RBC MORPHOLOGY (MULTIPLE) NORMAL APPEARANCE (NORMAL); WBC MORPHOLOGY (MULTIPLE) NORMAL APPEARANCE (NORMAL)
[2023-03-31 13:52] LABS: B. PARAPERTUSSIS- RESP PCR PAN NOT DETECTED; B. PERTUSSIS- RESP PCR PANEL NOT DETECTED; C. PNEUMONIAE- RESP PCR PANEL NOT DETECTED; CORONAVIRUS 229E-RESP PCR NOT DETECTED; CORONAVIRUS HKU1-RESP PCR NOT DETECTED; CORONAVIRUS NL63-RESP PCR NOT DETECTED; CORONAVIRUS OC43-RESP PCR NOT DETECTED; HUMAN METAPNEUMOVIRUS NOT DETECTED; INFLUENZA A- RESP PCR PANEL NOT DETECTED; INFLUENZA B - RESP PCR PANEL NOT DETECTED; M. PNEUMONIAE- RESP PCR PANEL NOT DETECTED; PARAINFLUENZA VIRUS 1 NOT DETECTED; PARAINFLUENZA VIRUS 2 NOT DETECTED; PARAINFLUENZA VIRUS 3 NOT DETECTED; PARAINFLUENZA VIRUS 4 NOT DETECTED; RHINOVIRUS/ENTEROVIRUS NOT DETECTED; RSV- RESP PCR PANEL NOT DETECTED; SARS-CoV-2 -RESP PCR PANEL NOT DETECTED
[2023-03-31 15:38] LABS: MUDS CUTOFF CONCENTRATIONS CUTOFF CONC BELOW:
[2023-03-31 15:53] LABS: AMPHETAMINE SCREEN,URINE NEGATIVE (NEGATIVE); BARBITURATE SCREEN,UR NEGATIVE (NEGATIVE); BENZODIAZEPINES SCREEN, URINE NEGATIVE (NEGATIVE); COCAINE SCREEN URINE NEGATIVE (NEGATIVE); METHADONE SCREEN, URINE NEGATIVE (NEGATIVE); METHAMPHETAMINES SCREEN, URINE NEGATIVE (NEGATIVE); OPIATE SCREEN, URINE NEGATIVE (NEGATIVE); OXYCODONE SCREEN, URINE NEGATIVE (NEGATIVE); PROPOXYPHENE SCREEN, URINE NEGATIVE (NEGATIVE); THC CANNABINOID SCREEN, URINE NEGATIVE (NEGATIVE); TRICYCLIC ANTIDEPRESSANT,URINE NEGATIVE (NEGATIVE)
--- NOTE | 2023-03-31 16:40 | CT Report ---
PROCEDURE: HEAD WO INDICATIONS: altered mentation TECHNIQUE: Noncontrast 4.5 mm thick angled axial sections acquired from the foramen magnum to the vertex. For r adiation dose reduction, the following was used: automated exposure control, adjustment of mA and/or kV according to patient size. COMPARISON: 01/12/2023. FINDINGS: Image quality: Excellent. CSF spaces: Basal cisterns are patent. No extra-axial fluid collections. Ventricles are normal in size and shape. Brain: No midline shift. No intracranial masses or hemorrhage. [place]-white matter interface is norm al. Age-related volume loss and small vessel ischemic change. Skull and face: Calvarium and visualized facial bones are intact, without suspicious lesions. Sinuses: Visualized sinuses and mastoids are clear. IMPRESSION: No acute intracranial pathology. Reviewed by: Arian Oglesby MD on 03/31/2023 4:39 PM PST Approved by: Arian Oglesby MD on 03/31/2023 4:39 PM PST Station ID: [id number]
[2023-03-31 17:41] LABS: BILIRUBIN,URINE NEGATIVE (NEGATIVE); GLUCOSE, URINE (UA) NEGATIVE (NEGATIVE); KETONES,URINE (UA) NEGATIVE (NEGATIVE); LEUKOCYTE ESTERASE, URINE SMALL (NEGATIVE); NITRITE,URINE POSITIVE (NEGATIVE); OCCULT BLOOD,URINE NEGATIVE (NEGATIVE); PROTEIN,URINE NEGATIVE (NEGATIVE); UROBILINOGEN,URINE 0.2 (NORMAL) E.U./dL (NORMAL)
[2023-03-31 17:44] LABS: CLARITY,URINE HAZY (CLEAR)
[2023-03-31 17:50] LABS: BACTERIA,URINE Many /HPF (None Seen); EPITHELIAL CELLS,UR RARE Transitional /HPF (<= Few); RBC,URINE 0-5 /HPF (0-5); SQUAMOUS EPITHELIAL CELL,UR FEW Squamous (<= Few)
--- NOTE | 2023-03-31 18:39 | ED Physician Documentation ---
ED Addendum - Addendum Addendum: 03/31/23 18:38 Dr. Jones had written her up for discharge, the arrived and after Dr. Jones had gone home the had some concerns. She is persistently delirious. On examination at the bedside she is alert and oriented to person only. When asked her location she states she is at home. admits she has some underlying dementia but since last night was much much worse with hallucinations last night. States she has a history of lymphedema in the legs and wonders if she might have early cellulitis. Her legs are certainly swollen but not obviously cellulitic at this juncture. The remainder of her work-up was really fairly unremarkable in the emergency department. But given persistent delirium plan to place her in observation after hospitalist shift change at 7 PM. Disposition, placed in observation Condition: Stable Diagnosis: 1. Delirium 03/31/23 19:[address] FERNANDES for admission at this time. Of note it does appear that she has pyuria and I will administer Rocephin.
[2023-03-31] MEDS ORDERED: MAGNESIUM SULFATE 2 GRAM 2 GM/50 ML BAG IV ONE (19:10)
[2023-03-31] MEDS ORDERED: cefTRIAXone 1 GM VIAL IVP STA ×2 (19:10)
[2023-03-31] MEDS ORDERED: ACETAMINOPHEN 325 MG TABLET PO PRN (19:31)
[2023-03-31] MEDS ORDERED: SODIUM CHLORIDE FLUSH 0.9% 10 ML SYRINGE IVP PRN (19:31)
[2023-03-31] MEDS ORDERED: polyethylene glycoL 3350 17 GM PACKET PO PRN (19:31)
[2023-03-31] MEDS ORDERED: ONDANSETRON 4 MG/2 ML VIAL IVP PRN (19:31)
--- NOTE | 2023-03-31 19:50 | HISTORY & PHYSICAL EXAMINATION ---
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 Patient has underlying signs of dementia per but still able to converse coherently and aware and alert and oriented to self, person, place and time. She has associated agitation at time with her dementia per . More recently, has found patient without her nasal cannula on. has caught patient hypoxemic on home pulse. She would awake groggy and confused however this phase would resolved with time and O2 support. Patient this morning was confused and was persistent confused despite time and O2 support. Patient has difficult ambulating 2/2 morbid obesity and BLE edema however since her confusion, she is no longer able to manage self and ambulate at home. reports no change in medications. No travel. No sick contact. No trauma. Patient does get confused with UTI and last UTI was months ago treated with clindamycin per . Patient has not complain of dysuria. mentions chronic BLE edema. reports baseline edema and mostly baseline redness in BLE. 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 She in her sleep. Father from an [place] at age 69. She had 1 brother with pancreatic cancer who at age 65. Social History Notes: She denied tobacco, alcohol or recreational substance use. - POLST Patient has POLST: No POLST Status: DNR Meds/Allgy - Home Medications Home Medications: Ambulatory Orders Medication Instructions Recorded Confirmed Cholecalciferol (Vitamin D3) 2,000 unit PO DAILY 12/01/13 01/21/23 [D3-2000] Multivitamin [Multi-Vitamin Daily] 1 tab PO DAILY 12/01/13 01/21/23 [place]-3/Dha/Epa/Fish Oil [Fish Oil 1 each PO BID 12/01/13 01/21/23 [place]-3 Softgel] Ubidecarenone [Co Q-10] 200 mg PO DAILY 12/08/15 01/21/23 Acetaminophen [Tylenol] 650 mg PO Q8H PRN 10/21/16 01/21/23 Aspirin [Adult Low Dose Aspirin EC] 81 mg PO DAILY 10/21/16 01/21/23 Ferrous Sulfate 325 mg PO BID 10/21/16 01/21/23 Potassium Chloride [K-Dur] 20 meq PO BIDWM 10/21/16 01/21/23 Vitamin B Complex 1 tab PO DAILY 10/21/16 01/21/23 Atorvastatin [Lipitor] 20 mg PO QPM 04/01/20 01/21/23 DULoxetine [Cymbalta] 60 mg PO DAILY 04/01/20 01/21/23 Furosemide [Lasix] 20 mg PO BIDDIURETIC 04/01/20 01/21/23 Gabapentin [Neurontin] 900 mg PO BID 04/01/20 01/21/23 Levothyroxine Sodium [Synthroid] 150 mcg PO QDAC 04/01/20 01/21/23 Lisinopril [Zestril] 20 mg PO DAILY 04/01/20 01/21/23 Omeprazole 20 mg PO BID 06/17/20 01/21/23 Naproxen 500 mg PO BID PRN #20 tab 04/07/21 01/21/23 HYDROcod/ACETAM 5/325 [Shannon 5/325] 1 - 2 tab PO Q6H PRN #15 tablet 05/19/21 01/21/23 clindamycin HCL [Cleocin HCl] 300 mg PO Q6H #40 cap 01/12/23 01/21/23 - Allergies Allergies/Adverse Reactions: Allergies Allergy/AdvReac Type Severity Reaction Status Date / Time ampicillin AdvReac Rash Verified 01/21/23 22:11 Review of Systems - Constitutional Constitutional: reports: Weakness, Other (confusion) - Cardiovascular Cariovascular: denies: Palpitations, Chest pain - Respiratory Respiratory: denies: Cough - Gastrointestinal Gastrointestinal: denies: Abdominal pain, Diarrhea, Nausea, Vomiting - Genitourinary Genitourinary: denies: Dysuria - Neurological Neurological: reports: General weakness, Abnormal gait Exam - Vital Signs Vital Signs: Vital Signs x48h Temp Pulse Resp BP Pulse Ox O2 Flow Rate 03/31/23 19:17 98 18 126/89 H 100 03/31/23 17:08 37.0 C 03/31/23 17:05 98 19 133/62 H 99 2 03/31/23 16:21 102 H 19 95 2 03/31/23 15:35 95 20 99/77 95 2 03/31/23 14:37 97 20 110/52 L 96 03/31/23 14:07 95 19 111/55 L 100 3 03/31/23 12:45 102 H 18 130/59 L 94 03/31/23 12:16 99 22 03/31/23 12:06 101 H 18 112/56 L 99 - Physical Exam General Appearance: positive: No acute distress. negative: Moderate distress, Lethargic Eyes Bilateral: positive: Normal inspection Neck: positive: Nml inspection Skin: positive: Color nml Extremities: positive: Nml appearance Conclusion/Plan - Problem List (1) Metabolic encephalopathy Conclusion/Plan: 2/2 UTI. empiric abx ceftriaxone. followup cultures. most recent urine culture is dominguez sensitive E coli. (2) UTI (urinary tract infection) Conclusion/Plan: empiric abx ceftriaxone. followup cultures. most recent urine culture is dominguez sensitive E coli. Qualifiers: Urinary tract infection type: site unspecified Hematuria presence: without hematuria Qualified Code(s): N39.0 - Urinary tract infection, site not specified (3) Chronic respiratory failure with hypoxia, on home O2 therapy Conclusion/Plan: on 2 L NC. reportedly associated with COPD? stable resp status. acute encephalopathy likely 2/2 UTI and less likely hypoxemia despite reportedly finding patient intermittently off O2 however mentation not better even when back on O2 hence encephalopathy likely 2/2 UTI. stable. on presentation. no acute worsening of resp status. continue O2 support. Duoneb (4) Chronic back pain Conclusion/Plan: managed. continue acetaminophen. duloxteine. hold off on [place] and Gabapentin until mentation baseline. (5) Hyperlipidemia Conclusion/Plan: managed. continue atorvastatin (6) Hypothyroidism Conclusion/Plan: managed. continue levothyroxine. followup TSH and FT4 - Lab Results Fish Bones: 03/31/23 12:06 03/31/23 12:14 - Diagnostic Imaging Results Diagnostic Imaging Results: positive: Final report reviewed Core Measures - Issues Hospital Issues and Management Plan: The patient consented to receive this telemedicine service, which I performed via live two-way audiovisual equipment. The patient is at ([facility]) and I am physically in [facility]. A nurse assisted me in the visit. - DVT/VTE - Prophylaxis VTE/DVT Device ordered at admit?: Yes Telemedicine Consult Details - Provider Location & Consult Time Telemedicine consultation conducted via videoconferencing?: Yes List names and roles of persons who participated in consult:: ED staff, , and patient Telemedicine provider location:: [facility] Time Telemedicine consult began:: 19:08 Time Telemedicine consult completed:: 20:08
[2023-03-31] MEDS: ATORVASTATIN 10 MG TABLET PO SCH (21:06)
[2023-03-31] MEDS: HEPARIN 5,000 UNIT/ML VIAL SUBQ SCH (21:06)
[2023-04-01] MEDS: SODIUM CHLORIDE FLUSH 0.9% 10 ML SYRINGE IVP SCH ×4 (01:37→22:46)
[2023-04-01 06:10] LABS: PROCALCITONIN 1.5 ng/mL (<0.5)
[2023-04-01 06:19] LABS: THYROID STIMULATING HORMONE 0.4 uIU/mL (0.34-5.60)
[2023-04-01] MEDS: LEVOTHYROXINE 125 MCG TABLET PO SCH (06:22)
[2023-04-01] MEDS ORDERED: CYANOCOBALAMIN 1,000 MCG/ML VIAL IM ONE (07:25)
--- NOTE | 2023-04-01 07:26 | PROVIDER PROGRESS NOTE ---
Progress Note April 01, 2023 Patient was admitted yesterday by telemedicine service for altered mental status superimposed on dementia. She lives at home, is morbidly obese and has chronic pain and is taking care of by her . After evaluation in the emergency room she was found to have a UTI and started on empiric antibiotics. She is on chronic O2 at home. Overnight there were no new events. She is drowsy but she is startled that she is here confusion with a UTI. She feels "normal" but there are times in her speaking that she is disoriented or not remembering things correctly. Long talk with her . While he and I are speaking, she gets increasingly irate and starts to correct them and tells them that "you are not telling it right". He says that she has been having more and more episodes of arguing with him. She flatly refuses to do the things he asked her to do. He is starting to have increasing fatigue and caregiver burden. He also is due to have a knee replacement soon. He does know what he is going to do with her if he has to stay in the hospital and then recover over 2 months. Active Medications Acetaminophen (Acetaminophen 325 Mg Tablet) 650 mg PO Q4HR PRN PRN Reason: Pain 1 to 4, or Fever Albuterol/Ipratropium (Ipratropium/Albuterol 3 Ml Neb) 3 ml INH RTQ4H PRN PRN Reason: Wheezing Aspirin (Aspirin 325 Mg Tablet) 81 mg PO DAILY [facility] Atorvastatin Calcium (Atorvastatin 10 Mg Tablet) 20 mg PO HS [facility] Last Admin: 03/31/23 21:06 Dose: 20 mg Cyanocobalamin (Cyanocobalamin 1,000 Mcg/Ml Vial) 1,000 mcg IM ONCE ONE Stop: 04/01/23 07:26 Duloxetine HCl (Duloxetine 30 Mg Capsule) 30 mg PO DAILY [facility] Ferrous Sulfate (Ferrous Sulfate 325 Mg Tablet) 325 mg PO DAILYWM [facility] Furosemide (Furosemide 20 Mg/2 Ml Vial) 20 mg IVP DAILY [facility] Heparin Sodium (Porcine) (Heparin 5,000 Unit/Ml Vial) 5,000 unit SUBQ BID [facility] Last Admin: 03/31/23 21:06 Dose: 5,000 unit Ceftriaxone Sodium 2 gm/ (Sodium Chloride) 100 mls @ 200 mls/hr IV Q24H [facility] Stop: 04/04/23 21:29 Lactobacillus Rhamnosus (Lactobacillus Rhamnosus Gg Capsule) 1 cap PO DAILY [facility] Levothyroxine Sodium (Levothyroxine 125 Mcg Tablet) 150 mcg PO QDAC [facility] Last Admin: 04/01/23 06:22 Dose: 150 mcg Ondansetron HCl (Ondansetron 4 Mg/2 Ml Vial) 4 mg IVP Q6HR PRN PRN Reason: Nausea / Vomiting Polyethylene Glycol (Polyethylene Glycol 3350 17 Gm Packet) 17 gm PO DAILY PRN PRN Reason: Constipation Sodium Chloride (Sodium Chloride Flush 0.9% 10 Ml Syringe) 10 ml IVP PRN PRN PRN Reason: NEEDED PER PROVIDER ORDERS Sodium Chloride (Sodium Chloride Flush 0.9% 10 Ml Syringe) 10 ml IVP 0100,0900,1700 [facility] Last Admin: 04/01/23 01:37 Dose: 10 ml Cholecalciferol (Vitamin D3) [D3-2000] 2,000 unit PO DAILY 12/01/13 Multivitamin [Multi-Vitamin Daily] 1 tab PO DAILY 12/01/13 [place]-3/Dha/Epa/Fish Oil [Fish Oil [place]-3 Softgel] 1 each PO BID 12/01/13 Ubidecarenone [Co Q-10] 200 mg PO DAILY 12/08/15 Acetaminophen [Tylenol] 650 mg PO Q8H PRN 10/21/16 Aspirin [Adult Low Dose Aspirin EC] 81 mg PO DAILY 10/21/16 Ferrous Sulfate 325 mg PO BID 10/21/16 Potassium Chloride [K-Dur] 20 meq PO BIDWM 10/21/16 Vitamin B Complex 1 tab PO DAILY 10/21/16 Atorvastatin [Lipitor] 20 mg PO QPM 04/01/20 DULoxetine [Cymbalta] 60 mg PO DAILY 04/01/20 Furosemide [Lasix] 20 mg PO BIDDIURETIC 04/01/20 Gabapentin [Neurontin] 900 mg PO BID 04/01/20 Levothyroxine Sodium [Synthroid] 150 mcg PO QDAC 04/01/20 Lisinopril [Zestril] 20 mg PO DAILY 04/01/20 Omeprazole 20 mg PO BID 06/17/20 Exam: Temperature 37.2, heart rate 80, blood pressure 129/53, respirations 18, 97% saturated on 2 L. 5 feet 5 inches tall, 126 [address] to [address] and time, but forgetful. Forgets why she is here sometimes. Severely obese female. Unable to assess for JVD of her neck but it is supple Diminished breath sounds at the bases with no increased respiratory effort, clear lungs. Regular rate and rhythm Abdomen is obese, soft, nontender, hypoactive bowel sounds and unable to be assessed for organomegaly. Incontinent of urine and is using a pure wick. Last bowel movement March 28. Nursing reports that her sacrum is starting to get pink. Extremities are warm, edema present. Severe. Laboratory Tests 03/31/23 04/01/23 04/01/23 12:06 05:14 05:14 WBC 6.2 Hgb 12.2 MCV 107.9 H Plt Count 161 Troponin I High Sens 34.0 H* B-Natriuretic Peptide 222 H Vitamin B12 135 L Folate 6.8 Procalcitonin Immunoas 1.50 H TSH 0.40 Free T4 Direct 1.31 04/01/23 08:45 WBC Hgb MCV Plt Count Troponin I High Sens 26.3 H* B-Natriuretic Peptide Vitamin B12 Folate Procalcitonin Immunoas TSH Free T4 Direct Microbiology 03/31/23 19:25 Blood - Left Arm Blood Culture - PreliminaryGram-negative ruel 03/31/23 19:20 Blood - Right Arm Blood Culture - PreliminaryGram-negative ro d 03/31/23 15:33 Urine,Random Urine Culture - Preliminary Escherichia Coli Conclusion/Plan - Problem List (1) Metabolic encephalopathy Conclusion/Plan: 2/2 UTI. Appears to be resolving. However some element of dementia is still present. She had a previous UTI and that urine culture grew out pansensitive E. coli. With today's blood culture result and urine culture result I suspect E. coli as well. She is on Rocephin day #2. That will continue until sensitivities available. (2) UTI (urinary tract infection) Conclusion/Plan: empiric abx ceftriaxone. followup cultures. most recent urine culture is dominguez sensitive E coli. Today's day #2 ceftriaxone. Plan for 7 days total of antibiotics. Will adjust on the basis of identification and sensitivities final report. Qualifiers: Urinary tract infection type: site unspecified Hematuria presence: without hematuria Qualified Code(s): N39.0 - Urinary tract infection, site not specified (3) Chronic respiratory failure with hypoxia, on home O2 therapy Conclusion/Plan: on 2 L NC. reportedly associated with COPD? stable resp status. She is noncompliant with the use of oxygen. Her has found her several times without her oxygen, hypoxic, confused. Once he puts the oxygen back on she improves. Currently stable and that she has nursing nearby and she is not without her oxygen. (4) Chronic back pain Conclusion/Plan: managed. continue acetaminophen. duloxteine. hold off on [place] and Gabapentin until mentation baseline. (5) Hyperlipidemia Conclusion/Plan: managed. continue atorvastatin (6) Hypothyroidism Conclusion/Plan: managed. continue levothyroxine. TSH is 0.4, free T41.31. No change in medication needed. (7) Elevated troponin Repeat troponin shows flat or stable levels. Not felt to be acute in nature. (8) Generalized weakness/dementia without behavioral disturbance patient is morbidly obese, sedentary, spends most of her time in bed or chair. says it is getting harder and harder to get her motivated to do the right thing with regards to bathing, ambulating. He still able to take care of her as long as she is able to stand pivot and transfer. But, he is worried about what is going to happen when he gets orthopedic surgery. I did recommend that he speak to social work. [place] while [place] rec[place]
[2023-04-01] MEDS: ASPIRIN 325 MG TABLET PO SCH (08:26)
[2023-04-01] MEDS: LACTOBACILLUS RHAMNOSUS GG CAPSULE PO SCH (08:26)
[2023-04-01] MEDS: FERROUS SULFATE 325 MG TABLET PO SCH (08:26)
[2023-04-01] MEDS: DULoxetine 30 MG CAPSULE PO SCH (08:26)
[2023-04-01] MEDS: HEPARIN 5,000 UNIT/ML VIAL SUBQ SCH ×2 (08:28→21:23)
[2023-04-01] MEDS: FUROSEMIDE 20 MG/2 ML VIAL IVP SCH (08:28)
[2023-04-01] MEDS: IPRATROPIUM/ALBUTEROL 3 ML NEB INH PRN (09:29)
[2023-04-01] MEDS ORDERED: diltiaZEM INJ 5 MG/ML VIAL IVP ONE (11:00)
[2023-04-01] MEDS ORDERED: diltiaZEM INJ 5 MG/ML VIAL ONE ×2 (11:12→11:13)
--- NOTE | 2023-04-01 11:32 | PHARMACY PROGRESS NOTE ---
- Best Possible Medication History Admit Date and Time: 03/31/231930 Processed by: Pharmacy Medication History completed: Yes Patient Interview: Completed Secondary Source(s): Spouse/Significant other, Physician records, Pharmacy records, Insurance records As the person ultimately responsible for medication therapy, providers are able to order a medication from an existing home medication list in [facility] via the "Reconcile Routine" prior to Confirmation of that medication by application support developer. Such practice is discouraged except when the physician, in their clinical judgment, deems that a medical need exists for a medication without regard to previous use.
--- NOTE | 2023-04-01 15:46 | ED Physician Documentation ---
ED Addendum - Addendum Addendum: 04/01/23 15:46 Notified about positive blood culture result from yesterday showing E. coli. I did text the hospitalist who is aware of this already and is treating.
--- NOTE | 2023-04-01 17:51 | XRAY Report ---
PROCEDURE: Chest 1 View X-Ray INDICATIONS: hypoxia, ams TECHNIQUE: One view of the chest was acquired. COMPARISON: 03/31/2023 FINDINGS: Surgical changes and devices: None. Lungs and pleura: An incomplete inspiratory result is noted, with low lung volumes and crowding of t he vascular markings. Mild generalized interstitial prominence can be seen. No focal infiltrates are seen. No large pneumothorax or large pleural effusion can be seen. There is elevation of the right he midiaphragm. Mediastinum: The aorta is prominent and tortuous. The cardiac contours are within normal limits. Bones and chest wall: No suspicious bony lesions. Spinal fixation hardware is partially seen. Age-ap propriate degenerative changes are seen. Overlying soft tissues appear unremarkable. IMPRESSION: Improved aeration compared to the prior chest radiograph Reviewed by: Sourav De Los Santos MD on 04/01/2023 4:50 PM [place] Approved by: Sourav De Los Santos MD on 04/01/2023 4:50 PM [facility] Station ID: [id number]
[2023-04-01] MEDS ORDERED: cefTRIAXone 2 GM in SODIUM CHLORIDE 0.9% MINIBAG 100 ML IV SCH (21:00)
[2023-04-01] MEDS: ATORVASTATIN 10 MG TABLET PO SCH (21:24)
[2023-04-02 05:21] LABS: BASOPHILS % (AUTO) 0.1 %; EOSINOPHILS # (AUTO) 0.1 10^3/uL (0.0-0.7); EOSINOPHILS % (AUTO) 1.3 %; HCT - HEMATOCRIT 35.4 % (37.0-47.0); HGB - HEMOGLOBIN 10.9 g/dL (12.0-16.0); LYMPHOCYTES # (AUTO) 0.8 10^3/uL (1.5-3.5); MEAN CORPUSCULAR HEMOGLOBIN 32.6 pg (27.0-31.0); MEAN CORPUSCULAR HGB CONC 30.8 g/dL (32.0-36.0); MEAN PLATELET VOLUME 10.5 fL (7.9-10.8); MONOCYTES # (AUTO) 0.3 10^3/uL (0.0-1.0); MONOCYTES % (AUTO) 3.8 %; NEUTROPHILS # (AUTO) 7.2 10^3/uL (1.5-6.6); NEUTROPHILS % (AUTO) 85.4 %; PLT - PLATELET COUNT 158 10^3/uL (130-450); RED BLOOD COUNT 3.34 10^6/uL (4.20-5.40); RED CELL DISTRIBUTION WIDTH 14.6 % (12.0-15.0); WHITE BLOOD COUNT 8.5 x10^3/uL (4.8-10.8)
[2023-04-02 05:29] LABS: CALCIUM 9.3 mg/dL (8.5-10.3); CREATININE 1.3 mg/dL (0.6-1.3); POTASSIUM 3.6 mmol/L (3.5-4.5)
[2023-04-02] MEDS: LEVOTHYROXINE 125 MCG TABLET PO SCH (06:56)
[2023-04-02] MEDS: FUROSEMIDE 20 MG/2 ML VIAL IVP SCH (08:45)
[2023-04-02] MEDS: HEPARIN 5,000 UNIT/ML VIAL SUBQ SCH ×2 (08:45→21:30)
[2023-04-02] MEDS: SULFAMETH/TRIMETH DS 800/160 MG TABLET PO SCH ×2 (08:46→21:29)
[2023-04-02] MEDS: FERROUS SULFATE 325 MG TABLET PO SCH (08:46)
[2023-04-02] MEDS: ASPIRIN 325 MG TABLET PO SCH (08:46)
[2023-04-02] MEDS: LACTOBACILLUS RHAMNOSUS GG CAPSULE PO SCH (08:46)
[2023-04-02] MEDS: SODIUM CHLORIDE FLUSH 0.9% 10 ML SYRINGE IVP SCH ×2 (08:47→21:32)
[2023-04-02] MEDS: DULoxetine 30 MG CAPSULE PO SCH (08:48)
--- NOTE | 2023-04-02 13:35 | PROVIDER PROGRESS NOTE ---
Progress Note April 02, 2023 1:30 PM Patient is sitting up in bed. Just finishing her breakfast when I saw her this morning. Does not have much of an appetite. Oriented to self and able to tell me that she does not have any pain anywhere. But does not know why she is here or what is going on. Active Medications Acetaminophen (Acetaminophen 325 Mg Tablet) 650 mg PO Q4HR PRN PRN Reason: Pain 1 to 4, or Fever Albuterol/Ipratropium (Ipratropium/Albuterol 3 Ml Neb) 3 ml INH RTQ4H PRN PRN Reason: Wheezing Last Admin: 04/01/23 09:29 Dose: 3 ml Aspirin (Aspirin 325 Mg Tablet) 81 mg PO DAILY [facility] Last Admin: 04/02/23 08:46 Dose: 81 mg Atorvastatin Calcium (Atorvastatin 10 Mg Tablet) 20 mg PO HS [facility] Last Admin: 04/01/23 21:24 Dose: 20 mg Duloxetine HCl (Duloxetine 30 Mg Capsule) 30 mg PO DAILY [facility] Last Admin: 04/02/23 08:48 Dose: 30 mg Ferrous Sulfate (Ferrous Sulfate 325 Mg Tablet) 325 mg PO DAILYWM [facility] Last Admin: 04/02/23 08:46 Dose: 325 mg Furosemide (Furosemide 20 Mg/2 Ml Vial) 20 mg IVP DAILY [facility] Last Admin: 04/02/23 08:45 Dose: 20 mg Heparin Sodium (Porcine) (Heparin 5,000 Unit/Ml Vial) 5,000 unit SUBQ BID [facility] Last Admin: 04/02/23 08:45 Dose: 5,000 unit Lactobacillus Rhamnosus (Lactobacillus Rhamnosus Gg Capsule) 1 cap PO DAILY [facility] Last Admin: 04/02/23 08:46 Dose: 1 cap Levothyroxine Sodium (Levothyroxine 75 Mcg Tablet) 150 mcg PO QDAC [facility] Ondansetron HCl (Ondansetron 4 Mg/2 Ml Vial) 4 mg IVP Q6HR PRN PRN Reason: Nausea / Vomiting Polyethylene Glycol (Polyethylene Glycol 3350 17 Gm Packet) 17 gm PO DAILY PRN PRN Reason: Constipation Sodium Chloride (Sodium Chloride Flush 0.9% 10 Ml Syringe) 10 ml IVP PRN PRN PRN Reason: NEEDED PER PROVIDER ORDERS Sodium Chloride (Sodium Chloride Flush 0.9% 10 Ml Syringe) 10 ml IVP 0100,0900,1700 [facility] Last Admin: 04/02/23 08:47 Dose: 10 ml Trimethoprim/Sulfamethoxazole (Sulfameth/Trimeth Ds 800/160 Mg Tablet) 1 tab PO BID [facility] Last Admin: 04/02/23 08:46 Dose: 1 tab Cholecalciferol (Vitamin D3) [D3-2000] 4,000 unit PO DAILY 12/01/13 Acetaminophen [Tylenol] 650 mg PO Q8H PRN 10/21/16 Atorvastatin [Lipitor] 20 mg PO QPM 04/01/20 DULoxetine [Cymbalta] 60 mg PO DAILY 04/01/20 Furosemide [Lasix] 40 mg PO DAILY 04/01/20 Gabapentin [Neurontin] 1,800 mg PO BID 04/01/20 Lisinopril [Zestril] 20 mg PO DAILY 04/01/20 Omeprazole 20 mg PO DAILY 06/17/20 Levothyroxine Sodium [Synthroid] 137 mcg PO DAILY 04/01/23 Exam: Temperature is 36.3, heart rate 79, blood pressure 134/52, respirations 18 , 96% on 3 L nasal cannula. Comfortable morbidly obese elderly female in no acute distress Neck is supple and unable to be assessed for JVD Lungs have diminished breath sounds at the bases without any crackles rhonchi or wheezing. Shallow, unlabored respiration. Regular rate and rhythm Abdomen has a large obese pannus, nontender, hypoactive bowel sounds. Last bowel movement was yesterday. She has a pure wick catheter draining yellow urine. Extremities have faint pinkness to the anterior tib-fib area, edematous skin that is stretched tight and is thick. 3+ edema. Neurologic: No focal deficits, oriented to self. No focal deficits. In trying to get her up, she is exceedingly dyspneic just sitting up in bed but again, no focal deficits. Microbiology 03/31/23 19:20 Blood - Right Arm Blood Culture (PCR) - Final 03/31/23 15:33 Urine,Random Urine Culture - Final Escherichia Coli Proteus Mirabilis 03/31/23 19:25 Blood - Left Arm Blood Culture - Preliminary Escherichia Coli 03/31/23 19:20 Blood - Right Arm Blood Culture - Preliminary Escherichia Coli Laboratory Tests 04/02/23 04/02/23 05:09 05:09 WBC 8.5 Hgb 10.9 L Hct 35.4 L Plt Count 158 Sodium 137 Potassium 3.6 Chloride 96 L Carbon Dioxide 34 H BUN 42 H Creatinine 1.3 Estimated GFR (MDRD) 39 L Glucose 96 Calcium 9.3 Conclusion/Plan - Problem List (1) Metabolic encephalopathy, Possibly resolved Conclusion/Plan: 2/2 UTI. I do not know this patient at baseline. She appears to be fretful, forgetful elderly female in this may be her baseline. She had a previous UTI and that urine culture grew out pansensitive E. coli. Blood cultures and urine cultures are growing E. coli. However urine has E. coli and Proteus. See plan for problem #2 (2) UTI (urinary tract infection) Conclusion/Plan: She is on empiric ceftriaxone, day #3. Blood cultures positive for E. coli, urine cultures positive for Proteus. Patient is afebrile, normal white cell count. Literature supports being able to change her to p.o. from IV. Will start p.o. Bactrim and plan for a total of 7 days antibiotics. She will need 4 days of Bactrim until April 05.There is interaction between Bactrim and MOIZ inhibitors such as her usual home blood pressure medicine. I have not resumed her blood pressure medicine as of yet. Qualifiers: Urinary tract infection type: site unspecified Hematuria presence: without hematuria Qualified Code(s): N39.0 - Urinary tract infection, site not specified (3) Chronic respiratory failure with hypoxia, on home O2 therapy Conclusion/Plan: on 2 L NC. reportedly associated with COPD? stable resp status. She is noncompliant with the use of oxygen. Her has found her several times without her oxygen, hypoxic, confused. Once he puts the oxygen back on she improves. Currently stable in that she has nursing nearby and she is not without her oxygen.She is up to 3 L use today. Alert to encourage the nurses to make sure that she does not need to be saturating above 92%. (4) Chronic back pain Conclusion/Plan: managed. continue acetaminophen. duloxteine. hold off on [place] and Gabapentin until mentation baseline. I am still not sure if she is at baseline. Will see if I can discuss with . At this time she says she is not in any severe pain. (5) Hyperlipidemia Conclusion/Plan: managed. continue atorvastatin (6) Hypothyroidism Conclusion/Plan: managed. continue levothyroxine. TSH is 0.4, free T41.31. No change in medication needed. (7) Elevated troponin Repeat troponin shows flat or stable levels. Not felt to be acute in nature. (8) Generalized weakness/dementia without behavioral disturbance patient is morbidly obese, sedentary, spends most of her time in bed or chair. says it is getting harder and harder to get her motivated to do the right thing with regards to bathing, ambulating. He still able to take care of her as long as she is able to stand pivot and transfer. But, he is worried about what is going to happen when he gets orthopedic surgery. I did recommend that he speak to social work. [place] while he rec[place]. physical therapist and I discussed this case, she will also discuss what type of respite opportunities are available to he and his
[2023-04-02] MEDS: ATORVASTATIN 10 MG TABLET PO SCH (21:29)
[2023-04-03] MEDS: SODIUM CHLORIDE FLUSH 0.9% 10 ML SYRINGE IVP SCH ×3 (03:31→21:13)
[2023-04-03] MEDS: LEVOTHYROXINE 75 MCG TABLET PO SCH (06:31)
[2023-04-03] MEDS ORDERED: LEVOTHYROXINE 125 MCG TABLET PO SCH (07:00)
[2023-04-03] MEDS: FERROUS SULFATE 325 MG TABLET PO SCH (08:30)
[2023-04-03] MEDS: LACTOBACILLUS RHAMNOSUS GG CAPSULE PO SCH (08:32)
[2023-04-03] MEDS: DULoxetine 30 MG CAPSULE PO SCH (08:32)
[2023-04-03] MEDS: SULFAMETH/TRIMETH DS 800/160 MG TABLET PO SCH ×2 (08:32→21:20)
[2023-04-03] MEDS: FUROSEMIDE 20 MG/2 ML VIAL IVP SCH (08:32)
[2023-04-03] MEDS: HEPARIN 5,000 UNIT/ML VIAL SUBQ SCH ×2 (08:41→21:13)
[2023-04-03] MEDS: ASPIRIN CHEW 81 MG TABLET PO SCH (08:41)
--- NOTE | 2023-04-03 09:00 | PROVIDER PROGRESS NOTE ---
Progress Note April 03, 2023 9 AM This morbidly obese female usually walks with a four-wheel walker. She already has limited mobility as she lives in a single level house. She basically spends a lot of her time in a chair. Her does not need to physically help her move but he does standby. He does all the shopping in the driving and home management. With this illness she has become much weaker. She is alert and oriented only to self. Requires a lot of cues for reminding her of where she is and why she is here. Gets very anxious when you ask her to do something and prefers her to be in the room. She is a minimum assist with 2 people to transfer from sitting to standing, and walking with a walker. She demonstrates poor bila teral lower extremity strength and significant bilateral lower extremity edema. Continues to require cues to put her feet the right way and use the walker correctly. PT is recommending discharge to SNF. However they are planning to work with her while she is here and see how she progresses. Organ to see if she is safe to discharge to home with home health. would prefer that she come home. Exam: Temperature 36.3, heart rate 78, blood pressure 145/60. Respirations 18. She is 96% saturated on her home CPAP. These vital signs were done at midnight. Morbidly obese elderly female. Morning vital signs not entered into the chart yet. Her , daughter, and physical therapy all watched her progress with PT's evaluation and treatment. She was able to get up out of her bed and walk with a walker with a two-person assist, and walked to the chairs/stairs in the hallway. She then practice coming up the stairs and she can use her left leg to come up and walk. She uses an antalgic circumducted gait with the left leg. However when she has to use her right leg, she cannot flex at the hip enough to lift the foot up enough to sit on a step. She notes her daughter and are. She knows she is in the hospital. Not clear on the date. Able to follow commands. Neck is supple. Too thick for me to evaluate for JVD Regular rate and rhythm. Lungs are very clear with this exertion of getting up and walking around. No crackles rhonchi or wheezing Abdomen is obese, soft, nontender. The intertriginous folds and pannus folds are improving with nystatin Extremities still large, thick legs with edema but improved Neurologically alert to person, place not necessarily situation. Interactive with and daughter and is to the ER and has normal conversation with him. No focal deficits. Urine culture from March 31 has E. coli, Proteus Both sets of blood culture has E. coli from that date. Conclusion/Plan - Problem List (1) Metabolic encephalopathy, resolved. and daughter states that she is at baseline for which she usually is at home. Just a bit more frustrated than usual because she is here. Conclusion/Plan: 2/2 UTI. She had a previous UTI and that urine culture grew out pansensitive E. coli. Blood cultures and urine cultures are growing E. coli. However urine has E. coli and Proteus. See plan for problem #2 (2) UTI (urinary tract infection) Conclusion/Plan: She is on empiric ceftriaxone, day #3. Blood cultures positive for E. coli, urine cultures positive for Proteus. Patient was afebrile, normal white cell count 04/02 and literature supports being able to change her to p.o. from IV. I started p.o. Bactrim and plan for a total of 7 days antibiotics. She will need Bactrim until April 05.There is interaction between Bactrim and MOIZ inhibitors such as her usual home blood pressure medicine. I have not resumed her blood pressure medicine as of yet.Follow-up blood pressure documented this morning after talking to nurse was 132/77. Qualifiers: Urinary tract infection type: site unspecified Hematuria presence: without hematuria Qualified Code(s): N39.0 - Urinary tract infection, site not specified (3) Chronic respiratory failure with hypoxia, on home O2 therapy Conclusion/Plan: Home oxygen is usually 2 L nasal cannula. Yesterday and today, she alternates between 2 or 3 L to maintain O2 sats. reportedly associated with COPD? stable resp status. She is noncompliant with the use of oxygen. Her has found her several times without her oxygen, hypoxic, confused. Once he puts the oxygen back on she improves. Currently stable in that she has nursing nearby and she is not without her oxygen. Plan continue nasal cannula oxygen to maintain O2 sats at 92% or greater. (4) Chronic back pain Conclusion/Plan: and daughter both feel she is at baseline mentation so I will resume Gabapentin> Cymbalta was already resumed April 01. I will continue tylenol prn as well. Avoid opiates. (5) Hyperlipidemia Conclusion/Plan: managed. continue atorvastatin (6) Hypothyroidism Conclusion/Plan: managed. continue levothyroxine. TSH is 0.4, free T41.31. No change in medication needed. (7) Elevated troponin Repeat troponin shows flat or stable levels. Not felt to be acute in nature. (8) Generalized weakness/dementia without behavioral disturbance patient is morbidly obese, sedentary, spends most of her time in bed or chair. says it is getting harder and harder to get her motivated to do the right thing with regards to bathing, ambulating. He still able to take care of her as long as she is able to stand pivot and transfer. But, he is worried about what is going to happen when he gets orthopedic surgery. I did recommend that he speak to social work. There is a [facility] on the [place] where we could recommend respite care while he recovers. We rediscussed this again today with daughter present at this time. They asked if this could be done in advance and I strongly encouraged him to contact the director of [facility] next week. Have the dates ready about when mom would have to go to fdc and then come out again. We also discussed this patient's dementia. Spent about 25 minutes discussing the natural progression of dementia. How the patient gradually loses her memory of self, eating, drinking, bathing. Risk of UTI and pneumonia and how those are the leading cause of in dementia patients. And I began encouraged him to think about advance care planning conversation defining what is a good quality of life for her. And if she no longer has those set criteria for a good quality of life, what her options were with regards to transitioning to palliative care or hospice. Physical therapy is going to continue to work this patient today. This morning she did well with ambulation but failed that using the stairs. Physical therapy will work with her again and this afternoon the family and I can decide if this patient is going to go to alf facility for rehab or go home with home health.
[2023-04-03 12:39] LABS: BASOPHILS % (AUTO) 0.4 %; EOSINOPHILS # (AUTO) 0.2 10^3/uL (0.0-0.7); EOSINOPHILS % (AUTO) 3.6 %; HCT - HEMATOCRIT 35.1 % (37.0-47.0); HGB - HEMOGLOBIN 10.7 g/dL (12.0-16.0); LYMPHOCYTES # (AUTO) 0.5 10^3/uL (1.5-3.5); LYMPHOCYTES % (AUTO) 10.1 %; MEAN CORPUSCULAR HEMOGLOBIN 32.3 pg (27.0-31.0); MEAN CORPUSCULAR HGB CONC 30.5 g/dL (32.0-36.0); MEAN PLATELET VOLUME 10.1 fL (7.9-10.8); MONOCYTES # (AUTO) 0.5 10^3/uL (0.0-1.0); MONOCYTES % (AUTO) 8.6 %; NEUTROPHILS # (AUTO) 4.1 10^3/uL (1.5-6.6); NEUTROPHILS % (AUTO) 76.6 %; PLT - PLATELET COUNT 163 10^3/uL (130-450); RED BLOOD COUNT 3.31 10^6/uL (4.20-5.40); RED CELL DISTRIBUTION WIDTH 14.3 % (12.0-15.0); WHITE BLOOD COUNT 5.4 x10^3/uL (4.8-10.8)
[2023-04-03 12:51] LABS: CALCIUM 9.2 mg/dL (8.5-10.3); CREATININE 1.2 mg/dL (0.6-1.3); POTASSIUM 3.6 mmol/L (3.5-4.5)
[2023-04-03] MEDS: ATORVASTATIN 10 MG TABLET PO SCH (21:20)
[2023-04-04] MEDS: SODIUM CHLORIDE FLUSH 0.9% 10 ML SYRINGE IVP SCH ×3 (01:14→16:47)
[2023-04-04] MEDS: LEVOTHYROXINE 75 MCG TABLET PO SCH (05:34)
[2023-04-04] MEDS: SULFAMETH/TRIMETH DS 800/160 MG TABLET PO SCH ×2 (08:40→20:39)
[2023-04-04] MEDS: LACTOBACILLUS RHAMNOSUS GG CAPSULE PO SCH (08:40)
[2023-04-04] MEDS: FERROUS SULFATE 325 MG TABLET PO SCH (08:40)
[2023-04-04] MEDS: DULoxetine 30 MG CAPSULE PO SCH (08:40)
[2023-04-04] MEDS: FUROSEMIDE 20 MG/2 ML VIAL IVP SCH (08:40)
[2023-04-04] MEDS: ASPIRIN CHEW 81 MG TABLET PO SCH (08:40)
[2023-04-04] MEDS: HEPARIN 5,000 UNIT/ML VIAL SUBQ SCH ×2 (08:42→20:40)
[2023-04-04 09:10] LABS: BASOPHILS % (AUTO) 0.8 %; EOSINOPHILS # (AUTO) 0.2 10^3/uL (0.0-0.7); EOSINOPHILS % (AUTO) 3.9 %; HCT - HEMATOCRIT 34.1 % (37.0-47.0); HGB - HEMOGLOBIN 10.4 g/dL (12.0-16.0); LYMPHOCYTES # (AUTO) 0.7 10^3/uL (1.5-3.5); LYMPHOCYTES % (AUTO) 14.4 %; MEAN CORPUSCULAR HEMOGLOBIN 32.2 pg (27.0-31.0); MEAN CORPUSCULAR HGB CONC 30.5 g/dL (32.0-36.0); MEAN CORPUSCULAR VOLUME 105.6 fL (81.0-99.0); MONOCYTES # (AUTO) 0.6 10^3/uL (0.0-1.0); MONOCYTES % (AUTO) 11.5 %; NEUTROPHILS # (AUTO) 3.3 10^3/uL (1.5-6.6); NEUTROPHILS % (AUTO) 68.2 %; PLT - PLATELET COUNT 186 10^3/uL (130-450); RED BLOOD COUNT 3.23 10^6/uL (4.20-5.40); RED CELL DISTRIBUTION WIDTH 14.1 % (12.0-15.0); WHITE BLOOD COUNT 4.9 x10^3/uL (4.8-10.8)
[2023-04-04 09:22] LABS: CALCIUM 9.2 mg/dL (8.5-10.3); CREATININE 1.1 mg/dL (0.6-1.3); POTASSIUM 3.7 mmol/L (3.5-4.5)
--- NOTE | 2023-04-04 10:44 | PROVIDER PROGRESS NOTE ---
Progress Note April 04, 2023 10:45 AM She is tired. Overall generalized aches. Miserable with nausea. She just wants to go home and she is unhappy with her about having to go to a half-way. After discussion with social work yesterday, and daughter feel that it would be best for patient to go to halfway facility for temporary rehab. She really needs to get stronger and more mobile to be able to be a be taking care of by her at home. Exam: Temperature is 36.3, heart rate 66, blood pressure 146/72, respirations 20, 93% saturated on 3 L. Morbidly obese white female who is 5 feet 5 inches tall, 127 kg. She denies respiratory distress but appears a little bit more short of breath to me. The exertion of speaking and trying to reposition herself in bed leaves her slightly tachypneic. Neck is supple, lungs with diminished breath sounds, but no crackles rhonchi or wheezing. Regular rate and rhythm Abdomen is obese, soft, nontender with hypoactive bowel sounds, not distended. She is incontinent of urine and has a pure wick catheter. Last bowel movement was the 24th. Extremities continue to have pitting edema. Neurologically she is oriented to person and place. Intermittently oriented to time. Easily confused. Can get argumentative when she gets confused and upset. Right now she is tired, and nauseated. No focal deficits. Lab: Laboratory Tests 04/04/23 04/04/23 09:00 09:00 WBC 4.9 Hgb 10.4 L Hct 34.1 L MCV 105.6 H Plt Count 186 Sodium 135 Potassium 3.7 Chloride 95 L Carbon Dioxide 35 H Anion Gap 5.0 L BUN 28 H Creatinine 1.1 Estimated GFR (MDRD) 48 L Glucose 128 H Calcium 9.2 Conclusion/Plan This 82-year-old morbidly obese female lives with her at home. Limited mobility and is relatively sedentary. But she is able to go from a sit to stand and pivot. Usually uses a walker. She was admitted for metabolic encephalopathy due to UTI. She is now at baseline mental status. Deconditioned and weakened and working with physical therapy because of chronic back pain and the illness. She is now stable for discharge. Family has decided that it is best for her to go to half-way to get further strengthening - Problem List (1) UTI (urinary tract infection) Conclusion/Plan: She completed 3 days of IV Ceftriazone (03/31-04/02). Blood cultures positive for E. coli, urine cultures positive for Proteus. Patient was afebrile, normal white cell count 04/02 and literature supports being able to change her to p.o. from IV. I started p.o. Bactrim and plan for a total of 7 days antibiotics. She will need Bactrim until April 06. There is interaction between Bactrim and MOIZ inhibitors such as her usual home blood pressure medicine. I have not resumed her blood pressure medicine as of yet. Qualifiers: Urinary tract infection type: site unspecified Hematuria presence: without hematuria Qualified Code(s): N39.0 - Urinary tract infection, site not specified (2) Chronic respiratory failure with hypoxia, on home O2 therapy Conclusion/Plan: Home oxygen is usually 2 L nasal cannula. She alternates between 2 or 3 L to maintain O2 sats. reportedly associated with COPD? stable resp status. She is noncompliant with the use of oxygen. Her has found her several times without her oxygen, hypoxic, confused. Once he puts the oxygen back on she improves. Currently stable in that she has nursing nearby and she is not without her oxygen. Plan continue nasal cannula oxygen to maintain O2 sats at 92% or greater. (3) Chronic back pain Conclusion/Plan: and daughter both feel she is at baseline mentation so I resumed Gabapentin, But I will resume it at a lower dose. She is on 1800 mg p.o. twice daily. I worry about sedation after days of not being on it and will only resume it 300 mg p.o. twice daily. I thought I had ordered Cymbalta on the . I have not. I will reorder that today I will continue tylenol prn as well. Avoid opiates. (4) Hyperlipidemia Conclusion/Plan: managed. continue atorvastatin (5) Hypothyroidism Conclusion/Plan: managed. continue levothyroxine. TSH is 0.4, free T41.31. No change in medication needed. (6) Elevated troponin Repeat troponin shows flat or stable levels. Not felt to be acute in nature. (7) Generalized weakness/dementia without behavioral disturbance patient is morbidly obese, sedentary, spends most of her time in bed or chair. says it is getting harder and harder to get her motivated to do the right thing with regards to bathing, ambulating. He still able to take care of her as long as she is able to stand pivot and transfer. But, he is worried about what is going to happen when he gets orthopedic surgery. I did recommend that he speak to social work. There is a half-way on the [place] where we could recommend respite care while he recovers. We rediscussed this again 04/03, with daughter present at this time. They asked if this could be done in advance and I strongly encouraged him to contact the director of [facility] next week. Have the dates ready about when mom would have to go to half-way and then come out again. We also discussed this patient's dementia. Spent about 25 minutes discussing the natural progression of dementia. How the patient gradually loses her memory of self, eating, drinking, bathing. Risk of UTI and pneumonia and how those are the leading cause of in dementia patients. And I began encouraged him to think about advance care planning conversation defining what is a good quality of life for her. And if she no longer has those set criteria for a good quality of life, what her options were with regards to transitioning to palliative care or hospice. Physical therapy was able to work with her yesterday. Family was present. We demonstrated how the patient walks in the hallway with a walker. She needed a two-person max assist to get out of bed to then stand. That she needed a standby assist with a lap belt. Then we tried stairs and she could get up using her 1 leg but could not use her other leg. She could not lift it enough. She was completely worn out by that and had to sit down between efforts on the stairs. As such family feels that she should go to a halfway facility for temporary rehab to regain mobility, strength, and function that she had at home.
[2023-04-04] MEDS: CHOLECALCIFEROL 5,000 UNIT CAPSULE PO SCH (11:36)
[2023-04-04] MEDS: GABAPENTIN 300 MG CAPSULE PO SCH ×2 (11:36→20:38)
[2023-04-04] MEDS ORDERED: DULoxetine 30 MG CAPSULE PO SCH (12:00)
[2023-04-04] MEDS ORDERED: LEVOTHYROXINE 112 MCG TABLET PO SCH (12:00)
[2023-04-04] MEDS ORDERED: DULoxetine 30 MG CAPSULE PO ONE (12:00)
[2023-04-04] MEDS: IPRATROPIUM/ALBUTEROL 3 ML NEB INH PRN (19:20)
[2023-04-04] MEDS: ATORVASTATIN 10 MG TABLET PO SCH (20:39)
[2023-04-04] MEDS ORDERED: NON FORMULARY MED (Atorvastatin [Lipitor] 20 MG Tablet) PO SCH (21:00)
[2023-04-05 05:44] LABS: BASOPHILS % (AUTO) 0.8 %; EOSINOPHILS # (AUTO) 0.3 10^3/uL (0.0-0.7); EOSINOPHILS % (AUTO) 5.1 %; HCT - HEMATOCRIT 33.1 % (37.0-47.0); HGB - HEMOGLOBIN 9.9 g/dL (12.0-16.0); LYMPHOCYTES # (AUTO) 1.1 10^3/uL (1.5-3.5); LYMPHOCYTES % (AUTO) 21.8 %; MEAN CORPUSCULAR HEMOGLOBIN 31.7 pg (27.0-31.0); MEAN CORPUSCULAR HGB CONC 29.9 g/dL (32.0-36.0); MEAN CORPUSCULAR VOLUME 106.1 fL (81.0-99.0); MEAN PLATELET VOLUME 10.1 fL (7.9-10.8); MONOCYTES # (AUTO) 0.6 10^3/uL (0.0-1.0); MONOCYTES % (AUTO) 11.7 %; NEUTROPHILS # (AUTO) 2.9 10^3/uL (1.5-6.6); NEUTROPHILS % (AUTO) 58.7 %; PLT - PLATELET COUNT 182 10^3/uL (130-450); RED BLOOD COUNT 3.12 10^6/uL (4.20-5.40); RED CELL DISTRIBUTION WIDTH 14.1 % (12.0-15.0); WHITE BLOOD COUNT 4.9 x10^3/uL (4.8-10.8)
[2023-04-05] MEDS: SODIUM CHLORIDE FLUSH 0.9% 10 ML SYRINGE IVP SCH ×2 (06:45→08:09)
[2023-04-05] MEDS ORDERED: LEVOTHYROXINE 112 MCG TABLET PO SCH (07:00)
[2023-04-05] MEDS ORDERED: LEVOTHYROXINE 25 MCG TABLET PO SCH (07:00)
[2023-04-05 07:41] LABS: CALCIUM 9.1 mg/dL (8.5-10.3)
[2023-04-05 07:52] LABS: CREATININE 1.1 mg/dL (0.4-1.0); POTASSIUM 3.9 mmol/L (3.5-5.0)
[2023-04-05] MEDS: FERROUS SULFATE 325 MG TABLET PO SCH (08:08)
[2023-04-05] MEDS: ASPIRIN CHEW 81 MG TABLET PO SCH (08:08)
[2023-04-05] MEDS: CHOLECALCIFEROL 5,000 UNIT CAPSULE PO SCH (08:08)
[2023-04-05] MEDS: LACTOBACILLUS RHAMNOSUS GG CAPSULE PO SCH (08:08)
[2023-04-05] MEDS: SULFAMETH/TRIMETH DS 800/160 MG TABLET PO SCH (08:08)
[2023-04-05] MEDS: GABAPENTIN 300 MG CAPSULE PO SCH (08:08)
[2023-04-05] MEDS: FUROSEMIDE 20 MG/2 ML VIAL IVP SCH (08:08)
[2023-04-05] MEDS: HEPARIN 5,000 UNIT/ML VIAL SUBQ SCH (08:11)
[2023-04-05] MEDS ORDERED: IPRATROPIUM/ALBUTEROL 3 ML NEB INH STA (08:34)
[2023-04-05] MEDS ORDERED: methylPREDNISolone SUCCINATE 40 MG/ML VIAL IVP STA (08:34)
[2023-04-05] MEDS ORDERED: DULoxetine 30 MG CAPSULE PO SCH (09:00)
[2023-04-05] MEDS ORDERED: DOCUSATE SODIUM 250 MG CAPSULE PO SCH (09:00)
[2023-04-05] MEDS ORDERED: SENNA 8.6 MG TABLET PO SCH (09:00)
--- NOTE | 2023-04-05 10:17 | DISCHARGE SUMMARY ---
Discharge Summary Admit Date: 03/31/23 Discharge Date: 04/05/23 Discharging Provider: Kelly Hawkins MD Primary Care Provider: TERESA Carlton Code Status: Attempt Resuscitation Condition at Discharge: Stable Discharge Disposition: Home Health Service - DIAGNOSES Discharge Diagnoses with Status of Each Condition: 1. Metabolic encephalopathy 2. E. coli UTI, Proteus UTI 3. Dementia without behavioral disturbance 4. Generalized weakness 5. Chronic respiratory failure with hypoxia 6. Chronic back pain 7. Hyperlipidemia 8. Hypothyroidism 9. Elevated troponin - HPI History of Present Illness: 82YOF c COPD & chronic hypoxemic respiratory failure on 1.5L [place] at home, dementia, morbid obese and chronic pain who presents to the ED with at bedside reporting acute confusion start last manager learning. Patient has underlying signs of dementia per but still able to converse coherently and aware and alert and oriented to self, person, place and time. She has associated agitation at time with her dementia per . More recently, has found patient without her nasal cannula on. has caught patient hypoxemic on home pulse. She would awake groggy and confused however this phase would resolved with time and O2 support. Patient this morning was confused and was persistent confused despite time and O2 support. Patient has difficult ambulating 2/2 morbid obesity and BLE edema however since her confusion, she is no longer able to manage self and ambulate at home. reports no change in medications. No travel. No sick contact. No trauma. Patient does get confused with UTI and last UTI was months ago treated with clindamycin per . Patient has not complain of dysuria. mentions chronic BLE edema. reports baseline edema and mostly baseline redness in BLE. 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 Blood cultures positive for E. coli, urine cultures positive for Proteus. Patient was afebrile, normal white cell count 04/02 and literature supports being able to change her to p.o. from IV. I started p.o. Bactrim and plan for a total of 7 days antibiotics. She will need Bactrim until April 06. There is interaction between Bactrim and MOIZ inhibitors such as her usual home blood pressure medicine. I have not resumed her blood pressure medicine while here but will need to do so at home. Qualifiers: Urinary tract infection type: site unspecified Hematuria presence: without hematuria Qualified Code(s): N39.0 - Urinary tract infection, site not specified (2) Chronic respiratory failure with hypoxia, on home O2 therapy Conclusion/Plan: Home oxygen is usually 2 L nasal cannula. She alternates between 2 or 3 L to maintain O2 sats. reportedly associated with COPD? stable resp status. She is noncompliant with the use of oxygen. Her has found her several times without her oxygen, hypoxic, confused. Once he puts the oxygen back on she improves. Currently stable in that she has nursing nearby and she is not without her oxygen. (3) Chronic back pain Conclusion/Plan: and daughter both feel she is at baseline mentation so I resumed Gabapentin, But I will resume it at a lower dose. She is on 1800 mg p.o. twice daily. I worried about sedation after days of not being on it and only resumed it at 300 mg p.o. twice daily. Cymbalta was reordered as well. Those will be resumed as usual home meds once she is discharged. (4) Hyperlipidemia Conclusion/Plan: we continued atorvastatin (5) Hypothyroidism Conclusion/Plan: we continued levothyroxine. TSH is 0.4, free T41.31. No change in medication needed. (6) Elevated troponin Repeat troponin shows flat or stable levels. Not felt to be acute in nature. (7) Generalized weakness/dementia without behavioral disturbance patient is morbidly obese, sedentary, spends most of her time in bed or chair. says it is getting harder and harder to get her motivated to do the right thing with regards to bathing, ambulating. He still able to take care of her as long as she is able to stand pivot and transfer. But, he is worried about what is going to happen when he gets orthopedic surgery. I did recommend that he speak to social work. [place] [facility] [place] while he [place]. We rediscussed this again 04/03, with daughter present at this time. They asked if this could be done in advance and I strongly encouraged him to contact the director of [facility] next week. Have the dates ready about when mom would have to go to [facility] and then come out again. We also discussed this patient's dementia. Spent about 25 minutes discussing the natural progression of dementia. How the patient gradually loses her memory of self, eating, drinking, bathing. Risk of UTI and pneumonia and how those are the leading cause of in dementia patients. And I began encouraged him to think about advance care planning conversation defining what is a good quality of life for her. And if she no longer has those set criteria for a good quality of life, what her options were with regards to transitioning to palliative care or hospice. Physical therapy was able to work with her when daughter and were present. We demonstrated how the patient walks in the hallway with a walker. She needed a two-person max assist to get out of bed to then stand. That she needed a standby assist with a lap belt. Then we tried stairs and she could get up using her 1 leg but could not use her other leg. She could not lift it enough. She was completely worn out by that and had to sit down between efforts on the stairs. As such family felt that she should go to a alf facility for temporary rehab to regain mobility, strength, and function that she had at home. She was accepted at [facility] and orders were writtten for discharge that morning. However, changed his mind and wanted her home. I ordered Home Health. Greater than 30 minutes was spent coordinating discharge. Family had had a discussion and decided the patient should go to alf facility on a temporary basis for rehab. After making arrangements, getting discharge orders ready, has changed his mind. He would like to take her home with home health. This document was made in part using voice recognition software. While efforts are made to proofread this document, sound alike and grammatical errors may occur. - ALLERGIES Allergies/Adverse Reactions: Allergies Allergy/AdvReac Type Severity Reaction Status Date / Time ampicillin AdvReac Rash Verified 01/21/23 22:11 - MEDICATIONS Home Medications: Ambulatory Orders Medication Instructions Recorded Confirmed Cholecalciferol (Vitamin D3) 4,000 unit PO DAILY 12/01/13 04/01/23 [D3-2000] Acetaminophen [Tylenol] 650 mg PO Q8H PRN 10/21/16 04/01/23 Omeprazole 20 mg PO DAILY 06/17/20 04/01/23 Aspirin Chewable [[place] 81 mg PO DAILY tab 04/05/23 Aspirin] Atorvastatin [Lipitor] 20 mg PO QPM #0 04/05/23 04/01/23 DULoxetine [Cymbalta] 60 mg PO DAILY #0 04/05/23 04/01/23 Ferrous Sulfate [Feosol] 325 mg PO DAILYWM tab 04/05/23 Furosemide [Lasix] 40 mg PO DAILY #0 04/05/23 04/01/23 Gabapentin [Neurontin] 1,800 mg PO BID #0 04/05/23 04/01/23 Ipratropium/Albuterol [Duoneb] 3 ml INH RTQ4H PRN ml 04/05/23 Levothyroxine Sodium [Synthroid] 137 mcg PO DAILY #0 04/05/23 04/01/23 Lisinopril [Zestril] 20 mg PO DAILY #0 04/05/23 04/01/23 Sulfamethox/Trimeth 800/160 1 tab PO BID tab 04/05/23 [Bactrim Ds] - PHYSICAL EXAM AT DISCHARGE General Appearance: positive: No acute distress, Alert, Other (moderately forgetful) Eyes Bilateral: positive: PERRL ENT: positive: No signs of dehydration Neck: positive: No JVD Respiratory: positive: No respiratory distress. negative: Wheezes, Rales, Rhonchi Cardiovascular: positive: Regular rate & rhythm Abdomen: positive: Non-tender, No distention. negative: Guarding, Rebound Skin: positive: Warm, Dry Extremities: positive: Full ROM, Pedal edema Neurologic/Psychiatric: positive: CN's nml (2-12), Disoriented to place, Disoriented to time. negative: Motor nml (weak, needs 1-2 max assist to go from STS. ) - LABS Result Diagrams: 04/05/23 05:14 04/05/23 05:22
--- NOTE | 2023-04-05 10:21 | Discharge Plan ---
"Discharge Plan for SNF / [facility] - Discharge Plan And Transition Orders Problem Reviewed?: Yes Disposition: 03 SNF DC/Xfer Condition: Stable Allergies and Adverse Reactions: Allergies Allergy/AdvReac Type Severity Reaction Status Date / Time ampicillin AdvReac Rash Verified 01/21/23 22:11 Health Concerns: This 82-year-old morbidly obese female lives with her at home. Limited mobility and is relatively sedentary. But she is able to go from a sit to stand and pivot. Usually uses a walker. She was admitted for metabolic encephalopathy due to UTI from E coli and Proteus. On exam chronic edema most likely from cor pulmonale so +/- on use of diurectics and watch for contraction alkalosis or intravascular depletion. She is now at baseline mental status. Deconditioned and weakened and working with physical therapy because of chronic back pain and the illness. She is not compliant with keeping her 02 on so watch her because she will get hypoxic. Wheezing at discharge and recovered with duoneb and solumedrol x 1. She is now stable for discharge. Family has decided that it is best for her to go to shelter to get further strengthening Plan of Treatment: She will need PT and OT to regain the functional status that she has lost. Goal is to get her back to the baseline and then go home. However, patient's will be needing ankle surgery. He needs to discuss respite care for her while he is getting recovery from ankle surgery. That is down the road. I strongly encourage international guest coordinator to sit down and discussed those dates with him to plan for the future. Care Goals: To regain back strength and mobility. Needs to be able to ambulate with a walker, go from supine to sit to stand with min assist. Needs to be able to feed herself Assessment: Patient has dementia, and can get very irritated but takes out her irritation on her . She feels like she is always being corrected. That is true, she is demented, and sometimes which she says is not correct and he restates things for clarity. That sets her off. - SNF / SENIOR CARE Transition Orders Admit to (Facility): [facility] Under the care of (Name): TERESA Carlton Discharge Diagnosis: 1. Metabolic encephalopathy 2. E. coli UTI, Proteus UTI 3. Dementia without behavioral disturbance 4. Generalized weakness 5. Chronic respiratory failure with hypoxia 6. Chronic back pain 7. Hyperlipidemia 8. Hypothyroidism 9. Elevated troponin Medicare Certification Statement: I certify that [facility] residential care is medically necessary on a continuing basis for any of the conditions for which she/he is receiving care during hospitalization. Notify PCP of admission and forward orders to primary provider for signature. Weight on admission and: Weekly Call PCP immediately if weight increases by: 2 kg Other Notification Orders: Call PCP immediately if patient develops dyspnea, chest pain/tightness or edema. House Bowel Program: Yes Additional Bowel Program Orders: If no BM after 2 days, nurse may give M.O.M. 30ml PO PRN and/or ducolax Supp 1 MT and/or BERNIE 250mg P.O., and/or senna 1-2 tabs PO. On day 3 nurse may give repeat above order until residents constipation is resolved. Annual Influenza Vaccine (between Jan 08 and August 07): Yes Two-step PPD per [facility] [id number] or approved exception documents: Yes Oxygen Orders: Nasal cannula oxygen to maintain O2 sats greater than 88%. Medication Orders: PLEASE REFER TO THE DISCHARGE MEDICATION LIST. Insulin Orders?: No - Diet Type: No added salt Texture: Regular Liquids: Thin May have monthly special meal: Yes - Therapies | Activity Therapy: Evaluation | Treat if indicated: PT, OT Rehabilitation Potential: Maximize functional status, Return to independent living Activity: Activity as Tolerated Weight Bearing: Full Weight Assistance Devices: Wheelchair, Walker"
--- NOTE | 2023-04-05 12:14 | Discharge Plan ---
Discharge Plan Problem Reviewed?: Yes Disposition: Home Health Service Condition: Stable Diet: Low Sodium Activity Restrictions: Activity as Tolerated Weight Bearing: Full Weight Health Concerns: This 82-year-old morbidly obese female lives with her at home. Limited mobility and is relatively sedentary. But she is able to go from a sit to stand and pivot. Usually uses a walker. She was admitted for metabolic encephalopathy due to UTI from E coli and Proteus. On exam chronic edema most likely from cor pulmonale so +/- on use of diurectics and watch for contraction alkalosis or intravascular depletion. She is now at baseline mental status. Deconditioned and weakened and working with physical therapy because of chronic back pain and the illness. She is not compliant with keeping her 02 on There must be vigilant surveillance to make sure she does not have prolonged episodes of low oxygen causing stroke or heart attack. She was wheezing the day of discharge and recovered quickly when she got a nebulizer treatment. We had prepared this patient for discharge to a senior living facility to get physical rehab. At the last second her has changed his mind and he would like to take her home with home health. I have expressed my disagreement with that plan to the . I do feel that this woman is quite a bit of care and he is reaching the point where he may not be able to take care of her at this moment in time. But he would like to try. Plan of Treatment: 1. Please see your primary care provider in follow-up for weight, and blood pressure review as well as a lab check with BMP to monitor carbon dioxide level, and kidney function. 2. I am ordering home health to come to the house to do physical and Occupational Therapy 3. Please weigh her daily. If she gains more than 3 pounds in 1 day please let her primary care provider know so that her water pills can be adjusted 4. Please make sure she gets a bath at least 3 times a week 5. Low-sodium diet with no more than 2000 mg of salt a day 6. She requires 3 more doses of her antibiotic to complete treatment for urinary tract infection. So 1 pill on the night of discharge, and 2 pills tomorrow. 1 in the morning and 1 at night. 7. There are no other changes in her medication other than the antibiotic. However I am adding iron tablets with vitamin C since she has anemia. Care Goals: To regain back strength and mobility. Needs to be able to ambulate with a walker, go from supine to sit to stand with min assist. Needs to be able to feed herself Assessment: Patient has dementia, And we are anticipating that she will slowly deteriorate over time. She has already had several falls with recent stays at senior living facility for rehab. 's eventual plan is to put her in long-term care when he can no longer take care of her. Follow-Up Care: Home Health - RN, Home Health - PT, Home Health - OT No Smoking: If you smoke, Please STOP! Call for help. Follow-up with: Davina Frost ARNP [Primary Care Provider] -
[2023-04-05 13:52] VITALS: BP 144/63; O2SAT 94
== END 2023-04-05 14:20 | disposition home health service (06) | DRG 689 ==
LOC: EDUNIT# → ED 10:56 → MS2 19:31 → OBSVTOIN 04-01 15:30
PROVIDERS: ADMIT Internal Medicine; ATTEND Specialist
DX: N39.0 Urinary tract infection, site not specified (principal); G93.41 Metabolic encephalopathy; R40.0 Somnolence; R41.0 Disorientation, unspecified; J96.11 Chronic respiratory failure with hypoxia; Z68.42 Body mass index [BMI] 45.0-49.9, adult; B96.20 Unspecified Escherichia coli [E. coli] as the cause of diseases classified elsewhere; F32.A Depression, unspecified; I89.0 Lymphedema, not elsewhere classified; B96.4 Proteus (mirabilis) (morganii) as the cause of diseases classified elsewhere; F03.90 Unspecified dementia, unspecified severity, without behavioral disturbance, psychotic disturbance, mood disturbance, and anxiety; R53.1 Weakness; Z99.81 Dependence on supplemental oxygen; G89.29 Other chronic pain; M54.9 Dorsalgia, unspecified; E78.5 Hyperlipidemia, unspecified; E03.9 Hypothyroidism, unspecified; R79.89 Other specified abnormal findings of blood chemistry; E66.01 Morbid (severe) obesity due to excess calories; J44.9 Chronic obstructive pulmonary disease, unspecified; I10 Essential (primary) hypertension; G47.30 Sleep apnea, unspecified; R32 Unspecified urinary incontinence; I27.81 Cor pulmonale (chronic); Z66 Do not resuscitate
CPT/HCPCS: 36415; 70450; 71045; 80048; 80053; 80306; 81001; 82607; 82746; 82803; 83605; 83690; 83735; 83880; 83921; 84145; 84439; 84443; 84484; 85025; 87040; 87077; 87086; 87150; 87181; 87633; 94640; 96365; 96372; 96375; 97116; 97162; 97164; 97530; 99284; 99285; A9270; G0378; G0480; 80320; 81003

== ENCOUNTER 2023-08-26 08:00 | Outpatient (CLI) | payer MEDICARE, OTHER | END 2023-08-26 23:59 | disposition home or self-care (01) | LOC: LAB 08:00 | PROVIDERS: ATTEND Physician Assistant Medical | DX: R41.0 Disorientation, unspecified (principal) | CPT/HCPCS: 87077; 87086; 87181 ==

== ENCOUNTER 2023-09-01 10:55 | Outpatient (CLI) | payer MEDICARE, OTHER | END 2023-09-01 23:19 | disposition critical access hospital (66) | LOC: EMS 10:55 | DX: R46.4 Slowness and poor responsiveness (principal); R53.1 Weakness; R06.2 Wheezing; R60.0 Localized edema; M79.605 Pain in left leg; M79.604 Pain in right leg | CPT/HCPCS: A0425; A0427 ==

== ENCOUNTER 2023-09-01 11:14 | Inpatient (IN) | payer MEDICARE, OTHER ==
--- NOTE | 2023-09-01 11:52 | ED Physician Documentation ---
History of Present Illness - Stated complaint Stated Complaint: WEAKNESS - Chief complaint Chief Complaint: General - History obtained from History obtained from: Patient, Family - Additonal information Additional information: 83-year-old presents accompanied by her from home much of the history is taken because of modest dementia. She has a history of COPD, dimension, morbid obesity. Remotely, about 12 years ago she had endometrial cancer with extensive lymph node dissection in the pelvis and since then has had lymphedema with recurrent cellulitis in the legs usually the right more than the left but sometimes goes back and forth. Starting last , 6 days ago she developed right leg redness and swelling. She went to the urgent care the next day and was put on Keflex. They also did a urinalysis which was reportedly positive and subsequent culture became positive for Klebsiella pneumoniae which was dominguez sensitive with the exception of ampicillin and nitrofurantoin. Despite being on oral antibiotics she is not improving with respect to the right leg redness and weakness which is generalized and continues to have urinary burning and frequency. She has not had measured fevers but does have shaking chills. She was wheezy and received a DuoNeb prior to my evaluation which was helpful. PD PAST MEDICAL HISTORY - Past Medical History Cardiovascular: Hypertension, High cholesterol, Other Respiratory: Sleep apnea, CPAP use Neuro: None, Other Endocrine/Autoimmune: HyPOthyroidism GI: GERD : Incontinence HEENT: Chronic vision loss Psych: Depression Musculoskeletal: Osteoarthritis, Chronic back pain, Other Derm: None - Past Surgical History Past Surgical History: Yes General: Cholecystectomy, Appendectomy, Other Ortho: Spine surgery /[employer] OFF SHIFT: Hysterectomy, Oophrectomy - Present Medications Home Medications: Ambulatory Orders Medication Instructions Recorded Confirmed Cholecalciferol (Vitamin D3) 4,000 unit PO DAILY 12/01/13 09/01/23 [D3-1999] Acetaminophen [Tylenol] 650 mg PO Q8H PRN 10/21/16 09/01/23 Omeprazole 20 mg PO DAILY 06/17/20 09/01/23 Aspirin Chewable [[place] 81 mg PO DAILY tab 04/05/23 09/01/23 Aspirin] Atorvastatin [Lipitor] 20 mg PO QPM #0 04/05/23 09/01/23 DULoxetine [Cymbalta] 60 mg PO DAILY #0 04/05/23 09/01/23 Furosemide [Lasix] 40 mg PO DAILY #0 04/05/23 09/01/23 Gabapentin [Neurontin] 1,800 mg PO BID #0 04/05/23 09/01/23 Ipratropium/Albuterol [Duoneb] 3 ml INH RTQ4H PRN ml 04/05/23 09/01/23 Levothyroxine Sodium [Synthroid] 137 mcg PO DAILY #0 04/05/23 09/01/23 Lisinopril [Zestril] 20 mg PO DAILY #0 04/05/23 09/01/23 - Allergies Allergies/Adverse Reactions: Allergies Allergy/AdvReac Type Severity Reaction Status Date / Time buprenorphine Allergy Anaphylaxis Verified 09/01/23 11:35 ampicillin AdvReac Rash Verified 01/21/23 22:11 - Social History Does the pt smoke?: No Smoking Status: Never smoker Does the pt drink ETOH?: No Does the pt have substance abuse?: No - Immunizations Immunizations are current?: Yes - POLST Patient has POLST: No POLST Status: DNR PD ED PE NORMAL - Vitals Vital signs reviewed: Yes - General General: No acute distress, Other (Mild confusion, does not know the date but is a reasonably good historian augmented by her . She is noted to have a BMI of 48.) - HEENT HEENT: PERRL, EOMI - Neck Neck: Supple, no meningeal sign, No bony TTP - Cardiac Cardiac: RRR, No murmur - Respiratory Respiratory: Other (Mild expiratory wheezes and diminished throughout, nonlabored) - Abdomen Abdomen: Non tender - Back Back: No CVA TTP, No spinal TTP - Derm Derm: Normal color, Warm and dry - Extremities Extremities: Other (She Has significant lymphedema of both legs with beet red cellulitis from the knee down to the ankle on the right.) Results - Vitals Vitals: Vital Signs - 24 hr 09/01/23 09/01/23 11:23 12:16 Temperature 37.0 C Heart Rate 74 67 Respiratory 24 17 Rate Blood Pressure 166/74 H 157/78 H O2 Saturation 100 97 Oxygen O2 Source Room air - EKG (time done) 1241 EKG releavant findings:: EKG personally interpreted by author of this note. Relevant findings are: Rate: Rate (enter#) (63) Rhythm: NSR [place]: Normal Intervals: Normal MT QRS: Normal Ischemia: Normal ST segments Computer interpretation: Disagree with computer - Labs Labs: Laboratory Tests 09/01/23 09/01/23 09/01/23 12:00 12:14 12:14 WBC 5.6 RBC 3.97 L Hgb 12.4 Hct 41.7 MCV 105.0 H MCH 31.2 H MCHC 29.7 L RDW 13.8 Plt Count 211 MPV 8.9 Neut # (Auto) 3.2 Lymph # (Auto) 1.6 [place] # (Auto) 0.6 Eos # (Auto) 0.2 Baso # (Auto) 0.0 Absolute Nucleated RBC 0.00 Nucleated RBC % 0.0 VBG pH VBG pCO2 VBG pO2 VBG HCO3 VBG Total CO2 VBG O2 Saturation VBG Base Excess Sodium 137 Potassium 4.1 Chloride 97 L Carbon Dioxide 35 H Anion Gap 5.0 L BUN 24 H Creatinine 1.0 Estimated GFR (MDRD) 53 L Glucose 153 H Lactic Acid Calcium 9.8 Total Bilirubin 0.5 AST 11 ALT 8 L Alkaline Phosphatase 60 Total Protein 7.2 Albumin 3.7 Globulin 3.5 Albumin/Globulin Ratio 1.1 Urine Color YELLOW Urine Clarity CLEAR Urine pH 6.0 Ur Specific [place] <=1.005 Urine Protein NEGATIVE Urine Glucose (UA) NEGATIVE Urine Ketones NEGATIVE Urine Occult Blood NEGATIVE Urine Nitrite NEGATIVE Urine Bilirubin NEGATIVE Urine Urobilinogen 0.2 (NORMAL) Ur Leukocyte Esterase NEGATIVE Urine RBC None Seen Urine WBC 0-3 Ur Squamous Epith Cells FEW Squamous Urine Bacteria Rare Urine Culture Comments NOT INDICATED 09/01/23 09/01/23 12:14 12:14 WBC RBC Hgb Hct MCV MCH MCHC RDW Plt Count MPV Neut # (Auto) Lymph # (Auto) [place] # (Auto) Eos # (Auto) Baso # (Auto) Absolute Nucleated RBC Nucleated RBC % VBG pH 7.289 L VBG pCO2 72.5 H VBG pO2 27.2 VBG HCO3 34.0 H VBG Total CO2 36.2 H VBG O2 Saturation 50.9 L VBG Base Excess 5.1 H Sodium Potassium Chloride Carbon Dioxide Anion Gap BUN Creatinine Estimated GFR (MDRD) Glucose Lactic Acid 1.7 Calcium Total Bilirubin AST ALT Alkaline Phosphatase Total Protein Albumin Globulin Albumin/Globulin Ratio Urine Color Urine Clarity Urine pH Ur Specific [place] Urine Protein Urine Glucose (UA) Urine Ketones Urine Occult Blood Urine Nitrite Urine Bilirubin Urine Urobilinogen Ur Leukocyte Esterase Urine RBC Urine WBC Ur Squamous Epith Cells Urine Bacteria Urine Culture Comments PD Medical Decision Making - ED course ED course: 83-year-old woman with multiple comorbidities presents with right leg cellulitis that has failed to improve despite treatment with Keflex and mild acute on chronic respiratory failure with acute acidosis and CO2 retention higher than her usual (low 60s) on venous blood gas. She does not have an elevated white count. Her kidney function is not affected by the illness. No lactic acidosis. Her urinalysis has normalized. Subsequently because she was very weak I did spoke with Dr. Hawkins for potential admission. We do not see any strict admission criteria and I set expectations with the patient and that if she was brought in the hospital would probably under observation status and the limitations associated with that including if she needed a SNF it would be [id number]. Patient was feeling like maybe she could go home at that point and wanted to try to road test, but she was at least a 1 person assist with a walker and very slow. Given that her has his own mobility issues (he is wearing a fracture boot and on a knee scooter) he did not think it was safe for her to go home and I do agree. They are aware though again that if they come into the hospital, will be under observation status and the limitations as above. Departure - Departure Disposition: ED Place in Observation Clinical Impression: Muscle weakness, Cellulitis of right leg, Lymphedema, Morbid obesity Acute and chronic respiratory failure Qualifiers: Respiratory failure complication: hypercapnia Qualified Code(s): J96.22 - Acute and chronic respiratory failure with hypercapnia Condition: Stable Forms: PCP List
[2023-09-01 12:23] LABS: BILIRUBIN,URINE NEGATIVE (NEGATIVE); GLUCOSE, URINE (UA) NEGATIVE (NEGATIVE); KETONES,URINE (UA) NEGATIVE (NEGATIVE); LEUKOCYTE ESTERASE, URINE NEGATIVE (NEGATIVE); NITRITE,URINE NEGATIVE (NEGATIVE); OCCULT BLOOD,URINE NEGATIVE (NEGATIVE); PROTEIN,URINE NEGATIVE (NEGATIVE); UROBILINOGEN,URINE 0.2 (NORMAL) E.U./dL (NORMAL)
[2023-09-01 12:23] LABS: BASOPHILS % (AUTO) 0.5 %; EOSINOPHILS # (AUTO) 0.2 10^3/uL (0.0-0.7); HCT - HEMATOCRIT 41.7 % (37.0-47.0); HGB - HEMOGLOBIN 12.4 g/dL (12.0-16.0); LYMPHOCYTES # (AUTO) 1.6 10^3/uL (1.5-3.5); LYMPHOCYTES % (AUTO) 29.1 %; MEAN CORPUSCULAR HEMOGLOBIN 31.2 pg (27.0-31.0); MEAN CORPUSCULAR HGB CONC 29.7 g/dL (32.0-36.0); MEAN PLATELET VOLUME 8.9 fL (7.9-10.8); MONOCYTES # (AUTO) 0.6 10^3/uL (0.0-1.0); MONOCYTES % (AUTO) 9.8 %; NEUTROPHILS # (AUTO) 3.2 10^3/uL (1.5-6.6); NEUTROPHILS % (AUTO) 57.2 %; PLT - PLATELET COUNT 211 10^3/uL (130-450); RED BLOOD COUNT 3.97 10^6/uL (4.20-5.40); RED CELL DISTRIBUTION WIDTH 13.8 % (12.0-15.0); WHITE BLOOD COUNT 5.6 x10^3/uL (4.8-10.8)
[2023-09-01 12:24] LABS: VBG BASE EXCESS 5.1 mmol/L (-2 - +2); VBG OXYGEN SATURATION 50.9 % (60-80); VBG PCO2 72.5 mmHg (41-51); VBG PH 7.289 (7.31-7.41); VBG PO2 27.2 mmHg (25-47); VBG TOTAL CO2 36.2 mmol/L (24-29)
[2023-09-01 12:31] LABS: BACTERIA,URINE Rare /HPF (None Seen); CLARITY,URINE CLEAR (CLEAR); RBC,URINE None Seen /HPF (0-5); SQUAMOUS EPITHELIAL CELL,UR FEW Squamous (<= Few); WBC,URINE 0-3 /HPF (0-5)
--- NOTE | 2023-09-01 12:34 | XRAY Report ---
PROCEDURE: Chest 1V INDICATIONS: soa TECHNIQUE: One view of the chest was acquired. COMPARISON: Chest x-ray 04/01/2023 FINDINGS: Surgical changes and devices: None. Lungs and pleura: No pleural effusions or pneumothorax. Lungs are clear. Mediastinum: Mediastinal contours appear normal. Heart size is mildly prominent. Bones and chest wall: No suspicious bony lesions. Overlying soft tissues appear unremarkable. IMPRESSION: No acute cardiopulmonary process. Reviewed by: Regina Smith MD on 09/01/2023 12:33 PM PDT Approved by: Regina Smith MD on 09/01/2023 12:33 PM PDT Station ID: [id number]
[2023-09-01 12:40] LABS: ALBUMIN 3.7 g/dL (3.2-5.5); ALBUMIN/GLOBULIN RATIO 1.1 (1.0-2.2); BILIRUBIN,TOTAL 0.5 mg/dL (0.2-1.0); CALCIUM 9.8 mg/dL (8.5-10.3); POTASSIUM 4.1 mmol/L (3.5-4.5); TOTAL PROTEIN 7.2 g/dL (6.4-8.9)
[2023-09-01] MEDS: ceFAZolin 1 GM VIAL IVP STA (13:43)
[2023-09-01] MEDS ORDERED: ONDANSETRON 4 MG/2 ML VIAL IVP PRN (14:44)
[2023-09-01] MEDS ORDERED: ONDANSETRON ODT 4 MG TABLET TL PRN (14:44)
--- NOTE | 2023-09-01 15:09 | HISTORY & PHYSICAL EXAMINATION ---
Chief Complaint - Chief Complaint Chief Complaint: painful skin right leg, confusion, can't walk History of Present Illness - Admitted From Admitted From:: Home - History Obtained From Records Reviewed: [facility] History obtained from: , Dr. Briceño and the medical record Exam Limitations: patient is a poor historian - History of Present Illness HPI Comment/Other: Elderly female that is morbidly obese, has chronic pain and lives at home. She is taken care of by her . She has increasing anger and irrational thought process on top of her baseline dementia. Is constantly arguing with her . She flatly refuses to cooperate with the things he has to do with regards to eating, taking medications, bathing, or wearing her oxygen. He has been suffering under increasing fatigue from increasing caregiver burden. She was last admitted in March 2023. Because of the 's distress, we have prepared to discharge this patient to a [facility] facility. During her stay she was noncompliant with keeping her O2 on, and was wheezing on the day of discharge. She is be on a CPAP mask for obstructive sleep apnea. She also has nocturnal hypoxemia and needs anywhere between 1-1/2 to 2 L of oxygen at night. At the last second, her changed his mind and he wanted her to go home w [facility]. He was also getting ready to do an ankle replacement and had not made any arrangements for respite care for when he needed to do his ankle replacement. Took her home and was able to take care of her with the help of home health. He was bathing her 2 days a week, and home health was bathing her 1 day a week. Daughter lives next-door and took over cooking. He finally had his surgery around July 13 and daughter stopped cooking for them about 3 weeks ago. Says she has been holding her own, stable, and as far as he knows doing well with her apnea and CPAP mask. They check her O2 sats on a nightly basis and she has been staying between 88 and 92% and not needing oxygen. She has a history of ovarian cancer back in 2011 and was followed by Ginger Moore at [facility]. The subsequent surgery and treatment resulted in venous stasis and lymphedema of her legs. She also prefers to be in a chair or in bed because she has chronic lower back pain and had a remote vertebral fusion and titanium ruel placement in July 2015. The resultant lymphedema has resulted in recurrent cellulitis in her legs, right worse than left. Last Wednesday was her last day with [facility]. She is able to walk 10 to 15 feet. It takes anywhere between 5 to 14 minutes to walk from the bed to the bathroom. The next day, on (6 days ago) she developed right leg redness and swelling. she says the pain was a very severe burning, especially in her right leg. there is no trauma or blow to the leg. The pain alternated between that burning sensation and a sharp, frequent needle stabbing sensation. He tells me that she was up all that night, moaning with pain. She went to the urgent care center in [place] the next day, and was put on Keflex. A urinalysis was reportedly positive and subsequent culture became positive for Klebsiella pneumonia which was resistant to ampicillin and nitrofurantoin. And spite of the Keflex, her leg redness has not responded. Weakness has become progressive and she continues to complain that it hurts to urinate and she is urinating a lot more. For the last 2 to 3 days she has been unable to get out of bed. Appetite is the same. There is no change in behavior. Sometimes she gets a little chilled and shakes with that but she denies out right rigors. When she was still ambulating, the patient used to spend half her time in [facility] and the other part of her time was [place], [place] Around September 2019 was the last time she was at that house. And they sold the house in 2021 and have been permanent residence [place]. Her brought her to the emergency room because of the weakness and symptoms. Temperature was 37.0. Heart rate was 74. Respirations 24. Blood pressure 166/74. She was 100% saturated on room air. She is mildly confused, obese, had mild expiratory wheezes and diminished lung sounds throughout. She was unlabored respiration with no use of accessory muscles. She had significant lymphedema of both legs and there was beet red cellulitis from the knee down to the ankle on the right leg. White cell count was normal at 5.6. Hemoglobin 12.4. Platelet 211. Sodium 137. Potassium 4.1. Anion gap was 5 and low. Carbon dioxide showed increased buffering with a carbon dioxide serum level of 35. BUN 24 creatinine 1.0. Urinalysis was clear. And venous blood/sugar to be hypercapnic. pH was 7.29, pCO2 72.5, pO2 27. Base excess was 5.1. In reviewing the chart this patient is pCO2 is anywhere between 62-65. So the 72 is at least 10 points higher than she usually is. Again, she has chronic hypoxemia at night, obstructive sleep apnea, and tends to retain CO2 and is noncompliant. My impression is that this patient has dementia, and a probable rising CO2 due to noncompliance with her CPAP/nighttime hypoxemia treatment. And then add a cellulitis to the mix and you have slightly worsening confusion, hypercapnia. I would like to bring the patient in observation status to treat the hypoxemia, start treating the cellulitis. My anticipation is that she should respond enough to be able to be discharged tomorrow and I have warned the That my plan is to discharge tomorrow. 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 She in her sleep. Father from an [place] at age 69. She had 1 brother with pancreatic cancer who at age 65. She has a daughter who is healthy and lives next-door Living arrangement: At home Living Situation: With spouse/s.o. Social History Notes: She denied tobacco, alcohol or recreational substance use. she met her in the early . They were living in the [facility] in [place] but when they started requiring that the children need to be bussed to [facility], they left the [facility] and moved to [facility] near [place]. 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 From [place] that they [place] permanent residence [place] in [place]. They have been coming back and forth between [place] over 2 decades. Daughter lives next-door. - Substance History Use: Uses substance without health or social issues: NONE Abuse: Recurrent use of substance despite neg consequences: NONE Dependence: Experiences withdrawal or developed tolerances: NONE - POLST Patient has POLST: Yes POLST Status: DNR Meds/Allgy - Home Medications Home Medications: Ambulatory Orders Medication Instructions Recorded Confirmed Cholecalciferol (Vitamin D3) 4,000 unit PO DAILY 12/01/13 04/01/23 [D3-2000] Acetaminophen [Tylenol] 650 mg PO Q8H PRN 10/21/16 04/01/23 Omeprazole 20 mg PO DAILY 06/17/20 04/01/23 Aspirin Chewable [[place] 81 mg PO DAILY tab 04/05/23 Aspirin] Atorvastatin [Lipitor] 20 mg PO QPM #0 04/05/23 04/01/23 DULoxetine [Cymbalta] 60 mg PO DAILY #0 04/05/23 04/01/23 Furosemide [Lasix] 40 mg PO DAILY #0 04/05/23 04/01/23 Gabapentin [Neurontin] 1,800 mg PO BID #0 04/05/23 04/01/23 Ipratropium/Albuterol [Duoneb] 3 ml INH RTQ4H PRN ml 04/05/23 Levothyroxine Sodium [Synthroid] 137 mcg PO DAILY #0 04/05/23 04/01/23 Lisinopril [Zestril] 20 mg PO DAILY #0 04/05/23 04/01/23 - Allergies Allergies/Adverse Reactions: Allergies Allergy/AdvReac Type Severity Reaction Status Date / Time buprenorphine Allergy Anaphylaxis Verified 09/01/23 11:35 ampicillin AdvReac Rash Verified 01/21/23 22:11 Review of Systems - Constitutional Constitutional: reports: Fatigue, Chills, Weakness - Eyes Eyes: denies: Pain, Irritation, Amaurosis - Ears, Nose & Throat Ears, Nose & Throat: reports: Hearing loss. denies: Hearing aids, Tinnitus, Vertigo, Dentures, Sore throat, Hoarseness - Cardiovascular Cariovascular: reports: Edema, Exertional dyspnea, Decr. exercise tolerance. denies: Irregular heart rate, Palpitations, Chest pain, Syncope - Respiratory Respiratory: reports: SOB with exertion. denies: Cough, Sputum production, Wheezing, Snoring, Orthopnea, SOB at rest - Gastrointestinal Gastrointestinal: denies: Abdominal pain, Abdominal distention, Constipation, Diarrhea, Change in bowel habits - Genitourinary Genitourinary: reports: Frequency, Urgency, Incontinence. denies: Dysuria, Hematuria, Flank pain, Nocturia - Musculoskeletal Musculoskeletal: reports: Muscle pain, Back pain, Muscle aches, Muscle weakness, Joint pain - Integumentary Integumentary: reports: Rash ( Over both legs that comes and goes depending on how the redness is or the edema is. Sometimes the skin blisters depending on how stretched her skin is on her legs), Pruritis - Neurological Neurological: reports: General weakness, Memory problems, Pre-existing deficit. denies: Focal weakness, Headache, Dizziness - Psychiatric Psychiatric: reports: Depression, Anxiety. denies: Hallucinations, Homicidal - Endocrine Endocrine: denies: Polyuria, Polydypsia, Polyphagia, Intolerance to cold - Hematologic/Lymphatic Hematologic/Lymphatic: denies: Anemia, Bruising, Petechiae Prior Level of Functionality: working with physical therapy. But needs help with activities of daily living. Between her and a bath aide she has bathed 3 times a week at home. She is able to feed herself. Needs help with dressing. Needs durable medical equipment to go from supine to sitting, sitting to standing. Cannot leave her home on her own and is dependent on her and daughter. Exam - Vital Signs Reviewed Vital Signs: Yes Vital Signs: Vital Signs x48h Temp Pulse Resp BP Pulse Ox 09/01/23 13:30 63 14 159/66 H 96 09/01/23 13:00 69 21 131/89 H 99 09/01/23 12:16 67 17 157/78 H 97 09/01/23 11:23 37.0 C 74 24 166/74 H 100 - Physical Exam General Appearance: positive: No acute distress, Alert, Other ( Pleasant, cooperative, morbidly obese female who seems to recognize me from the last time she was in the hospital. She called me by my first name. at the bedside. throughout my encounter she is eating her dinner and feeding herself. Has eaten 100% of her food) Eyes Bilateral: positive: PERRL, EOMI ENT: positive: No signs of dehydration Neck: positive: No JVD. negative: Stiff neck Respiratory: positive: No respiratory distress, Wheezes ( scattered, faint, and exhalation at rest. But when she laughs and gesticulates the wheezing is audible without the stethoscope.), Other ( Occasional nonproductive cough). negative: Rales, Rhonchi Cardiovascular: positive: Regular rate & rhythm, Systolic murmur Peripheral Pulses: positive: 1+ Abdomen: positive: Non-tender, No organomegaly, Nml bowel sounds, No distention, Other (. Obese abdominal pannus and intertriginous changes of Esther) Back: positive: Other ( lumbosacral skin and skin over sacrum to coccyx is red from pressure but no breakdown) Skin: positive: Warm, Dry, Skin rash Extremities: positive: Full ROM, Other ( huge, lymphedematous legs. Chronic thickening of skin but no scales in both legs. Right now no open lesions or oozing. Right leg is bright red from top of foot to the knee. Left leg has faint pinkness but is not as intense as the right. Hot to touch.) Neurologic/Psychiatric: positive: CN's nml (2-12), Disoriented to time. negative: Motor nml ( She is below her baseline. She is able to usually sit up in bed, transfer her legs to the bed with minimum assist. And then stand with minimum assist. Has worked very well with PT and home health. Right now she is holding stable with her trunk to sit up and eat. she is not able to Sit>stand) Conclusion/Plan - Problem List (1) Acute and chronic respiratory failure Conclusion/Plan: not severe. I think her brought her in at the right time. Will do one-to-one treatment overnight. Make sure she keeps the mask on. Repeat blood gas tomorrow morning. Chest x-ray does not show infiltrate. she is not on any sedated drugs at night and I will not change her meds. she was described as slightly confused, sleepy in the ER. She is much more awake, alert right now. Disoriented to time. But knows that she is in the hospital because her legs are infected, has a lucid conversation albeit forgetful.. She is wheezing. I am not seeing where she has a history of COPD. Will give albuterol as needed. Qualifiers: Respiratory failure complication: hypercapnia Qualified Code(s): J96.22 - Acute and chronic respiratory failure with hypercapnia (2) Cellulitis of right leg Conclusion/Plan: Due to her lymphedema. Lymphedema is in turn due to history of ovarian cancer with surgery in 2011. This is a chronic problem for her. She is allergic to ampicillin. Rocephin has been tolerated in the past. She has received a dose in the emergency room without any skin reaction or lung reaction. I will continue Rocephin. When she is discharged she will be transition to oral medication. (3) Muscle weakness Conclusion/Plan: This has been a gradually worsening problem. She is overall an obese elderly female with memory loss problems and has become gradually more more bedbound over the last 2 years. This is the problem with her last day in March 2023 but the opted to take her home with home health. Plan: PT and OT evaluation. Will see if she would be a candidate for home health PT and OT again (4) Morbid obesity Conclusion/Plan: as a comorbidity it is contributed significantly to her reduction in functional status. At this point in time I do not think weight loss is an option for her unless her caloric restriction work consciously and deliberately restricted by her . My hope is that working with PT and OT, if she cooperates, allow her to improve her mobility temporarily. (5) Hypertension Conclusion/Plan: She is on lisinopril with hydrochlorothiazide. Blood pressure is 166/74, 157/78, 159/66. Plan: Resume her medication. Before I increase her dose, I would like to see what her blood pressure does over a couple of days. She may be noncompliant with her medication and that is why her blood pressure may be temporarily elevated Qualifiers: Hypertension type: primary hypertension Qualified Code(s): I10 - Essential (primary) hypertension - Lab Results Lab results reviewed: Yes Fish Bones: 09/01/23 12:14 09/01/23 12:14 - Diagnostic Imaging Results Diagnostic Imaging Results: positive: Final report reviewed Diagnostic Imaging Results Comments: Chest x-ray without acute cardiopulmonary process - EKG Results EKG Interpreted Independently: No Core Measures - Anticipated LOS I expect patient to be DC'd or transferred within 96 hours.: Yes - DVT/VTE - Prophylaxis VTE/DVT Device ordered at admit?: No VTE/DVT Prophylaxis med ordered at admit?: Yes
[2023-09-01] MEDS: SODIUM CHLORIDE 0.9% 1,000 ML IV SCH (16:54)
[2023-09-01] MEDS: SODIUM CHLORIDE FLUSH 0.9% 10 ML SYRINGE IVP SCH (16:54)
[2023-09-02] MEDS: ACETAMINOPHEN 325 MG TABLET PO PRN (00:02)
[2023-09-02 05:46] LABS: BASOPHILS % (AUTO) 0.5 %; EOSINOPHILS # (AUTO) 0.2 10^3/uL (0.0-0.7); EOSINOPHILS % (AUTO) 3.9 %; HCT - HEMATOCRIT 37.6 % (37.0-47.0); HGB - HEMOGLOBIN 11.3 g/dL (12.0-16.0); LYMPHOCYTES # (AUTO) 1.3 10^3/uL (1.5-3.5); LYMPHOCYTES % (AUTO) 22.4 %; MEAN CORPUSCULAR HEMOGLOBIN 31.3 pg (27.0-31.0); MEAN CORPUSCULAR HGB CONC 30.1 g/dL (32.0-36.0); MEAN CORPUSCULAR VOLUME 104.2 fL (81.0-99.0); MEAN PLATELET VOLUME 9.3 fL (7.9-10.8); MONOCYTES # (AUTO) 0.6 10^3/uL (0.0-1.0); MONOCYTES % (AUTO) 11.1 %; NEUTROPHILS # (AUTO) 3.5 10^3/uL (1.5-6.6); NEUTROPHILS % (AUTO) 61.7 %; PLT - PLATELET COUNT 223 10^3/uL (130-450); RED BLOOD COUNT 3.61 10^6/uL (4.20-5.40); RED CELL DISTRIBUTION WIDTH 13.9 % (12.0-15.0); WHITE BLOOD COUNT 5.7 x10^3/uL (4.8-10.8)
[2023-09-02 05:59] LABS: CREATININE 0.9 mg/dL (0.6-1.3); POTASSIUM 4.2 mmol/L (3.5-4.5)
[2023-09-02] MEDS: cefTRIAXone 1 GM in SODIUM CHLORIDE 0.9% MINIBAG 100 ML IV SCH (09:07)
[2023-09-02] MEDS: CYANOCOBALAMIN 1,000 MCG/ML VIAL IM ONE (10:50)
[2023-09-02] MEDS: IPRATROPIUM/ALBUTEROL 3 ML NEB INH SCH (11:30)
--- NOTE | 2023-09-02 12:19 | PHARMACY PROGRESS NOTE ---
- Best Possible Medication History Admit Date and Time: 09/01/23 1449 Processed by: Pharmacy Medication History completed: Yes Patient Interview: Completed Secondary Source(s): Spouse/Significant other, Pharmacy records, Insurance records As the person ultimately responsible for medication therapy, providers are able to order a medication from an existing home medication list in [facility] via the "Reconcile Routine" prior to Confirmation of that medication by residential support specialist. Such practice is discouraged except when the physician, in their clinical judgment, deems that a medical need exists for a medication without regard to previous use.
[2023-09-02] MEDS: oxyCODONE 5 MG TABLET PO PRN (13:48)
--- NOTE | 2023-09-02 14:47 | PROVIDER PROGRESS NOTE ---
Subjective - Prog Note Date Prog Note Date: 09/02/23 Prog Note Time: 14:49 - Subjective Pt reports feeling: Worse Subjective: seen twice today. wheezing loudly enough that I didn't need a stethescope. she had nasal tone of voice, appeared very fatigued. Overnight, has been hypoxic. Now on 1 liter where she was on room air yesterday. I ordered scheduled nebs. Seen again in the afternoon with her and daughter at the bedside. They tell me that she has these episodes at home. Wheezing waxes and wanes. She will take a nebulizer treatment and do much better. But today the wheezing is not responding very quickly to the duoneb. Current Medications - Current Medications Current Medications: Active Medications Acetaminophen (Acetaminophen 325 Mg Tablet) 650 mg PO Q4HR PRN PRN Reason: Pain 1 to 4, or Fever Last Admin: 09/02/23 10:48 Dose: 650 mg Albuterol/Ipratropium (Ipratropium/Albuterol 3 Ml Neb) 3 ml INH RTQID [facility] Last Admin: 09/02/23 11:30 Dose: 3 ml Cyanocobalamin (Cyanocobalamin 500 Mcg Tablet) 500 mcg PO DAILY [facility] Ceftriaxone Sodium 1 gm/ (Sodium Chloride) 100 mls @ 200 mls/hr IV DAILY [facility] Last Infusion: 09/02/23 10:40 Dose: Infused Morphine Sulfate (Morphine 2 Mg/Ml Carpuject) 2 mg IVP Q2HR PRN PRN Reason: Pain 8 to 10 Ondansetron HCl (Ondansetron Odt 4 Mg Tablet) 4 mg TL Q6HR PRN PRN Reason: Nausea / Vomiting Ondansetron HCl (Ondansetron 4 Mg/2 Ml Vial) 4 mg IVP Q6HR PRN PRN Reason: Nausea / Vomiting Oxycodone HCl (Oxycodone 5 Mg Tablet) 5 mg PO Q4HR PRN PRN Reason: Pain 5 to 7 Last Admin: 09/02/23 13:48 Dose: 5 mg Sodium Chloride (Sodium Chloride Flush 0.9% 10 Ml Syringe) 10 ml IVP PRN PRN PRN Reason: NEEDED PER PROVIDER ORDERS Sodium Chloride (Sodium Chloride Flush 0.9% 10 Ml Syringe) 10 ml IVP 0100,0900,1700 [facility] Last Admin: 09/02/23 09:07 Dose: 10 ml Acetaminophen [Tylenol] 650 mg PO Q8H PRN 10/21/16 Omeprazole 20 mg PO DAILY 06/17/20 Cholecalciferol [Vitamin D3] 25 mcg PO DAILY 09/02/23 D-Mannose [Azo D-Mannose] 500 mg PO DAILY 09/02/23 Ferrous Sulfate 325 mg PO DAILY 09/02/23 Lisinopril [Zestril] 40 mg PO DAILY 09/02/23 Objective - Vital Signs/Intake & Output Reviewed Vital Signs: Yes Vital Signs: Vital Signs x48h Temp Pulse Pulse Resp BP BP Pulse Ox 09/02/23 13:09 37 C 83 16 160/80 H 93 09/02/23 11:33 74 16 09/02/23 07:48 95 09/02/23 07:20 36.8 C 73 16 151/66 H 87 L O2 Flow Rate 09/02/23 13:09 1 09/02/23 11:33 1.5 09/02/23 07:48 1 09/02/23 07:20 Intake & Output: Intake & Output 08/30/23 08/31/23 09/01/23 09/02/23 23:59 23:59 23:59 23:59 Intake Total 170 1940 Output Total 650 875 Balance -480 1065 - Objective General Appearance: positive: Alert, Mild distress (from headache and wheezing, circles under her eyes.) Eyes Bilateral: positive: PERRL ENT: positive: Pharynx nml, No signs of dehydration Neck: positive: No JVD. negative: Stiff neck Respiratory: positive: No respiratory distress, Wheezes, Other (slight use of abd muscles to take a breath) Cardiovascular: positive: Regular rate & rhythm Abdomen: positive: Non-tender, No organomegaly, Nml bowel sounds, No distention, Other (very large obese abd panus) Skin: positive: Warm, Dry Extremities: positive: Full ROM, Pedal edema (the cobblestoned lymphedema skin, red, hot still present with R>L redness. no oozing. Red geography the same as yesterday, not spreading.) Neurologic/Psychiatric: positive: CN's nml (2-12), Motor nml (w/o deficits but can't lift her legs well, can't sit up today. can't walk around the bed like she did last night. too weak), Disoriented to time - Lab Results Fish Bones: 09/02/23 05:34 09/02/23 05:34 Other Labs: Lab Results x24hrs 09/02/23 09/02/23 09/02/23 Range/Units 05:34 05:34 05:34 WBC (4.8-10.8) x10^3/uL RBC (4.20-5.40) 10^6/uL Hgb (12.0-16.0) g/dL Hct (37.0-47.0) % MCV (81.0-99.0) fL MCH (27.0-31.0) pg MCHC (32.0-36.0) g/dL RDW (12.0-15.0) % Plt Count (130-450) 10^3/uL MPV (7.9-10.8) fL Neut # (Auto) (1.5-6.6) 10^3/uL Lymph # (Auto) (1.5-3.5) 10^3/uL [place] # (Auto) (0.0-1.0) 10^3/uL Eos # (Auto) (0.0-0.7) 10^3/uL Baso # (Auto) (0.0-0.1) 10^3/uL Absolute Nucleated RBC x10^3/uL Nucleated RBC % /100WBC Sodium 138 (135-145) mmol/L Potassium 4.2 (3.5-4.5) mmol/L Chloride 100 L (101-111) mmol/L Carbon Dioxide 34 H (21-32) mmol/L Anion Gap 4.0 L (6-13) BUN 22 H (6-20) mg/dL Creatinine 0.9 (0.6-1.3) mg/dL Estimated GFR (MDRD) 60 L (>89) Glucose 107 H (74-104) mg/dL Calcium 9.0 (8.5-10.3) mg/dL B-Natriuretic Peptide 111 H (5-100) pg/mL Vitamin B12 142 L (180-914) pg/mL Folate 11.5 (5.90 - >24.8) ng/mL 09/02/23 Range/Units 05:34 WBC 5.7 (4.8-10.8) x10^3/uL RBC 3.61 L (4.20-5.40) 10^6/uL Hgb 11.3 L (12.0-16.0) g/dL Hct 37.6 (37.0-47.0) % MCV 104.2 H (81.0-99.0) fL MCH 31.3 H (27.0-31.0) pg MCHC 30.1 L (32.0-36.0) g/dL RDW 13.9 (12.0-15.0) % Plt Count 223 (130-450) 10^3/uL MPV 9.3 (7.9-10.8) fL Neut # (Auto) 3.5 (1.5-6.6) 10^3/uL Lymph # (Auto) 1.3 L (1.5-3.5) 10^3/uL [place] # (Auto) 0.6 (0.0-1.0) 10^3/uL Eos # (Auto) 0.2 (0.0-0.7) 10^3/uL Baso # (Auto) 0.0 (0.0-0.1) 10^3/uL Absolute Nucleated RBC 0.00 x10^3/uL Nucleated RBC % 0.0 /100WBC Sodium (135-145) mmol/L Potassium (3.5-4.5) mmol/L Chloride (101-111) mmol/L Carbon Dioxide (21-32) mmol/L Anion Gap (6-13) BUN (6-20) mg/dL Creatinine (0.6-1.3) mg/dL Estimated GFR (MDRD) (>89) Glucose (74-104) mg/dL Calcium (8.5-10.3) mg/dL B-Natriuretic Peptide (5-100) pg/mL Vitamin B12 (180-914) pg/mL Folate (5.90 - >24.8) ng/mL ABX Reporting Has patient been on IV antibiotics over the past 48 hours?: Yes Assessment/Plan - Problem List (1) Acute and chronic respiratory failure Impression: On admission she had wheezing. Wheezing was present mainly when she laughed. And I could hear it when I put my stethoscope on her chest. I had thought that an overnight stay with nebulizers, her CPAP mask, treatment of her cellulitis, would result in improvement. However when I saw her this morning she has diffuse audible wheezing with worse nasal tone of voice, worse chest congestion than last night. She does not think that she has a sore throat. She denies fever or chills. She denies eustachian tube dysfunction or sore throat. Has been daughter states that she has waxing and waning congestion at home. They give her nebulizers and allergy medicine and she gets better. This morning much worse on exam. Appears very fatigued. Less cheerful. She is now more hypoxic. It is not severe and she is only requiring 1 L nasal cannula but yesterday she did not need any oxygen. Plan: Change from observation status to inpatient status. Solu-Medrol 40 mg IVP twice daily for 3 doses. add oxygen to keep O2 sats greater than 88% Change albuterol and Atrovent from as needed to a fixed scheduled dose and add albuterol as needed Add Zyrtec once a day If she does not improve consider blood gas to assess need for more CPAP pressure DC IVF in case she has cardiac asthma Echo ordered to assess LV Qualifiers: Respiratory failure complication: hypercapnia Qualified Code(s): J96.22 - Acute and chronic respiratory failure with hypercapnia (2) Cellulitis of right leg Conclusion/Plan: Due to her lymphedema. Lymphedema is in turn due to history of ovarian cancer with surgery in 2011. This is a chronic problem for her. She is allergic to ampicillin. Rocephin has been tolerated in the past. She has received a dose in the emergency room without any skin reaction or lung reaction. today is day 2. Not much improvement on leg exam. The right leg is still bright red, hot to touch. But no open lesions or oozing. Plan is to continue the Rocephin unless she decompensates and I will broaden s pectrum with ceftazidime. She is allergic to ampicillin so I cannot use Unasyn (3) Muscle weakness Conclusion/Plan: This has been a gradually worsening problem. She is overall an obese elderly female with memory loss problems and has become gradually more more bedbound over the last 2 years. This is the problem with her last day in March 2023 but the opted to take her home with home health. Plan: PT and OT evaluation today. they feel that she cannot return to home. As such is making arrangements for her to go to an assisted living facility (4) Morbid obesity Conclusion/Plan: as a comorbidity it is contributed significantly to her reduction in functional status. At this point in time I do not think weight loss is an option for her unless her caloric restriction work consciously and deliberately restricted by her . My hope is that working with PT and OT, if she cooperates, allow her to improve her mobility temporarily. (5) Hypertension Conclusion/Plan: She is on lisinopril with hydrochlorothiazide. Blood pressure on admission was 166/74, 157/78, 159/66. Her home med resumed. Today her blood pressure is 154/70, 151/66, 160/80. Plan: Before I increase her dose, I would like to see what her blood pressure does over a couple of days. She may be noncompliant with her medication and that is why her blood pressure may be temporarily elevated Qualifiers: Hypertension type: primary hypertension Qualified Code(s): I10 - Essential (primary) hypertension 160/80. Qualifiers: Qualified Code(s): J96.22 - Acute and chronic respiratory failure with hypercapnia
[2023-09-02] MEDS ORDERED: ZINC OXIDE 12% OINT 57 GM TUBE TOP PRN (15:54)
[2023-09-02] MEDS: COD LIVER OIL/ZINC OXIDE 113 GM TUBE TOP PRN (20:13)
[2023-09-03 05:18] LABS: BASOPHILS % (AUTO) 0.5 %; EOSINOPHILS # (AUTO) 0.2 10^3/uL (0.0-0.7); EOSINOPHILS % (AUTO) 4.1 %; HCT - HEMATOCRIT 36.4 % (37.0-47.0); LYMPHOCYTES # (AUTO) 1.1 10^3/uL (1.5-3.5); LYMPHOCYTES % (AUTO) 18.4 %; MEAN CORPUSCULAR HEMOGLOBIN 31.5 pg (27.0-31.0); MEAN CORPUSCULAR HGB CONC 30.2 g/dL (32.0-36.0); MEAN CORPUSCULAR VOLUME 104.3 fL (81.0-99.0); MEAN PLATELET VOLUME 9.2 fL (7.9-10.8); MONOCYTES # (AUTO) 0.7 10^3/uL (0.0-1.0); MONOCYTES % (AUTO) 12.3 %; NEUTROPHILS # (AUTO) 3.8 10^3/uL (1.5-6.6); NEUTROPHILS % (AUTO) 64.4 %; PLT - PLATELET COUNT 203 10^3/uL (130-450); RED BLOOD COUNT 3.49 10^6/uL (4.20-5.40); RED CELL DISTRIBUTION WIDTH 14.4 % (12.0-15.0); WHITE BLOOD COUNT 5.8 x10^3/uL (4.8-10.8)
[2023-09-03 05:35] LABS: CREATININE 0.9 mg/dL (0.6-1.3); POTASSIUM 4.3 mmol/L (3.5-4.5)
[2023-09-03] MEDS: polyethylene glycoL 3350 17 GM PACKET PO SCH (08:46)
[2023-09-03] MEDS: CYANOCOBALAMIN 500 MCG TABLET PO SCH (08:46)
[2023-09-03] MEDS: methylPREDNISolone SUCCINATE 40 MG/ML VIAL IVP SCH (08:47)
--- NOTE | 2023-09-03 09:19 | PROVIDER PROGRESS NOTE ---
Assessment/Plan - Problem List (1) Acute and chronic respiratory failure Qualifiers: Respiratory failure complication: hypoxia and hypercapnia Qualified Code(s): J96.21 - Acute and chronic respiratory failure with hypoxia; J96.22 - Acute and chronic respiratory failure with hypercapnia Assessment/Plan: The pt is somewhat drowsy and she is not answering much of questions. will check ABG this morning.continue with O2 support for now but she may need to be on BIPAP. (2) Cellulitis of right leg Assessment/Plan: Stable. Will continue with current abx. (3) Acute metabolic encephalopathy Assessment/Plan: Probably combination of cellulitis and hypercapnia. Will treat the underlying issues. (4) Lymphedema Assessment/Plan: Chronic. Elevate legs on bed. Compression stocking if there is one fits to the pt. (5) Muscle weakness Assessment/Plan: PT/OT. Will need more assist and possibly SNF or HH. - Current Meds Current Meds: Current Medications Generic Name Dose Route Start Last Admin Trade Name Freq PRN Reason Stop Dose Admin Acetaminophen 650 mg 09/01/23 14:44 09/02/23 19:16 Acetaminophen 325 Mg Tablet PO 650 mg Q4HR PRN Administration Pain 1 to 4, or Fever Albuterol/Ipratropium 3 ml 09/02/23 11:00 09/03/23 07:07 Ipratropium/Albuterol 3 Ml Neb INH 3 ml RTQID [facility] Administration Cyanocobalamin 500 mcg 09/03/23 09:00 09/03/23 08:46 Cyanocobalamin 500 Mcg Tablet PO 500 mcg DAILY [facility] Administration Ceftriaxone Sodium 1 gm/ 100 mls @ 200 mls/hr 09/02/23 09:00 09/03/23 08:47 Sodium Chloride IV 100 mls/hr DAILY [facility] Administration Methylprednisolone 40 mg 09/03/23 08:30 09/03/23 08:47 Methylprednisolone Succinate 40 Mg/Ml Vial IVP 40 mg TID [facility] Administration Oxycodone HCl 5 mg 09/01/23 14:44 09/02/23 20:15 Oxycodone 5 Mg Tablet PO 5 mg Q4HR PRN Administration Pain 5 to 7 Polyethylene Glycol 17 gm 09/03/23 09:00 09/03/23 08:46 Polyethylene Glycol 3350 17 Gm Packet PO 17 gm DAILY [facility] Administration Sodium Chloride 10 ml 09/01/23 17:00 09/03/23 08:47 Sodium Chloride Flush 0.9% 10 Ml Syringe IVP 10 ml 0100,0900,1700 [facility] Administration Zinc Oxide 113 gm 09/02/23 15:54 09/02/23 20:13 Cod Liver Oil/Zinc Oxide 113 Gm Tube TOP 113 gm PRN PRN Administration Skin Care - Lab Result Fish Bone Diagrams: 09/03/23 05:12 09/03/23 05:12 - Additional Planning Condition/Complexity: Other (Her mental staus is not improving much.) My Orders: My Active Orders 09/03/23 08:30 methylPREDNISolone SUCCINATE [SOLU-Medrol (40MG VIAL)] 40 mg IVP TID 09/03/23 09:12 RT - Obtain Arterial Specimen [RC] .ONCE 09/03/23 09:20 ABG - ARTERIAL BLOOD GAS [BG] Urgent Plan Discussed with:: Patient Time Spent: 31-60 minutes Subjective - Subjective Patient Reports: Other (The pt can't answer much of questions. No overnight events. She has audible exp wheezing and she is on O2 support. She is somewhat drowsy.) Objective Vital Signs: Vital Signs - 24 hr 09/02/23 09/02/23 09/02/23 11:33 13:09 13:25 Temperature 37 C Heart Rate 74 Heart Rate [ 83 Brachial] Heart Rate [ 95 Sitting] Heart Rate [ 83 Supine] Respiratory 16 16 Rate Blood Pressure 160/80 H [Left Brachial artery] Blood Pressure [Right Brachial artery] Blood Pressure 155/82 H [Sitting] Blood Pressure 158/61 H [Supine] O2 Saturation 93 O2 Saturation [ Supine] If not protocol 1.5 1 : Oxygen Flow, liters/minute 09/02/23 09/02/23 09/02/23 13:26 15:38 15:53 Temperature 36.9 C Heart Rate 67 Heart Rate [ 69 Brachial] Heart Rate [ 95 Sitting] Heart Rate [ 83 Supine] Respiratory 18 16 Rate Blood Pressure [Left Brachial artery] Blood Pressure 166/65 H [Right Brachial artery] Blood Pressure 155/82 H [Sitting] Blood Pressure 158/61 H [Supine] O2 Saturation 95 O2 Saturation [ 91 L Supine] If not protocol 1 1 : Oxygen Flow, liters/minute 09/02/23 09/02/23 09/02/23 18:55 19:25 20:13 Temperature 37.2 C Heart Rate 80 Heart Rate [ 76 Brachial] Heart Rate [ Sitting] Heart Rate [ Supine] Respiratory 20 20 Rate Blood Pressure [Left Brachial artery] Blood Pressure 133/59 H [Right Brachial artery] Blood Pressure [Sitting] Blood Pressure [Supine] O2 Saturation 91 L 94 O2 Saturation [ Supine] If not protocol 1 1 1 : Oxygen Flow, liters/minute 09/02/23 09/03/23 09/03/23 23:26 02:47 04:57 Temperature 37.1 C 37.0 C Heart Rate Heart Rate [ 76 66 Brachial] Heart Rate [ Sitting] Heart Rate [ Supine] Respiratory 18 24 18 Rate Blood Pressure [Left Brachial artery] Blood Pressure 135/66 H 156/71 H [Right Brachial artery] Blood Pressure [Sitting] Blood Pressure [Supine] O2 Saturation 93 92 93 O2 Saturation [ Supine] If not protocol 2 1 1.5 : Oxygen Flow, liters/minute 09/03/23 09/03/23 07:10 07:32 Temperature 36.7 C Heart Rate 78 Heart Rate [ 73 Brachial] Heart Rate [ Sitting] Heart Rate [ Supine] Respiratory 16 24 Rate Blood Pressure [Left Brachial artery] Blood Pressure 129/75 [Right Brachial artery] Blood Pressure [Sitting] Blood Pressure [Supine] O2 Saturation 92 O2 Saturation [ Supine] If not protocol 1 1.5 : Oxygen Flow, liters/minute Oxygen O2 Source Nasal cannula I&O (Last 24 Hrs): Intake and Output Totals x24h 09/01/23 09/02/23 09/03/23 23:59 23:59 23:59 Intake Total 170 2950 Output Total 650 1325 550 Balance -480 1625 -550 General: Other (Somewhat drowsy. not answering much of questions.) HEENT: Atraumatic Neck: Supple, No JVD Neuro: Other (Drowsy, doesn't follow commands, doesn't answer any questions.) Cardiovascular: Regular rate, No murmurs Respiratory: Wheezes Abdomen: Normal bowel sounds, No tenderness Extremities: Other (BLE edema with erythema more on RLE.) Skin: No breakdown - Results Results: Laboratory Results WBC 5.8 x10^3/uL (4.8-10.8) 09/03/23 05:12 RBC 3.49 10^6/uL (4.20-5.40) L 09/03/23 05:12 Hgb 11.0 g/dL (12.0-16.0) L 09/03/23 05:12 Hct 36.4 % (37.0-47.0) L 09/03/23 05:12 MCV 104.3 fL (81.0-99.0) H 09/03/23 05:12 MCH 31.5 pg (27.0-31.0) H 09/03/23 05:12 MCHC 30.2 g/dL (32.0-36.0) L 09/03/23 05:12 RDW 14.4 % (12.0-15.0) 09/03/23 05:12 Plt Count 203 10^3/uL (130-450) 09/03/23 05:12 MPV 9.2 fL (7.9-10.8) 09/03/23 05:12 Neut # (Auto) 3.8 10^3/uL (1.5-6.6) 09/03/23 05:12 Lymph # (Auto) 1.1 10^3/uL (1.5-3.5) L 09/03/23 05:12 [place] # (Auto) 0.7 10^3/uL (0.0-1.0) 09/03/23 05:12 Eos # (Auto) 0.2 10^3/uL (0.0-0.7) 09/03/23 05:12 Baso # (Auto) 0.0 10^3/uL (0.0-0.1) 09/03/23 05:12 Absolute Nucleated RBC 0.00 x10^3/uL 09/03/23 05:12 Nucleated RBC % 0.0 /100WBC 09/03/23 05:12 VBG pH 7.289 (7.31-7.41) L 09/01/23 12:14 VBG pCO2 72.5 mmHg (41-51) H 09/01/23 12:14 VBG pO2 27.2 mmHg (25-47) 09/01/23 12:14 VBG HCO3 34.0 mmol/L (23-28) H 09/01/23 12:14 VBG Total CO2 36.2 mmol/L (24-29) H 09/01/23 12:14 VBG O2 Saturation 50.9 % (60-80) L 09/01/23 12:14 VBG Base Excess 5.1 mmol/L (-2 - +2) H 09/01/23 12:14 Sodium 138 mmol/L (135-145) 09/03/23 05:12 Potassium 4.3 mmol/L (3.5-4.5) 09/03/23 05:12 Chloride 101 mmol/L (101-111) 09/03/23 05:12 Carbon Dioxide 33 mmol/L (21-32) H 09/03/23 05:12 Anion Gap 4.0 (6-13) L 09/03/23 05:12 BUN 22 mg/dL (6-20) H 09/03/23 05:12 Creatinine 0.9 mg/dL (0.6-1.3) 09/03/23 05:12 Estimated GFR (MDRD) 60 (>89) L 09/03/23 05:12 Glucose 105 mg/dL (74-104) H 09/03/23 05:12 Lactic Acid 1.7 mmol/L (0.5-2.2) 09/01/23 12:14 Calcium 9.0 mg/dL (8.5-10.3) 09/03/23 05:12 Total Bilirubin 0.5 mg/dL (0.2-1.0) 09/01/23 12:14 AST 11 IU/L (10-42) 09/01/23 12:14 ALT 8 IU/L (10-60) L 09/01/23 12:14 Alkaline Phosphatase 60 IU/L (42-121) 09/01/23 12:14 B-Natriuretic Peptide 111 pg/mL (5-100) H 09/02/23 05:34 Total Protein 7.2 g/dL (6.4-8.9) 09/01/23 12:14 Albumin 3.7 g/dL (3.2-5.5) 09/01/23 12:14 Globulin 3.5 g/dL (2.1-4.2) 09/01/23 12:14 Albumin/Globulin Ratio 1.1 (1.0-2.2) 09/01/23 12:14 Vitamin B12 142 pg/mL (180-914) L 09/02/23 05:34 Folate 11.5 ng/mL (5.90 - >24.8) 09/02/23 05:34 Urine Color YELLOW 09/01/23 12:00 Urine Clarity CLEAR (CLEAR) 09/01/23 12:00 Urine pH 6.0 PH (5.0-7.5) 09/01/23 12:00 Ur Specific [place] <=1.005 (1.002-1.030) 09/01/23 12:00 Urine Protein NEGATIVE mg/dL (NEGATIVE) 09/01/23 12:00 Urine Glucose (UA) NEGATIVE mg/dL (NEGATIVE) 09/01/23 12:00 Urine Ketones NEGATIVE mg/dL (NEGATIVE) 09/01/23 12:00 Urine Occult Blood NEGATIVE (NEGATIVE) 09/01/23 12:00 Urine Nitrite NEGATIVE (NEGATIVE) 09/01/23 12:00 Urine Bilirubin NEGATIVE (NEGATIVE) 09/01/23 12:00 Urine Urobilinogen 0.2 (NORMAL) E.U./dL (NORMAL) 09/01/23 12:00 Ur Leukocyte Esterase NEGATIVE (NEGATIVE) 09/01/23 12:00 Urine RBC None Seen /HPF (0-5) 09/01/23 12:00 Urine WBC 0-3 /HPF (0-5) 09/01/23 12:00 Ur Squamous Epith Cells FEW Squamous (<= Few) 09/01/23 12:00 Urine Bacteria Rare /HPF (None Seen) 09/01/23 12:00 Urine Culture Comments NOT INDICATED 09/01/23 12:00 - Procedures Procedures: Procedures EXCISION OF STOMACH, PYLORUS, ENDO, DIAGN (12/17/16) INSERTION OF INFUSION DEV INTO SUP VENA CAVA, PERC APPROACH (03/31/20)
[2023-09-03 09:40] LABS: ABG BASE EXCESS 3.6 mmol/L (-2.0-3.0); ABG HCO3 29.4 mmol/L (22.0-26.0); ABG OXYGEN SATURATION 94 % (94-98); ABG PCO2 50 mmHg (34-45); ABG PH 7.39 (7.35-7.45); ABG PO2 73 mmHg (80-100); ABG TCO2 30.9 MMOL/L (21.0-29.0); ALLEN TEST POSITIVE
[2023-09-03] MEDS: ENOXAPARIN 40 MG/0.4 ML SYRINGE SUBQ SCH (11:31)
[2023-09-03] MEDS: FUROSEMIDE 40 MG TABLET PO SCH (11:31)
[2023-09-03] MEDS ORDERED: BUTALB/ACETAM/CAFF 50/325/40MG TABLET PO PRN (16:34)
[2023-09-03] MEDS: GABAPENTIN 300 MG CAPSULE PO SCH (20:19)
[2023-09-03] MEDS: ATORVASTATIN 10 MG TABLET PO SCH (20:19)
[2023-09-04 05:18] LABS: BASOPHILS % (AUTO) 0.1 %; HCT - HEMATOCRIT 37.2 % (37.0-47.0); HGB - HEMOGLOBIN 11.4 g/dL (12.0-16.0); LYMPHOCYTES # (AUTO) 0.9 10^3/uL (1.5-3.5); LYMPHOCYTES % (AUTO) 12.6 %; MEAN CORPUSCULAR HEMOGLOBIN 31.6 pg (27.0-31.0); MEAN CORPUSCULAR HGB CONC 30.6 g/dL (32.0-36.0); MEAN PLATELET VOLUME 9.5 fL (7.9-10.8); MONOCYTES # (AUTO) 0.3 10^3/uL (0.0-1.0); MONOCYTES % (AUTO) 4.5 %; NEUTROPHILS # (AUTO) 5.6 10^3/uL (1.5-6.6); NEUTROPHILS % (AUTO) 82.2 %; PLT - PLATELET COUNT 233 10^3/uL (130-450); RED BLOOD COUNT 3.61 10^6/uL (4.20-5.40); RED CELL DISTRIBUTION WIDTH 13.7 % (12.0-15.0); WHITE BLOOD COUNT 6.8 x10^3/uL (4.8-10.8)
[2023-09-04 05:37] LABS: CALCIUM 9.1 mg/dL (8.5-10.3); CREATININE 0.9 mg/dL (0.6-1.3); POTASSIUM 4.6 mmol/L (3.5-4.5)
[2023-09-04] MEDS: LEVOTHYROXINE 25 MCG TABLET PO SCH (06:11)
[2023-09-04] MEDS: LEVOTHYROXINE 112 MCG TABLET PO SCH (06:11)
[2023-09-04] MEDS: PANTOPRAZOLE 40 MG TABLET PO SCH (06:11)
[2023-09-04 07:45] LABS: CALCIUM 9.4 mg/dL (8.5-10.3); CREATININE 0.9 mg/dL (0.6-1.3); POTASSIUM 4.8 mmol/L (3.5-4.5)
[2023-09-04] MEDS: DULoxetine 30 MG CAPSULE PO SCH (08:14)
[2023-09-04] MEDS: CHOLECALCIFEROL 25 MCG TABLET PO SCH (08:14)
[2023-09-04] MEDS: FERROUS SULFATE 325 MG TABLET PO SCH (08:15)
[2023-09-04] MEDS: lisinopriL 20 MG TABLET PO SCH (08:15)
[2023-09-04] MEDS: FUROSEMIDE 40 MG/4 ML VIAL IVP ONE (08:22)
--- NOTE | 2023-09-04 08:51 | PROVIDER PROGRESS NOTE ---
Subjective - Prog Note Date Prog Note Date: 09/04/23 Prog Note Time: 08:49 - Subjective Pt reports feeling: Improved Subjective: The pt reports that she is doing okay. She is sleeping but wakes up easily. Family mentioned that she is slow in the morning typically. No acute overnight events. The pt still has audible wheezing and her breathing is better when she sits up. No other related symptoms. No other modifying factors. Objective - Vital Signs/Intake & Output Reviewed Vital Signs: Yes Vital Signs: Vital Signs x48h Temp Pulse Resp BP Pulse Ox O2 Flow Rate 09/04/23 08:17 36.9 C 71 16 163/86 H 94 2 Intake & Output: Intake & Output 09/01/23 09/02/23 09/03/23 09/04/23 23:59 23:59 23:59 23:59 Intake Total 170 2950 760 590 Output Total 650 1325 2750 630 Balance -480 1625 -1990 -40 - Objective General Appearance: positive: No acute distress Eyes Bilateral: positive: Normal inspection, EOMI, No scleral icterus Neck: positive: Nml inspection (Hard to assess JVD due to her body habitus) Respiratory: positive: Chest non-tender, No respiratory distress, Wheezes Cardiovascular: positive: Regular rate & rhythm, No murmur Abdomen: positive: Non-tender, Nml bowel sounds, No distention Skin: positive: Color nml, Other (Mild erythema at RLE) Extremities: positive: Pedal edema, Other (Mildly tender to palpation) Neurologic/Psychiatric: positive: Mood/affect nml - Lab Results Fish Bones: 09/04/23 04:40 09/04/23 07:16 Other Labs: Lab Results x24hrs 09/04/23 09/04/23 09/04/23 Range/Units 07:16 04:40 04:40 WBC 6.8 (4.8-10.8) x10^3/uL RBC 3.61 L (4.20-5.40) 10^6/uL Hgb 11.4 L (12.0-16.0) g/dL Hct 37.2 (37.0-47.0) % MCV 103.0 H (81.0-99.0) fL MCH 31.6 H (27.0-31.0) pg MCHC 30.6 L (32.0-36.0) g/dL RDW 13.7 (12.0-15.0) % Plt Count 233 (130-450) 10^3/uL MPV 9.5 (7.9-10.8) fL Neut # (Auto) 5.6 (1.5-6.6) 10^3/uL Lymph # (Auto) 0.9 L (1.5-3.5) 10^3/uL [place] # (Auto) 0.3 (0.0-1.0) 10^3/uL Eos # (Auto) 0.0 (0.0-0.7) 10^3/uL Baso # (Auto) 0.0 (0.0-0.1) 10^3/uL Absolute Nucleated RBC 0.00 x10^3/uL Nucleated RBC % 0.0 /100WBC Bld Gas Analysis Time Sample Site ABG pH (7.35-7.45) ABG pCO2 (34-45) mmHg ABG pO2 (80-100) mmHg ABG HCO3 (22.0-26.0) mmol/L ABG Total CO2 (21.0-29.0) MMOL/L ABG O2 Saturation (94-98) % ABG Base Excess (-2.0-3.0) mmol/L Omid Test O2 Delivery Device O2 Liters/Min LPM Sodium 137 137 (135-145) mmol/L Potassium 4.8 H 4.6 H (3.5-4.5) mmol/L Chloride 99 L 99 L (101-111) mmol/L Carbon Dioxide 36 H 33 H (21-32) mmol/L Anion Gap 2.0 L 5.0 L (6-13) BUN 21 H 20 (6-20) mg/dL Creatinine 0.9 0.9 (0.6-1.3) mg/dL Estimated GFR (MDRD) 60 L 60 L (>89) Glucose 173 H 195 H (74-104) mg/dL Calcium 9.4 9.1 (8.5-10.3) mg/dL 09/03/23 Range/Units 09:25 WBC (4.8-10.8) x10^3/uL RBC (4.20-5.40) 10^6/uL Hgb (12.0-16.0) g/dL Hct (37.0-47.0) % MCV (81.0-99.0) fL MCH (27.0-31.0) pg MCHC (32.0-36.0) g/dL RDW (12.0-15.0) % Plt Count (130-450) 10^3/uL MPV (7.9-10.8) fL Neut # (Auto) (1.5-6.6) 10^3/uL Lymph # (Auto) (1.5-3.5) 10^3/uL [place] # (Auto) (0.0-1.0) 10^3/uL Eos # (Auto) (0.0-0.7) 10^3/uL Baso # (Auto) (0.0-0.1) 10^3/uL Absolute Nucleated RBC x10^3/uL Nucleated RBC % /100WBC Bld Gas Analysis Time 09:33 Sample Site RIGHT RADIAL ABG pH 7.39 (7.35-7.45) ABG pCO2 50 H (34-45) mmHg ABG pO2 73 L (80-100) mmHg ABG HCO3 29.4 H (22.0-26.0) mmol/L ABG Total CO2 30.9 H (21.0-29.0) MMOL/L ABG O2 Saturation 94 (94-98) % ABG Base Excess 3.6 H (-2.0-3.0) mmol/L Omid Test POSITIVE O2 Delivery Device [place] O2 Liters/Min 1.00 LPM Sodium (135-145) mmol/L Potassium (3.5-4.5) mmol/L Chloride (101-111) mmol/L Carbon Dioxide (21-32) mmol/L Anion Gap (6-13) BUN (6-20) mg/dL Creatinine (0.6-1.3) mg/dL Estimated GFR (MDRD) (>89) Glucose (74-104) mg/dL Calcium (8.5-10.3) mg/dL ABX Reporting Has patient been on IV antibiotics over the past 48 hours?: Yes Assessment/Plan - Problem List (1) Acute and chronic respiratory failure Impression: Improving. Continue with O2 support. Will give one dose of IV lasix today. Will continue with nebs and change solu-medrol to PO prednisone. Qualifiers: Respiratory failure complication: hypoxia and hypercapnia Qualified Code(s): J96.21 - Acute and chronic respiratory failure with hypoxia; J96.22 - Acute and chronic respiratory failure with hypercapnia (2) Cellulitis of right leg Impression: Improving. Will change to PO abx today. (3) Acute metabolic encephalopathy Impression: Stabilizing. pCO2 came down and cellulitis is improving. (4) Lymphedema Impression: Stable. Monitor. (5) Muscle weakness Impression: PT/OT. SNF placement.
[2023-09-04] MEDS: cefuroxime axetiL 250 MG TABLET PO SCH (09:50)
[2023-09-04] MEDS: D MANNOSE 500 MG PO SCH (09:51)
[2023-09-04] MEDS: guaiFENesin/CODEINE 5 ML UDC PO PRN (16:26)
--- NOTE | 2023-09-04 21:03 | XRAY Report ---
PROCEDURE: Chest 1V INDICATIONS: SOB, cough TECHNIQUE: One view of the chest was acquired. COMPARISON: Single view the chest dated 09/01/2023. FINDINGS: Surgical changes and devices: None. Lungs and pleura: Elevation of the right hemidiaphragm is redemonstrated. Diffuse interstitial promi nence is present. Mediastinum: Mediastinal contours appear normal. Heart size is normal. Bones and chest wall: No suspicious bony lesions. Overlying soft tissues appear unremarkable. IMPRESSION: Diffuse interstitial prominence which may be associated with fluid overload. Reviewed by: Cherie Roche MD on 09/04/2023 9:02 PM PDT Approved by: Cherie Roche MD on 09/04/2023 9:02 PM PDT Station ID: [id number]
[2023-09-05 05:15] LABS: BASOPHILS % (AUTO) 0.2 %; EOSINOPHILS # (AUTO) 0.1 10^3/uL (0.0-0.7); EOSINOPHILS % (AUTO) 0.7 %; HCT - HEMATOCRIT 36.7 % (37.0-47.0); HGB - HEMOGLOBIN 11.2 g/dL (12.0-16.0); LYMPHOCYTES # (AUTO) 1.1 10^3/uL (1.5-3.5); MEAN CORPUSCULAR HEMOGLOBIN 32.1 pg (27.0-31.0); MEAN CORPUSCULAR HGB CONC 30.5 g/dL (32.0-36.0); MEAN CORPUSCULAR VOLUME 105.2 fL (81.0-99.0); MEAN PLATELET VOLUME 9.3 fL (7.9-10.8); MONOCYTES # (AUTO) 0.9 10^3/uL (0.0-1.0); NEUTROPHILS % (AUTO) 74.9 %; PLT - PLATELET COUNT 206 10^3/uL (130-450); RED BLOOD COUNT 3.49 10^6/uL (4.20-5.40); RED CELL DISTRIBUTION WIDTH 14.1 % (12.0-15.0); WHITE BLOOD COUNT 8.1 x10^3/uL (4.8-10.8)
[2023-09-05 05:31] LABS: CALCIUM 9.1 mg/dL (8.5-10.3); CREATININE 0.9 mg/dL (0.6-1.3); POTASSIUM 4.6 mmol/L (3.5-4.5)
[2023-09-05] MEDS ORDERED: FUROSEMIDE 40 MG/4 ML VIAL ONE (07:56)
[2023-09-05] MEDS: predniSONE 20 MG TABLET PO SCH (08:04)
[2023-09-05] MEDS: FUROSEMIDE 40 MG/4 ML VIAL IVP SCH (08:05)
[2023-09-05] MEDS ORDERED: FUROSEMIDE 40 MG TABLET PO SCH (09:00)
--- NOTE | 2023-09-05 10:24 | PROVIDER PROGRESS NOTE ---
Subjective - Prog Note Date Prog Note Date: 09/05/23 Prog Note Time: 10:22 - Subjective Pt reports feeling: Improved (Her breathing is better) Subjective: The pt reports that she is feeling better today. Her breathing is okay but it gets worse at times, especially when she tries to do something. No acute overnight events. No other related symptoms. No other modifying factors. Objective - Vital Signs/Intake & Output Reviewed Vital Signs: Yes Vital Signs: Vital Signs x48h Temp Pulse Pulse Resp BP Pulse Ox O2 Flow Rate 09/05/23 08:13 36.8 C 73 16 143/65 H 96 2 09/05/23 07:15 74 22 2 Intake & Output: Intake & Output 09/02/23 09/03/23 09/04/23 09/05/23 23:59 23:59 23:59 23:59 Intake Total 2950 760 2150 320 Output Total 1325 2750 1680 600 Balance 5 470 -280 - Objective General Appearance: positive: No acute distress Eyes Bilateral: positive: Normal inspection, EOMI Neck: positive: Nml inspection, Other (Unable to assess JVD due to her body habitus) Respiratory: positive: No respiratory distress, Wheezes (Less wheezing today) Cardiovascular: positive: Regular rate & rhythm Abdomen: positive: Non-tender, Nml bowel sounds, No distention Skin: positive: Warm, Dry, Other (Erythema at RLE looks about the same.) Extremities: positive: Nml appearance, Pedal edema, Other (Mildly tender to palpation at BLE) Neurologic/Psychiatric: positive: Oriented x3 - Lab Results Fish Bones: 09/05/23 05:05 09/05/23 05:05 Other Labs: Lab Results x24hrs 09/05/23 09/05/23 Range/Units 05:05 05:05 WBC 8.1 (4.8-10.8) x10^3/uL RBC 3.49 L (4.20-5.40) 10^6/uL Hgb 11.2 L (12.0-16.0) g/dL Hct 36.7 L (37.0-47.0) % MCV 105.2 H (81.0-99.0) fL MCH 32.1 H (27.0-31.0) pg MCHC 30.5 L (32.0-36.0) g/dL RDW 14.1 (12.0-15.0) % Plt Count 206 (130-450) 10^3/uL MPV 9.3 (7.9-10.8) fL Neut # (Auto) 6.0 (1.5-6.6) 10^3/uL Lymph # (Auto) 1.1 L (1.5-3.5) 10^3/uL [place] # (Auto) 0.9 (0.0-1.0) 10^3/uL Eos # (Auto) 0.1 (0.0-0.7) 10^3/uL Baso # (Auto) 0.0 (0.0-0.1) 10^3/uL Absolute Nucleated RBC 0.00 x10^3/uL Nucleated RBC % 0.0 /100WBC Sodium 136 (135-145) mmol/L Potassium 4.6 H (3.5-4.5) mmol/L Chloride 98 L (101-111) mmol/L Carbon Dioxide 34 H (21-32) mmol/L Anion Gap 4.0 L (6-13) BUN 30 H (6-20) mg/dL Creatinine 0.9 (0.6-1.3) mg/dL Estimated GFR (MDRD) 60 L (>89) Glucose 121 H (74-104) mg/dL Calcium 9.1 (8.5-10.3) mg/dL - Diagnostic Imaging Diagnostic Imaging Results: positive: Final report reviewed Diagnostic Imaging Comments: CXR showed fluid overload ABX Reporting Has patient been on IV antibiotics over the past 48 hours?: No Assessment/Plan - Problem List (1) Acute and chronic respiratory failure Impression: Stabilizing. She has less exp wheezing. CXR showed fluid overload so will treat it. Continue with steroid and nebs. Qualifiers: Respiratory failure complication: hypoxia and hypercapnia Qualified Code(s): J96.21 - Acute and chronic respiratory failure with hypoxia; J96.22 - Acute and chronic respiratory failure with hypercapnia (2) Fluid overload Impression: IV lasix 40mg BID for today and go back to PO tomorrow. Qualifiers: Hypervolemia type: unspecified Qualified Code(s): E87.70 - Fluid overload, unspecified (3) Cellulitis of right leg Impression: Stable. Continue with PO abx. (4) Acute metabolic encephalopathy Impression: Stable. (5) Lymphedema Impression: Stable. (6) Muscle weakness Impression: PT/OT. Will go to SNF.
[2023-09-06 05:40] LABS: BASOPHILS % (AUTO) 0.3 %; EOSINOPHILS # (AUTO) 0.1 10^3/uL (0.0-0.7); EOSINOPHILS % (AUTO) 1.3 %; HCT - HEMATOCRIT 36.8 % (37.0-47.0); HGB - HEMOGLOBIN 11.2 g/dL (12.0-16.0); LYMPHOCYTES # (AUTO) 1.1 10^3/uL (1.5-3.5); LYMPHOCYTES % (AUTO) 14.1 %; MEAN CORPUSCULAR HEMOGLOBIN 32.1 pg (27.0-31.0); MEAN CORPUSCULAR HGB CONC 30.4 g/dL (32.0-36.0); MEAN CORPUSCULAR VOLUME 105.4 fL (81.0-99.0); MEAN PLATELET VOLUME 9.4 fL (7.9-10.8); MONOCYTES # (AUTO) 0.8 10^3/uL (0.0-1.0); MONOCYTES % (AUTO) 10.4 %; NEUTROPHILS # (AUTO) 5.7 10^3/uL (1.5-6.6); NEUTROPHILS % (AUTO) 73.6 %; PLT - PLATELET COUNT 216 10^3/uL (130-450); RED BLOOD COUNT 3.49 10^6/uL (4.20-5.40); RED CELL DISTRIBUTION WIDTH 14.3 % (12.0-15.0); WHITE BLOOD COUNT 7.7 x10^3/uL (4.8-10.8)
[2023-09-06 05:55] LABS: CALCIUM 9.2 mg/dL (8.5-10.3); CREATININE 0.9 mg/dL (0.6-1.3); POTASSIUM 4.4 mmol/L (3.5-4.5)
[2023-09-06] MEDS: MORPHINE 2 MG/ML CARPUJECT IVP PRN (06:27)
[2023-09-06] MEDS: SODIUM CHLORIDE FLUSH 0.9% 10 ML SYRINGE IVP PRN (06:28)
[2023-09-06 08:26] VITALS: BP 154/73; O2SAT 94
[2023-09-06] MEDS: FUROSEMIDE 40 MG TABLET PO SCH (09:27)
--- NOTE | 2023-09-06 10:11 | Discharge Plan ---
"Discharge Plan for SNF / [facility] - Discharge Plan And Transition Orders Problem Reviewed?: Yes Disposition: 03 SNF DC/Xfer Condition: Stable Allergies and Adverse Reactions: Allergies Allergy/AdvReac Type Severity Reaction Status Date / Time buprenorphine Allergy Anaphylaxis Verified 09/01/23 11:35 ampicillin AdvReac Rash Verified 01/21/23 22:11 Health Concerns: Acute on chronic hypoxemic respiratory failure. Needs to use CPAP at night. Plan of Treatment: PT/OT. O2 support. - SNF / [facility] Transition Orders Admit to (Facility): [facility] Discharge Diagnosis: Acute on chronic hypoxemic respiratory failure RLE cellulitis Pulmonary edema Medicare Certification Statement: I certify that [facility] halfway care is medically necessary on a continuing basis for any of the conditions for which she/he is receiving care during hospitalization. Notify PCP of admission and forward orders to primary provider for signature. Weight on admission and: Daily Call PCP immediately if weight increases by: 2.268 kg Other Notification Orders: Call PCP immediately if patient develops dyspnea, chest pain/tightness or edema. House Bowel Program: Yes Additional Bowel Program Orders: If no BM after 2 days, nurse may give M.O.M. 30ml PO PRN and/or ducolax Supp 1 FL and/or BERNIE 250mg P.O., and/or senna 1-2 tabs PO. On day 3 nurse may give repeat above order until residents constipation is resolved. Annual Influenza Vaccine (between Jan 08 and August 07): Yes Oxygen Orders: 2-4 liters of NC Medication Orders: PLEASE REFER TO THE DISCHARGE MEDICATION LIST. Insulin Orders?: No - Medications New Prescriptions: cefuroxime axetiL [Ceftin] 500 mg PO BID #10 tab predniSONE [Deltasone] 20 mg PO DAILYWM #2 tab Cyanocobalamin [Vitamin B-12] 500 mcg PO DAILY #30 tab - Diet Type: Geriatric Texture: Regular Liquids: Thin May have monthly special meal: Yes - Therapies | Activity Therapy: Evaluation | Treat if indicated: PT, OT Rehabilitation Potential: Maximize functional status Activity: Activity as Tolerated Weight Bearing: Full Weight Follow Up: PCP in 1 week"
--- NOTE | 2023-09-06 10:20 | DISCHARGE SUMMARY ---
"Discharge Summary Admit Date: 09/01/23 Discharge Date: 09/06/23 Discharging Provider: Subhash Jimenez Primary Care Provider: Davina Frost Code Status: Do Not Attempt Resuscitation Condition at Discharge: Stable Discharge Disposition: SNF DC/Xfer Discharge Facility Name: [facility] - DIAGNOSES Admission Diagnoses: Failure to thrive. Discharge Diagnoses with Status of Each Condition: Acute on chronic respiratory failure with hypoxemia and hypercapnia: Improved. RLE cellulitis: Improved. Failure to thrive: Improving. Fluid overload: Improved. Metabolic encephalopathy: Improved. - HPI History of Present Illness: Per admitting H&P, Elderly female that is morbidly obese, has chronic pain and lives at home. She is taken care of by her . She has increasing anger and irrational thought process on top of her baseline dementia. Is constantly arguing with her . She flatly refuses to cooperate with the things he has to do with reg ards to eating, taking medications, bathing, or wearing her oxygen. He has been suffering under increasing fatigue from increasing caregiver burden. She was last admitted in March 2023. Because of the 's distress, we have prepared to discharge this patient to a fdc facility. During her stay she was noncompliant with keeping her O2 on, and was wheezing on the day of discharge. She is be on a CPAP mask for obstructive sleep apnea. She also has nocturnal hypoxemia and needs anywhere between 1-1/2 to 2 L of oxygen at night. At the last second, her changed his mind and he wanted her to go home with home health. He was also getting ready to do an ankle replacement and had not made any arrangements for respite care for when he needed to do his ankle replacement. Took her home and was able to take care of her with the help of home health. He was bathing her 2 days a week, and home health was bathing her 1 day a week. Daughter lives next-door and took over cooking. He finally had his surgery around July 13 and daughter stopped cooking for them about 3 weeks ago. Says she has been holding her own, stable, and as far as he knows doing well with her apnea and CPAP mask. They check her O2 sats on a nightly basis and she has been staying between 88 and 92% and not needing oxygen. She has a history of ovarian cancer back in 2011 and was followed by Ginger Moore at [facility]. The subsequent surgery and treatment resulted in venous stasis and lymphedema of her legs. She also prefers to be in a chair or in bed because she has chronic lower back pain and had a remote vertebral fusion and titanium ruel placement in July 2015. The resultant lymphedema has resulted in recurrent cellulitis in her legs, right worse than left. Last Wednesday was her last day with [facility]. She is able to walk 10 to 15 feet. It takes anywhere between 5 to 14 minutes to walk from the bed to the bathroom. The next day, on (6 days ago) she developed right leg redness and swelling. she says the pain was a very severe burning, especially in her right leg. there is no trauma or blow to the leg. The pain alternated between that burning sensation and a sharp, frequent needle stabbing sensation. He tells me that she was up all that night, moaning with pain. She went to the urgent care center in [place] the next day, and was put on Keflex. A urinalysis was reportedly positive and subsequent culture became positive for Klebsiella pneumonia which was resistant to ampicillin and nitrofurantoin. And spite of the Keflex, her leg redness has not responded. Weakness has become progressive and she continues to complain that it hurts to urinate and she is urinating a lot more. For the last 2 to 3 days she has been unable to get out of bed. Appetite is the same. There is no change in behavior. Sometimes she gets a little chilled and shakes with that but she denies out right rigors. When she was still ambulating, the patient used to spend half her time in [facility] and the other part of her time was here, at her second home on the [place]. Around September 2019 was the last time she was at that house. And they sold the house in 2021 and have been permanent residence of the [place] since 2021. Her brought her to the emergency room because of the weakness and symptoms. Temperature was 37.0. Heart rate was 74. Respirations 24. Blood pressure 166/74. She was 100% saturated on room air. She is mildly confused, obese, had mild expiratory wheezes and diminished lung sounds throughout. She was unlabored respiration with no use of accessory muscles. She had significant lymphedema of both legs and there was beet red cellulitis from the knee down to the ankle on the right leg. White cell count was normal at 5.6. Hemoglobin 12.4. Platelet 211. Sodium 137. Potassium 4.1. Anion gap was 5 and low. Carbon dioxide showed increased buffering with a carbon dioxide serum level of 35. BUN 24 creatinine 1.0. Urinalysis was clear. And venous blood/sugar to be hypercapnic. pH was 7.29, pCO2 72.5, pO2 27. Base excess was 5.1. In reviewing the chart this patient is pCO2 is anywhere between 62-65. So the 72 is at least 10 points higher than she usually is. Again, she has chronic hypoxemia at night, obstructive sleep apnea, and tends to retain CO2 and is noncompliant. My impression is that this patient has dementia, and a probable rising CO2 due to noncompliance with her CPAP/nighttime hypoxemia treatment. And then add a cellulitis to the mix and you have slightly worsening confusion, hypercapnia. I would like to bring the patient in observation status to treat the hypoxemia, start treating the cellulitis. My anticipation is that she should respond enough to be able to be discharged tomorrow and I have warned the That my plan is to discharge tomorrow. - CONSULTS | PROCEDURES Consultations: None Procedures: None - HOSPITAL COURSE Hospital Course: Acute and chronic respiratory failure with hypoxemia and hypercapnia During the hospital course she developed exp wheezing and required O2 support. The pt was started on steroid and nebs. CXR showed fluid overload so she was put on IV lasix. Her respiratory status has been improving and her repeat ABG showed improvement also. Upon discharge she will take 2 more days of prednisone and use duoneb QID prn. She received IV lasix 40mg several times and she will go back to her home 40mg PO daily. Fluid overload CXR showed fluid overload and IV lasix 40mg was given 3 times. She has had good UOP and she will go back to 40mg PO daily upon discharge. Cellulitis of right leg This has been improving. The pt received IV ceftriaxone and she will continue with PO ceftin for 5 more days. Acute metabolic encephalopathy Initially she had metabolic encephalopathy but it has been improved with treatment of respiratory failure and cellulitis. Lymphedema This is chronic and it has been stable. Muscle weakness PT/OT saw the pt and she will go to SNF. - ALLERGIES Allergies/Adverse Reactions: Allergies Allergy/AdvReac Type Severity Reaction Status Date / Time buprenorphine Allergy Anaphylaxis Verified 09/01/23 11:35 ampicillin AdvReac Rash Verified 01/21/23 22:11 - MEDICATIONS Home Medications: Ambulatory Orders Medication Instructions Recorded Confirmed Omeprazole 20 mg PO DAILY 06/17/20 09/02/23 Atorvastatin [Lipitor] 20 mg PO QPM #0 04/05/23 09/02/23 DULoxetine [Cymbalta] 60 mg PO DAILY #0 04/05/23 09/02/23 Furosemide [Lasix] 40 mg PO DAILY #0 04/05/23 09/02/23 Gabapentin [Neurontin] 1,800 mg PO BID #0 04/05/23 09/02/23 Levothyroxine Sodium [Synthroid] 137 mcg PO DAILY #0 04/05/23 09/02/23 Cholecalciferol [Vitamin D3] 25 mcg PO DAILY 09/02/23 09/02/23 D-Mannose [Azo D-Mannose] 500 mg PO DAILY 09/02/23 09/02/23 Ferrous Sulfate 325 mg PO DAILY 09/02/23 09/02/23 Lisinopril [Zestril] 40 mg PO DAILY 09/02/23 09/02/23 Acetaminophen [Tylenol] 650 mg PO Q4HR PRN tab 09/06/23 Cod Liver Oil/Zinc Oxide [Desitin] 113 gm TOP PRN PRN each 09/06/23 Cyanocobalamin [Vitamin B-12] 500 mcg PO DAILY #30 tab 09/06/23 Ipratropium/Albuterol [Duoneb] 3 ml INH RTQID PRN ml 09/06/23 Zinc Oxide [Tim Protect] 1 applic TOP PRN PRN each 09/06/23 cefuroxime axetiL [Ceftin] 500 mg PO BID #10 tab 09/06/23 predniSONE [Deltasone] 20 mg PO DAILYWM #2 tab 09/06/23 - PHYSICAL EXAM AT DISCHARGE General Appearance: positive: No acute distress, Alert Eyes Bilateral: positive: Normal inspection, EOMI Neck: positive: Nml inspection, Other (Unable to assess JVD due to her body habitus) Respiratory: positive: Chest non-tender, No respiratory distress, Breath sounds nml Cardiovascular: positive: Regular rate & rhythm Abdomen: positive: Non-tender, Nml bowel sounds, No distention Skin: positive: Other (Mild erythema at BLE, R>L) - LABS Result Diagrams: 09/06/23 05:19 09/06/23 05:19 - DIAGNOSTIC IMAGING Diagnostic Imaging Results: Final report reviewed - FOLLOW UP Follow Up: PCP in 1 week - TIME SPENT Time Spent in Discharge (Minutes): 45"
== END 2023-09-06 15:00 | DRG 602 ==
LOC: EDUNIT# → SUPCPDRO 11:14 → ED 11:14 → MS2 14:45 → OBSVTOIN 09-02 14:48
PROVIDERS: ADMIT Specialist; ATTEND Internal Medicine
DX: L03.115 Cellulitis of right lower limb (principal); F03.90 Unspecified dementia, unspecified severity, without behavioral disturbance, psychotic disturbance, mood disturbance, and anxiety; G93.41 Metabolic encephalopathy; E87.20 Acidosis, unspecified; M62.81 Muscle weakness (generalized); J96.22 Acute and chronic respiratory failure with hypercapnia; J96.21 Acute and chronic respiratory failure with hypoxia; J44.9 Chronic obstructive pulmonary disease, unspecified; Z68.43 Body mass index [BMI] 50.0-59.9, adult; R30.0 Dysuria; R35.0 Frequency of micturition; F03.911 Unspecified dementia, unspecified severity, with agitation; R62.7 Adult failure to thrive; E66.01 Morbid (severe) obesity due to excess calories; G89.29 Other chronic pain; G47.33 Obstructive sleep apnea (adult) (pediatric); I89.0 Lymphedema, not elsewhere classified; E78.00 Pure hypercholesterolemia, unspecified; I10 Essential (primary) hypertension; E03.9 Hypothyroidism, unspecified; K21.9 Gastro-esophageal reflux disease without esophagitis; R32 Unspecified urinary incontinence; H54.7 Unspecified visual loss; F32.A Depression, unspecified; M19.90 Unspecified osteoarthritis, unspecified site; M54.9 Dorsalgia, unspecified; F41.9 Anxiety disorder, unspecified; I07.1 Rheumatic tricuspid insufficiency; Z66 Do not resuscitate; Z79.82 Long term (current) use of aspirin; Z79.890 Hormone replacement therapy; Z79.899 Other long term (current) drug therapy; Z82.49 Family history of ischemic heart disease and other diseases of the circulatory system; Z85.43 Personal history of malignant neoplasm of ovary; Z90.49 Acquired absence of other specified parts of digestive tract; Z90.710 Acquired absence of both cervix and uterus; Z91.148 Patient's other noncompliance with medication regimen for other reason; Z91.199 Patient's noncompliance with other medical treatment and regimen due to unspecified reason; Z98.1 Arthrodesis status
CPT/HCPCS: 36415; 36600; 71045; 80048; 80053; 81001; 82607; 82746; 82803; 83605; 83880; 85025; 87040; 93005; 93307; 94640; 96361; 96372; 96374; 97162; 97164; 97166; 99284; 99285; A9270; G0378; J1650; J7512; Q0162; 87086

== ENCOUNTER 2023-09-06 15:06 | Outpatient (CLI) | payer MEDICARE, OTHER | END 2023-09-06 23:59 | LOC: EMS 15:06 | PROVIDERS: ATTEND Internal Medicine | DX: J96.90 Respiratory failure, unspecified, unspecified whether with hypoxia or hypercapnia (principal); M62.81 Muscle weakness (generalized); E66.01 Morbid (severe) obesity due to excess calories; Z74.01 Bed confinement status | CPT/HCPCS: A0425; A0428 ==

== ENCOUNTER 2023-09-15 15:07 | Outpatient (CLI) | payer MEDICARE, OTHER ==
--- NOTE | 2023-09-15 21:21 | XRAY Report ---
PROCEDURE: Chest 2V INDICATIONS: DIFFICULTY BREATHING TECHNIQUE: 2 views of the chest were acquired. COMPARISON: Chest x-ray 09/04/2023 FINDINGS: Surgical changes and devices: Partially visualized thoracolumbar fusion rods. Lungs and pleura: Improved appearance of previous increased pulmonary vascularity. Minimal left effu corby. Mediastinum: Mediastinal contours appear normal. Heart size is normal. Bones and chest wall: No suspicious bony lesions. Overlying soft tissues appear unremarkable. IMPRESSION: Improved appearance of previous pulmonary edema. Reviewed by: Regina Smith MD on 09/15/2023 9:20 PM PDT Approved by: Regina Smith MD on 09/15/2023 9:20 PM PDT Station ID: [id number]
== END 2023-09-15 15:08 | disposition home or self-care (01) ==
LOC: DI 15:07
PROVIDERS: ATTEND Registered Nurse
DX: R06.89 Other abnormalities of breathing (principal); J81.1 Chronic pulmonary edema

== ENCOUNTER 2023-09-16 08:00 | Outpatient (CLI) | payer MEDICARE, OTHER ==
[2023-09-16 20:13] LABS: BASOPHILS # (AUTO) 0.1 10^3/uL (0.0-0.1); BASOPHILS % (AUTO) 0.7 %; EOSINOPHILS # (AUTO) 0.2 10^3/uL (0.0-0.7); EOSINOPHILS % (AUTO) 3.1 %; HCT - HEMATOCRIT 44.7 % (37.0-47.0); HGB - HEMOGLOBIN 13.6 g/dL (12.0-16.0); LYMPHOCYTES # (AUTO) 1.3 10^3/uL (1.5-3.5); LYMPHOCYTES % (AUTO) 19.9 %; MEAN CORPUSCULAR HEMOGLOBIN 31.4 pg (27.0-31.0); MEAN CORPUSCULAR HGB CONC 30.4 g/dL (32.0-36.0); MEAN CORPUSCULAR VOLUME 103.2 fL (81.0-99.0); MEAN PLATELET VOLUME 9.9 fL (7.9-10.8); MONOCYTES # (AUTO) 0.6 10^3/uL (0.0-1.0); MONOCYTES % (AUTO) 9.2 %; NEUTROPHILS # (AUTO) 4.5 10^3/uL (1.5-6.6); NEUTROPHILS % (AUTO) 66.7 %; PLT - PLATELET COUNT 216 10^3/uL (130-450); RED BLOOD COUNT 4.33 10^6/uL (4.20-5.40); RED CELL DISTRIBUTION WIDTH 14.1 % (12.0-15.0); WHITE BLOOD COUNT 6.7 x10^3/uL (4.8-10.8)
[2023-09-16 20:28] LABS: ALBUMIN 3.9 g/dL (3.2-5.5); ALBUMIN/GLOBULIN RATIO 1.1 (1.0-2.2); BILIRUBIN,TOTAL 0.9 mg/dL (0.2-1.0); CALCIUM 9.6 mg/dL (8.5-10.3); CREATININE 0.8 mg/dL (0.6-1.3); TOTAL PROTEIN 7.3 g/dL (6.4-8.9)
== END 2023-09-16 23:59 | disposition home or self-care (01) ==
LOC: LAB.R 08:00
DX: I10 Essential (primary) hypertension (principal); D64.9 Anemia, unspecified
CPT/HCPCS: 80053; 85025

== ENCOUNTER 2023-09-27 14:22 | Outpatient (CLI) | payer MEDICARE, OTHER ==
[2023-09-27 14:31] LABS: BASOPHILS % (AUTO) 0.7 %; EOSINOPHILS # (AUTO) 0.2 10^3/uL (0.0-0.7); EOSINOPHILS % (AUTO) 3.7 %; HCT - HEMATOCRIT 41.1 % (37.0-47.0); HGB - HEMOGLOBIN 12.9 g/dL (12.0-16.0); LYMPHOCYTES # (AUTO) 0.9 10^3/uL (1.5-3.5); LYMPHOCYTES % (AUTO) 20.5 %; MEAN CORPUSCULAR HEMOGLOBIN 32.3 pg (27.0-31.0); MEAN CORPUSCULAR HGB CONC 31.4 g/dL (32.0-36.0); MEAN PLATELET VOLUME 9.8 fL (7.9-10.8); MONOCYTES # (AUTO) 0.5 10^3/uL (0.0-1.0); NEUTROPHILS # (AUTO) 2.7 10^3/uL (1.5-6.6); NEUTROPHILS % (AUTO) 62.9 %; PLT - PLATELET COUNT 150 10^3/uL (130-450); RED BLOOD COUNT 3.99 10^6/uL (4.20-5.40); RED CELL DISTRIBUTION WIDTH 14.2 % (12.0-15.0); WHITE BLOOD COUNT 4.3 x10^3/uL (4.8-10.8)
[2023-09-27 14:45] LABS: ALBUMIN 3.7 g/dL (3.2-5.5); ALBUMIN/GLOBULIN RATIO 1.1 (1.0-2.2); BILIRUBIN,TOTAL 0.9 mg/dL (0.2-1.0); CALCIUM 9.2 mg/dL (8.5-10.3); CREATININE 0.7 mg/dL (0.6-1.3); POTASSIUM 3.7 mmol/L (3.5-4.5); TOTAL PROTEIN 7.1 g/dL (6.4-8.9)
== END 2023-09-27 14:23 | disposition home or self-care (01) ==
LOC: LAB.R 14:22
PROVIDERS: ATTEND Registered Nurse
DX: I10 Essential (primary) hypertension (principal)
CPT/HCPCS: 80053; 85025

== ENCOUNTER 2023-09-27 14:59 | Outpatient (CLI) | payer MEDICARE, OTHER ==
--- NOTE | 2023-09-27 15:57 | XRAY Report ---
PROCEDURE: Chest 2V INDICATIONS: SOB, ACUTE RESPIRATORY FAILURE TECHNIQUE: 2 views of the chest were acquired. COMPARISON: None. FINDINGS: Surgical changes and devices: None. Lungs and pleura: Lung volumes are low. No pleural effusions or pneumothorax. Lungs are clear. Mediastinum: Mediastinal contours appear normal. Heart size is normal. Bones and chest wall: No suspicious bony lesions. Overlying soft tissues appear unremarkable. IMPRESSION: No acute cardiopulmonary process. Reviewed by: Cherie Roche MD on 09/27/2023 3:56 PM PDT Approved by: Cherie Roche MD on 09/27/2023 3:56 PM PDT Station ID: [id number]
== END 2023-09-27 15:00 | disposition home or self-care (01) ==
LOC: DI 14:59
PROVIDERS: ATTEND Registered Nurse
DX: J96.02 Acute respiratory failure with hypercapnia (principal); I10 Essential (primary) hypertension
CPT/HCPCS: 80053; 85025

== ENCOUNTER 2023-09-28 15:19 | Outpatient (CLI) | payer MEDICARE, OTHER ==
[2023-09-28 15:27] LABS: BASOPHILS % (AUTO) 0.3 %; EOSINOPHILS # (AUTO) 0.2 10^3/uL (0.0-0.7); EOSINOPHILS % (AUTO) 4.6 %; HCT - HEMATOCRIT 42.4 % (37.0-47.0); HGB - HEMOGLOBIN 12.9 g/dL (12.0-16.0); LYMPHOCYTES # (AUTO) 0.8 10^3/uL (1.5-3.5); LYMPHOCYTES % (AUTO) 20.5 %; MEAN CORPUSCULAR HEMOGLOBIN 31.5 pg (27.0-31.0); MEAN CORPUSCULAR HGB CONC 30.4 g/dL (32.0-36.0); MEAN CORPUSCULAR VOLUME 103.7 fL (81.0-99.0); MEAN PLATELET VOLUME 9.7 fL (7.9-10.8); MONOCYTES # (AUTO) 0.6 10^3/uL (0.0-1.0); MONOCYTES % (AUTO) 14.3 %; NEUTROPHILS # (AUTO) 2.4 10^3/uL (1.5-6.6); NEUTROPHILS % (AUTO) 60.3 %; PLT - PLATELET COUNT 142 10^3/uL (130-450); RED BLOOD COUNT 4.09 10^6/uL (4.20-5.40); RED CELL DISTRIBUTION WIDTH 14.3 % (12.0-15.0); WHITE BLOOD COUNT 3.9 x10^3/uL (4.8-10.8)
[2023-09-28 16:26] LABS: ALBUMIN 3.7 g/dL (3.2-5.5); ALBUMIN/GLOBULIN RATIO 1.1 (1.0-2.2); BILIRUBIN,TOTAL 0.8 mg/dL (0.2-1.0); CALCIUM 9.2 mg/dL (8.5-10.3); CREATININE 0.7 mg/dL (0.6-1.3); POTASSIUM 3.8 mmol/L (3.5-4.5); TOTAL PROTEIN 7.1 g/dL (6.4-8.9)
== END 2023-09-28 15:20 | disposition home or self-care (01) ==
LOC: LAB.R 15:19
PROVIDERS: ATTEND Registered Nurse
DX: J96.02 Acute respiratory failure with hypercapnia (principal)
CPT/HCPCS: 80053; 85025

== ENCOUNTER 2023-09-29 08:00 | Outpatient (CLI) | payer MEDICARE, OTHER ==
[2023-09-29 23:04] LABS: BASOPHILS % (AUTO) 0.4 %; EOSINOPHILS # (AUTO) 0.2 10^3/uL (0.0-0.7); EOSINOPHILS % (AUTO) 4.7 %; HCT - HEMATOCRIT 41.8 % (37.0-47.0); HGB - HEMOGLOBIN 12.9 g/dL (12.0-16.0); LYMPHOCYTES # (AUTO) 1.3 10^3/uL (1.5-3.5); LYMPHOCYTES % (AUTO) 29.6 %; MEAN CORPUSCULAR HEMOGLOBIN 31.9 pg (27.0-31.0); MEAN CORPUSCULAR HGB CONC 30.9 g/dL (32.0-36.0); MEAN CORPUSCULAR VOLUME 103.2 fL (81.0-99.0); MEAN PLATELET VOLUME 9.8 fL (7.9-10.8); MONOCYTES # (AUTO) 0.6 10^3/uL (0.0-1.0); MONOCYTES % (AUTO) 12.7 %; NEUTROPHILS # (AUTO) 2.4 10^3/uL (1.5-6.6); NEUTROPHILS % (AUTO) 52.2 %; PLT - PLATELET COUNT 145 10^3/uL (130-450); RED BLOOD COUNT 4.05 10^6/uL (4.20-5.40); RED CELL DISTRIBUTION WIDTH 14.5 % (12.0-15.0); WHITE BLOOD COUNT 4.5 x10^3/uL (4.8-10.8)
[2023-09-29 23:18] LABS: ALBUMIN 3.8 g/dL (3.2-5.5); ALBUMIN/GLOBULIN RATIO 1.1 (1.0-2.2); BILIRUBIN,TOTAL 0.7 mg/dL (0.2-1.0); CALCIUM 9.3 mg/dL (8.5-10.3); CREATININE 0.8 mg/dL (0.6-1.3); POTASSIUM 3.6 mmol/L (3.5-4.5); TOTAL PROTEIN 7.3 g/dL (6.4-8.9)
== END 2023-09-29 23:59 | disposition home or self-care (01) ==
LOC: LAB.R 08:00
PROVIDERS: ATTEND Registered Nurse
DX: J96.02 Acute respiratory failure with hypercapnia (principal)
CPT/HCPCS: 80053; 85025

== ENCOUNTER 2023-10-09 08:00 | Outpatient (CLI) | payer MEDICARE, OTHER ==
[2023-10-09 17:12] LABS: ALBUMIN 3.6 g/dL (3.2-5.5); ALBUMIN/GLOBULIN RATIO 1.1 (1.0-2.2); BILIRUBIN,TOTAL 0.7 mg/dL (0.2-1.0); CALCIUM 9.4 mg/dL (8.5-10.3); POTASSIUM 3.3 mmol/L (3.5-4.5); TOTAL PROTEIN 6.8 g/dL (6.4-8.9)
== END 2023-10-09 23:59 | disposition home or self-care (01) ==
LOC: LAB.R 08:00
DX: I10 Essential (primary) hypertension (principal)
CPT/HCPCS: 80053

== ENCOUNTER 2023-12-03 08:33 | Outpatient (CLI) | payer MEDICARE, OTHER ==
--- NOTE | 2023-12-04 19:33 | XRAY Report ---
PROCEDURE: Shoulder 2+V RT INDICATIONS: RIGHT SHOULDER PAIN TECHNIQUE: 3 views of the shoulder were acquired. COMPARISON: None FINDINGS: Bones: No fractures or dislocations. No suspicious bony lesions. Visualized ribs appear intact. M oderate glenohumeral joint space narrowing., Clavicular joint space narrowing and hypertrophic margin al osteophyte Soft tissues: No suspicious soft tissue calcifications. IMPRESSION: Degenerative hypertrophic AC joint. Moderate glenohumeral joint space narrowing Reviewed by: Wyatt Simon MD on 12/04/2023 6:32 PM AKDT Approved by: Wyatt Simon MD on 12/04/2023 6:32 PM AKDT Station ID: [id number]
== END 2023-12-03 08:34 | disposition home or self-care (01) ==
LOC: DI 08:33
PROVIDERS: ATTEND Family Medicine
DX: M25.711 Osteophyte, right shoulder (principal)

== ENCOUNTER 2023-12-16 12:55 | Outpatient (CLI) | payer MEDICARE, OTHER | END 2023-12-16 23:59 | disposition critical access hospital (66) | LOC: EMS 12:55 | DX: L03.116 Cellulitis of left lower limb (principal); S81.812A Laceration without foreign body, left lower leg, initial encounter; X58.XXXA Exposure to other specified factors, initial encounter; F03.90 Unspecified dementia, unspecified severity, without behavioral disturbance, psychotic disturbance, mood disturbance, and anxiety | CPT/HCPCS: A0425; A0429 ==

== ENCOUNTER 2023-12-16 13:18 | Emergency (ER) | payer MEDICARE, OTHER ==
--- NOTE | 2023-12-16 13:46 | ED Physician Documentation ---
History of Present Illness - Stated complaint Stated Complaint: Leg laceration - History obtained from History obtained from: Patient, Family () - History of Present Illness Timing: Prior to arrival - Additonal information Additional information: Patient is an 83-year-old female who presents to the emergency department with past medical history of lymphedema, COPD on 2 L nasal cannula chronically and presents to the emergency department after injury to left anterior leg last night. Patient states her brother was trying to move furniture and she was trying to help him avoid hitting herrera when he accidentally hit the corner into her shins. She notes over the night it drained and bled. She tries to keep her legs elevated with her history of lymphedema but last night was more difficult given the wound. She did not take anything for the pain. Patient is able to transfer by bearing weight but mainly is nonambulatory at home. She recently was discharged yesterday from SNF facility after being admitted for leg cellulitis and CHANG that she recovered from at SNF facility. Patient now currently lives at home with . PD PAST MEDICAL HISTORY - Past Medical History Cardiovascular: Hypertension, High cholesterol, Other Respiratory: Shortness of breath, Sleep apnea, CPAP use, Other ( most likely obesity hypoventilation syndrome) Neuro: Dementia, Other Endocrine/Autoimmune: HyPOthyroidism GI: GERD FLUSH TESTER: Ovarian cancer ( status post hysterectomy and extirpative surgery 2011) : Incontinence HEENT: Chronic vision loss Psych: Depression Musculoskeletal: Osteoarthritis, Chronic back pain, Other Derm: None - Past Surgical History Past Surgical History: Yes General: Cholecystectomy, Appendectomy, Other Ortho: Spine surgery /FLUSH TESTER: Hysterectomy, Oophrectomy - Present Medications Home Medications: Ambulatory Orders Medication Instructions Recorded Confirmed Omeprazole 20 mg PO DAILY 06/17/20 12/16/23 Atorvastatin [Lipitor] 20 mg PO QPM #0 04/05/23 12/16/23 DULoxetine [Cymbalta] 60 mg PO DAILY #0 04/05/23 12/16/23 Furosemide [Lasix] 40 mg PO DAILY #0 04/05/23 12/16/23 Gabapentin [Neurontin] 1,800 mg PO BID #0 04/05/23 12/16/23 Levothyroxine Sodium [Synthroid] 137 mcg PO DAILY #0 04/05/23 12/16/23 D-Mannose [Azo D-Mannose] 500 mg PO DAILY 09/02/23 12/16/23 Ferrous Sulfate 325 mg PO DAILY 09/02/23 12/16/23 Lisinopril [Zestril] 40 mg PO DAILY 09/02/23 12/16/23 Acetaminophen [Tylenol] 650 mg PO Q4HR PRN tab 09/06/23 12/16/23 Cod Liver Oil/Zinc Oxide [Desitin] 113 gm TOP PRN PRN each 09/06/23 12/16/23 Cyanocobalamin [Vitamin B-12] 500 mcg PO DAILY #30 tab 09/06/23 12/16/23 cephALEXin [Keflex] 500 mg PO Q6H #28 cap 12/16/23 - Allergies Allergies/Adverse Reactions: Allergies Allergy/AdvReac Type Severity Reaction Status Date / Time buprenorphine Allergy Anaphylaxis Verified 12/16/23 13:30 ampicillin AdvReac Rash Verified 12/16/23 13:30 - Social History Does the pt smoke?: No Smoking Status: Never smoker Does the pt drink ETOH?: No Does the pt have substance abuse?: No - Immunizations Immunizations are current?: Yes - POLST Patient has POLST: Yes POLST Status: DNR PD ED PE NORMAL - Vitals Vital signs reviewed: Yes - General General: Alert and oriented X 3, No acute distress - HEENT HEENT: Atraumatic - Neck Neck: Supple, no meningeal sign - Cardiac Cardiac: RRR, No gallop, No rub - Respiratory Respiratory: No respiratory distress - Abdomen Abdomen: Normal bowel sounds, Soft - Female Female : Deferred - Derm Derm: Normal color, Other (Left pretibial area shows laceration approximately 3 cm in length and 1 cm in width. Forming elliptical incision. Wound does not appear contaminated.) - Free text exam Free text exam: Significant swelling noted to bilateral lower legs with significant pain and edema. Left greater than right this is baseline for patient. Laceration noted in elliptical lesion to left leg. No significant contamination. No active bleeding on arrival. Patient has sensation intact bilaterally with DP and PT pulses intact bilaterally. Patient able to move bilateral toes and bilateral ankles with full baseline range of motion intact. Results - Vitals Vitals: Vital Signs - 24 hr 12/16/23 12/16/23 12/16/23 13:26 15:45 16:36 Temperature 36.3 C L 36.0 C L Heart Rate 63 60 57 L Respiratory 18 18 18 Rate Blood Pressure 123/102 H 171/88 H 122/87 H O2 Saturation 91 L 96 95 If not protocol 1 : Oxygen Flow, liters/minute Oxygen O2 Source Nasal cannula Procedures - Laceration (location) Lower extremity left Anterior Length in cm: 3 Wound type: Linear (and elliptical) Neurovascular status: Sensory intact, Motor intact, Vascular intact Anesthesia: Lidocaine 1% with epi Wound preparation: Irrigated copiously NS Skin layer closure: Nylon, Sutures - enter # (2) Other: Patient tolerated well, No complications, Dressing applied, Tetanus UTD PD Medical Decision Making - ED course Complexity details: reviewed old records, re-evaluated patient ED course: Patient is a 83-year-old female presents with past medical history listed above patient recently returned home from SNF facility after being discharged there from hospital. Patient presents with laceration to pretibial area on left leg. Patient notes injury occurred last night when a piece of furniture accidentally injured her skin to her left leg she notes persistent bleeding at home but on arrival this appears to have slowed down. Wound evaluated shows no contamination she remains neurovascularly intact bilaterally left swelling is greater than right leg swelling. Significant lymphedema noted on examination. However given significant with and length of wound concern for worsening contamination if wound is left open. Procedure for closure of wound with 2 sutures performed here in ED. See procedure note above. Bacitracin applied to wound after sutures were placed and instructed patient wound was not completely closed but brought closer together given she waited period of time before coming in for laceration and given her history of cellulitis to the leg with lymphedema still present. Given there is no significant redness to the legs no significant warmth on examination and no sharp demarcation of erythema noted low suspicion for any cellulitis present in left leg at this time. Instructed patient we will prophylactically start her on antibiotics she will be given Keflex she is not currently on any antibiotics she has history of allergies to penicillins but has tolerated cephalosporins in the past. Instructed patient she should watch for any fevers worsening discharge swelling redness to the area or pain Or numbness or tingling. Instructed patient sutures should be removed in 7 days watch wound closely and r ewrap in 12 hours with 3 application of topical antibiotics. Departure - Departure Disposition: 01 Home, Self Care Clinical Impression: Laceration of left leg Condition: Good Instructions: ED Laceration All Prescriptions: cephALEXin [Keflex] 500 mg PO Q6H #28 cap Comments: Have sutures removed in 7 days keep leg elevated to ensure good wound healing watch for any redness around site any significant discharge from the wound any fevers worsening pain to that area numbness or tingling. Follow-up with PCP in 7 days to have sutures removed and return to ED with any new or worsening symptoms. Or any of the symptoms listed above. I have started you on antibiotics please take as prescribed. Forms: PCP List Discharge Date/Time: 12/16/23 16:36
[2023-12-16] MEDS: LIDOCAINE 1%-EPI 1:100000 20 ML MDV SUBQ STA (13:49)
[2023-12-16] MEDS: BACITRACIN ZINC OINT 1 PACKET TOP STA (15:36)
[2023-12-16] MEDS: cephALEXin 250 MG CAPSULE PO STA (15:36)
[2023-12-16 16:54] VITALS: BP 122/87; O2SAT 95
== END 2023-12-16 16:36 | disposition home or self-care (01) ==
LOC: ED 13:18
DX: S81.812A Laceration without foreign body, left lower leg, initial encounter (principal); W20.8XXA Other cause of strike by thrown, projected or falling object, initial encounter; Y93.89 Activity, other specified; I89.0 Lymphedema, not elsewhere classified; E66.01 Morbid (severe) obesity due to excess calories; Z68.42 Body mass index [BMI] 45.0-49.9, adult; Z66 Do not resuscitate
CPT/HCPCS: 12002; 99283; A9270

== ENCOUNTER 2023-12-16 16:37 | Outpatient (CLI) | payer MEDICARE, OTHER | END 2023-12-16 16:38 | disposition home or self-care (01) | LOC: EMS 16:37 | PROVIDERS: ATTEND Physician Assistant | DX: L03.116 Cellulitis of left lower limb (principal); F03.90 Unspecified dementia, unspecified severity, without behavioral disturbance, psychotic disturbance, mood disturbance, and anxiety; Z99.81 Dependence on supplemental oxygen; E66.01 Morbid (severe) obesity due to excess calories | CPT/HCPCS: A0425; A0428 ==

== ENCOUNTER 2023-12-24 19:15 | Outpatient (CLI) | payer MEDICARE, OTHER | END 2023-12-24 19:16 | disposition EMS.NT | LOC: EMS 19:15 | DX: R53.1 Weakness (principal) ==

== ENCOUNTER 2024-01-05 04:00 | Outpatient (CLI) | payer MEDICARE, OTHER | END 2024-01-05 23:59 | disposition critical access hospital (66) | LOC: EMS 04:00 | DX: R53.1 Weakness (principal); R06.02 Shortness of breath; R06.2 Wheezing; Z99.81 Dependence on supplemental oxygen | CPT/HCPCS: A0425; A0427 ==

== ENCOUNTER 2024-01-05 04:19 | Emergency (ER) | payer MEDICARE, OTHER ==
[2024-01-05 04:49] LABS: BASOPHILS # (AUTO) 0.1 10^3/uL (0.0-0.1); BASOPHILS % (AUTO) 0.8 %; EOSINOPHILS # (AUTO) 0.4 10^3/uL (0.0-0.7); EOSINOPHILS % (AUTO) 5.7 %; HCT - HEMATOCRIT 37.7 % (37.0-47.0); HGB - HEMOGLOBIN 11.9 g/dL (12.0-16.0); LYMPHOCYTES # (AUTO) 1.1 10^3/uL (1.5-3.5); LYMPHOCYTES % (AUTO) 16.2 %; MEAN CORPUSCULAR HEMOGLOBIN 33.1 pg (27.0-31.0); MEAN CORPUSCULAR HGB CONC 31.6 g/dL (32.0-36.0); MEAN PLATELET VOLUME 9.3 fL (7.9-10.8); MONOCYTES # (AUTO) 0.8 10^3/uL (0.0-1.0); MONOCYTES % (AUTO) 11.5 %; NEUTROPHILS # (AUTO) 4.3 10^3/uL (1.5-6.6); NEUTROPHILS % (AUTO) 65.5 %; PLT - PLATELET COUNT 204 10^3/uL (130-450); RED BLOOD COUNT 3.59 10^6/uL (4.20-5.40); RED CELL DISTRIBUTION WIDTH 14.5 % (12.0-15.0); WHITE BLOOD COUNT 6.5 x10^3/uL (4.8-10.8)
--- NOTE | 2024-01-05 04:59 | ED Physician Documentation ---
History of Present Illness - Stated complaint Stated Complaint: SOA - Chief complaint Chief Complaint: General - Additonal information Additional information: 83-year-old female with history of lymphedema, COPD on baseline 2 L nasal cannula, hypertension, high cholesterol, sleep apnea, dementia, GERD, hypothyroidism, ovarian cancer status post hysterectomy, cholecystectomy, appendectomy, osteoarthritis presents with difficulty with care at home. In setting of dementia, patient is not sure why she is here. She denies any concerns. She is on baseline NC O2. I called patient's spouse who states that since patient has been home from [facility] the last few weeks, she has had generalized weakness and chronic, unchanged shortness of breath. No sudden or severe changes, however patient is not taking her medications at home. Patient's spouse is having trouble caring for her and hopes she can return to long-term. No F/C, pain, falls, bowel or bladder changes. He thinks she may not be taking medications due to her dementia. No other new concerns. ROS Constitutional: no fever, no chills Eyes: no visual disturbance, no discharge Ears, Nose, Mouth, Throat: no rhinorrhea, no sore throat Cardiovascular: no chest pain, no palpitations Respiratory: no cough, no new shortness of breath Gastrointestinal: no abdominal pain, no vomiting, no diarrhea Genitourinary: no dysuria, no hematuria Musculoskeletal: no back pain, no neck stiffness Skin: no rash, no wound Neurological: no focal weakness, no focal numbness PD PAST MEDICAL HISTORY - Past Medical History Past Medical History: Yes Cardiovascular: Hypertension, High cholesterol, Other Respiratory: Shortness of breath, Sleep apnea, CPAP use, Other Neuro: Dementia, Other Endocrine/Autoimmune: HyPOthyroidism GI: GERD 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 : Incontinence HEENT: Chronic vision loss Psych: Depression Musculoskeletal: Osteoarthritis, Chronic back pain, Other Derm: None - Past Surgical History Past Surgical History: Yes General: Cholecystectomy, Appendectomy, Other Ortho: Spine surgery /POWDER AND PRIMER CANNING LEADER: Hysterectomy, Oophrectomy - Present Medications Home Medications: Ambulatory Orders Medication Instructions Recorded Confirmed Omeprazole 20 mg PO DAILY 06/17/20 12/16/23 Atorvastatin [Lipitor] 20 mg PO QPM #0 04/05/23 12/16/23 DULoxetine [Cymbalta] 60 mg PO DAILY #0 04/05/23 12/16/23 Furosemide [Lasix] 40 mg PO DAILY #0 04/05/23 12/16/23 Gabapentin [Neurontin] 1,800 mg PO BID #0 04/05/23 12/16/23 Levothyroxine Sodium [Synthroid] 137 mcg PO DAILY #0 04/05/23 12/16/23 D-Mannose [Azo D-Mannose] 500 mg PO DAILY 09/02/23 12/16/23 Ferrous Sulfate 325 mg PO DAILY 09/02/23 12/16/23 Lisinopril [Zestril] 40 mg PO DAILY 09/02/23 12/16/23 Acetaminophen [Tylenol] 650 mg PO Q4HR PRN tab 09/06/23 12/16/23 Cod Liver Oil/Zinc Oxide [Desitin] 113 gm TOP PRN PRN each 09/06/23 12/16/23 Cyanocobalamin [Vitamin B-12] 500 mcg PO DAILY #30 tab 09/06/23 12/16/23 cephALEXin [Keflex] 500 mg PO Q6H #28 cap 12/16/23 - Allergies Allergies/Adverse Reactions: Allergies Allergy/AdvReac Type Severity Reaction Status Date / Time buprenorphine Allergy Anaphylaxis Verified 01/05/24 04:36 ampicillin AdvReac Rash Verified 01/05/24 04:36 - Social History Does the pt smoke?: No Smoking Status: Never smoker Does the pt drink ETOH?: No Does the pt have substance abuse?: No - Immunizations Immunizations are current?: Yes - POLST Patient has POLST: Yes POLST Status: DNR PD ED PE NORMAL - Free text exam Free text exam: Const: no acute distress, non toxic though chroncially ill appearing; calm, conversant, pleasant; mildly confused at baseline; satting low to mid 90s on 2L NC Eyes: PERRLA, EOMI ENT: mucous membranes moist Neck: supple, non-tender Resp: no respiratory distress, clear to auscultation bilaterally Card: regular rate and rhythm, no murmurs Abd: non tender diffusely, no rigidity or rebound or guarding Back: no T or L spine tenderness, no CVA tenderness bilaterally Extrem: no deformities, chronic venous stasis changes to BLE without tenderness Neuro: ANOx4, trimmer loader grossly intact, grossly intact sensation and strength all extremities Skin: no rash, warm and dry Results - Vitals Vitals: Vital Signs - 24 hr 01/05/24 01/05/24 01/05/24 04:31 04:37 06:00 Temperature 36.8 C Heart Rate 74 67 78 Respiratory 20 18 Rate Blood Pressure 192/82 H 158/92 H O2 Saturation 94 93 If not protocol 2 : Oxygen Flow, liters/minute 01/05/24 06:27 Temperature Heart Rate 87 Respiratory 24 Rate Blood Pressure O2 Saturation If not protocol 2 : Oxygen Flow, liters/minute Oxygen O2 Source Nasal cannula - EKG (time done) EKG NSR without acute ischemia or immediately concerning interval prolongation on my review EKG releavant findings:: EKG personally interpreted by author of this note. Relevant findings are: Rhythm: No: Sinus bradycardia, Sinus tachycardia, NSR, Atrial flutter, Atrial fibrillation, SVT, V tach, Wide complex tachycardia, Torsades, V fib, Paced, Normal P waves, Abnormal P waves, LAE, SAILAJA, Other - Labs Labs: Laboratory Tests 01/05/24 01/05/24 01/05/24 04:44 04:44 04:44 WBC 6.5 RBC 3.59 L Hgb 11.9 L Hct 37.7 MCV 105.0 H MCH 33.1 H MCHC 31.6 L RDW 14.5 Plt Count 204 MPV 9.3 Neut # (Auto) 4.3 Lymph # (Auto) 1.1 L [place] # (Auto) 0.8 Eos # (Auto) 0.4 Baso # (Auto) 0.1 Absolute Nucleated RBC 0.00 Nucleated RBC % 0.0 Sodium 142 Potassium 3.8 Chloride 101 Carbon Dioxide 36 H Anion Gap 5.0 L BUN 18 Creatinine 0.8 Estimated GFR (MDRD) 69 L Glucose 132 H Calcium 9.6 Total Bilirubin 1.0 AST 11 ALT 6 L Alkaline Phosphatase 66 Total Protein 7.6 Albumin 3.8 Globulin 3.8 Albumin/Globulin Ratio 1.0 Nasal Adenovirus (PCR) NOT DETECTED Nasal B. parapertussis DNA (PCR) NOT DETECTED Nasal Coronavir 229E PCR NOT DETECTED Nasal Coronavir HKU1 PCR NOT DETECTED Nasal Coronavir NL63 PCR NOT DETECTED Nasal Coronavir OC43 PCR NOT DETECTED Nasal Enterovir/Rhinovir PCR NOT DETECTED Nasal Influenza B PCR NOT DETECTED Nasal Influenza A PCR NOT DETECTED Nasal Parainfluen 1 PCR NOT DETECTED Nasal Parainfluen 2 PCR NOT DETECTED Nasal Parainfluen 3 PCR NOT DETECTED Nasal Parainfluen 4 PCR NOT DETECTED Nasal RSV (PCR) NOT DETECTED Nasal B.pertussis DNA PCR NOT DETECTED Nasal C.pneumoniae (PCR) NOT DETECTED Benito Human Metapneumo PCR NOT DETECTED Nasal M.pneumoniae (PCR) NOT DETECTED Nasal SARS-CoV-2 (PCR) NOT DETECTED - Rads (name of study) CXR Relevant Findings:: See rad report, Other (I agree with radiology read on my review of imaging.) PD Medical Decision Making - ED course ED course: This patient on clarification presents to the ER in setting of family having difficulty caring for her long-term. On clarification, she does not have new or worsening shortness of breath, though she is refusing to take her medications at home intermittently. She also has generalized failure to thrive. No acute focal neurologic deficits. No trauma. No pain. No clear acute infectious symptoms. I anticipate social work consultation in the morning. Out of caution, I am obtaining EKG, chest x-ray, viral swab, CBC, CMP. We will closely reassess. EKG poor quality however shows normal sinus rhythm without clear acute ischemia or immediately concerning interval prolongation. Note morphology does overall appear similar to September 01, 2019 for EKG. CBC with mild anemia without clear clinical evidence of bleeding. No leukocytosis. No thrombocytopenia. Chemistry with bicarb elevation similar to prior in the setting of chronic COPD. LFTs reassuring. Viral panel negative. CXR: I agree with radiology read of potential central vascular crowding and subsegmental atelectasis, without acute cardiopulmonary disease, on my review. Signing out to AM physician at 0700 with plan to follow up social work consult and reassess. Departure - Departure Forms: PCP List
[2024-01-05 05:06] LABS: ALBUMIN 3.8 g/dL (3.2-5.5); CALCIUM 9.6 mg/dL (8.5-10.3); CREATININE 0.8 mg/dL (0.6-1.3); POTASSIUM 3.8 mmol/L (3.5-4.5); TOTAL PROTEIN 7.6 g/dL (6.4-8.9)
[2024-01-05 06:09] LABS: B. PARAPERTUSSIS- RESP PCR PAN NOT DETECTED; B. PERTUSSIS- RESP PCR PANEL NOT DETECTED; C. PNEUMONIAE- RESP PCR PANEL NOT DETECTED; CORONAVIRUS 229E-RESP PCR NOT DETECTED; CORONAVIRUS HKU1-RESP PCR NOT DETECTED; CORONAVIRUS NL63-RESP PCR NOT DETECTED; CORONAVIRUS OC43-RESP PCR NOT DETECTED; HUMAN METAPNEUMOVIRUS NOT DETECTED; INFLUENZA A- RESP PCR PANEL NOT DETECTED; INFLUENZA B - RESP PCR PANEL NOT DETECTED; M. PNEUMONIAE- RESP PCR PANEL NOT DETECTED; PARAINFLUENZA VIRUS 1 NOT DETECTED; PARAINFLUENZA VIRUS 2 NOT DETECTED; PARAINFLUENZA VIRUS 3 NOT DETECTED; PARAINFLUENZA VIRUS 4 NOT DETECTED; RHINOVIRUS/ENTEROVIRUS NOT DETECTED; RSV- RESP PCR PANEL NOT DETECTED; SARS-CoV-2 -RESP PCR PANEL NOT DETECTED
[2024-01-05] MEDS: IPRATROPIUM/ALBUTEROL 3 ML NEB INH PRN (06:25)
--- NOTE | 2024-01-05 08:29 | ED Physician Documentation ---
ED Addendum - Addendum Addendum: 01/05/24 08:27 The patient did not seem to have any complaints this morning. She is breathing unlabored. Able to converse. She was fidgeting with the oximeter on her finger. I asked if we could help her and she said she is okay. Pending social work evaluation. She did have labs done to ensure no acute abnormality. Nothing remarkable on her basic blood test. This point the patient had been [facility] and then back home. Reportedly her is having more difficulty taking care of her. Looking at potential assisted living or [facility] facility with dementia being main issue but also COPD, HTN. 01/05/24 08:29
--- NOTE | 2024-01-05 08:31 | XRAY Report ---
PROCEDURE: Chest 1V INDICATIONS: shortness of breath (chronic) TECHNIQUE: One view of the chest was acquired. COMPARISON: 09/27/2023 FINDINGS: Surgical changes and devices: Surgical fusion of the cervical spine. Lungs and pleura: No pleural effusions or pneumothorax. Lungs are clear. The lung volumes are low . Mediastinum: Mediastinal contours appear normal. Heart size is normal. Bones and chest wall: No suspicious bony lesions. Overlying soft tissues appear unremarkable. IMPRESSION: No acute cardiopulmonary process. Findings are concordant with preliminary interpretation provided by [facility]. Reviewed by: Neil Lund MD on 01/05/2024 8:30 AM PDT Approved by: Neil Lund MD on 01/05/2024 8:30 AM PDT Station ID: [id number]
[2024-01-05 12:11] VITALS: O2SAT 98
[2024-01-05 14:41] VITALS: BP 142/88
== END 2024-01-05 14:11 ==
LOC: EDUNIT# → ED 04:19
DX: F03.90 Unspecified dementia, unspecified severity, without behavioral disturbance, psychotic disturbance, mood disturbance, and anxiety (principal); R62.7 Adult failure to thrive; Z91.148 Patient's other noncompliance with medication regimen for other reason; Z74.1 Need for assistance with personal care; Z66 Do not resuscitate
CPT/HCPCS: 36415; 80053; 85025; 87633; 93005; 94640; 99284

== ENCOUNTER 2024-01-05 14:23 | Outpatient (CLI) | payer MEDICARE, OTHER | END 2024-01-05 14:24 | LOC: EMS 14:23 | PROVIDERS: ATTEND Emergency Medicine | DX: R41.0 Disorientation, unspecified (principal); J44.9 Chronic obstructive pulmonary disease, unspecified; F03.90 Unspecified dementia, unspecified severity, without behavioral disturbance, psychotic disturbance, mood disturbance, and anxiety | CPT/HCPCS: A0425; A0428 ==

== ENCOUNTER 2024-01-10 15:25 | Outpatient (CLI) | payer MEDICARE, OTHER ==
[2024-01-10 15:33] LABS: BILIRUBIN,URINE NEGATIVE (NEGATIVE); GLUCOSE, URINE (UA) NEGATIVE (NEGATIVE); KETONES,URINE (UA) NEGATIVE (NEGATIVE); LEUKOCYTE ESTERASE, URINE SMALL (NEGATIVE); NITRITE,URINE NEGATIVE (NEGATIVE); OCCULT BLOOD,URINE TRACE-INTA (NEGATIVE); PROTEIN,URINE NEGATIVE (NEGATIVE); UROBILINOGEN,URINE 0.2 (NORMAL) E.U./dL (NORMAL)
[2024-01-10 15:51] LABS: CLARITY,URINE CLEAR (CLEAR)
[2024-01-10 15:52] LABS: BACTERIA,URINE Rare /HPF (None Seen); RBC,URINE 0-5 /HPF (0-5); SQUAMOUS EPITHELIAL CELL,UR RARE Squamous (<= Few); WBC CLUMPS,URINE PRESENT
== END 2024-01-10 15:26 | disposition home or self-care (01) ==
LOC: LAB.R 15:25
PROVIDERS: ATTEND Orthopaedic Surgery
DX: R30.0 Dysuria (principal)
CPT/HCPCS: 81001; 81003; 87086

== ENCOUNTER 2024-01-25 10:44 | Outpatient (CLI) | payer MEDICARE, OTHER ==
--- NOTE | 2024-01-25 11:38 | Sleep Patient Instructions ---
Sleep Center Visit Summary - Patient Visit Information Reason for Visit: Annual follow-up - Patient Instructions Additional Instructions: You will continue with CPAP therapy with pressure set at 4-8 cmH2O. A supply prescription will be updated with your DME supplier. We encourage you to continue to try to lose weight. Please follow up with the sleep care office in 1 year. - Clinic Information Contact: [facility] [address] [place] [address] [email or web address] T: [phone]
--- NOTE | 2024-01-25 11:45 | SLEEP CARE CONSULTATION ---
Information from patient questionnaire entered by Yajaira Brown. I have reviewed and concur with the information entered by Yajaira Brown. This document represents the service I personally performed and the decisions made by me, Kenzie Batista ARNP. History of Present Illness Service Date and Time: 01/25/2024 1044 Previous diagnosis: Moderate, Obstructive Sleep Apnea-Hypopnea Syndrome AHI: 16.4 (in 2019) Reason for follow up: annual (LAST SEEN 01/2023) Equipment type: CPAP ([facility] recertified PT NEED RX FOR O2 BLEED INTO CPAP) Equipment obtained from: [employer] (getting supplies as needed) Mask style: Full face Backup mask available: Yes Last cushion change: few months Prior sleep studies: Yes Year and Where: 2019 - [facility] ; 2001 Type of Sleep Study: Home sleep study HPI additional information: ASH MAGALLON was diagnosed to have moderate, AHI 16.4, obstructive sleep apnea-hypopnea syndrome and returned today with spouse for CPAP therapy annual follow-up. Sleep Study - Results Type of Sleep Study: Home sleep study Prior sleep studies: Yes Year and Where: 2019 - [facility] ; 2001 CPAP Compliance Data - Data Reviewed with Patient Average duration of nightly device use: 4 HRS 16 MINS 43 SECS Compliance rate %: 53.3 (07/23/23-01/18/24; [id number]) Current pressure setting (cmH2O): 4-8 Average residual AHI: 7.8 Central apnea: 0.1 Obstructive apnea: 0.5 Hypopnea: 7.2 Average large leak: 2 hours 8 mins Subjective Missed days of use due to: reports: other (DEMENTIA) Patient concerns: reports: mask leak noise, dry mouth, nose, throat. denies: aerophagia, mask discomfort, air blowing in eyes, condensation in mask/hose, nasal congestion, epistaxis Observed to snore while using device: No Current pressure setting perceived as: comfortable On therapy, patient: reports: sleeping better, awakening more refreshed, being more awake and alert during the day, more rested overall. denies: drowsiness while driving (not driving) Initial Davidson Sleepiness Scale score: 19 (in 2019) Current Davidson Sleepiness Scale score: 10 (01/15/24) Allergies and Home Medications Known drug allergies: Yes (as listed) Drug allergies reviewed: Yes Home medication list reviewed: Yes (no changes) Allergy and home medication list: Allergies buprenorphine Allergy (Verified 01/25/24 11:08) Anaphylaxis ampicillin Adverse Reaction (Verified 01/25/24 11:08) Rash Review of Systems Review of systems same as previous: Yes (NO CHANGE) Physical Exam Vital signs obtained and entered by: YAJAIRA Garcia MA Blood Pressure: 130/73 (RIGHT ARM) Cuff size: long Heart Rate: 77 O2 Saturation: 89 Height: 5 ft 3 in Weight: 235 lb Weight change since last visit: 50 lb loss Body Mass Index: 41.6 BMI Classification: Morbidly Obese Impression and Plan 1. Obstructive Sleep Apnea-Hypopnea Syndrome, moderate, with fair treatment compliance and fair apnea control with elevated residual AHI. On CPAP therapy, the patient has better sleep quality and is more rested overall. Patient is accompanied by her who states her dementia has been getting worse this year. She is currently at [facility] for care for the last 2 weeks. She did spend 3 months there earlier this year. She will wear her mask but then take it off during the night. Her has instructed [facility] to put her on oxygen if she will not wear her mask with the CPAP. I reviewed her data and her average p ressure used is 6.3 cm H2O. She has a large leak average of 2 hours. She has not changed her mask cushion in a few months. I advised them to change her mask cushion to help reduce the large leaks. Her average AHI is elevated at 7.8 with a hypopnea index of 7.2. Goals for apnea control discussed. I feel the residual AHI is falsely elevated due to the large leaks. She will not need any pressure adjustments today and patient voices that she does not want the pressure changed. Patient's apnea severity and rationale for treatment to reduce apnea, improve sleep quality and reduce cardiovascular and cerebrovascular events was reviewed. I also reviewed the benefit of consistent device use of CPAP for hypertension. 2. Obesity, unspecified. Currently patients BMI is 41.6. She has lost weight, about 50 pounds. Obesity increases the risk of apnea, CPAP pressure requirements and overall health risks especially cardiovascular and diabetes. Thus patient is advised to continue to try to lose weight. * Continue auto CPAP pressure at 4-8 cmH2O * Update supply prescription * Notify me if snoring with mask or feeling that the pressure is too much or too little * Attempt to lose weight * Call this office if any problems using CPAP * Return for follow up in 12 months, or sooner if concerns arise Counseling Topics: Spare mask, Weight loss health impact Prescriptions: Device supplies Follow up with Sleep Care in: 1 year Visit Type: In Office Time Spent with Patient (minutes): 21 Provider Statement: I spent 100% of the Face to Face Visit with the patient with greater than 50% spent counseling the patient and coordination of care.
[2024-01-25 11:54] VITALS: BP 130/73; O2SAT 89
== END 2024-01-25 10:45 | disposition home or self-care (01) ==
LOC: SC 10:44
PROVIDERS: ATTEND Nurse Practitioner Family
DX: G47.33 Obstructive sleep apnea (adult) (pediatric) (principal); E66.01 Morbid (severe) obesity due to excess calories; Z68.41 Body mass index [BMI] 40.0-44.9, adult
CPT/HCPCS: 99213; G0463; 99212

== ENCOUNTER 2024-02-02 10:54 | Outpatient (CLI) | payer MEDICARE, BC ==
--- NOTE | 2024-02-02 15:00 | XRAY Report ---
Shoulder 2+V RT HISTORY: 83 years of age, RIGHT SHOULDER PAIN TECHNIQUE: Shoulder 2+V RT COMPARISON: 12/03/2023. FINDINGS/IMPRESSION: Severe degenerative changes of the acromioclavicular joint. Narrowing of the subacromial space, sugge stive rotator cuff pathology. Limited evaluation of joint space of the glenohumeral joint given patie nt positioning. No acute fracture or dislocation. Fusion instrumentation of the cervical and thoracolumbar spine, incompletely visualized. Reviewed by: Benita Alvarado MD on 02/02/2024 2:59 PM PDT Approved by: Benita Alvarado MD on 02/02/2024 2:59 PM PDT Station ID: [id number]
== END 2024-02-02 10:55 | disposition home or self-care (01) ==
LOC: DI 10:54
DX: M19.011 Primary osteoarthritis, right shoulder (principal); Z98.1 Arthrodesis status

== ENCOUNTER 2024-09-26 11:25 | Inpatient (IN) ==
--- OUTSIDE RECORDS SUMMARY | 2024-09-26 11:40 | EXTERNAL MEDICAL SUMMARY RPT | Continuity of Care Document ---
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 and stage 1 through stage 4 chronic kidney disease, or unspecified chronic kidney disease [facility] 2024-07-03 14:53 Deficiency of other specified B group vitamins [facility] 2024-07-03 14:53 Unspecified dementia , unspecified severity, without behavioral disturbance, psychotic disturbance, mood disturbance, and anxiety [facility] 2024-07-03 14:53 Hereditary and idiopathic neuro floresita, unspecified [facility] 2024-07-03 14:53 Polyneuropathy, unspecified i [facility] 2024-07-03 14:53 Otalgia, right ear [facility] 2024-07-03 14:53 Essential (primary) hypertensio n [facility] 2024-07-03 14:53 Chronic obstructive pulmonary d isease, unspecified [facility] 2024-07-03 14:53 Urinary tract infection, site n ot specified [facility] 2024-07-03 14:53 Shortness of breath [facility] 2024-07-03 14:53 Altered mental status, unspecif ied [facility] 2024-07-03 14:53 Weakness [facility] 2024-07-03 14:53 Unspecified injury o f right wrist, hand and finger(s), initial encounter [facility] 2024-07-03 14:53 Other specified counseling [facility] 2024-07-03 14:54 [facility]:56 Deficiency of other specified B group vitamins [facility] 2024-07-17 14:56 Hereditary and idiopathic neuro floresita, unspecified [facility] 2024-07-17 14:56 Polyneuropathy, unspecified [facility] 2024-07-17 14:56 Otalgia, right ear [facility] 2024-07-17 14:56 Chronic obstructive pulmonary d isease, unspecified [facility] 2024-07-17 14:56 Other specified counseling [facility] 2024-07-27 13:20 Encounter for palliative care [facility] 2024-07-27 13:21 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 [employer] 2024-07-27 13:21 Gastro-esophageal reflux diseas e without esophagitis [facility] 2024-08-14 08:58 Encounter for palliative care [facility] 2024-08-25 14:47 Unspecified dementia , unspecified severity, without behavioral disturbance, psychotic disturbance, mood disturbance, and anxiety [facility] 2024-08-25 14:47 Essential (primary) hypertensio n [facility] 2024-08-25 14:47 Urinary tract infection, site n ot specified [facility] 2024-08-25 14:47 Shortness of breath [facility] 2024-08-25 14:47 Altered mental status, unspecif ied [facility] 2024-08-25 14:47 Weakness [facility] 2024-08-25 14:47 Unspecified injury o f right wrist, hand and finger(s), initial encounter [facility] 2024-08-25 14:47 Encounter for palliative care [facility] 2024-09-04 07:28 Major depressive disorder, recu rrent, mild [facility] 2024-09-04 07:28 Hereditary and idiopathic neuro floresita, unspecified [facility] 2024-09-04 07:28 Cor pulmonale (chronic) [facility] 2024-09-04 07:28 Other seasonal allergic rhiniti s [facility] 2024-09-04 07:28 Chronic obstructive pulmonary disease with (acute) exacerbation [facility] 2024-09-04 07:28 Chronic obstructive pulmonary d isease, unspecified [facility] 2024-09-04 07:28 Gastro-esophageal reflux diseas e without esophagitis [facility] 2024-09-04 07:28 Chronic cough [facility] 2024-09-04 07:28 Other specified cough [facility] 2024-09-04 07:28 Nasal congestion [facility] 2024-09-04 07:28 Encounter for palliative care [facility] 2024-09-25 06:50 Chronic obstructive pulmonary disease with (acute) exacerbation [facility] 2024-09-25 06:50 Chronic cough [facility] 2024-09-25 06:50 Other specified cough [facility] 2024-09-25 06:50 Encounter for palliative care [facility] Social History date description facility
--- NOTE | 2024-09-26 11:44 | ED Physician Documentation ---
PD HPI DYSPNEA Stated complaint Stated Complaint: SOA/WHEEZING Chief complaint Chief Complaint: Resp History obtained from History obtained from: Patient and EMS History of Present Illness Timing - onset: How many days ago (few) Timing - onset during: [employer] activity Timing - details: Gradual onset Inciting event(s): URI (Some family members had upper respiratory symptoms and now the patient has felt ill with cough fever chills and wheezing the last few days, worsening. Much more dyspnea today.); No Out of meds Worsened by: Exertion and Coughing Associated symptoms: Cough and Wheezing; No Hemoptysis or Palpitations Similar symptoms before: Diagnosis (COPD severe, on Paliiative care service with PCP as well. ) Meds/Allgy Home Medications Ambulatory Orders Medication Instructions Recorded Confirmed levothyroxine 137 mcg tablet 137 mcg PO DAILY hypothyr oid ##0 04/05/23 09/19/24 (Synthroid) d-mannose 500 mg capsule (AZO 500 mg PO DAILY 09/02/23 09/19/24 D-Mannose) zinc oxide-cod liver oil 40 % 113 g topical PRN PRN Sk in Care 09/06/23 09/19/24 topical paste (Desitin) acetaminophen 500 mg tablet 1,000 mg (2 x 500 mg) PO B ID 03/28/24 09/19/24 Arthritis pain #180 tabs cholecalciferol (vitamin D3) 50 50 mcg PO QDAY #30 cap s 03/28/24 09/19/24 mcg (2,000 unit) capsule estradiol 0.01% (0.1 mg/gram) 1 g vaginal QWEEK #42.5 grams 03/28/24 09/19/24 vaginal cream (Estrace) polyethylene glycol 3350 17 17 g PO QDAY PRN constipat ion #510 03/28/24 09/19/24 gram/dose oral powder (Miralax) grams donepezil 10 mg tablet 10 mg PO QDAY #90 tabs 04/1809/19/24 albuterol sulfate 90 mcg/actuation 1 inh inhalation Q4 H PRN shortness 05/23/24 09/19/24 aerosol inhaler (Ventolin HFA) of breath or wheezing # 8.5 grams cyanocobalamin (vitamin B-12) 500 1,000 mcg (2 x 500 m cg) PO DAILY 06/13/24 09/19/24 mcg tablet #30 tabs gabapentin 600 mg tablet 600 mg PO BID chronic back p ain 07/17/24 09/19/24 (Neurontin) #120 tabs gabapentin 300 mg capsule 300 mg PO BID #60 caps 07/2509/19/24 furosemide 20 mg tablet 40 mg (2 x 20 mg) PO QDAY #1 80 tabs 08/07/24 09/19/24 melatonin 3 mg capsule 6 mg (2 x 3 mg) PO HS #60 ca ps 08/07/24 09/19/24 ipratropium 0.5 mg-albuterol 3 mg 3 ml inhalation TID #180 mL 08/24/24 09/19/24 (2.5 mg base)/3 mL nebulization soln duloxetine 20 mg capsule,delayed 20 mg PO QDAY #60 cap s 08/29/24 09/19/24 release famotidine 40 mg tablet 40 mg PO HS #90 tabs 5 09/19/24 fluticasone propionate 50 1 spray intranasal Q12H #16 grams 08/29/24 09/19/24 mcg/actuation nasal spray,suspension ipratropium 20 mcg-albuterol 100 1 puff inhalation BID 08/29/24 09/19/24 mcg/actuation mist for inhalation (Combivent Respimat) ascorbate calcium (vitamin C) 500 500 mg PO QDAY #30 t abs 09/12/24 09/12/24 mg tablet lisinopril 40 mg tablet mg 09/26/24 omeprazole 40 mg capsule,delayed 40 mg PO BID 09/26/24 09/26/24 release Allergies Allergies Allergy/AdvReac Type Severity Reaction Status Date / Time buprenorphine Allergy Anaphylaxis Verified 09/26/24 11:39 ampicillin AdvReac Rash Verified 09/26/24 11:39 [facility] Active Problems All Active Problems (Updated 09/26/24 @ 14:17 by Candy Edouard MD) Hypoxia (Acute) Acute lower respiratory infection (Acute) Acute exacerbation of chronic obstructive pulmonary disease (Acute) Acute dyspnea (Acute) Seasonal allergic rhinitis (Acute) Nasal congestion (Acute) COPD exacerbation (Acute) Chronic cough (Chronic) Insomnia due to mental disorder (Chronic) Vitamin B12 deficiency (Chronic) Dry eyes, bilateral (Acute) Discomfort of auricle of right ear (Acute) COPD (chronic obstructive pulmonary disease) (Chronic) Lymphedema (Chronic) Chronic respiratory failure with hypoxia, on home O2 therapy (Chronic) Peripheral neuropathy (Chronic) COPD mixed type (Chronic) Counseling regarding advanced directives and goals of care (Acute) Palliative care patient (Acute) Elevated hemidiaphragm (Chronic) Morbid obesity (Chronic) Cor pulmonale, chronic (Chronic) Urinary and bowel incontinence (Chronic) Tortuous aorta (Chronic) Hypertensive kidney disease with CKD stage III (Chronic) Irritable bowel syndrome with constipation (Chronic) 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) GERD (gastroesophageal reflux disease) (Chronic) Muscle weakness (Acute) Obstructive sleep apnea on CPAP (Chronic) Depression (Chronic) Hypothyroidism (Chronic) Chronic back pain (Chronic) Hyperlipidemia (Chronic) Hypertension (Chronic) Medical History Medical History Cough productive of purulent sputum Hx of osteoarthritis History of cellulitis History of wrist fracture Urinary incontinence Recurrent UTI (urinary tract infection) Anemia Metabolic encephalopathy Dementia Lymphedema of left lower extremity Chronic hypoxemic respiratory failure Thrombocytopenia Hyponatremia SIRS (systemic inflammatory response syndrome) Surgical History Surgical History History of Mohs surgery for squamous cell carcinoma of skin Social History Social History Smoking Status: Former smoker Do you dip or chew tobacco?: No Do you vape?: No Living arrangement: At home Marital Status: Living Condition: With spouse/s.o. Support Person: Yes Relationship: Significant other Physical Activity: Bedfast Level: Dependent Physical - Functional Details: 100% dependent on family for mobility Do you feel safe in your home environment?: Yes Suffered physical, verbal, emotional, or financial abuse?: No History of Abuse: No ETOH Use: None Substance Use: denies use Are you following a diet prescribed by a doctor: No Are you following a special diet: No POLST Patient has POLST: Yes POLST Status: DNR (Selective measures only) Exam Exam Vital Signs: Vital Signs x48h Temp Pulse Resp BP Pulse Ox 09/26/24 11:32 36.5 C 76 26 H 154/73 H 91 L Constitutional normal general appearance, distress noted (moderate) (Partial sentence conversational dyspnea with some sitting up position but no accessory muscles. Prolonged expiratory phase.) and average body habitus HENMT TMs normal bilaterally and oropharynx normal Neck/C-Spine supple and no meningeal signs Lymph no lymphadenopathy noted Respiratory abnormal respiratory effort (labored), wheezing noted (expiratory wheezes), no rales and no retractions Cardiovascular normal heart rate noted, regular rhythm noted and edema noted (lymphedema noted both lower legs, left more than right. ) Gastrointestinal abdomen soft to palpation, nontender to palpation and nondistended Extremities no tenderness and full ROM Psychiatry mental status grossly normal, oriented x3, thought process normal and cooperative Skin skin color normal Results Vitals Vitals: Vital Signs - 24 hr 09/26/24 11:32 09/26/24 12:22 09/26/24 12:23 Temperature 36.5 C Temperature Source Temporal Artery Scan Pulse Rate 76 56 L 59 L Respiratory Rate 26 H 20 20 Blood Pressure 154/73 H O2 Saturation 91 L 88 L O2 Source Room air Room air Room air Pain Intensity 0 09/26/24 13:00 09/26/24 13:40 09/26/24 13:59 Temperature Temperature Source Pulse Rate 94 70 62 Respiratory Rate 20 20 18 Blood Pressure 148/74 H 157/91 H O2 Saturation 89 L 91 L O2 Source Room air Room air Room air Pain Intensity 0 Oxygen O2 Source Room air Labs Labs: Laboratory Tests 09/26/24 09/26/24 11:50 12:03 WBC 7.1 RBC 3.90 L Hgb 12.9 Hct 41.9 MCV 107.4 H MCH 33.1 H MCHC 30.8 L RDW 13.9 Plt Count 183 MPV 9.4 Neut # (Auto) 4.2 Lymph # (Auto) 2.1 [place] # (Auto) 0.5 Eos # (Auto) 0.3 Baso # (Auto) 0.0 Absolute Nucleated RBC 0.00 Nucleated RBC % 0.0 Sodium 142 Potassium 4.2 Chloride 98 L Carbon Dioxide 39 H* Anion Gap 5.0 L BUN 25 H Creatinine 1.0 Estimated GFR (MDRD) 53 L Glucose 133 H Calcium 8.7 Magnesium 1.8 Total Bilirubin 0.6 AST 12 ALT 9 L Alkaline Phosphatase 58 B-Natriuretic Peptide 47 Total Protein 7.0 Albumin 3.7 Globulin 3.3 Albumin/Globulin Ratio 1.1 Lipase 40 Nasal Adenovirus (PCR) NOT DETECTED Nasal B. parapertussis DNA (PCR) NOT DETECTED Nasal Coronavir 229E PCR NOT DETECTED Nasal Coronavir HKU1 PCR NOT DETECTED Nasal Coronavir NL63 PCR NOT DETECTED Nasal Coronavir OC43 PCR NOT DETECTED Nasal Enterovir/Rhinovir PCR NOT DETECTED Nasal Influenza B PCR NOT DETECTED Nasal Influenza A PCR NOT DETECTED Nasal Parainfluen 1 PCR NOT DETECTED Nasal Parainfluen 2 PCR NOT DETECTED Nasal Parainfluen 3 PCR DETECTED A Nasal Parainfluen 4 PCR NOT DETECTED Nasal RSV (PCR) NOT DETECTED Nasal B.pertussis DNA PCR NOT DETECTED Nasal C.pneumoniae (PCR) NOT DETECTED Benito Human Metapneumo PCR NOT DETECTED Nasal M.pneumoniae (PCR) NOT DETECTED Nasal SARS-CoV-2 (PCR) NOT DETECTED PD Medical Decision Making ED course Complexity details: reviewed results (CXR without pneumonia. Resp panel positive for parainfluenza. WBC 7.4. ), considered differential, d/w patient and d/w corporate health consultant ED course: The patient has a history of COPD and has home nebulizers. She does not have home oxygen ordered at this time. Had been on it previously so has a set up apparently her concentrator. Family members are caregivers. Couple of her family members of her daughter and son-in-law had traveled to other family in [place] and came back with upper respiratory infections which the patient now has as well. She is having cough and sputum chills and weakness over the last several days and now much worse trouble breathing. She had used home nebulizer with minimal relief. EMS found that she was wheezing with sats in the upper 80s. She did better on a nasal cannula. There was partial sentence dyspnea. Arrival here in the ER she is improving some with nebulizer en route. Here in the ER room air oxygenation was 88% still and had some conversational dyspnea. She is given repeat DuoNeb and then given a dose of dexamethasone steroids. We are pending the respiratory viral panel but presume less likely viral illness. However given her underlying COPD, there be concern for bacterial as well and so we ministered some Levaquin. The patient after couple of hours in the ER did not appear to be tiring. She is actually breathing easier and able to talk in sentences. The nurses tried her off oxygen again and still dipped to as low as 88% though was not consistently hypoxic per se. However there are still a lot of diffuse wheezing and I anticipate take a little bit of time to turn this around. I talked with the hospitalist to place the patient in the hospital and they were in agreement. Discharge Plan Discharge Patient Disposition: ED Place in Observation Condition: Stable Clinical Impression: Acute dyspnea, Acute exacerbation of chronic obstructive pulmonary disease, Acute lower respiratory infection, Hypoxia Interventions: ED Admission Assessment Last Done: 09/26/24 14:10
--- NOTE | 2024-09-26 12:05 | XRAY Report ---
PROCEDURE: XR Chest 1V INDICATIONS: cough and dyspnea TECHNIQUE: One view of the chest was acquired. COMPARISON: 01/05/2024 FINDINGS AND IMPRESSION: Low lung volumes. No dense airspace disease or pleural effusion on this single view study. Mildly prominent interstitium could represent atypical infection versus edema. Mild blunting of the left costophrenic angle could represent a trace effusion. Borderline cardiomegaly. Aortic calcifications. Degenerative osseous changes. Reviewed by: Manish Sanches MD on 09/26/2024 12:04 PM PDT Approved by: Mansih Sanches MD on 09/26/2024 12:04 PM PDT Station ID: [id number]
[2024-09-26] MEDS: DEXAMETHASONE 10 MG/ML VIAL IVP STA (12:16)
[2024-09-26 12:19] LABS: BASOPHILS % (AUTO) 0.6 %; EOSINOPHILS # (AUTO) 0.3 10^3/uL (0.0-0.7); EOSINOPHILS % (AUTO) 3.8 %; HCT - HEMATOCRIT 41.9 % (37.0-47.0); HGB - HEMOGLOBIN 12.9 g/dL (12.0-16.0); LYMPHOCYTES # (AUTO) 2.1 10^3/uL (1.5-3.5); LYMPHOCYTES % (AUTO) 29.1 %; MEAN CORPUSCULAR HEMOGLOBIN 33.1 pg (27.0-31.0); MEAN CORPUSCULAR HGB CONC 30.8 g/dL (32.0-36.0); MEAN CORPUSCULAR VOLUME 107.4 fL (81.0-99.0); MEAN PLATELET VOLUME 9.4 fL (7.9-10.8); MONOCYTES # (AUTO) 0.5 10^3/uL (0.0-1.0); MONOCYTES % (AUTO) 7.3 %; NEUTROPHILS # (AUTO) 4.2 10^3/uL (1.5-6.6); NEUTROPHILS % (AUTO) 58.6 %; PLT - PLATELET COUNT 183 10^3/uL (130-450); RED CELL DISTRIBUTION WIDTH 13.9 % (12.0-15.0); WHITE BLOOD COUNT 7.1 x10^3/uL (4.8-10.8)
[2024-09-26] MEDS: IPRATROPIUM/ALBUTEROL 3 ML NEB INH STA (12:21)
[2024-09-26 12:24] LABS: MAGNESIUM 1.8 mg/dL (1.7-2.3)
[2024-09-26 12:26] LABS: ALBUMIN 3.7 g/dL (3.2-5.5); ALBUMIN/GLOBULIN RATIO 1.1 (1.0-2.2); BILIRUBIN,TOTAL 0.6 mg/dL (0.2-1.0); CALCIUM 8.7 mg/dL (8.5-10.3); POTASSIUM 4.2 mmol/L (3.5-4.5)
--- NOTE | 2024-09-26 13:54 | HISTORY & PHYSICAL EXAMINATION ---
Chief Complaint Chief Complaint Chief Complaint: Shortness of breath History of Present Illness Admitted From Admitted From:: Home History Obtained From Records Reviewed: EMR History obtained from: Patient, patient's at bedside Exam Limitations: Dementia History of Present Illness HPI Comment/Other: Patient is a 84-year-old female with a history of COPD on 1.5 to 2 L of oxygen at night who presented with 2 to 3 weeks of increased shortness of breath, productive cough, wheezing. Most of the history is obtained by her spouse, Eric, who is her primary caregiver. She is being followed closely with palliative care, [facility]. Notes were reviewed at that time. On 09/12, patient was prescribed a prednisone taper, and advised to continue nebulizer treatments 3-4 times a day. Patient states that she had does not have any fevers or chills. However, her shortness of breath has gotten worse. She is coughing up yellow to green sputum and the frequency of her cough has increased as well. In the ER, patient was saturating 88% on room air, was tachypneic to 26, heart rate was 76, she was afebrile, and her blood pressure was 154/73. Lab work showed no white count. Her bicarb was elevated at 39. Her creatinine was within normal limits at 1. Her glucose was mild elevated at 133. Chest x-ray showed low lung volumes, trace effusion, hyperinflation. She was given a dose of Decadron, levofloxacin, as well as a breathing treatment. She will be admitted under observation for COPD exacerbation. Meds/Allgy Home Medications Ambulatory Orders Medication Instructions Recorded Confirmed levothyroxine 137 mcg tablet 137 mcg PO DAILY hypothyr oid ##0 04/05/23 09/19/24 (Synthroid) d-mannose 500 mg capsule (AZO 500 mg PO DAILY 09/02/23 09/19/24 D-Mannose) zinc oxide-cod liver oil 40 % 113 g topical PRN PRN Sk in Care 09/06/23 09/19/24 topical paste (Desitin) acetaminophen 500 mg tablet 1,000 mg (2 x 500 mg) PO B ID 03/28/24 09/19/24 Arthritis pain #180 tabs cholecalciferol (vitamin D3) 50 50 mcg PO QDAY #30 cap s 03/28/24 09/19/24 mcg (2,000 unit) capsule estradiol 0.01% (0.1 mg/gram) 1 g vaginal QWEEK #42.5 grams 03/28/24 09/19/24 vaginal cream (Estrace) polyethylene glycol 3350 17 17 g PO QDAY PRN constipat ion #510 03/28/24 09/19/24 gram/dose oral powder (Miralax) grams donepezil 10 mg tablet 10 mg PO QDAY #90 tabs 04/1809/19/24 albuterol sulfate 90 mcg/actuation 1 inh inhalation Q4 H PRN shortness 05/23/24 09/19/24 aerosol inhaler (Ventolin HFA) of breath or wheezing # 8.5 grams cyanocobalamin (vitamin B-12) 500 1,000 mcg (2 x 500 m cg) PO DAILY 06/13/24 09/19/24 mcg tablet #30 tabs gabapentin 600 mg tablet 600 mg PO BID chronic back p ain 07/17/24 09/19/24 (Neurontin) #120 tabs gabapentin 300 mg capsule 300 mg PO BID #60 caps 07/2509/19/24 furosemide 20 mg tablet 40 mg (2 x 20 mg) PO QDAY #1 80 tabs 08/07/24 09/19/24 melatonin 3 mg capsule 6 mg (2 x 3 mg) PO HS #60 ca ps 08/07/24 09/19/24 ipratropium 0.5 mg-albuterol 3 mg 3 ml inhalation TID #180 mL 08/24/24 09/19/24 (2.5 mg base)/3 mL nebulization soln duloxetine 20 mg capsule,delayed 20 mg PO QDAY #60 cap s 08/29/24 09/19/24 release famotidine 40 mg tablet 40 mg PO HS #90 tabs 5 09/19/24 fluticasone propionate 50 1 spray intranasal Q12H #16 grams 08/29/24 09/19/24 mcg/actuation nasal spray,suspension ipratropium 20 mcg-albuterol 100 1 puff inhalation BID 08/29/24 09/19/24 mcg/actuation mist for inhalation (Combivent Respimat) ascorbate calcium (vitamin C) 500 500 mg PO QDAY #30 t abs 09/12/24 09/12/24 mg tablet lisinopril 40 mg tablet mg 09/26/24 omeprazole 40 mg capsule,delayed 40 mg PO BID 09/26/24 09/26/24 release Allergies Allergies Allergy/AdvReac Type Severity Reaction Status Date / Time buprenorphine Allergy Anaphylaxis Verified 09/26/24 11:39 ampicillin AdvReac Rash Verified 09/26/24 11:39 PFS Active Problems All Active Problems (Updated 09/26/24 @ 14:17 by Candy Edouard MD) Hypoxia (Acute) Acute lower respiratory infection (Acute) Acute exacerbation of chronic obstructive pulmonary disease (Acute) Acute dyspnea (Acute) Seasonal allergic rhinitis (Acute) Nasal congestion (Acute) COPD exacerbation (Acute) Chronic cough (Chronic) Insomnia due to mental disorder (Chronic) Vitamin B12 deficiency (Chronic) Dry eyes, bilateral (Acute) Discomfort of auricle of right ear (Acute) COPD (chronic obstructive pulmonary disease) (Chronic) Lymphedema (Chronic) Chronic respiratory failure with hypoxia, on home O2 therapy (Chronic) Peripheral neuropathy (Chronic) COPD mixed type (Chronic) Counseling regarding advanced directives and goals of care (Acute) Palliative care patient (Acute) Elevated hemidiaphragm (Chronic) Morbid obesity (Chronic) Cor pulmonale, chronic (Chronic) Urinary and bowel incontinence (Chronic) Tortuous aorta (Chronic) Hypertensive kidney disease with CKD stage III (Chronic) Irritable bowel syndrome with constipation (Chronic) 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) GERD (gastroesophageal reflux disease) (Chronic) Muscle weakness (Acute) Obstructive sleep apnea on CPAP (Chronic) Depression (Chronic) Hypothyroidism (Chronic) Chronic back pain (Chronic) Hyperlipidemia (Chronic) Hypertension (Chronic) Medical History Medical History Cough productive of purulent sputum Hx of osteoarthritis History of cellulitis History of wrist fracture Urinary incontinence Recurrent UTI (urinary tract infection) Anemia Metabolic encephalopathy Dementia Lymphedema of left lower extremity Chronic hypoxemic respiratory failure Thrombocytopenia Hyponatremia SIRS (systemic inflammatory response syndrome) Surgical History Surgical History History of Mohs surgery for squamous cell carcinoma of skin Social History Social History Smoking Status: Former smoker Do you dip or chew tobacco?: No Do you vape?: No Living arrangement: At home Marital Status: Living Condition: With spouse/s.o. Support Person: Yes Relationship: Significant other Physical Activity: Bedfast Level: Dependent Physical - Functional Details: 100% dependent on family for mobility Do you feel safe in your home environment?: Yes Suffered physical, verbal, emotional, or financial abuse?: No History of Abuse: No ETOH Use: None Substance Use: denies use Are you following a diet prescribed by a doctor: No Are you following a special diet: No POLST Patient has POLST: Yes POLST Status: Full Code (Patient would like to think about her code status more.) Review of Systems Constitutional Reports: Malaise and Weakness; Denies: Fatigue, Fever, Chills or Poor appetite Eyes Denies: Pain, Irritation, Blurry vision, Vision loss, Diplopia or Eye discomfort Ears, nose, mouth, and throat Denies: Ear pain, Hearing loss, Tinnitus, Nose bleeds, Nasal discharge, Mouth lesions, Bleeding gums or Neck pain Cardiovascular Reports: edema and shortness of breath with exertion; Denies: Irregular heart rate, chest pain, palpitations or Syncope Respiratory Reports: Shortness of breath, Cough, Sputum production and Wheezing Gastrointestinal Denies: Abdominal pain, Abdominal distention, Nausea, Vomiting, Heartburn, Diarrhea or Constipation Genitourinary Denies: Painful urination, Urinary frequency or Urinary urgency Musculoskeletal Denies: Back pain, Neck pain, Extremity pain, Extremity swelling or Joint pain Integumentary/Breast Denies: Rash, Itching, Dryness, Redness or Skin pain Neurological Denies: Headache, General weakness, Weakness in extremities, Numbness in extremities, Abnormal gait or Dizziness Psychiatric Denies: Depression, Anxiety, Mood swings or Panic attacks Endocrine Denies: Excessive urination, Excessive thirst or Fatigue Hematologic/Lymphatic Denies: Anemia, Easy bruising or Easy bleeding Allergic/Immunologic Reports: Wheezing; Denies: Hives, Tongue swelling or Facial swelling Prior Level of Functionality: is her DPOA/caregiver. Exam Exam Vital Signs: Vital Signs x48h Temp Pulse Pulse Resp BP BP Pulse Ox 09/26/24 15:55 98.1 F 80 20 160/82 H 93 09/26/24 14:30 98.2 F 20 148/71 H 90 L 09/26/24 13:59 62 18 09/26/24 13:40 70 20 157/91 H 91 L 05/20/25 13:00 94 20 148/74 H 89 L 09/26/24 12:23 59 L 20 88 L 09/26/24 12:22 56 L 20 09/26/24 11:32 97.7 F 76 26 H 154/73 H 91 L Constitutional normal general appearance, no apparent distress, abnormal body habitus (obese), no limitations and alert HENMT normocephalic, head/scalp atraumatic and hearing grossly normal bilaterally Eyes PERRL, EOMs intact bilaterally and conjunctivae normal Neck/C-Spine visual inspection normal and trachea midline Chest inspection of chest normal and palpation of chest normal Respiratory breath sounds equal bilaterally, normal respiratory effort, wheezing noted (expiratory wheezes) and (scattered wheezes) and no use of accessory muscles Cardiovascular normal heart rate noted, regular rhythm noted, no gallop, no rub, no murmur and edema noted (2+ peripheral edema, stable per patient) Gastrointestinal abdomen normal to inspection, abdomen soft to palpation and nontender to palpation Genitourinary no CVA tenderness and bladder normal to palpation Extremities normal to inspection, normal to palpation and full ROM Neurology no movement abnormality noted and no focal motor deficit noted Psychiatry mental status grossly normal and orientation abnormal (disoriented to place) and (disoriented to time) Skin skin color normal, no rash and no lesions Conclusion/Plan Problem List (1) Acute exacerbation of chronic obstructive pulmonary disease: Plan: Patient with increased wheezing, shortness of breath, productive cough. RVP positive for parainfluenza. Likely trigger for COPD exacerbation. Continue IV Solu-Medrol 40 mg every 6 hours for 4 doses, and then will start her on oral prednisone. Continue DuoNebs RT 4 times daily. Continue azithromycin 500 mg for 3 doses. (2) COPD (chronic obstructive pulmonary disease): Plan: See above. Patient normally uses 1.5 to 2 L of oxygen at home, especially when sleeping at night. Qualifiers: COPD type: COPD with acute exacerbation Qualified Code(s): J44.1 - Chronic obstructive pulmonary disease with (acute) exacerbation (3) Lymphedema: Plan: Continue oral Lasix. 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 (4) Hypertensive kidney disease with CKD stage III: Plan: Continue home medications including lisinopril. Qualifiers: Chronic kidney disease stage 3 subtype: stage 3a (GFR 45-59) Qualified Code(s): I12.9 - Hypertensive chronic kidney disease with stage 1 through stage 4 chronic kidney disease, or unspecified chronic kidney disease; N18.31 - Chronic kidney disease, stage 3a (5) Moderate late onset Alzheimer's dementia with anxiety: Plan: Patient's mentation is at baseline. Her who is at bedside is her primary caregiver. (6) Hyperlipidemia: Plan: Continue statin. Qualifiers: Hyperlipidemia type: unspecified Qualified Code(s): E78.5 - Hyperlipidemia, unspecified (7) Hypothyroidism: Plan: Continue levothyroxine. Qualifiers: Hypothyroidism type: unspecified Qualified Code(s): E03.9 - Hypothyroidism, unspecified (8) Depression: Plan: Continue duloxetine. Qualifiers: Active/Remission status: currently active Depression Type: major depressive disorder Major depression episode severity: mild Major depression recurrence: recurrent Qualified Code(s): F33.0 - Major depressive disorder, recurrent, mild (9) GERD (gastroesophageal reflux disease): Plan: Continue Pepcid. Qualifiers: Esophagitis presence: without esophagitis Qualified Code(s): K21.9 - Gastro-esophageal reflux disease without esophagitis (10) Obstructive sleep apnea on CPAP: Plan: Continue oxygen at night, patient has not been using her CPAP. Lab Results Lab results reviewed: Yes 09/26/24 12:03 09/26/24 12:03 Diagnostic Imaging Results Diagnostic Imaging Results: positive Final report reviewed Core Measures Anticipated LOS I expect patient to be DC'd or transferred within 96 hours.: Yes DVT/VTE - Prophylaxis VTE/DVT Device ordered at admit?: Yes VTE/DVT Prophylaxis med ordered at admit?: Yes
[2024-09-26] MEDS: levoFLOXacin 500 MG/100 ML 500 MG/100 ML BAG IV STA (13:56)
[2024-09-26] MEDS: ALBUTEROL NEB 2.5 MG/3 ML INH STA (13:57)
[2024-09-26] MEDS ORDERED: SODIUM CHLORIDE FLUSH 0.9% 10 ML SYRINGE IVP PRN (14:23)
[2024-09-26 14:25] LABS: B. PARAPERTUSSIS- RESP PCR PAN NOT DETECTED; B. PERTUSSIS- RESP PCR PANEL NOT DETECTED; C. PNEUMONIAE- RESP PCR PANEL NOT DETECTED; CORONAVIRUS 229E-RESP PCR NOT DETECTED; CORONAVIRUS HKU1-RESP PCR NOT DETECTED; CORONAVIRUS NL63-RESP PCR NOT DETECTED; CORONAVIRUS OC43-RESP PCR NOT DETECTED; HUMAN METAPNEUMOVIRUS NOT DETECTED; INFLUENZA A- RESP PCR PANEL NOT DETECTED; INFLUENZA B - RESP PCR PANEL NOT DETECTED; M. PNEUMONIAE- RESP PCR PANEL NOT DETECTED; PARAINFLUENZA VIRUS 1 NOT DETECTED; PARAINFLUENZA VIRUS 2 NOT DETECTED; PARAINFLUENZA VIRUS 4 NOT DETECTED; RHINOVIRUS/ENTEROVIRUS NOT DETECTED; RSV- RESP PCR PANEL NOT DETECTED; SARS-CoV-2 -RESP PCR PANEL NOT DETECTED
[2024-09-26] MEDS ORDERED: ESTRADIOL VG SCH (16:00)
[2024-09-26] MEDS: DONEPEZIL 5 MG TABLET PO SCH (16:12)
[2024-09-26] MEDS: FLUTICASONE NASAL SPRAY NAS SCH (16:12)
[2024-09-26] MEDS ORDERED: IPRATROPIUM/ALBUTEROL 3 ML NEB INH SCH (17:00)
[2024-09-26] MEDS: IPRATROPIUM/ALBUTEROL 3 ML NEB INH SCH (17:04)
[2024-09-26] MEDS: SODIUM CHLORIDE FLUSH 0.9% 10 ML SYRINGE IVP SCH (18:25)
[2024-09-26] MEDS: methylPREDNISolone SUCCINATE 40 MG/ML VIAL IVP SCH (18:25)
[2024-09-26] MEDS: QUEtiapine 25 MG TABLET PO SCH (18:25)
[2024-09-26] MEDS: MELATONIN 3 MG TABLET PO SCH (20:46)
[2024-09-26] MEDS: FAMOTIDINE 20 MG TABLET PO SCH (20:46)
[2024-09-26] MEDS: GABAPENTIN 300 MG CAPSULE PO SCH (20:46)
[2024-09-26] MEDS: PANTOPRAZOLE 40 MG TABLET PO SCH (20:46)
[2024-09-27] MEDS: ACETAMINOPHEN 325 MG TABLET PO PRN (00:07)
[2024-09-27 05:50] LABS: HCT - HEMATOCRIT 40.7 % (37.0-47.0); HGB - HEMOGLOBIN 12.9 g/dL (12.0-16.0); MEAN CORPUSCULAR HEMOGLOBIN 32.7 pg (27.0-31.0); MEAN CORPUSCULAR HGB CONC 31.7 g/dL (32.0-36.0); MEAN PLATELET VOLUME 9.9 fL (7.9-10.8); RED BLOOD COUNT 3.95 10^6/uL (4.20-5.40); RED CELL DISTRIBUTION WIDTH 13.4 % (12.0-15.0); WHITE BLOOD COUNT 7.4 x10^3/uL (4.8-10.8)
[2024-09-27 06:00] LABS: MAGNESIUM 1.9 mg/dL (1.7-2.3)
[2024-09-27] MEDS: LEVOTHYROXINE 112 MCG TABLET PO SCH (06:02)
[2024-09-27] MEDS: LEVOTHYROXINE 25 MCG TABLET PO SCH (06:02)
[2024-09-27 06:06] LABS: POTASSIUM 4.3 mmol/L (3.5-4.5)
[2024-09-27] MEDS: IPRATROPIUM/ALBUTEROL 3 ML NEB INH SCH ×2 (07:23→15:12)
[2024-09-27] MEDS: ENOXAPARIN 40 MG/0.4 ML SYRINGE SUBQ SCH (08:27)
[2024-09-27] MEDS: CHOLECALCIFEROL 25 MCG TABLET PO SCH (08:27)
[2024-09-27] MEDS: CYANOCOBALAMIN 500 MCG TABLET PO SCH (08:27)
[2024-09-27] MEDS: FUROSEMIDE 40 MG TABLET PO SCH (08:27)
[2024-09-27] MEDS: AZITHROMYCIN 250 MG TABLET PO SCH (08:27)
[2024-09-27] MEDS: predniSONE 20 MG TABLET PO SCH (08:27)
[2024-09-27] MEDS: lisinopriL 20 MG TABLET PO SCH (08:28)
[2024-09-27] MEDS: ASCORBIC ACID 500 MG TABLET PO SCH (08:28)
[2024-09-27] MEDS: DULoxetine 20 MG CAPSULE PO SCH (08:32)
[2024-09-27] MEDS: D MANNOSE 500 MG PO SCH (11:44)
--- NOTE | 2024-09-27 12:26 | PROVIDER PROGRESS NOTE ---
Subjective Subjective Subjective: Patient was pretty confused overnight. She endorses seeing things that are not there. Her is at bedside, and reiterates that she does get pretty delirious when hospitalized, or with an active infection. She still feels pretty short of breath. She is continuously wheezing. She also has a productive cough. Every time she moves, she is getting short of breath. Current Medications Current Medications Current Medications: Current Medications Generic Name Dose Route Start Last Admin Trade Name Freq PRN Reason Stop Dose Admin Acetaminophen 650 mg 09/26/24 14:23 09/27/24 00:07 Acetaminophen 325 Mg Tablet PO 650 mg Q4HR PRN Administration Pain 1 to 4, or Fever Albuterol/Ipratropium 3 ml 09/26/24 19:00 09/27/24 11:22 Ipratropium/Albuterol 3 Ml Neb INH 3 ml RTQID EDWARD Administration Ascorbic Acid 500 mg 09/27/24 09:00 09/27/24 08:28 Ascorbic Acid 500 Mg Tablet PO 500 mg DAILY EDWARD Administration Azithromycin 500 mg 09/27/24 09:00 09/27/24 08:27 Azithromycin 250 Mg Tablet PO 500 mg DAILY EDWARD Administration Cholecalciferol 50 mcg 09/27/24 09:00 09/27/24 08:27 Cholecalciferol 25 Mcg Tablet PO 50 mcg DAILY EDWARD Administration Cyanocobalamin 1,000 mcg 09/27/24 09:00 09/27/24 08:27 Cyanocobalamin 500 Mcg Tablet PO 1,000 mcg DAILY EDWARD Administration Donepezil HCl 10 mg 09/26/24 15:00 09/26/24 16:12 Donepezil 5 Mg Tablet PO 10 mg DAILY EDWARD Administration Duloxetine HCl 20 mg 09/27/24 09:00 09/27/24 08:32 Duloxetine 20 Mg Capsule PO 20 mg DAILY EDWARD Administration Enoxaparin Sodium 40 mg 09/27/24 09:00 09/27/24 08:27 Enoxaparin 40 Mg/0.4 Ml Syringe SUBQ 40 mg DAILY EDWARD Administration Famotidine 40 mg 09/26/24 21:00 09/26/24 20:46 Famotidine 20 Mg Tablet PO 40 mg HS EDWARD Administration Fluticasone Propionate 2 sprays 09/26/24 15:00 09/27/24 03:30 Fluticasone Nasal [place] CORY Not Given Q12H EDWARD Furosemide 40 mg 09/27/24 09:00 09/27/24 08:27 Furosemide 40 Mg Tablet PO 40 mg DAILY EDWARD Administration Gabapentin 300 mg 09/26/24 21:00 09/27/24 08:27 Gabapentin 300 Mg Capsule PO 300 mg BID EDWARD Administration Levothyroxine Sodium 112 mcg 09/27/24 07:00 09/27/24 06:02 Levothyroxine 112 Mcg Tablet PO 112 mcg QDAC EDWARD Administration Levothyroxine Sodium 25 mcg 09/27/24 07:00 09/27/24 06:02 Levothyroxine 25 Mcg Tablet PO 25 mcg QDAC EDWARD Administration Lisinopril 40 mg 09/27/24 09:00 09/27/24 08:28 Lisinopril 20 Mg Tablet PO 40 mg DAILY EDWARD Administration Melatonin 6 mg 09/26/24 21:00 09/26/24 20:46 Melatonin 3 Mg Tablet PO 6 mg HS EDWARD Administration Pantoprazole Sodium 40 mg 09/27/24 16:00 Pantoprazole 40 Mg Tablet PO BIDAC [facility] D-Mannose 500mg 500 each 09/27/24 09:00 09/27/24 11:44 Capsule PO Not Given DAILY [facility] Estradiol 0.1% 1 each 09/26/24 16:00 Vaginal Cream VG QWEEK [facility] Quetiapine Fumarate 25 mg 09/27/24 21:00 Quetiapine 25 Mg Tablet PO QPM [facility] Sodium Chloride 10 ml 09/26/24 14:23 Sodium Chloride Flush 0.9% 10 Ml Syringe IVP PRN PRN NEEDED PER PROVIDER ORDERS Sodium Chloride 10 ml 09/26/24 17:00 09/27/24 08:29 Sodium Chloride Flush 0.9% 10 Ml Syringe IVP 10 ml 0100,0900,1700 EDWARD Administration Objective Vital Signs/Intake & Output Reviewed Vital Signs: Yes Vital Signs: Vital Signs x48h Temp Pulse Pulse Resp BP Pulse Ox O2 Flow Rate 09/27/24 11:22 84 19 2 09/27/24 08:00 98.1 F 80 20 129/76 93 09/27/24 07:23 81 19 09/27/24 05:00 98.2 F 91 18 157/80 H 90 L Intake & Output: Intake & Output 09/24/24 09/25/24 09/26/24 09/27/24 23:59 23:59 23:59 23:59 Intake Total 400 / 400 240 / 240 Output Total 850 / 850 200 / 200 Balance -450 / -450 40 / 40 Weight (kg) 123 kg Objective General Appearance: positive No acute distress, Alert and Anxious Eyes Bilateral: positive Normal inspection, PERRL and EOMI ENT: positive ENT inspection nml, Pharynx nml and No signs of dehydration Neck: positive Nml inspection, Thyroid nml and No JVD Respiratory: positive Chest non-tender and Wheezes (mild expiratory wheezing noted in all lung dick); negative No respiratory distress (mild distress), Rales or Rhonchi Cardiovascular: positive Regular rate & rhythm, No murmur and No gallop Abdomen: positive Non-tender, No organomegaly and No distention; negative Hepatomegaly, Splenomegaly or Mass Back: positive Nml inspection; negative CVA tenderness (R) or CVA tenderness (L) Skin: positive Color nml, No rash, Warm, Dry and Other (skin breakdown in sacral region; no purulence or drainage noted) Extremities: positive Non-tender, Full ROM and Pedal edema (minimal, trace) Neurologic/Psychiatric: positive Motor nml, Disoriented to place, Disoriented to time and Other (confused, hallucinating, agitated) Lab Results 09/27/24 05:05 09/27/24 05:05 Other Labs: Lab Results x24hrs 09/27/24 09/26/24 09/26/24 Range/Units 05:05 12:03 11:50 WBC 7.4 (4.8-10.8) x10^3/uL RBC 3.95 L (4.20-5.40) 10^6/uL Hgb 12.9 (12.0-16.0) g/dL Hct 40.7 (37.0-47.0) % MCV 103.0 H (81.0-99.0) fL MCH 32.7 H (27.0-31.0) pg MCHC 31.7 L (32.0-36.0) g/dL RDW 13.4 (12.0-15.0) % Plt Count 194 (130-450) 10^3/uL MPV 9.9 (7.9-10.8) fL Sodium 138 142 (135-145) mmol/L Potassium 4.3 4.2 (3.5-4.5) mmol/L Chloride 98 L 98 L (101-111) mmol/L Carbon Dioxide 34 H 39 H* (21-32) mmol/L Anion Gap 6.0 5.0 L (6-13) BUN 24 H 25 H (6-20) mg/dL Creatinine 1.0 1.0 (0.6-1.3) mg/dL Estimated GFR (MDRD) 53 L 53 L (>89) Glucose 178 H 133 H (74-104) mg/dL Calcium 9.0 8.7 (8.5-10.3) mg/dL Magnesium 1.9 (1.7-2.3) mg/dL Total Bilirubin 0.6 (0.2-1.0) mg/dL AST 12 (10-42) IU/L ALT 9 L (10-60) IU/L Alkaline Phosphatase 58 (42-121) IU/L B-Natriuretic Peptide 47 (5-100) pg/mL Total Protein 7.0 (6.4-8.9) g/dL Albumin 3.7 (3.2-5.5) g/dL Globulin 3.3 (2.1-4.2) g/dL Albumin/Globulin Ratio 1.1 (1.0-2.2) Nasal Adenovirus (PCR) NOT DETECTED Nasal B. parapertussis DNA (PCR) NOT DETECTED Nasal Coronavir 229E PCR NOT DETECTED Nasal Coronavir HKU1 PCR NOT DETECTED Nasal Coronavir NL63 PCR NOT DETECTED Nasal Coronavir OC43 PCR NOT DETECTED Nasal Enterovir/Rhinovir PCR NOT DETECTED Nasal Influenza B PCR NOT DETECTED Nasal Influenza A PCR NOT DETECTED Nasal Parainfluen 1 PCR NOT DETECTED Nasal Parainfluen 2 PCR NOT DETECTED Nasal Parainfluen 3 PCR DETECTED A Nasal Parainfluen 4 PCR NOT DETECTED Nasal RSV (PCR) NOT DETECTED Nasal B.pertussis DNA PCR NOT DETECTED Nasal C.pneumoniae (PCR) NOT DETECTED Cory Human Metapneumo PCR NOT DETECTED Nasal M.pneumoniae (PCR) NOT DETECTED Nasal SARS-CoV-2 (PCR) NOT DETECTED Diagnostic Imaging Diagnostic Imaging Results: positive Final report reviewed Assessment/Plan Problem List (1) Acute exacerbation of chronic obstructive pulmonary disease: Impression: Patient with increased wheezing, shortness of breath, productive cough. RVP positive for parainfluenza. Likely trigger for COPD exacerbation. Continue IV Solu-Medrol 40 mg - decreased from every 6 hours to twice a day, and then will start her on oral prednisone. Continue DuoNebs RT 4 times daily. Continue azithromycin 500 mg for 3 doses. (2) COPD (chronic obstructive pulmonary disease): Impression: See above. Patient normally uses 1.5 to 2 L of oxygen at home, especially when sleeping at night. Qualifiers: COPD type: COPD with acute exacerbation Qualified Code(s): J44.1 - Chronic obstructive pulmonary disease with (acute) exacerbation (3) Lymphedema: Impression: Continue oral Lasix. 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 (4) Hypertensive kidney disease with CKD stage III: Impression: Continue home medications including lisinopril. 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 Her who is at bedside is her primary caregiver. Continue donepezil. Some delirium noted overnight; continue Seroquel. (6) Hyperlipidemia: Impression: Continue statin. Qualifiers: Hyperlipidemia type: unspecified Qualified Code(s): E78.5 - Hyperlipidemia, unspecified (7) Hypothyroidism: Impression: Continue levothyroxine. Qualifiers: Hypothyroidism type: unspecified Qualified Code(s): E03.9 - Hypothyroidism, unspecified (8) Depression: Impression: Continue duloxetine. Qualifiers: Active/Remission status: currently active Depression Type: major depressive disorder Major depression episode severity: mild Major depression recurrence: recurrent Qualified Code(s): F33.0 - Major depressive disorder, recurrent, mild (9) GERD (gastroesophageal reflux disease): Impression: Continue Pepcid. Qualifiers: Esophagitis presence: without esophagitis Qualified Code(s): K21.9 - Gastro-esophageal reflux disease without esophagitis (10) Obstructive sleep apnea on CPAP: Impression: Continue oxygen at night, patient has not been using her CPAP.
--- NOTE | 2024-09-27 12:29 | PHARMACY PROGRESS NOTE ---
Best Possible Medication History Admit Date and Time: 09/26/24 [id number] Home Medications Medication Instructions Recorded Confirmed Type levothyroxine 137 mcg tablet 137 mcg PO DAILY hypothyr oid ##0 04/05/23 09/27/24 Rx (Synthroid) d-mannose 500 mg capsule (AZO 500 mg PO DAILY 09/02/23 09/27/24 History D-Mannose) acetaminophen 500 mg tablet 1,000 mg (2 x 500 mg) PO B ID 03/28/24 09/27/24 Rx Arthritis pain #180 tabs cyanocobalamin (vitamin B-12) 500 1,000 mcg (2 x 500 m cg) PO DAILY 06/13/24 09/27/24 Rx mcg tablet #30 tabs gabapentin 600 mg tablet 600 mg PO BID chronic back p ain 07/17/24 09/27/24 Rx (Neurontin) #120 tabs gabapentin 300 mg capsule 300 mg PO BID #60 caps 07/2509/27/24 Rx melatonin 3 mg capsule 6 mg (2 x 3 mg) PO HS #60 ca ps 08/07/24 09/27/24 Rx ipratropium 0.5 mg-albuterol 3 mg 3 ml inhalation TID #180 mL 08/24/24 09/27/24 Rx (2.5 mg base)/3 mL nebulization soln famotidine 40 mg tablet 40 mg PO HS #90 tabs 5 09/27/24 Rx fluticasone propionate 50 1 spray intranasal Q12H #16 grams 08/29/24 09/27/24 Rx mcg/actuation nasal spray,suspension lisinopril 40 mg tablet 40 mg PO DAILY 09/26/2409/08 History omeprazole 40 mg capsule,delayed 40 mg PO BID 09/26/24 09/26/24 History release albuterol sulfate 90 mcg/actuation 1 inh inhalation QI D shortness of 09/27/24 09/27/24 History aerosol inhaler (Ventolin HFA) breath or wheezing ascorbate calcium (vitamin C) 500 500 mg PO DAILY 09/0809/27/24 History mg tablet cholecalciferol (vitamin D3) 50 50 mcg PO DAILY 09/27/24 History mcg (2,000 unit) capsule donepezil 10 mg tablet 10 mg PO DAILY 09/27/2409/08 History duloxetine 20 mg capsule,delayed 20 mg PO DAILY 09/27/24 History release estradiol 0.01% (0.1 mg/gram) 1 g vaginal QWEEK 09/27/24 History vaginal cream (Estrace) furosemide 20 mg tablet 40 mg PO DAILY 09/27/2409/08 History polyethylene glycol 3350 17 17 g PO DAILY PRN constipa tion 09/27/24 09/27/24 History gram/dose oral powder (Miralax) Processed by: Pharmacy Medications reviewed in ED?: No Medication History completed: Yes Patient Interview: Completed Secondary Source(s): Spouse/Significant other and Insurance records [facility] Statement: As the person ultimately responsible for medication therapy, providers are able to order a medication from an existing home medication list in [facility] via the "Reconcile Routine" prior to Confirmation of that medication by client support administrator. Such practice is discouraged except when the physician, in their clinical judgment, deems that a medical need exists for a medication without regard to previous use.
[2024-09-27] MEDS: PANTOPRAZOLE 40 MG TABLET PO SCH (16:47)
[2024-09-27] MEDS ORDERED: COD LIVER OIL/ZINC OXIDE 113 GM TUBE TOP PRN (19:16)
[2024-09-27] MEDS: QUEtiapine 25 MG TABLET PO SCH (20:46)
[2024-09-27] MEDS: methylPREDNISolone SUCCINATE 40 MG/ML VIAL IVP SCH (20:47)
[2024-09-28 05:58] LABS: HCT - HEMATOCRIT 36.6 % (37.0-47.0); HGB - HEMOGLOBIN 11.6 g/dL (12.0-16.0); MEAN CORPUSCULAR HEMOGLOBIN 32.6 pg (27.0-31.0); MEAN CORPUSCULAR HGB CONC 31.7 g/dL (32.0-36.0); MEAN CORPUSCULAR VOLUME 102.8 fL (81.0-99.0); MEAN PLATELET VOLUME 9.8 fL (7.9-10.8); RED BLOOD COUNT 3.56 10^6/uL (4.20-5.40); WHITE BLOOD COUNT 9.3 x10^3/uL (4.8-10.8)
[2024-09-28 06:13] LABS: CALCIUM 8.8 mg/dL (8.5-10.3); POTASSIUM 4.3 mmol/L (3.5-4.5)
--- NOTE | 2024-09-28 08:22 | Discharge Summary ---
"Discharge Summary Admit Date: 09/26/24 Discharge Date: 09/28/24 Discharging Provider: Dr. 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 No wheezing. Continue 2 more days of oral prednisone. Continue breathing treatments and inhalers at home. COPD - Continue home inhlaers. Lymphedema - Continue home Lasix. 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 Her who is at bedside is her primary caregiver. Continue donepezil. Hyperlipidemia Continue statin. Hypothyroidism Continue levothyroxine. Depression Continue duloxetine. GERD Continue Pepcid. Obstructive sleep apnea on CPAP Continue oxygen at night, patient has not been using her CPAP. HPI History of Present Illness: Patient is a 84-year-old female with a history of COPD on 1.5 to 2 L of oxygen at night who presented with 2 to 3 weeks of increased shortness of breath, productive cough, wheezing. Most of the history is obtained by her spouse, Eric, who is her primary caregiver. She is being followed closely with palliative care. Notes were reviewed at that time. On 09/12, patient was prescribed a prednisone taper, and advised to continue nebulizer treatments 3-4 times a day. Patient states that she had does not have any fevers or chills. However, her shortness of breath has gotten worse. She is coughing up yellow to green sputum and the frequency of her cough has increased as well. In the ER, patient was saturating 88% on room air, was tachypneic to 26, heart rate was 76, she was afebrile, and her blood pressure was 154/73. Lab work showed no white count. Her bicarb was elevated at 39. Her creatinine was within normal limits at 1. Her glucose was mild elevated at 133. Chest x-ray showed low lung volumes, trace effusion, hyperinflation. She was given a dose of Decadron, levofloxacin, as well as a breathing treatment. She will be admitted under observation for COPD exacerbation. CONSULTS | PROCEDURES Procedures: Chest x-ray HOSPITAL COURSE Hospital Course: Patient is a 84-year-old female with a history of COPD on 1.5 to 2 L of oxygen at night who presented with a few weeks of increased shortness of breath, productive cough, wheezing worsening over the last couple days. Respiratory viral panel was positive for parainfluenza. This was likely the trigger of the COPD exacerbation. She was placed on IV Solu-Medrol for 2 days, and then transitioned to oral prednisone. She is back down at her normal baseline oxygen needs. She still is a persistent cough, for which she was advised to continue symptomatic care at home. She will be discharged home on 2 days of oral prednisone. She was deemed suitable for discharge home with close follow-up with palliative care, primary care provider. ALLERGIES Allergies Allergy/AdvReac Type Severity Reaction Status Date / Time buprenorphine Allergy Anaphylaxis Verified 09/26/24 11:39 ampicillin AdvReac Rash Verified 09/26/24 11:39 MEDICATIONS Ambulatory Orders Medication Instructions Recorded Confirmed levothyroxine 137 mcg tablet 137 mcg PO DAILY hypothyr oid ##0 04/05/23 09/27/24 (Synthroid) d-mannose 500 mg capsule (AZO 500 mg PO DAILY 09/02/23 09/27/24 D-Mannose) acetaminophen 500 mg tablet 1,000 mg (2 x 500 mg) PO B ID 03/28/24 09/27/24 Arthritis pain #180 tabs cyanocobalamin (vitamin B-12) 500 1,000 mcg (2 x 500 m cg) PO DAILY 06/13/24 09/27/24 mcg tablet #30 tabs gabapentin 600 mg tablet 600 mg PO BID chronic back p ain 07/17/24 09/27/24 (Neurontin) #120 tabs gabapentin 300 mg capsule 300 mg PO BID #60 caps 07/2509/27/24 melatonin 3 mg capsule 6 mg (2 x 3 mg) PO HS #60 ca ps 08/07/24 09/27/24 ipratropium 0.5 mg-albuterol 3 mg 3 ml inhalation TID #180 mL 08/24/24 09/27/24 (2.5 mg base)/3 mL nebulization soln famotidine 40 mg tablet 40 mg PO HS #90 tabs 5 09/27/24 fluticasone propionate 50 1 spray intranasal Q12H #16 grams 08/29/24 09/27/24 mcg/actuation nasal spray,suspension lisinopril 40 mg tablet 40 mg PO DAILY 09/26/2409/08 omeprazole 40 mg capsule,delayed 40 mg PO BID 09/26/24 09/26/24 release albuterol sulfate 90 mcg/actuation 1 inh inhalation QI D shortness of 09/27/24 09/27/24 aerosol inhaler (Ventolin HFA) breath or wheezing ascorbate calcium (vitamin C) 500 500 mg PO DAILY 09/0809/27/24 mg tablet cholecalciferol (vitamin D3) 50 50 mcg PO DAILY 09/27/24 mcg (2,000 unit) capsule donepezil 10 mg tablet 10 mg PO DAILY 09/27/2409/08 duloxetine 20 mg capsule,delayed 20 mg PO DAILY 09/27/24 release estradiol 0.01% (0.1 mg/gram) 1 g vaginal QWEEK 09/27/24 vaginal cream (Estrace) furosemide 20 mg tablet 40 mg PO DAILY 09/27/2409/08 polyethylene glycol 3350 17 17 g PO DAILY PRN constipa tion 09/27/24 09/27/24 gram/dose oral powder (Miralax) prednisone 20 mg tablet 40 mg (2 x 20 mg) PO DAILYWM 2 09/28/24 days #4 tabs PHYSICAL EXAM AT DISCHARGE Vital Signs: Vital Signs x48h Temp Pulse Pulse Resp BP Pulse Ox O2 Flow Rate 09/28/24 11:09 78 20 09/28/24 08:22 97.7 F 62 20 150/64 H 99 1.5 09/28/24 07:00 1.5 General Appearance: positive No acute distress and Alert; negative Anxious Eyes Bilateral: positive Normal inspection, PERRL and EOMI ENT: positive ENT inspection nml, Pharynx nml and No signs of dehydration Neck: positive Nml inspection, Thyroid nml, No JVD and Trachea midline Respiratory: positive Chest non-tender, No respiratory distress and Breath sounds nml; negative Wheezes or Rhonchi Cardiovascular: positive Regular rate & rhythm, No murmur and No gallop Peripheral Pulses: positive 2+ Abdomen: positive Non-tender, Nml bowel sounds and No distention; negative Guarding Back: positive Nml inspection; negative CVA tenderness (R) or CVA tenderness (L) Skin: positive Color nml, No rash and Warm Extremities: positive Non-tender and Pedal edema (chronic lymphedema changes) Neurologic/Psychiatric: positive Mood/affect nml, Disoriented to place and Disoriented to time LABS 09/28/24 05:28 09/28/24 05:28 DIAGNOSTIC IMAGING Diagnostic Imaging Results: Final report reviewed FOLLOW UP Follow Up: Follow up with PCP. Follow up with Palliative care. TIME SPENT Time Spent in Discharge (Minutes): 35 Discharge Plan Discharge Patient Disposition: Home Health Service Condition: Stable Prescriptions: New prednisone 20 mg Tablet 40 mg PO DAILYWM 2 Days Qty: 4 0RF Continued cyanocobalamin (vitamin B-12) 500 mcg tablet 1,000 mcg PO DAILY Qty: 30 0RF gabapentin [Neurontin] 600 mg tablet 600 mg PO BID Qty: 120 2RF Rx Instructions: 600 mg + 300 mg am and bedtime = 900 mg melatonin 3 mg capsule 6 mg PO HS Qty: 60 3RF Rx Instructions: Give 2 hours prior to usual bedtime ipratropium-albuterol 0.5 mg-3 mg(2.5 mg base)/3 mL solution for nebulization 3 ml inhalation TID Qty: 180 3RF Rx Instructions: Use three times a day and may have one prn as needed. 4 doses daily max. levothyroxine [Synthroid] 137 MCG tablet 137 mcg PO DAILY Qty: 0 0RF Patient Comments: TAKE ONE TABLET BY MOUTH ONE TIME DAILY AZO D-Mannose 500 MG capsule 500 mg PO DAILY lisinopril 40 mg tablet 40 mg PO DAILY Patient Comments: TAKE ONE TABLET BY MOUTH ONE TIME DAILY omeprazole 40 mg capsule,delayed release(DR/EC) 40 mg PO BID donepezil 10 mg tablet 10 mg PO DAILY ascorbate calcium (vitamin C) 500 mg tablet 500 mg PO DAILY furosemide 20 mg tablet 40 mg PO DAILY polyethylene glycol 3350 [Miralax] 17 gram/dose powder 17 g PO DAILY PRN (Reason: constipation) estradiol [Estrace] 0.01 % (0.1 mg/gram) cream 1 g vaginal QWEEK Rx Instructions: Apply a small dab (end of pinkie) to the urethra meatus 2-3x weekly at final changing of day. on saturdays albuterol sulfate [Ventolin HFA] 90 mcg/actuation HFA aerosol inhaler 1 inh inhalation QID duloxetine 20 mg capsule,delayed release(DR/EC) 20 mg PO DAILY cholecalciferol (vitamin D3) 50 mcg (2,000 unit) capsule 50 mcg PO DAILY gabapentin 300 mg capsule 300 mg PO BID Qty: 60 2RF Rx Instructions: Take 300 mg with 600 mg am/PM = 900 mg famotidine 40 mg tablet 40 mg PO HS Qty: 90 3RF fluticasone propionate 50 mcg/actuation spray,suspension 1 spray intranasal Q12H Qty: 16 2RF Rx Instructions: administer into each nostril acetaminophen 500 mg tablet 1,000 mg PO BID Qty: 180 3RF Rx Instructions: Give in AM and dinner time Activity Restrictions: Activity as Tolerated Diet: Regular Health Concerns: You came in because you were feeling short of breath and were very wheezy. You were found to have parainfluenza (one of the viruses that causes the common cold). This likely triggered a COPD exacerbation. We started you on steroids, breathing treatments, with improvement of your breathing. Please continue a few more days of prednisone. I have re-ordered Home Care for you. We are glad you're feeling better. Thanks for allowing us to take care of you. Print Language: [place] Patient Instructions: Chronic Lung Disease Irritants, Chronic Lung Disease Oxygen Stand Alone Forms: PCP List"
[2024-09-28] MEDS: predniSONE 20 MG TABLET PO SCH (10:18)
[2024-09-28 17:30] VITALS: BP 158/81
[2024-09-28 17:48] VITALS: TEMP 98.6; O2SAT 95
== END 2024-09-28 17:15 | disposition home health service (06) | DRG 191 ==
LOC: ED 11:25 → MS2 11:25
PROVIDERS: ADMIT Internal Medicine; ATTEND Internal Medicine
DX: N18.31 Chronic kidney disease, stage 3a; K21.9 Gastro-esophageal reflux disease without esophagitis; I89.0 Lymphedema, not elsewhere classified; Z85.42 Personal history of malignant neoplasm of other parts of uterus; F33.0 Major depressive disorder, recurrent, mild; Z87.891 Personal history of nicotine dependence; G30.1 Alzheimer's disease with late onset; J44.0 Chronic obstructive pulmonary disease with (acute) lower respiratory infection; J44.1 Chronic obstructive pulmonary disease with (acute) exacerbation; E78.5 Hyperlipidemia, unspecified; B97.89 Other viral agents as the cause of diseases classified elsewhere; G47.33 Obstructive sleep apnea (adult) (pediatric); E03.9 Hypothyroidism, unspecified; F02.B4 Dementia in other diseases classified elsewhere, moderate, with anxiety; J96.11 Chronic respiratory failure with hypoxia; B34.8 Other viral infections of unspecified site; I12.9 Hypertensive chronic kidney disease with stage 1 through stage 4 chronic kidney disease, or unspecified chronic kidney disease